=== PATIENT | female | born 1980 | race Caucasian/White ===

== ENCOUNTER → 2017-01-24 | Outpatient (REF) | payer BC ==
[2017-01-24 13:05] LABS: BASO % 0.2 % (0.0-1.0); EOS # 0.1 K/mm3 (0.0-0.50); EOS % 1.5 % (0.0-3.0); LARGE UNSTAINED CELL # 0.1 K/mm3 (0.0-0.4); LARGE UNSTAINED CELL % 1.2 % (0.0-4.0); LYMPH # 1.5 K/mm3 (1.5-4.5); MEAN CORPUSCULAR HGB CONC 33.5 g/dl (32.0-36.5); MEAN CORPUSCULAR VOLUME 92.5 fl (80.0-96.0); MONO # 0.3 K/mm3 (0.0-0.8); MONO % 4.1 % (0.0-5.0); NEUTROPHILS # 5.4 K/mm3 (1.8-7.7); NEUTROPHILS % 73.1 % (36.0-66.0); PLATELET COUNT, AUTOMATED 231 k/mm3 (150-450); RED CELL DISTRIBUTION WIDTH 12.9 % (11.5-14.5); WHITE BLOOD COUNT 7.3 K/mm3 (4.0-10.0)
[2017-01-24 13:52] LABS: ALBUMIN 3.7 GM/DL (3.2-5.2); ALBUMIN/GLOBULIN RATIO 1.12 (1.00-1.93); ALKALINE PHOSPHATASE 72 U/L (45-117); ALT/SGPT 24 U/L (12-78); ANION GAP 6 MEQ/L (8-16); AST/SGOT 12 U/L (15-37); BILIRUBIN,TOTAL 0.3 MG/DL (0.2-1.0); BLOOD UREA NITROGEN 15 MG/DL (7-18); CALCIUM LEVEL 10.1 MG/DL (8.5-10.1); CARBON DIOXIDE LEVEL 28 MEQ/L (21-32); CHLORIDE LEVEL 109 MEQ/L (98-107); CREATININE FOR GFR 1.05 MG/DL (0.55-1.02); GLOMERULAR FILTRATION RATE > 60.0 (>60); GLUCOSE, FASTING 73 MG/DL (70-105); POTASSIUM SERUM 4.4 MEQ/L (3.5-5.1); SODIUM LEVEL 143 MEQ/L (136-145)
== END ==
LOC: M LABNEURO 12:30
PROVIDERS: ATTEND Psychiatry & Neurology Neurology
DX: G43.909 Migraine, unspecified, not intractable, without status migrainosus (principal)

== ENCOUNTER → 2017-02-10 | Outpatient (REF) | payer BC ==
[~2017-02-10] MED LIST: AUGM875T28 PO; BUSP10TA PO; CYMB60CA3 PO; HYDR12.55 PO; MECL12.575 PO; NORCOTAB PO; NORT10CA2 PO; SENN1TAB2 PO; ZONI25CA2 PO; ZONI50CA3 PO
== END ==
LOC: M LAB REF 15:36
PROVIDERS: ATTEND Physician Assistant
DX: J06.9 Acute upper respiratory infection, unspecified (principal)

== ENCOUNTER 2017-03-10 10:52 | Day surgery (SDC) | payer BC ==
[~2017-03-10] VITALS: Ht 157.5 cm; Wt 90.9 kg
[2017-03-10] MEDS ORDERED: BUSP10TA PO (11:19)
[2017-03-10] MEDS ORDERED: MECL12.575 PO (11:19)
[2017-03-10] MEDS ORDERED: ZONI50CA3 PO (11:19)
[2017-03-10] MEDS ORDERED: CYMB60CA3 PO (11:19)
[2017-03-10] MEDS ORDERED: NORT10CA2 PO (11:19)
[2017-03-10] MEDS ORDERED: ZONI25CA2 PO (11:19)
[2017-03-10] MEDS ORDERED: HYDR12.55 PO (11:19)
[2017-03-10] MEDS ORDERED: PIPERACILLIN/TAZOBACTAM SOD 3.375 GM in D5W MINI-BAG PLUS 50 ML IV ONE (11:30)
[2017-03-10] MEDS ORDERED: LR 1,000 ML IV ONE (11:30)
[2017-03-10] MEDS ORDERED: ONDANSETRON 4MG/2ML VIAL (J2405) IV ONE (11:30)
[2017-03-10] MEDS ORDERED: MORPHINE 4 MG/ML 1ML SYRINGE IV ONE (11:30)
[2017-03-10 11:35] LABS: BASO % 0.3 % (0.0-1.0); EOS # 0.1 K/mm3 (0.0-0.50); EOS % 0.6 % (0.0-3.0); LARGE UNSTAINED CELL # 0.1 K/mm3 (0.0-0.4); LARGE UNSTAINED CELL % 0.5 % (0.0-4.0); LYMPH # 1.4 K/mm3 (1.5-4.5); LYMPH % 8.4 % (24.0-44.0); MEAN CORPUSCULAR HEMOGLOBIN 30.7 pg (27.0-33.0); MEAN CORPUSCULAR HGB CONC 34.1 g/dl (32.0-36.5); MEAN CORPUSCULAR VOLUME 90.2 fl (80.0-96.0); MONO # 0.6 K/mm3 (0.0-0.8); MONO % 3.9 % (0.0-5.0); NEUTROPHILS # 13.4 K/mm3 (1.8-7.7); NEUTROPHILS % 86.3 % (36.0-66.0); PLATELET COUNT, AUTOMATED 293 k/mm3 (150-450); WHITE BLOOD COUNT 15.5 K/mm3 (4.0-10.0)
[2017-03-10 11:38] LABS: CONTROL LINE HCG INT CTR LINE PRESENT
[2017-03-10 11:41] LABS: ANION GAP 6 MEQ/L (8-16); BLOOD UREA NITROGEN 6 MG/DL (7-18); CALCIUM LEVEL 10.8 MG/DL (8.5-10.1); CARBON DIOXIDE LEVEL 28 MEQ/L (21-32); CHLORIDE LEVEL 104 MEQ/L (98-107); CREATININE FOR GFR 1.01 MG/DL (0.55-1.02); GLOMERULAR FILTRATION RATE > 60.0 (>60); GLUCOSE, FASTING 120 MG/DL (70-105); POTASSIUM SERUM 3.9 MEQ/L (3.5-5.1); SODIUM LEVEL 138 MEQ/L (136-145)
[2017-03-10] MEDS ORDERED: ROCURONIUM BROMIDE 50 MG/5 ML VIAL/SYRINGE As Ordered ONE (12:55)
[2017-03-10] MEDS ORDERED: PROPOFOL 200 MG/20 ML VIAL As Ordered ONE (12:55)
[2017-03-10] MEDS ORDERED: MIDAZOLAM INJ 2 MG/2 ML VIAL (J2250) As Ordered ONE (12:55)
[2017-03-10] MEDS ORDERED: fentaNYL 100 MCG/2 ML INJECTION (J3010) As Ordered ONE (12:55)
[2017-03-10] MEDS ORDERED: LIDOCAINE 2% INJ 100 MG/5 ML SDV (FOR ANES.) As Ordered ONE (12:55)
[2017-03-10] MEDS ORDERED: ONDANSETRON 4MG/2ML VIAL (J2405) As Ordered ONE (12:55)
[2017-03-10] MEDS ORDERED: BUPIVACAINE/EPIN 0.25% 30 ML VIAL As Ordered ONE (13:27)
[2017-03-10] MEDS ORDERED: HYDROmorphone HCL 2 MG/ML 1ML VIAL (J1170) As Ordered ONE (13:53)
[2017-03-10] MEDS ORDERED: GLYCOPYRROLATE INJ 0.2 MG/ML 2 ML VIAL As Ordered ONE (13:59)
[2017-03-10] MEDS ORDERED: NEOSTIGMINE 1MG/ML 5 ML SYRINGE (J2710) As Ordered ONE (13:59)
[2017-03-10] MEDS ORDERED: SUGAMMADEX SODIUM 500 MG/5 ML VIAL (BRIDION) As Ordered ONE (14:02)
[2017-03-10] MEDS ORDERED: HYDROmorphone HCL 1 MG/ML SYRINGE (J1170) As Ordered ONE (14:28)
[2017-03-10] MEDS: HYDROmorphone HCL 1 MG/ML SYRINGE (J1170) IV PRN ×6 (14:30→14:55)
[2017-03-10] MEDS ORDERED: MORPHINE 2 MG/ML 1ML SYRINGE IV PRN (14:30)
[2017-03-10] MEDS ORDERED: ONDANSETRON 4MG/2ML VIAL (J2405) IV PRN ×2 (14:30→14:45)
[2017-03-10] MEDS ORDERED: MOM 30ML SUSPENSION UDC PO PRN (14:30)
[2017-03-10] MEDS ORDERED: ACETAMINOPHEN TAB 650MG DOSE (2X325MG) PO PRN (14:30)
[2017-03-10] MEDS ORDERED: fentaNYL 100 MCG/2 ML INJECTION (J3010) IV PRN (14:45)
[2017-03-10] MEDS ORDERED: PERCOCET 5MG/325MG TAB PO PRN (14:45)
[2017-03-10] MEDS ORDERED: KETOROLAC 30 MG/ML VIAL (J1885) IV PRN (14:45)
[2017-03-10] MEDS ORDERED: KETOROLAC 30 MG/ML VIAL (J1885) As Ordered ONE (14:45)
[2017-03-10] MEDS ORDERED: LR 1,000 ML IV SCH (14:45)
[2017-03-10 15:45] VITALS: BP 127/67
[2017-03-10 16:15] VITALS: BP 121/69
[2017-03-10 17:15] VITALS: BP 120/71
[2017-03-10] MEDS: NORCO, ANEXSIA 5/325MG TABLET (HYDROcodone/ACETAMINOPHEN) PO PRN ×2 (17:47→22:37)
[2017-03-10] MEDS: PIPERACILLIN/TAZOBACTAM SOD 3.375 GM in D5W MINI-BAG PLUS 50 ML IV SCH (17:48)
[2017-03-10 18:15] VITALS: BP 118/69
[2017-03-10 19:15] VITALS: BP 122/69
[2017-03-10 20:15] VITALS: BP 121/68
[2017-03-10] MEDS ORDERED: ZONISAMIDE 50 MG CAP (ZONEGRAN) PO SCH (21:00)
[2017-03-10] MEDS ORDERED: NORTRIPTYLINE 10 MG CAP PO SCH (21:00)
[2017-03-10] MEDS ORDERED: NORTRIPTYLINE 25 MG CAP PO SCH (21:00)
[2017-03-10] MEDS: busPIRone 10 MG TAB PO SCH (21:16)
[2017-03-10] MEDS: MECLIZINE 12.5 MG TAB PO SCH (21:16)
[2017-03-10] MEDS: SENOKOT S TAB PO SCH (21:16)
[2017-03-10] MEDS: LR 1,000 ML IV SCH (21:16)
[2017-03-10] MEDS: HEPARIN SOD (PORCINE) 5000 UNITS/ML VIAL SC SCH (21:23)
--- NOTE | 2017-03-10 21:35 | HPE ---
DATE OF ADMISSION: 03/10/2017 CHIEF COMPLAINT: Right lower quadrant pain. HISTORY OF PRESENT ILLNESS: The patient is a 37-year-old female who presents with right lower quadrant abdominal pain that has been going on for the past 3 days. She has a history of severe cramping with her periods and so she thought that was it at first; however, with her pain continuing to get worse and she was having some nausea with it, she came in for evaluation. Denies any fevers. Denies any trauma to the area. She has had severe pains in the past, but she feels that this is worse than her menstrual pains even. In the emergency room (ER), she was found to have a leukocytosis, tachycardia, as well as an ultrasound finding consistent with likely appendicitis. ALLERGIES: ETHINYL ESTRADIOL, NUVARING and FLUOXETINE. HOME MEDICATIONS: Please see medical record. MEDICAL HISTORY: 1. Severe headaches. 2. Hypertension. PAST SURGICAL HISTORY: 1. (C) section. 2. Tubal ligation. 3. Tonsils and adenoids. SOCIAL HISTORY: Denies drug, alcohol, tobacco usage. FAMILY HISTORY: Noncontributory. REVIEW OF SYSTEMS: Pertinent positives and negatives as stated in the history of present illness (HPI). PHYSICAL EXAMINATION: General: Alert and oriented times three. No acute distress. Vital signs: Temperature 99.2, pulse 104, respirations 18, blood pressure 144/77, pulse oximetry 100% room air. HEENT: Pupils equal, round, reactive to light and accommodation. Heart: S1, S2, regular rhythm. Lungs: Clear to auscultation bilaterally. Abdomen: Soft, tender to palpation right lower quadrant. Localized guarding and rebound. No signs of generalized peritonitis. No signs of ventral hernias. Extremities: No clubbing, cyanosis or edema. LABORATORY DATA: White count 15.5, hemoglobin 14.8, platelets 293, potassium 3.9, creatinine 1.01. IMAGING STUDIES: Ultrasound of the abdomen shows dilated appendix up to 9.1 mm. It is noncompressible. There is an appendicolith that is identified within it and there is mesenteric fat inflammation surrounding this. ASSESSMENT/PLAN: The patient is a 37-year-old female with signs and symptoms consistent with acute appendicitis. RECOMMENDATIONS: Proceed to laparoscopic, possible open appendectomy. Risks and benefits of procedure not limited to, but including bleeding, infection, hernia formation, damage to surrounding structures, need for further surgery were discussed in detail with the patient. Informed consent was obtained and procedure was planned. Postoperatively, she will be kept overnight. Once she has been afebrile for 24 hours and her white count starts to trend down, she will be discharged home.
[2017-03-10] MEDS: KETOROLAC 30 MG/ML VIAL (J1885) IV PRN (21:45)
[2017-03-11] VITALS: BP 119/64
[2017-03-11] MEDS: PIPERACILLIN/TAZOBACTAM SOD 3.375 GM in D5W MINI-BAG PLUS 50 ML IV SCH ×3 (00:42→11:39)
[2017-03-11 04:00] VITALS: BP 118/77
[2017-03-11] MEDS: KETOROLAC 30 MG/ML VIAL (J1885) IV PRN (05:01)
[2017-03-11] MEDS: HEPARIN SOD (PORCINE) 5000 UNITS/ML VIAL SC SCH (05:40)
[2017-03-11] MEDS: NORCO, ANEXSIA 5/325MG TABLET (HYDROcodone/ACETAMINOPHEN) PO PRN ×2 (05:41→11:39)
[2017-03-11 07:22] LABS: MEAN CORPUSCULAR HEMOGLOBIN 30.7 pg (27.0-33.0); MEAN CORPUSCULAR HGB CONC 33.4 g/dl (32.0-36.5); MEAN CORPUSCULAR VOLUME 91.8 fl (80.0-96.0); WHITE BLOOD COUNT 9.3 K/mm3 (4.0-10.0)
[2017-03-11 07:39] LABS: ANION GAP 3 MEQ/L (8-16); BLOOD UREA NITROGEN 8 MG/DL (7-18); CALCIUM LEVEL 9.6 MG/DL (8.5-10.1); CARBON DIOXIDE LEVEL 29 MEQ/L (21-32); CHLORIDE LEVEL 105 MEQ/L (98-107); CREATININE FOR GFR 0.84 MG/DL (0.55-1.02); GLOMERULAR FILTRATION RATE > 60.0 (>60); GLUCOSE, FASTING 125 MG/DL (70-105); MAGNESIUM LEVEL 2.5 MG/DL (1.8-2.4); POTASSIUM SERUM 4.2 MEQ/L (3.5-5.1); SODIUM LEVEL 137 MEQ/L (136-145)
[2017-03-11 08:00] VITALS: BP 111/61
[2017-03-11] MEDS ORDERED: DULoxetine 30 MG CAP (CYMBALTA) PO SCH (09:00)
[2017-03-11] MEDS ORDERED: ZONISAMIDE 25 MG CAP (ZONEGRAN) PO SCH (09:00)
[2017-03-11] MEDS: LR 1,000 ML IV SCH (09:05)
[2017-03-11] MEDS: busPIRone 10 MG TAB PO SCH (09:06)
[2017-03-11] MEDS: MECLIZINE 12.5 MG TAB PO SCH (09:06)
[2017-03-11] MEDS: SENOKOT S TAB PO SCH (09:06)
[2017-03-11] MEDS ORDERED: SENN1TAB2 PO (11:04)
[2017-03-11] MEDS ORDERED: NORCOTAB PO (11:04)
[2017-03-11] MEDS ORDERED: AUGM875T28 PO (11:04)
[2017-03-11 12:00] VITALS: BP 114/74
--- NOTE | 2017-03-12 07:28 | RO ---
DATE OF PROCEDURE: 03/10/2017 PREOPERATIVE DIAGNOSIS: Acute appendicitis. POSTOPERATIVE DIAGNOSIS: Acute appendicitis with rupture. PROCEDURE: Laparoscopic appendectomy with drain placement and right lower quadrant washout. SURGEON: Dr. Everette Hernandez KEY MAKER: None. ANESTHESIA: General. ESTIMATED BLOOD LOSS: 5 mL. COMPLICATIONS: None. INDICATIONS FOR PROCEDURE: The patient is a 37-year-old female who presents with acute appendicitis. Recommendation to proceed with laparoscopic, possible open appendectomy. Risks and benefits of procedure not limited to but including bleeding, infection, hernia formation, damage to surrounding structures, need for further surgery were discussed in detail with the patient. Informed consent was obtained and procedure was planned. DESCRIPTION OF PROCEDURE: The patient was brought back to operating room one after sufficient sedation and the abdomen was sterilely prepped and draped. Next, a time-out was done to confirm proper patient, proper procedure. Following that, a 5 mm incision was made in the left upper quadrant, Veress needle was inserted and the abdomen was insufflated to 15 mmHg. Next, the Veress needle was removed, 5 mm Optiview port was used to gain access to the abdomen. Once the abdomen was entered, 8 mm port was placed just below the umbilicus and another 5 mm port suprapubically in the midline. The cecum was gently elevated upwards revealing the enlarged appendix that was severely inflamed and adherent to the posterior wall of the cecum. I was able to tease away the appendix from the base of the cecum. After doing so, I was elevating the appendix up in the air and as soon as I grabbed onto it, it burst open leaking some stool into the right lower quadrant. This was unavoidable due to the severe inflammation of the appendix. The rest of the appendix was dissected free. The mesoappendix was dissected using the Enseal. Once the base of the appendix was reached, two PDS Endoloops were placed around it and the appendix was amputated off and brought out through the umbilical port site in a 5 mm EndoCatch bag. Once the appendix was removed, the right lower quadrant was aspirated. All visible stool and fluid was removed. A slight amount of irrigation was used to clean up the residual stool that was visible. Following that, a #19-Georgian Sonny drain was placed in the right lower quadrant adjacent to the cecum and brought out through the suprapubic port site and tied in place with a #2-0 silk suture. The abdomen was then desufflated. Skin incision closed with #4-0 Vicryl subcuticular sutures. The abdomen was cleaned and dried. Steri-Strips, 4x4 and tape were applied thus ending procedure. Edited 03/12/2017
--- NOTE | 2017-03-12 15:34 | DSES ---
DATE OF ADMISSION: 03/10/2017 DATE OF DISCHARGE: 03/11/2017 ADMISSION DIAGNOSIS: Acute appendicitis. DISCHARGE DIAGNOSIS: Acute appendicitis. HOSPITAL COURSE: The patient is a 37-year-old female who presented yesterday with a three-day history of right abdominal pain, generalized slightly to the right lower quadrant. She had findings of acute appendicitis on CT scan as well as a leukocytosis with a white count of 15.5. She was taken to the operating room yesterday afternoon for laparoscopic appendectomy. She had a perforation of the appendix during the procedure. Because of that, she had a Sonny drain placed. Postoperatively, she was kept overnight. She was on a regular diet, IV fluids, and antibiotics. No problems with pain, nausea, or vomiting during the stay. She was up walking around, tolerating a diet. This morning, her white count is down to 9.3. The drain is mostly serosanguineous but there is still a little bit of cloudy fluid in it. Therefore, we will keep the drain in place for a couple more days. Otherwise, she is doing well. Her pain is much improved since prior to surgery. She is tolerating food. She is ambulating. She will be discharged home today. I will send her home with some pain pill, stool softener, and some Augmentin to take twice day for the next seven days. She will followup me in the office on Monday to have the drain removed and she was given instructions to call me if she has any changes or problems with anything.
== END 2017-03-11 14:20 | disposition home or self-care (01) ==
LOC: M ED 10:52 → M SDC 12:45 → M ED 12:54 → M PED 15:34 → M SDC 03-11 14:20
PROVIDERS: ATTEND Surgery
DX: K35.2 Acute appendicitis with generalized peritonitis (principal); I10 Essential (primary) hypertension; F41.9 Anxiety disorder, unspecified; F32.9 Major depressive disorder, single episode, unspecified; G43.909 Migraine, unspecified, not intractable, without status migrainosus; Z88.8 Allergy status to other drugs, medicaments and biological substances; Z79.899 Other long term (current) drug therapy; Z98.51 Tubal ligation status
CPT/HCPCS: 36415; 44970; 80048; 81025; 83735; 84703; 85025; 85027; 88304; 96372; 96374; 96375; 96376; 99284; J1170; J1885; J2250; J2405; J2543; J3010

== ENCOUNTER → 2017-03-10 | Outpatient (CLI) | payer BC ==
--- NOTE | 2017-03-10 10:04 | REP ---
ABDOMINAL SERIES: Supine erect view of the abdomen demonstrate no free air and no evidence for bowel obstruction. There is no evidence of fecal impaction. Metallic clips are seen in the pelvis. No definite abnormal calcifications are seen. The visualized osseous structures are unremarkable. IMPRESSION: Negative abdominal series. Signed by Everette Merida MD 03/10/2017 05:06 P
--- NOTE | 2017-03-10 12:38 | REP ---
Ultrasound of the abdominal right lower quadrant: The patient complains of right lower quadrant pain. The appendix is visualized. The appendix is distended measuring 9.1 mm in diameter. The appendix is noncompressible. An appendicolith is identified. There is pain over the appendix with transducer pressure and there is rebound tenderness and there is mesenteric fat inflammation. Findings are compatible with appendicitis. No mesenteric lymph nodes are identified. No free fluid is identified. Small bowel peristalsis and the cecum were visualized. Impression: The ultrasound findings are compatible with acute appendicitis. Signed by Everette Caballero MD 03/10/2017 12:30 P
== END ==
LOC: M RAD 08:59
PROVIDERS: ATTEND Physician Assistant
DX: R10.31 Right lower quadrant pain (principal)

== ENCOUNTER 2017-09-25 06:36 | Emergency (ER) | payer OTHER, BC ==
[2017-09-25 07:17] LABS: BASO % 0.5 % (0.0-1.0); EOS # 0.1 10^3/uL (0.0-0.50); EOS % 1.5 % (0.0-3.0); HEMATOCRIT 40.8 % (36.0-47.0); IMMATURE GRANULOCYTE % 0.2 % (0-3.0); LYMPH # 2.9 10^3/uL (1.5-4.5); LYMPH % 33.5 % (24.0-44.0); MEAN CORPUSCULAR HEMOGLOBIN 30.1 pg (27.0-33.0); MEAN CORPUSCULAR HGB CONC 34.3 g/dl (32.0-36.5); MEAN CORPUSCULAR VOLUME 87.7 fl (80.0-96.0); MONO # 0.4 10^3/uL (0.0-0.8); MONO % 5.2 % (0.0-5.0); NEUTROPHILS # 5.1 10^3/uL (1.8-7.7); NEUTROPHILS % 59.1 % (36.0-66.0); PLATELET COUNT, AUTOMATED 312 10^3/uL (150-450); RED BLOOD COUNT 4.65 10^6/uL (4.00-5.40); RED CELL DISTRIBUTION WIDTH 12.9 % (11.5-14.5); WHITE BLOOD COUNT 8.5 10^3/uL (4.0-10.0)
[2017-09-25 07:21] LABS: ANION GAP 10 MEQ/L (8-16); BLOOD UREA NITROGEN 11 MG/DL (7-18); CALCIUM LEVEL 10.4 MG/DL (8.5-10.1); CARBON DIOXIDE LEVEL 22 MEQ/L (21-32); CHLORIDE LEVEL 107 MEQ/L (98-107); CREATININE FOR GFR 1.11 MG/DL (0.55-1.30); GLOMERULAR FILTRATION RATE 58.3 (>60); GLUCOSE, FASTING 136 MG/DL (70-100); POTASSIUM SERUM 3.4 MEQ/L (3.5-5.1); SODIUM LEVEL 139 MEQ/L (136-145)
[2017-09-25 08:27] LABS: ACETAMINOPHEN LEVEL < 2.0 UG/ML (10.0-30.0); ALBUMIN 3.7 GM/DL (3.2-5.2); ALKALINE PHOSPHATASE 79 U/L (45-117); ALT/SGPT 35 U/L (12-78); AST/SGOT 14 U/L (7-37); BILIRUBIN,DIRECT < 0.1 MG/DL (0.0-0.2); BILIRUBIN,TOTAL 0.3 MG/DL (0.2-1.0); SALICYLATE LEVEL 5.1 MG/DL (5.0-30.0); TOTAL PROTEIN 7.4 GM/DL (6.4-8.2)
[2017-09-25 08:28] LABS: ETHYL ALCOHOL (ETHANOL) < 0.003 % (0.000-0.010)
[2017-09-25] MEDS ORDERED: LORazepam 2 MG/ML VIAL (J2060) As Ordered (09:06)
[2017-09-25] MEDS: LORazepam 2 MG/ML VIAL (J2060) IV (09:15)
== END 2017-09-25 10:32 | disposition home or self-care (01) ==
LOC: M ED 06:36
DX: R56.9 Unspecified convulsions (principal); R06.4 Hyperventilation; Z79.2 Long term (current) use of antibiotics; Z79.899 Other long term (current) drug therapy; Z88.8 Allergy status to other drugs, medicaments and biological substances; Z86.69 Personal history of other diseases of the nervous system and sense organs; Z98.890 Other specified postprocedural states
CPT/HCPCS: J2060

== ENCOUNTER → 2018-02-16 | Outpatient (REF) | payer OTHER ==
[2018-02-16 15:58] LABS: CHLAMYDIA DNA AMPLIFICATION NEGATIVE (NEGATIVE); GC DNA AMPLIFICATION NEGATIVE (NEGATIVE)
== END ==
LOC: M LAB REF 12:55
DX: Z30.430 Encounter for insertion of intrauterine contraceptive device (principal); Z11.3 Encounter for screening for infections with a predominantly sexual mode of transmission

== ENCOUNTER 2018-05-06 19:38 | Emergency (ER) | payer OTHER ==
[2018-05-06] MEDS: KETOROLAC 30 MG/ML VIAL (J1885) IV (20:26)
[2018-05-06 20:27] LABS: BASO % 0.2 % (0.0-1.0); EOS # 0.1 10^3/uL (0.0-0.50); EOS % 1.1 % (0.0-3.0); HEMATOCRIT 41.6 % (36.0-47.0); HEMOGLOBIN 14.3 g/dl (12.0-15.5); IMMATURE GRANULOCYTE % 0.3 % (0-3.0); LYMPH # 2.3 10^3/uL (1.5-4.5); LYMPH % 18.4 % (24.0-44.0); MEAN CORPUSCULAR HEMOGLOBIN 30.5 pg (27.0-33.0); MEAN CORPUSCULAR HGB CONC 34.4 g/dl (32.0-36.5); MEAN CORPUSCULAR VOLUME 88.7 fl (80.0-96.0); MONO # 0.6 10^3/uL (0.0-0.8); MONO % 5.1 % (0.0-5.0); NEUTROPHILS # 9.2 10^3/uL (1.8-7.7); NEUTROPHILS % 74.9 % (36.0-66.0); PLATELET COUNT, AUTOMATED 271 10^3/uL (150-450); RED BLOOD COUNT 4.69 10^6/uL (4.00-5.40); RED CELL DISTRIBUTION WIDTH 12.6 % (11.5-14.5); WHITE BLOOD COUNT 12.3 10^3/uL (4.0-10.0)
[2018-05-06 20:54] LABS: KETONE, URINE AUTO RFX TRACE mg/dL (NEGATIVE); LEUKOCYTE ESTERASE UR AUTO RFX 3+ (NEGATIVE); MUCUS, URINE RFX SMALL (NEGATIVE); NITRITE, URINE AUTO RFX NEGATIVE (NEGATIVE); RBC, URINE AUTO RFX 33 /HPF (0-3); SPECIFIC GRAVITY UR AUTO RFX 1.001 (1.002-1.035); SQUAM EPITHELIAL CELL UR AURFX 0 /HPF (0-6); WBC, URINE AUTO RFX 103 /HPF (0-3)
[2018-05-06 20:55] LABS: ANION GAP 8 MEQ/L (8-16); BLOOD UREA NITROGEN 10 MG/DL (7-18); CALCIUM LEVEL 10.9 MG/DL (8.5-10.1); CARBON DIOXIDE LEVEL 29 MEQ/L (21-32); CHLORIDE LEVEL 104 MEQ/L (98-107); CREATININE FOR GFR 1.15 MG/DL (0.55-1.30); GLOMERULAR FILTRATION RATE 55.6 (>58); GLUCOSE, FASTING 100 MG/DL (70-100); POTASSIUM SERUM 3.3 MEQ/L (3.5-5.1); SODIUM LEVEL 141 MEQ/L (136-145)
[2018-05-06] MEDS: PHENAZOPYRIDINE 100 MG TAB PO (21:53)
[2018-05-06] MEDS: NORCO 5/325MG TABLET (BULK FOR ED) PO (21:53)
[2018-05-06] MEDS: NITROFURANTOIN (MACROBID) 100 MG CAP PO (21:53)
[2018-05-06] MEDS: metroNIDAZOLE (FLAGYL) 500 MG TAB PO (21:53)
[2018-05-06 22:30] LABS: CHLAMYDIA DNA AMPLIFICATION NEGATIVE (NEGATIVE); GC DNA AMPLIFICATION NEGATIVE (NEGATIVE)
== END 2018-05-06 22:05 | disposition home or self-care (01) ==
LOC: M ED 19:38
DX: N30.90 Cystitis, unspecified without hematuria (principal); N76.0 Acute vaginitis; I10 Essential (primary) hypertension; R51 Headache; Z88.8 Allergy status to other drugs, medicaments and biological substances; Z79.899 Other long term (current) drug therapy
CPT/HCPCS: J1885

== ENCOUNTER → 2018-06-22 | Outpatient (CLI) | payer OTHER ==
[2018-06-22 20:03] LABS: BASO % 0.2 % (0.0-1.0); EOS # 0.2 10^3/uL (0.0-0.50); EOS % 1.8 % (0.0-3.0); HEMATOCRIT 38.3 % (36.0-47.0); HEMOGLOBIN 12.5 g/dl (12.0-15.5); IMMATURE GRANULOCYTE % 0.2 % (0-3.0); LYMPH # 1.4 10^3/uL (1.5-4.5); LYMPH % 15.2 % (24.0-44.0); MEAN CORPUSCULAR HEMOGLOBIN 29.3 pg (27.0-33.0); MEAN CORPUSCULAR HGB CONC 32.6 g/dl (32.0-36.5); MEAN CORPUSCULAR VOLUME 89.9 fl (80.0-96.0); MONO # 0.4 10^3/uL (0.0-0.8); MONO % 4.7 % (0.0-5.0); NEUTROPHILS # 7.1 10^3/uL (1.8-7.7); NEUTROPHILS % 77.9 % (36.0-66.0); PLATELET COUNT, AUTOMATED 326 10^3/uL (150-450); RED BLOOD COUNT 4.26 10^6/uL (4.00-5.40); RED CELL DISTRIBUTION WIDTH 13.3 % (11.5-14.5); WHITE BLOOD COUNT 9.1 10^3/uL (4.0-10.0)
== END ==
LOC: M ADAMS 13:47
DX: J20.9 Acute bronchitis, unspecified (principal)
CPT/HCPCS: 85025

== ENCOUNTER 2018-06-25 17:48 | Inpatient (IN) | payer OTHER ==
[2018-06-25] MEDS: methylPREDNISolone INJ 125 MG/2 ML VIAL (J2930) IV (18:32)
[2018-06-25] MEDS: ALBUTEROL SULFATE 2.5 MG/0.5 ML INH NEB SOLN INH (18:33)
[2018-06-25 18:35] LABS: BASO % 0.2 % (0.0-1.0); HEMATOCRIT 41.5 % (36.0-47.0); HEMOGLOBIN 14.2 g/dl (12.0-15.5); IMMATURE GRANULOCYTE % 1.2 % (0-3.0); LYMPH # 1.6 10^3/uL (1.5-4.5); LYMPH % 7.8 % (24.0-44.0); MEAN CORPUSCULAR HEMOGLOBIN 30.3 pg (27.0-33.0); MEAN CORPUSCULAR HGB CONC 34.2 g/dl (32.0-36.5); MEAN CORPUSCULAR VOLUME 88.7 fl (80.0-96.0); MONO # 0.5 10^3/uL (0.0-0.8); MONO % 2.6 % (0.0-5.0); NEUTROPHILS # 17.6 10^3/uL (1.8-7.7); NEUTROPHILS % 88.2 % (36.0-66.0); PLATELET COUNT, AUTOMATED 516 10^3/uL (150-450); RED BLOOD COUNT 4.68 10^6/uL (4.00-5.40); RED CELL DISTRIBUTION WIDTH 13.2 % (11.5-14.5); WHITE BLOOD COUNT 19.9 10^3/uL (4.0-10.0)
[2018-06-25 18:51] LABS: LACTIC ACID SEPSIS PROTOCOL 2.4 MMOL/L (0.4-2.0)
[2018-06-25 18:52] LABS: ALBUMIN 3.4 GM/DL (3.2-5.2); ALBUMIN/GLOBULIN RATIO 0.77 (1.00-1.93); ALKALINE PHOSPHATASE 91 U/L (45-117); ALT/SGPT 90 U/L (12-78); ANION GAP 9 MEQ/L (8-16); AST/SGOT 40 U/L (7-37); BILIRUBIN,DIRECT < 0.1 MG/DL (0.0-0.2); BILIRUBIN,TOTAL 0.3 MG/DL (0.2-1.0); BLOOD UREA NITROGEN 16 MG/DL (7-18); CARBON DIOXIDE LEVEL 25 MEQ/L (21-32); CHLORIDE LEVEL 104 MEQ/L (98-107); CK-MB VALUE MASS < 1.0 NG/ML (<3.6); CPK CREATINE PHOSPHOKINASE 56 U/L (26-192); CREATININE FOR GFR 1.02 MG/DL (0.55-1.30); GLOMERULAR FILTRATION RATE > 60.0 (>58); GLUCOSE, FASTING 151 MG/DL (70-100); MB/CK RELATIVE INDEX 1.79 (< OR =4); NT-PRO BNP 87 PG/ML (<125); POTASSIUM SERUM 4.1 MEQ/L (3.5-5.1); SODIUM LEVEL 138 MEQ/L (136-145); THYROID STIMULATING HORMONE 0.072 uIU/ML (0.358-3.740); TOTAL PROTEIN 7.8 GM/DL (6.4-8.2); TROPONIN I < 0.02 NG/ML (< 0.10)
[2018-06-25] MEDS: NS 1,000 ML IV (19:19)
[2018-06-25 19:27] LABS: INFLUENZA A AMPLIFICATION NEGATIVE (NEGATIVE); INFLUENZA B AMPLIFICATION NEGATIVE (NEGATIVE)
[2018-06-25] MEDS ORDERED: ISOVUE-370 76% 100ML VIAL (Q9967) As Ordered (19:36)
[2018-06-25] MEDS: ALBUTEROL SULFATE 2.5 MG/0.5 ML INH NEB SOLN NEB (20:54)
[2018-06-25] MEDS: IPRATROPIUM 0.5MG/ALBUTEROL 2.5MG INH SOL UD 3ML (DUONEB)(J7620) NEB (20:57)
[2018-06-25] MEDS: dexameTHASONE 20 MG/5 ML VIAL (J1100) IV (21:33)
[2018-06-25 22:47] LABS: ABG BASE EXCESS -3.2 (-2.0-2.0); ABG HCO3 20.3 MEQ/L (22.0-26.0); ABG O2 SATURATION 96.4 % (95.0-99.0); ABG PARTIAL PRESSURE CO2 31.8 mmHg (35.0-45.0); ABG PARTIAL PRESSURE O2 84.4 mmHg (75.0-100.0); ABG STANDARD HCO3 21.8 MEQ/L (22.0-26.0); ABG TOTAL CO2 21.3 MEQ/L (22.0-29.0); ABG pH (ARTERIAL) 7.423 UNITS (7.350-7.450)
[2018-06-25] MEDS ORDERED: BISACODYL 5 MG TAB PO (23:45)
[2018-06-25] MEDS ORDERED: IPRATROPIUM 0.5MG/ALBUTEROL 2.5MG INH SOL UD 3ML (DUONEB)(J7620) NEB (23:45)
[2018-06-25] MEDS ORDERED: BISACODYL 10 MG SUPP PR (23:45)
[2018-06-26] MEDS ORDERED: ALBUTEROL SULFATE 2.5 MG/0.5 ML INH NEB SOLN NEB (00:15)
[2018-06-26] MEDS: LevoFLOXacin IV 750 MG in APPROPRIATE DILUENT 1 EA IV ×2 (00:34→23:00)
[2018-06-26] MEDS: NS 1,000 ML IV ×2 (00:35→09:29)
[2018-06-26] MEDS ORDERED: **hydrALAZINE** 10 MG TAB PO (00:45)
[2018-06-26] MEDS: ALBUTEROL SULFATE 2.5 MG/0.5 ML INH NEB SOLN NEB ×4 (02:00→20:00)
[2018-06-26] MEDS ORDERED: IPRATROPIUM 0.5MG/ALBUTEROL 2.5MG INH SOL UD 3ML (DUONEB)(J7620) NEB (02:00)
[2018-06-26 05:49] LABS: HEMATOCRIT 36.8 % (36.0-47.0); MEAN CORPUSCULAR HEMOGLOBIN 29.7 pg (27.0-33.0); MEAN CORPUSCULAR HGB CONC 32.9 g/dl (32.0-36.5); MEAN CORPUSCULAR VOLUME 90.4 fl (80.0-96.0); PLATELET COUNT, AUTOMATED 426 10^3/uL (150-450); RED BLOOD COUNT 4.07 10^6/uL (4.00-5.40); RED CELL DISTRIBUTION WIDTH 13.2 % (11.5-14.5); WHITE BLOOD COUNT 17.1 10^3/uL (4.0-10.0)
[2018-06-26 05:53] LABS: HEMOGLOBIN 12.1 g/dl (12.0-15.5)
[2018-06-26 06:20] LABS: LACTIC ACID SEPSIS PROTOCOL 2.2 MMOL/L (0.4-2.0)
[2018-06-26] MEDS: SENOKOT S TAB PO ×2 (09:00→20:42)
[2018-06-26] MEDS: busPIRone 5 MG TAB PO ×2 (09:26→20:42)
[2018-06-26] MEDS: ENOXAPARIN 40 MG/0.4 ML SYRINGE (J1650) SC (09:26)
[2018-06-26] MEDS: DULoxetine 30 MG CAP (CYMBALTA) PO (09:27)
[2018-06-26] MEDS: ZONISAMIDE 100 MG CAP (ZONEGRAN) PO ×2 (09:27→20:42)
[2018-06-26] MEDS: NORTRIPTYLINE 25 MG CAP PO ×2 (09:28→20:42)
[2018-06-26] MEDS: ACETAMINOPHEN TAB 650MG DOSE (2X325MG) PO (09:49)
[2018-06-26 10:35] LABS: ANION GAP 8 MEQ/L (8-16); BLOOD UREA NITROGEN 15 MG/DL (7-18); CALCIUM LEVEL 10.3 MG/DL (8.5-10.1); CARBON DIOXIDE LEVEL 24 MEQ/L (21-32); CHLORIDE LEVEL 109 MEQ/L (98-107); CK-MB VALUE MASS < 1.0 NG/ML (<3.6); CPK CREATINE PHOSPHOKINASE 27 U/L (26-192); CREATININE FOR GFR 0.82 MG/DL (0.55-1.30); GLOMERULAR FILTRATION RATE > 60.0 (>58); GLUCOSE, FASTING 167 MG/DL (70-100); POTASSIUM SERUM 3.4 MEQ/L (3.5-5.1); SODIUM LEVEL 141 MEQ/L (136-145); TROPONIN I < 0.02 NG/ML (< 0.10)
[2018-06-26 12:25] LABS: MAGNESIUM LEVEL 2.4 MG/DL (1.8-2.4)
[2018-06-26] MEDS: POTASSIUM CHLORIDE 10 MEQ SR TABLET PO (12:25)
[2018-06-26] MEDS: guaiFENesin ER 600 MG TAB PO ×2 (12:25→20:42)
[2018-06-26 20:46] LABS: CK-MB VALUE MASS < 1.0 NG/ML (<3.6); CPK CREATINE PHOSPHOKINASE 33 U/L (26-192); MB/CK RELATIVE INDEX 3.03 (< OR =4); TROPONIN I < 0.02 NG/ML (< 0.10)
[2018-06-27] MEDS: ALBUTEROL SULFATE 2.5 MG/0.5 ML INH NEB SOLN NEB ×4 (02:00→20:00)
[2018-06-27] MEDS: ACETAMINOPHEN TAB 650MG DOSE (2X325MG) PO ×2 (06:01→20:07)
[2018-06-27 07:31] LABS: HEMATOCRIT 35.9 % (36.0-47.0); HEMOGLOBIN 11.5 g/dl (12.0-15.5); MEAN CORPUSCULAR HEMOGLOBIN 29.9 pg (27.0-33.0); MEAN CORPUSCULAR VOLUME 93.2 fl (80.0-96.0); PLATELET COUNT, AUTOMATED 341 10^3/uL (150-450); RED BLOOD COUNT 3.85 10^6/uL (4.00-5.40); RED CELL DISTRIBUTION WIDTH 13.7 % (11.5-14.5); WHITE BLOOD COUNT 9.2 10^3/uL (4.0-10.0)
[2018-06-27 07:52] LABS: ANION GAP 6 MEQ/L (8-16); BLOOD UREA NITROGEN 20 MG/DL (7-18); CALCIUM LEVEL 9.1 MG/DL (8.5-10.1); CARBON DIOXIDE LEVEL 27 MEQ/L (21-32); CHLORIDE LEVEL 110 MEQ/L (98-107); CREATININE FOR GFR 0.95 MG/DL (0.55-1.30); GLOMERULAR FILTRATION RATE > 60.0 (>58); GLUCOSE, FASTING 80 MG/DL (70-100); POTASSIUM SERUM 3.7 MEQ/L (3.5-5.1); SODIUM LEVEL 143 MEQ/L (136-145)
[2018-06-27] MEDS: guaiFENesin ER 600 MG TAB PO ×2 (08:32→20:06)
[2018-06-27] MEDS: busPIRone 5 MG TAB PO ×2 (08:32→20:06)
[2018-06-27] MEDS: ENOXAPARIN 40 MG/0.4 ML SYRINGE (J1650) SC (08:32)
[2018-06-27] MEDS: DULoxetine 30 MG CAP (CYMBALTA) PO (08:32)
[2018-06-27] MEDS: SENOKOT S TAB PO ×2 (08:33→20:06)
[2018-06-27] MEDS: NORTRIPTYLINE 25 MG CAP PO ×2 (08:33→20:06)
[2018-06-27] MEDS: ZONISAMIDE 100 MG CAP (ZONEGRAN) PO ×2 (08:33→20:06)
[2018-06-27] MEDS: predniSONE 20 MG TAB PO (12:26)
[2018-06-27] MEDS: IBUPROFEN 400 MG TAB PO ×2 (12:27→23:56)
[2018-06-27 14:49] LABS: CONTROL LINE HCG INT CTR LINE PRESENT; HCG, SERUM QUALITATIVE NEGATIVE (NEGATIVE)
[2018-06-27] MEDS: LevoFLOXacin IV 750 MG in APPROPRIATE DILUENT 1 EA IV (23:53)
[2018-06-28] MEDS: ALBUTEROL SULFATE 2.5 MG/0.5 ML INH NEB SOLN NEB ×2 (02:00→07:48)
[2018-06-28] MEDS: ACETAMINOPHEN TAB 650MG DOSE (2X325MG) PO (06:01)
[2018-06-28 07:14] LABS: HEMATOCRIT 36.9 % (36.0-47.0); HEMOGLOBIN 12.2 g/dl (12.0-15.5); MEAN CORPUSCULAR HEMOGLOBIN 29.6 pg (27.0-33.0); MEAN CORPUSCULAR HGB CONC 33.1 g/dl (32.0-36.5); MEAN CORPUSCULAR VOLUME 89.6 fl (80.0-96.0); PLATELET COUNT, AUTOMATED 373 10^3/uL (150-450); RED BLOOD COUNT 4.12 10^6/uL (4.00-5.40); RED CELL DISTRIBUTION WIDTH 13.6 % (11.5-14.5); WHITE BLOOD COUNT 13.3 10^3/uL (4.0-10.0)
[2018-06-28 07:33] LABS: ANION GAP 7 MEQ/L (8-16); BLOOD UREA NITROGEN 17 MG/DL (7-18); CALCIUM LEVEL 9.5 MG/DL (8.5-10.1); CARBON DIOXIDE LEVEL 23 MEQ/L (21-32); CHLORIDE LEVEL 109 MEQ/L (98-107); CREATININE FOR GFR 0.81 MG/DL (0.55-1.30); GLOMERULAR FILTRATION RATE > 60.0 (>58); GLUCOSE, FASTING 90 MG/DL (70-100); POTASSIUM SERUM 3.8 MEQ/L (3.5-5.1); SODIUM LEVEL 139 MEQ/L (136-145)
[2018-06-28] MEDS: DULoxetine 30 MG CAP (CYMBALTA) PO (09:09)
[2018-06-28] MEDS: SENOKOT S TAB PO (09:10)
[2018-06-28] MEDS: NORTRIPTYLINE 25 MG CAP PO (09:10)
[2018-06-28] MEDS: predniSONE 20 MG TAB PO (09:10)
[2018-06-28] MEDS: busPIRone 5 MG TAB PO (09:10)
[2018-06-28] MEDS: guaiFENesin ER 600 MG TAB PO (09:10)
[2018-06-28] MEDS: ZONISAMIDE 100 MG CAP (ZONEGRAN) PO (09:10)
[2018-06-28] MEDS: ENOXAPARIN 40 MG/0.4 ML SYRINGE (J1650) SC (09:11)
[2018-06-28] MEDS: IBUPROFEN 400 MG TAB PO (10:54)
== END 2018-06-28 15:40 | disposition home or self-care (01) | DRG 139 ==
LOC: M ED INP 06-26 00:05 → M MSPAV 06-26 01:16 → M ED 17:48 → M MS4PR 06-26 19:59
PROVIDERS: Internal Medicine
DX: J12.9 Viral pneumonia, unspecified (principal); I10 Essential (primary) hypertension; F32.9 Major depressive disorder, single episode, unspecified; R91.8 Other nonspecific abnormal finding of lung field; K59.00 Constipation, unspecified; D72.829 Elevated white blood cell count, unspecified; T38.0X5A Adverse effect of glucocorticoids and synthetic analogues, initial encounter; Z98.51 Tubal ligation status; Z79.899 Other long term (current) drug therapy; Z88.8 Allergy status to other drugs, medicaments and biological substances

== ENCOUNTER → 2018-10-26 | Outpatient (REF) | payer OTHER ==
[~2018-10-26] MED LIST changes: +ATIV1TAB10 PO; +BUSP15TA47 PO; +FLAG500T PO; +HYDR12.55; +LORA0.5T11 PO; +MACR100C43 PO; +MUCI600T37 PO; +NORT25CA2 PO; +PRED10TA2 PO; +PRED20TA PO; +PYRI1TAB5 PO; +SENN8.6T7 PO; +TUSS1SUS2 PO; +ZONI100C2 PO
== END ==
LOC: M LAB REF 15:54
PROVIDERS: ATTEND Family Medicine
DX: D23.5 Other benign neoplasm of skin of trunk (principal)

== ENCOUNTER → 2019-03-04 | Outpatient (CLI) | payer OTHER ==
[~2019-03-04] MED LIST changes: +HYDR-3715 PO; -NORCOTAB PO; -SENN1TAB2 PO; +SENN1TAB40 PO; +SENN1TAB41 PO; -SENN8.6T7 PO
--- NOTE | 2019-03-04 09:41 | REP ---
MAXILLOFACIAL CT WITHOUT CONTRAST: HISTORY: Sinusitis. Minimal mucosal thickening is present in the maxillary and right ethmoid sinuses. The remaining sinuses are clear. The ostiomeatal units are patent. The middle and inferior nasal turbinates are partially paradoxical. T here is mild deviation of the nasal septum to the right. The cribriform plate, medial loco of the orbits and optical canals are intact. The carotid canals form a segment of the posterolateral loco of the sphenoid sinus. The sphenoid sinus septum inserts in to the right internal carotid canal wall. IMPRESSION: Sinus mucosal thickening as described above. Unreviewed
== END ==
LOC: M RAD 08:08
PROVIDERS: ATTEND Specialist
DX: J01.01 Acute recurrent maxillary sinusitis (principal); J34.2 Deviated nasal septum

== ENCOUNTER 2019-05-13 06:25 | Emergency (ER) | payer OTHER ==
[~2019-05-13] VITALS: Ht 157.5 cm; Wt 102.3 kg
[~2019-05-13 06:25] MED LIST changes: +SENN-53 PO; -SENN1TAB40 PO
[2019-05-13 07:05] LABS: BASO % 0.2 % (0.0-1.0); EOS # 0.1 10^3/uL (0.0-0.5); EOS % 0.8 % (0.0-3.0); HEMATOCRIT 39.4 % (36.0-47.0); HEMOGLOBIN 13.4 g/dl (12.0-15.5); LYMPH # 1.6 10^3/uL (1.5-5.0); LYMPH % 13.8 % (24.0-44.0); MEAN CORPUSCULAR HEMOGLOBIN 31.4 pg (27.0-33.0); MEAN CORPUSCULAR VOLUME 92.3 fl (80.0-96.0); MONO # 0.6 10^3/uL (0.0-0.8); NEUTROPHILS # 9.2 10^3/uL (1.5-8.5); NEUTROPHILS % 79.9 % (36.0-66.0); PLATELET COUNT, AUTOMATED 238 10^3/uL (150-450); RED BLOOD COUNT 4.27 10^6/uL (4.00-5.40); WHITE BLOOD COUNT 11.5 10^3/uL (4.0-10.0)
[2019-05-13 07:22] LABS: HCG, SERUM QUALITATIVE NEGATIVE (NEGATIVE)
[2019-05-13 07:27] LABS: ALBUMIN 3.6 GM/DL (3.2-5.2); ALT/SGPT 19 U/L (12-78); BILIRUBIN,DIRECT 0.1 MG/DL (0.0-0.2); BILIRUBIN,TOTAL 0.5 MG/DL (0.2-1.0); BLOOD UREA NITROGEN 11 MG/DL (7-18); CALCIUM LEVEL 9.6 MG/DL (8.5-10.1); CARBON DIOXIDE LEVEL 25 MEQ/L (21-32); CHLORIDE LEVEL 109 MEQ/L (98-107); CREATININE FOR GFR 1.01 MG/DL (0.55-1.30); GLOMERULAR FILTRATION RATE > 60.0 (>58); GLUCOSE, FASTING 100 MG/DL (70-100); LIPASE 50 U/L (73-393); POTASSIUM SERUM 3.9 MEQ/L (3.5-5.1); SODIUM LEVEL 140 MEQ/L (136-145); TOTAL PROTEIN 6.8 GM/DL (6.4-8.2)
[2019-05-13] MEDS ORDERED: KETOROLAC 30 MG/ML VIAL (J1885) IV ONE (07:30)
[2019-05-13] MEDS ORDERED: ONDANSETRON 4MG/2ML VIAL (J2405) IV ONE ×2 (07:30→09:15)
--- NOTE | 2019-05-13 09:13 | REP ---
Pelvic sonography: History: Left lower quadrant pain. Question cyst or torsion. Findings: Transabdominal and transvaginal scanning are performed. Uterine dimensions are normal at 9.4 x 4.4 x 6.3 cm. Endometrial echo is 1.2 cm thick. No focal uterine mass lesion is seen. Shadowing is seen in the anterior aspect of the lower uterine segment, post . There is evidence of an intrauterine device in the endometrium in the uterine fundus. It cannot be completely seen due to the shadowing. Normal ovaries are seen bilaterally. Right ovary measures 2.9 x 1.7 x 2.6 cm. The left ovary dimensions are 1.9 x 1.3 x 1.8 cm. Impression: An IUD is seen in the uterine endometrium although it is partially obscured by post scarring in the anterior myometrium. No other morphologic abnormality. Electronically Signed by Yves Parikh MD 05/13/2019 09:45 A
[2019-05-13] MEDS ORDERED: MORPHINE 4 MG/ML 1ML VIAL/SYRINGE (J2270) IV PRN (09:15)
[2019-05-13] MEDS: GASTROGRAFIN SOLUTION 30ML PO SCH ×2 (09:24→10:07)
[2019-05-13] MEDS ORDERED: ISOVUE-370 76% 100ML VIAL (Q9967) As Ordered ONE (11:02)
--- NOTE | 2019-05-13 12:20 | REP ---
CT ABDOMEN AND PELVIS WITH IV AND ORAL CONTRAST: HISTORY: Diverticulitis. Comparison CT study June 26, 2016. CT CONTRAST DOSE: An 100 mL of intravenous Isovue 370. CT FINDINGS: Digital preliminary certified scrub tech radiograph is unremarkable. The lung bases are clear except that there is a 9 mm noncalcified pulmonary nodule in the right lower lobe. This is visible on page 12 of 35 in series 204 of today's study. This is felt to be unchanged from comparison chest CT study June 25 1018. There is a sliding type hiatal hernia. Mild diffuse fatty infiltration of the liver is seen. There is an accessory splenule anterior to the spleen unchanged. No adrenal lesion is seen. No focal liver lesion is observed. Gallbladder and the pancreas are unremarkable. The kidneys enhance symmetrically. There is an intrarenal calculus in the upper pole right kidney measuring 5 mm in greatest diameter. No hydronephrosis is seen. No retroperitoneal mass or adenopathy is seen. There is a surgical clip in the right lower quadrant adjacent to the cecum. The patient is status post appendectomy although this appears to be a tubal ligation clamp. The other tubal ligation clamp is anteriorly situated adjacent to the uterus. An IUD is seen in position in the uterus. Uterus is tipped somewhat to the left but unremarkable. Normal ovaries are seen bilaterally. There is no CT evidence of diverticulosis. No inflammatory changes seen in the abdomen. Urinary bladder is unremarkable. No abdominal wall defect is appreciated. IMPRESSION: 5 mm intrarenal calculus right kidney. Small sliding-type hiatal hernia. Status post tubal ligation and appendectomy. IUD in place. There is no evidence of diverticulosis or diverticulitis. Electronically Signed by Yves Parikh MD 05/13/2019 01:53 P
[2019-05-13] MEDS ORDERED: DICY10CA13 PO (12:23)
[2019-05-13 12:38] VITALS: BP 120/63
== END 2019-05-13 12:39 | disposition home or self-care (01) ==
LOC: M ED 06:25
DX: K58.9 Irritable bowel syndrome, unspecified (principal); I10 Essential (primary) hypertension; F33.9 Major depressive disorder, recurrent, unspecified; Z79.899 Other long term (current) drug therapy; Z97.5 Presence of (intrauterine) contraceptive device; Z88.8 Allergy status to other drugs, medicaments and biological substances
CPT/HCPCS: 74177; 76830; 76856; 80048; 80076; 81001; 83690; 84703; 85025; 93976; 96374; 96375; 96376; 99284; J1885; J2270; J2405; Q9963; Q9967

== ENCOUNTER → 2019-06-13 | Outpatient (CLI) | payer OTHER ==
[~2019-06-13] MED LIST changes: +DICY10CA13 PO
--- NOTE | 2019-06-13 09:05 | REPMRS ---
Patient History The patient states she has not had a clinical breast exam in over a year. Family history of colorectal cancer in maternal grandmother. Taking hormonal contraceptives for 1 year. Digital Mammo Screening Bilat: June 13, 2019 - Exam #: [id number] Bilateral CC and MLO view(s) were taken. Technologist: Char Valerio, Technologist No prior studies available for comparison. FINDINGS: There are scattered fibroglandular densities. There is no evidence of dominant mass, architectural distortion, or grouped microcalcification typical of malignancy. 3-D tomosynthesis shows no additional findings. Assessment: BI-RADS/ACR category 1 mammogram. Negative Mammogram. Recommendation Routine screening mammogram of both breasts in 1 year (for women over age 40). This patient's Lifetime Breast Cancer RIsk is estimated at 12.1 %. This mammogram was interpreted with the aid of an FDA-approved computer-aided dectection system. Electronically Signed By: Darrell Parikh MD 06/13/19 0904
== END ==
LOC: M RAD 08:18
PROVIDERS: ATTEND Family Medicine
DX: Z12.31 Encounter for screening mammogram for malignant neoplasm of breast (principal)

== ENCOUNTER → 2019-07-09 | Outpatient (CLI) | payer OTHER ==
--- NOTE | 2019-07-09 13:47 | REP ---
CT CHEST WITHOUT CONTRAST: HISTORY: Viral pneumonia. Comparison chest CT study June 25, 2018. CT FINDINGS: There are three stable subcentimeter noncalcified pulmonary nodules. The largest of these is in the right lower lobe on page 79 of 104 in series 201 of today's study. This measures 8 mm and is unchanged from the June 25, [address] study. There is a subpleural smaller nodule in the left lower lobe on page 70 and an even smaller peripheral noncalcified nodule in the right lower lobe is seen on page 58 of today's study. These are unchanged as well. No other pulmonary nodule is seen. No infiltrate is noted. The previously noted inflammatory pulmonary parenchymal changes have resolved. No pleural or pericardial effusion is seen. There is no evidence of adenopathy on today's noncontrast CT study. No adrenal lesion is observed. There is an accessory splenule in the upper abdomen again noted. No significant bony abnormality is appreciated. IMPRESSION: Stable noncalcified pulmonary nodules the largest of which is an 8 mm nodule in the right lower lobe. No change in 1 year. No infiltrate seen. Otherwise no acute disease. Electronically Signed by Yves Parikh MD 07/09/2019 05:17 P
== END ==
LOC: M RAD 09:36
PROVIDERS: ATTEND Physician Assistant
DX: R91.8 Other nonspecific abnormal finding of lung field (principal); J12.9 Viral pneumonia, unspecified

== ENCOUNTER → 2019-09-12 | Outpatient (REF) | payer OTHER ==
[~2019-09-12] MED LIST changes: -LORA0.5T11 PO; +LORA0.5T5 PO; -MECL12.575 PO; +MECL12.589 PO; +ZONI100C17 PO; -ZONI100C2 PO; +ZONI25CA13 PO; -ZONI25CA2 PO; +ZONI50CA11 PO; -ZONI50CA3 PO
== END ==
LOC: M LAB REF 18:09
PROVIDERS: ATTEND Dermatology
DX: R21 Rash and other nonspecific skin eruption (principal)

== ENCOUNTER → 2019-10-16 | Outpatient (REF) | payer OTHER ==
[~2019-10-16] MED LIST changes: +CYMB1CAP4 PO; +FLON1SPR; +amovig
[2019-10-16 13:26] LABS: BASO % 0.3 % (0.0-1.0); EOS # 0.1 10^3/uL (0.0-0.5); EOS % 1.3 % (0.0-3.0); HEMATOCRIT 45.3 % (36.0-47.0); HEMOGLOBIN 14.7 g/dl (12.0-15.5); LYMPH # 1.6 10^3/uL (1.5-5.0); MEAN CORPUSCULAR HEMOGLOBIN 30.4 pg (27.0-33.0); MEAN CORPUSCULAR HGB CONC 32.5 g/dl (32.0-36.5); MEAN CORPUSCULAR VOLUME 93.8 fl (80.0-96.0); MONO # 0.4 10^3/uL (0.0-0.8); MONO % 5.8 % (0.0-5.0); NEUTROPHILS # 4.1 10^3/uL (1.5-8.5); NEUTROPHILS % 66.4 % (36.0-66.0); PLATELET COUNT, AUTOMATED 279 10^3/uL (150-450); RED BLOOD COUNT 4.83 10^6/uL (4.00-5.40); WHITE BLOOD COUNT 6.2 10^3/uL (4.0-10.0)
[2019-10-16 13:39] LABS: ALBUMIN 4.1 GM/DL (3.2-5.2); ALT/SGPT 66 U/L (12-78); BILIRUBIN,TOTAL 0.5 MG/DL (0.2-1.0); BLOOD UREA NITROGEN 17 MG/DL (7-18); CALCIUM LEVEL 10.5 MG/DL (8.5-10.1); CARBON DIOXIDE LEVEL 28 MEQ/L (21-32); CHLORIDE LEVEL 108 MEQ/L (98-107); CHOLESTEROL LEVEL 198 MG/DL (<200); CHOLESTEROL RISK RATIO 5.351 (<5); CREATININE FOR GFR 1.07 MG/DL (0.55-1.30); FREE T4 0.98 NG/DL (0.76-1.46); GLOMERULAR FILTRATION RATE > 60.0 (>58); GLUCOSE, FASTING 102 MG/DL (70-100); HDL CHOLESTEROL 37 MG/DL (>40); LDL CHOLESTEROL 141 MG/DL (<100); NON-HDL-C 161 MG/DL; POTASSIUM SERUM 4.1 MEQ/L (3.5-5.1); SODIUM LEVEL 141 MEQ/L (136-145); TOTAL PROTEIN 7.4 GM/DL (6.4-8.2); TRIGLYCERIDES LEVEL 102 MG/DL (<150)
== END ==
LOC: M LABDRWAD 12:36
PROVIDERS: ATTEND Family Medicine
DX: Z13.220 Encounter for screening for lipoid disorders (principal); Z13.0 Encounter for screening for diseases of the blood and blood-forming organs and certain disorders involving the immune mechanism; Z13.29 Encounter for screening for other suspected endocrine disorder

== ENCOUNTER 2019-10-29 07:00 | Day surgery (SDC) | payer OTHER ==
[~2019-10-29] VITALS: Ht 157.5 cm; Wt 57.2 kg
[~2019-10-29 07:00] MED LIST changes: +NS 1,000 ML IV ONE
[2019-10-29] MEDS ORDERED: propofoL 200 MG/20 ML VIAL As Ordered ONE (07:07)
[2019-10-29] MEDS ORDERED: LIDOCAINE 2% INJ 100 MG/5 ML SDV (FOR ANES.) As Ordered ONE (07:07)
[2019-10-29] MEDS ORDERED: ONDANSETRON 4MG/2ML VIAL (J2405) As Ordered ONE (08:00)
[2019-10-29] MEDS ORDERED: fentaNYL 100 MCG/2 ML INJECTION (J3010) As Ordered ONE (08:00)
[2019-10-29 09:20] VITALS: BP 131/92
--- NOTE | 2019-10-29 09:24 | ROOR ---
Patient Name: Paige Mccracken Procedure Date: 10/29/2019 7:12 AM Date of : 1980 Age: 39 Room: [facility] Gender: Female Note Status: Finalized Procedure: Upper GI endoscopy Indications: Heartburn, Suspected gastro-esophageal reflux disease Providers: Yamil Salinas MD Referring MD: Lashonda GEE DO Requesting Provider: Medicines: Monitored Anesthesia Care Complications: No immediate complications. Procedure: Pre-Anesthesia Assessment: - Prior to the procedure, a History and Physical was performed, and patient medications and allergies were reviewed. The patient is competent. The risks and benefits of the procedure and the sedation options and risks were discussed with the patient. All questions were answered and informed consent was obtained. Patient identification and proposed procedure were verified by the physician, the nurse and the anesthesiologist in the procedure room. Mental Status Examination: alert and oriented. Airway Examination: normal oropharyngeal airway and neck mobility. Respiratory Examination: clear to auscultation. CV Examination: normal. Prophylactic Antibiotics: The patient does not require prophylactic antibiotics. Prior Anticoagulants: The patient has taken no previous anticoagulant or antiplatelet agents. ASA Grade Assessment: II - A patient with mild systemic disease. After reviewing the risks and benefits, the patient was deemed in satisfactory condition to undergo the procedure. The anesthesia plan was to use monitored anesthesia care (MAC). Immediately prior to administration of medications, the patient was re-assessed for adequacy to receive sedatives. The heart rate, respiratory rate, oxygen saturations, blood pressure, adequacy of pulmonary ventilation, and response to care were monitored throughout the procedure. The physical status of the patient was re-assessed after the procedure. The Endoscope was introduced through the mouth, and advanced to the second part of duodenum. The upper GI endoscopy was accomplished without difficulty. The patient tolerated the procedure well. Findings: LA Grade A (one or more mucosal breaks less than 5 mm, not extending between tops of 2 mucosal folds) esophagitis with no bleeding was found in the distal esophagus. Biopsies were taken with a cold forceps for histology. Verification of patient identification for the specimen was done by the physician and nurse using the patient's name, date and medical record number. Estimated blood loss was minimal. Scattered moderate inflammation characterized by erythema, friability and granularity was found in the gastric antrum. Biopsies were taken with a cold forceps for Helicobacter pylori testing. The duodenal bulb and second portion of the duodenum were normal. Impression: - LA Grade A reflux esophagitis. Rule out Hill's esophagus. Biopsied. - Gastritis. Biopsied. - Normal duodenal bulb and second portion of the duodenum. Recommendation: - Patient has a contact number available for emergencies. The signs and symptoms of potential delayed complications were discussed with the patient. Return to normal activities tomorrow. Written discharge instructions were provided to the patient. - Resume previous diet. - Continue present medications. - Follow an antireflux regimen. - Await pathology results. - Telephone GI clinic for pathology results in 1 week. - Return to primary care physician. - Follow the recommendations as per the other procedure note. Yamil Salinas MD Yamil Salinas MD 10/29/2019 9:24:36 AM Electronically signed by Yamil Salinas MD Number of Addenda: 0 Note Initiated On: 10/29/2019 7:12 AM Estimated Blood Loss: Estimated blood loss was minimal.
--- NOTE | 2019-10-29 09:43 | ROOR ---
Patient Name: Paige Mccracken Procedure Date: 10/29/2019 7:13 AM Date of : 1980 Age: 39 Gender: Female Note Status: Finalized Procedure: Colonoscopy Indications: Hematochezia, Constipation Providers: Yamil Salinas MD Referring MD: Lashonda GEE DO Requesting Provider: Medicines: Monitored Anesthesia Care Complications: No immediate complications. Procedure: Pre-Anesthesia Assessment: - Prior to the procedure, a History and Physical was performed, and patient medications and allergies were reviewed. The patient is competent. The risks and benefits of the procedure and the sedation options and risks were discussed with the patient. All questions were answered and informed consent was obtained. Patient identification and proposed procedure were verified by the physician, the nurse and the anesthesiologist in the procedure room. Mental Status Examination: alert and oriented. Airway Examination: normal oropharyngeal airway and neck mobility. Respiratory Examination: clear to auscultation. CV Examination: normal. Prophylactic Antibiotics: The patient does not require prophylactic antibiotics. Prior Anticoagulants: The patient has taken no previous anticoagulant or antiplatelet agents. ASA Grade Assessment: II - A patient with mild systemic disease. After reviewing the risks and benefits, the patient was deemed in satisfactory condition to undergo the procedure. The anesthesia plan was to use monitored anesthesia care (MAC). Immediately prior to administration of medications, the patient was re-assessed for adequacy to receive sedatives. The heart rate, respiratory rate, oxygen saturations, blood pressure, adequacy of pulmonary ventilation, and response to care were monitored throughout the procedure. The physical status of the patient was re-assessed after the procedure. The Colonoscope was introduced through the anus and advanced to the terminal ileum, with identification of the appendiceal orifice and IC valve. The colonoscopy was performed without difficulty. The patient tolerated the procedure well. The quality of the bowel preparation was good. The terminal ileum, ileocecal valve, appendiceal orifice, and rectum were photographed. Scope insertion time was 3 minutes. Scope withdrawal time was 11 minutes. The total duration of the procedure was 15 minutes. Findings: The perianal and digital rectal examinations were normal. The terminal ileum appeared normal. A scattered area of granular mucosa was found from descending colon to rectum. Biopsies for histology were taken with a cold forceps from the descending colon and rectosigmoid colon for evaluation of microscopic colitis. Verification of patient identification for the specimen was done by the physician and nurse using the patient's name, date and medical record number. Estimated blood loss was minimal. The left colon was moderately tortuous. Advancing the scope required using manual pressure. Non-bleeding external and internal hemorrhoids were found during retroflexion. The hemorrhoids were small. Impression: - The examined portion of the ileum was normal. - Granularity from descending to rectum. Biopsied. - Tortuous and restricted mobility of the colon, likely from adhesions - Non-bleeding external and internal hemorrhoids. Recommendation: - Patient has a contact number available for emergencies. The signs and symptoms of potential delayed complications were discussed with the patient. Return to normal activities tomorrow. Written discharge instructions were provided to the patient. - High fiber diet. - Continue present medications. - Senokot-S 2 tablets PO q HS. - Colace capsule(s) orally 100 mg BID. - Await pathology results. - Repeat colonoscopy at age 48 for screening purposes. - Telephone GI clinic for pathology results in 1 week. - Return to primary care physician. Yamil Salinas MD Yamil Salinas MD 10/29/2019 9:43:09 AM Electronically signed by Yamil Salinas MD Number of Addenda: 0 Note Initiated On: 10/29/2019 7:13 AM Estimated Blood Loss: Estimated blood loss was minimal.
== END 2019-10-29 10:01 | disposition home or self-care (01) ==
LOC: M OPP 07:00
PROVIDERS: ATTEND Internal Medicine Gastroenterology
DX: K64.8 Other hemorrhoids (principal); K63.89 Other specified diseases of intestine; Q43.8 Other specified congenital malformations of intestine; K92.1 Melena; K59.00 Constipation, unspecified; K21.0 Gastro-esophageal reflux disease with esophagitis; K29.70 Gastritis, unspecified, without bleeding; R12 Heartburn; Z79.899 Other long term (current) drug therapy; Z88.8 Allergy status to other drugs, medicaments and biological substances; Z91.89 Other specified personal risk factors, not elsewhere classified
CPT/HCPCS: 43239; 45380; 88305; J2405; J3010

== ENCOUNTER → 2020-04-22 | Outpatient (CLI) | payer OTHER ==
[~2020-04-22] MED LIST changes: +NORC1TAB7 PO; -NS 1,000 ML IV ONE
[2020-04-22 09:29] LABS: IONIZED CALCIUM 5.2 MG/DL (4.5-5.3)
[2020-04-22 10:13] LABS: BLOOD UREA NITROGEN 13 MG/DL (7-18); CARBON DIOXIDE LEVEL 30 MEQ/L (21-32); CHLORIDE LEVEL 108 MEQ/L (98-107); CREATININE FOR GFR 1.04 MG/DL (0.55-1.30); FREE T4 0.81 NG/DL (0.76-1.46); GLOMERULAR FILTRATION RATE > 60.0 (>58); GLUCOSE, FASTING 103 MG/DL (70-100); POTASSIUM SERUM 4.8 MEQ/L (3.5-5.1); SODIUM LEVEL 141 MEQ/L (136-145)
[2020-04-22 10:15] LABS: PTH INTACT 83.3 PG/ML (18.5-88.0)
== END ==
LOC: M LAB 08:50
PROVIDERS: ATTEND Physician Assistant
DX: E83.52 Hypercalcemia (principal); E66.8 Other obesity

== ENCOUNTER 2020-05-08 18:37 | Emergency (ER) | payer OTHER ==
[~2020-05-08] VITALS: Ht 157.5 cm; Wt 99.1 kg
[~2020-05-08 18:37] MED LIST changes: -NORC1TAB7 PO
[2020-05-08] MEDS ORDERED: MORPHINE 4 MG/ML 1ML VIAL/SYRINGE (J2270) IM ONE (19:00)
[2020-05-08] MEDS ORDERED: ONDANSETRON 4 MG ORAL DISINTEGRATING TAB PO ONE (19:00)
[2020-05-08] MEDS ORDERED: MORPHINE 4 MG/ML 1ML VIAL/SYRINGE (J2270) IV ONE (19:00)
[2020-05-08 19:32] VITALS: BP_DIAS 108
--- NOTE | 2020-05-08 19:57 | REPVR ---
PROCEDURE INFORMATION: Exam: XR Left Elbow Exam date and time: 05/08/2020 7:18 PM Age: 40 years old Clinical indication: Trauma TECHNIQUE: Imaging protocol: XR Left elbow. Views: 3 or more views. COMPARISON: CR - Forearm Radius,Ulna LEFT 05/08/2020 6:48:24 PM FINDINGS: Bones/joints: There is an acute, comminuted, impacted, dorsally angulated fracture of the left radial head and neck. In the lateral view, there is a 5 mm subtle calcific density anterior to the head of the radius, which may represent a loose body. No other fractures are noted in the left elbow. The alignment of the left elbow joint is maintained. There is a left elbow joint effusion. Soft tissues: There is soft tissue swelling around the left elbow. IMPRESSION: Acute, comminuted, impacted, dorsally angulated fracture of the left radial head and neck. Electronically signed by: Davin Calderón On 05/08/2020 19:57:38 PM
--- NOTE | 2020-05-08 19:58 | REPVR ---
PROCEDURE INFORMATION: Exam: XR Left Forearm Exam date and time: 05/08/2020 7:18 PM Age: 40 years old Clinical indication: Trauma TECHNIQUE: Imaging protocol: XR Left forearm. Views: 2 views. COMPARISON: CR - Elbow, complete LEFT 05/08/2020 6:48:24 PM FINDINGS: Bones/joints: There is an acute, comminuted, impacted, dorsally angulated fracture of the left radial head and neck. In the lateral view, there is a 5 mm subtle calcific density anterior to the head of the radius, which may represent a loose body. No other fractures are noted. There is a left elbow joint effusion. Soft tissues: There is soft tissue swelling around the left elbow. IMPRESSION: Acute, comminuted, impacted, dorsally angulated fracture of the left radial head and neck. Electronically signed by: Davin Calderón On 05/08/2020 19:57:44 PM
[2020-05-08] MEDS ORDERED: NORCO, ANEXSIA 5/325MG TABLET (HYDROcodone/ACETAMINOPHEN) PO ONE (20:00)
[2020-05-08] MEDS ORDERED: NORC1TAB7 PO (20:55)
[2020-05-08] MEDS ORDERED: NORCO 5/325MG TABLET (BULK FOR ED) PO ONE (21:00)
[2020-05-08 21:11] VITALS: BP_SYST 176
== END 2020-05-08 21:26 | disposition home or self-care (01) ==
LOC: M ED 18:37
DX: S52.122A Displaced fracture of head of left radius, initial encounter for closed fracture (principal); S52.132A Displaced fracture of neck of left radius, initial encounter for closed fracture; W17.89XA Other fall from one level to another, initial encounter; Y92.9 Unspecified place or not applicable; Y93.9 Activity, unspecified; Y99.9 Unspecified external cause status; Z88.8 Allergy status to other drugs, medicaments and biological substances
CPT/HCPCS: 73080; 73090; 96372; 99283; J2270; Q0162

== ENCOUNTER → 2020-05-14 | Outpatient (CLI) | payer OTHER ==
[~2020-05-14] MED LIST changes: +NORC1TAB7 PO
== END ==
LOC: M LABSMTC 11:41
PROVIDERS: ATTEND Anesthesiology
DX: Z01.812 Encounter for preprocedural laboratory examination (principal); Z20.828 Contact with and (suspected) exposure to other viral communicable diseases
CPT/HCPCS: C9803; U0003

== ENCOUNTER 2020-05-19 10:03 | Day surgery (SDC) | payer OTHER ==
[~2020-05-19] VITALS: Ht 157.5 cm; Wt 98.9 kg
[~2020-05-19 10:03] MED LIST changes: +LR 1,000 ML IV ONE; +ceFAZolin SOD 2 GM in IV 1 EA IV ONE
[2020-05-19] MEDS ORDERED: dexameTHASONE 4 MG/ML 1ML VIAL (J1100 PER 1MG) As Ordered ONE (11:00)
[2020-05-19] MEDS ORDERED: HYDROmorphone HCL 2 MG/ML 1ML VIAL (J1170) As Ordered ONE (11:00)
[2020-05-19] MEDS ORDERED: fentaNYL 100 MCG/2 ML INJECTION (J3010) As Ordered ONE ×2 (11:00→15:35)
[2020-05-19] MEDS ORDERED: ONDANSETRON 4MG/2ML VIAL As Ordered ONE (11:00)
[2020-05-19] MEDS ORDERED: propofoL 200 MG/20 ML VIAL As Ordered ONE (11:00)
[2020-05-19] MEDS ORDERED: MIDAZOLAM INJ 2MG/2ML VIAL (J2250 PER 1MG) As Ordered ONE (11:00)
[2020-05-19] MEDS ORDERED: LIDOCAINE 2% 100MG/5ML SDV (FOR ANES.) As Ordered ONE (11:00)
[2020-05-19] MEDS ORDERED: ceFAZolin 1GM VIAL (J0690 PER 500MG) As Ordered ONE (12:57)
[2020-05-19] MEDS ORDERED: ROCURONIUM BROMIDE 50 MG/5 ML VIAL As Ordered ONE (13:12)
[2020-05-19] MEDS ORDERED: BUPIVACAINE HCL 0.25% 30ML VIAL As Ordered ONE (13:26)
[2020-05-19] MEDS ORDERED: SUGAMMADEX SODIUM 500 MG/5 ML VIAL (BRIDION) As Ordered ONE ×2 (13:41→13:53)
[2020-05-19] MEDS ORDERED: LABETALOL 100MG/20ML VIAL As Ordered ONE (13:50)
[2020-05-19] MEDS ORDERED: ACETAMINOPHEN 1000MG 100ML IV BTL (OFIRMEV) (J0131 PER 10MG) As Ordered ONE (14:27)
--- NOTE | 2020-05-19 15:20 | REP ---
INDICATION: LEFT RADIAL HEAD ORIF. COMPARISON: None. TECHNIQUE: Intraoperative fluoroscopic imaging using portable C-arm technique. FINDINGS: Satisfactory open reduction and fixation for proximal radial fracture. Total fluoroscopic time 38.5 seconds. IMPRESSION: Satisfactory open reduction and fixation for proximal radial fracture. <Electronically signed by Jose Mark > 05/19/20 [id number]
[2020-05-19] MEDS: fentaNYL 100 MCG/2 ML INJECTION (J3010) IV PRN ×4 (15:35→15:55)
[2020-05-19] MEDS ORDERED: ONDANSETRON 4MG/2ML VIAL IV PRN ×2 (16:00→17:00)
[2020-05-19] MEDS ORDERED: LR 1,000 ML IV SCH ×2 (16:00→17:00)
[2020-05-19] MEDS: oxyCODONE 5MG TAB PO PRN ×2 (16:05→16:32)
[2020-05-19] MEDS ORDERED: MORPHINE 2 MG/ML 1ML VIAL (J2270) IV PRN (17:00)
[2020-05-19] MEDS ORDERED: PERCOCET 5MG/325MG TAB PO PRN (17:00)
[2020-05-19] MEDS ORDERED: ACETAMINOPHEN TAB 650MG DOSE (2X325MG) PO PRN (17:00)
[2020-05-19 17:05] VITALS: BP 132/79
--- NOTE | 2020-05-20 12:28 | RO ---
DATE OF OPERATION: 05/19/2020 PREOPERATIVE DIAGNOSIS: Left radial head and neck fracture. POSTOPERATIVE DIAGNOSIS: Left radial head and neck fracture. PLANNED PROCEDURE: Left radial head open reduction and internal fixation, possible radial head arthroplasty. PROCEDURE PERFORMED: Left radial head open reduction and internal fixation with plate fixation. SURGEON: Rohan Stewart MD OVERLOCK HEMMER: ANESTHESIA: OPERATIVE PREAMBLE: The patient sustained a fall onto her upper extremity She sustained a depressed radial head fracture. We talked about the pros, cons, risks, benefits of going ahead with surgery. She wished to proceed. We reiterated the risks in preoperative holding, marked the left upper extremity and proceeded to surgery. OPERATIVE REPORT: The patient was brought to the operating room theater, then placed supine on the operating room table. A hand table was used on the patients left side. An 18-inch tourniquet applied and appropriately padded as well as all bony prominences. SCDs were used on the down leg. Two grams of IV Ancef were administered. General anesthesia was induced. The limb was prepped and draped in the usual sterile fashion. Chlorhexidine based prep solution, allowing over three minutes prep solution drying time prior to draping. A preoperative time-out was performed, confirming the site, the patient, and surgery. We began by elevating the limb and inflating the tourniquet 250 mmHg. We made a standard lateral approach to the elbow incision. We carried the dissection down through skin and subcutaneous tissue to achieve meticulous hemostasis. We incised the EDC in its mid-aspect in line with the skin incision, staying anterior to the radial head. I used gentle retraction anteriorly and kept the forearm pronated throughout the case to protect the PIN. I made a longitudinal capsulotomy and released the annular ligament. I elevated the fracture site. It was quite depressed on the lateral side. I elevated it approximately 6 mm. I took repeat radiographs to confirm proper elevation and articular reduction. I chose a Synthes precontoured, two hole distal plate. I placed this in the safe zone and posterolaterally above the radial head and neck junction area between the radial styloid and Listers tubercle. I used a 2.4 mm screw in the en bloc hole to place the plate firmly into the bone. I then placed all but one of the 2.4 mm fully-threaded cortical locking screws into the head, neck as well as metaphyseal supporting screw. I placed the locking screw distally and then changed the 18 mm initial cortical screw for a shorter 16 mm as it was slightly long. Reduction appeared to be good with good compression of the plate and appropriately placed with full pronation and supination, no plate impingement, neutral, flexion and extension. Radiographs were taken, saved down to the system. The wound was thoroughly irrigated, tourniquet let down. EDC split closed with running #1 Vicryl sutures as well as skin and subcutaneous tissue with 2-0 Vicryl and skin with running 3- 0 Monocryl. Ten mL of 1/4% Marcaine were instilled in and around the incision site. The skin was cleaned with wet and dry dressing followed by application of Steri- Strips, Adaptic, 4x8 gauze, ABD dressing and overwrapped with sterile 16-inch Lc bandage. The patients upper extremity was placed into a sling. The patient was woken up from general anesthetic, transferred off the operating table and taken to the postanesthesia care unit in stable condition. All sponge, needle, and instrument counts were correct. No complications. Estimated blood loss: 10 cc. Plan is for the patient to start gentle early range of motion, follow up in the clinic in two weeks time. The patient will be discharged home according to day surgery criteria and restriction and will be filed at their pharmacy of choice electronically. The assistant purchasing manager was instrumental in achieving visualization, holding retractors and completing the case. KRISTINA
== END 2020-05-19 17:41 | disposition home or self-care (01) ==
LOC: M SDC 10:03
PROVIDERS: ATTEND Orthopaedic Surgery Sports Medicine
DX: S52.122A Displaced fracture of head of left radius, initial encounter for closed fracture (principal); W19.XXXA Unspecified fall, initial encounter; Y92.89 Other specified places as the place of occurrence of the external cause; Y93.9 Activity, unspecified; Y99.9 Unspecified external cause status; I10 Essential (primary) hypertension; K21.9 Gastro-esophageal reflux disease without esophagitis; Z79.899 Other long term (current) drug therapy; Z88.8 Allergy status to other drugs, medicaments and biological substances; F43.10 Post-traumatic stress disorder, unspecified; F41.9 Anxiety disorder, unspecified; F32.9 Major depressive disorder, single episode, unspecified
CPT/HCPCS: 24665; 76000; C1713; J0131; J0690; J1100; J1170; J2250; J2405; J3010

== ENCOUNTER → 2020-09-23 | Outpatient (CLI) | payer OTHER ==
[~2020-09-23] MED LIST changes: -LR 1,000 ML IV ONE; -MECL12.589 PO; +MECL12.590 PO; -ceFAZolin SOD 2 GM in IV 1 EA IV ONE
[2020-09-23 08:32] LABS: ALBUMIN 4.1 GM/DL (3.2-5.2); ALT/SGPT 36 U/L (12-78); BILIRUBIN,TOTAL 0.4 MG/DL (0.2-1.0); BLOOD UREA NITROGEN 18 MG/DL (7-18); CALCIUM LEVEL 10.5 MG/DL (8.5-10.1); CARBON DIOXIDE LEVEL 27 MEQ/L (21-32); CHLORIDE LEVEL 109 MEQ/L (98-107); CHOLESTEROL LEVEL 172 MG/DL (<200); CHOLESTEROL RISK RATIO 4.914 (<5); CREATININE FOR GFR 0.99 MG/DL (0.55-1.30); FREE T4 0.93 NG/DL (0.76-1.46); GLOMERULAR FILTRATION RATE > 60.0 (>58); GLUCOSE, FASTING 109 MG/DL (70-100); HDL CHOLESTEROL 35 MG/DL (>40); LDL CHOLESTEROL 121 MG/DL (<100); NON-HDL-C 137 MG/DL; POTASSIUM SERUM 4.2 MEQ/L (3.5-5.1); SODIUM LEVEL 141 MEQ/L (136-145); THYROID STIMULATING HORMONE 0.888 uIU/ML (0.358-3.740); TOTAL PROTEIN 7.3 GM/DL (6.4-8.2); TRIGLYCERIDES LEVEL 82 MG/DL (<150)
[2020-09-23 08:47] LABS: PTH INTACT 122.4 PG/ML (18.5-88.0)
== END ==
LOC: M LAB 07:26
PROVIDERS: ATTEND Physician Assistant
DX: E83.52 Hypercalcemia (principal); G43.009 Migraine without aura, not intractable, without status migrainosus; Z13.220 Encounter for screening for lipoid disorders; F33.1 Major depressive disorder, recurrent, moderate

== ENCOUNTER 2020-12-19 20:08 | Emergency (ER) | payer OTHER ==
[~2020-12-19] VITALS: Ht 157.5 cm; Wt 81.6 kg
[~2020-12-19 20:08] MED LIST changes: +MECL-136 PO; -MECL12.590 PO
--- NOTE | 2020-12-19 21:40 | REPVR ---
PROCEDURE INFORMATION: Exam: XR Right Wrist Exam date and time: 12/19/2020 8:49 PM Age: 40 years old Clinical indication: Pain; Wrist; Right; Additional info: Injury TECHNIQUE: Imaging protocol: XR Right wrist. Views: 3 or more views. COMPARISON: No relevant prior studies available. FINDINGS: Bones/joints: Distal radial fractures with fracture lines extending into the articular surface. Otherwise unremarkable. Soft tissues: Normal. IMPRESSION: Distal radial fractures with fracture lines extending into the articular surface. Electronically signed by: Darvin Bone On 12/19/2020 21:40:01 PM
--- NOTE | 2020-12-19 21:41 | REPVR ---
PROCEDURE INFORMATION: Exam: XR Right Forearm Exam date and time: 12/19/2020 8:49 PM Age: 40 years old Clinical indication: Pain; Lower or forearm; Right; Additional info: Injury TECHNIQUE: Imaging protocol: XR Right forearm. Views: 2 views. COMPARISON: No relevant prior studies available. FINDINGS: Bones/joints: Distal radial fracture. Please refer to accompanying this report for further details. Soft tissues: Normal. Other findings: Otherwise unremarkable. IMPRESSION: Distal radial fracture. Please refer to accompanying this report for further details. Electronically signed by: Darvin Bone On 12/19/2020 21:40:58 PM
[2020-12-19 23:48] VITALS: BP 137/86
--- NOTE | 2020-12-20 00:21 | REPVR ---
PROCEDURE INFORMATION: Exam: XR Right Elbow Exam date and time: 12/19/2020 11:10 PM Age: 40 years old Clinical indication: Other: FX wrist TECHNIQUE: Imaging protocol: XR Right elbow. Views: 3 or more views. COMPARISON: CR Forearm Radius,Ulna RIGHT 12/19/2020 8:37 PM FINDINGS: Bones/joints: No joint effusion. No fracture. Soft tissues: Normal. IMPRESSION: Negative right elbow. Electronically signed by: Eddie Rowley On 12/20/2020 00:20:20 AM
--- NOTE | 2020-12-20 00:24 | REPVR ---
PROCEDURE INFORMATION: Exam: CT Right Upper Extremity Without Contrast, Wrist Exam date and time: 12/19/2020 11:21 PM Age: 40 years old Clinical indication: Injury or trauma; Fall; Fracture, traumatic injury; Nondisplaced; Wrist; Right; Additional info: Wrist FX TECHNIQUE: Imaging protocol: CT of the Right upper extremity without contrast was performed. Exam focused on the wrist. Radiation optimization: All CT scans at this facility use at least one of these dose optimization techniques: automated exposure control; mA and/or kV adjustment per patient size (includes targeted exams where dose is matched to clinical indication); or iterative reconstruction. COMPARISON: CR Wrist, complete RIGHT 12/19/2020 8:37 PM FINDINGS: Bones/joints: Dorsal impaction fracture of the distal radial metaphysis with slightly displaced fragments along the dorsum of the radial metaphysis and transverse fracture extending to the anterior cortex with very slight offset of the cortex. In addition, there is a longitudinal obliquely oriented nondisplaced fracture extending across the distal radial articular surface. Soft tissues: There is some edema or infiltration around the distal radius at the site of fracture. IMPRESSION: Dorsal impaction fracture of the distal radius with slight displacement of fragments along the dorsal aspect with transverse metaphyseal fracture extending anteriorly and a longitudinal nondisplaced intra-articular fracture extension. Electronically signed by: Eddie Rowley On 12/20/2020 00:24:17 AM
== END 2020-12-19 23:59 | disposition home or self-care (01) ==
LOC: M ED 20:08
DX: S52.501A Unspecified fracture of the lower end of right radius, initial encounter for closed fracture (principal); W01.0XXA Fall on same level from slipping, tripping and stumbling without subsequent striking against object, initial encounter; Y92.828 Other wilderness area as the place of occurrence of the external cause; Y93.9 Activity, unspecified; Y99.9 Unspecified external cause status; I10 Essential (primary) hypertension; M54.9 Dorsalgia, unspecified; G43.909 Migraine, unspecified, not intractable, without status migrainosus; F41.9 Anxiety disorder, unspecified; F33.9 Major depressive disorder, recurrent, unspecified; Z88.8 Allergy status to other drugs, medicaments and biological substances; Z79.899 Other long term (current) drug therapy

== ENCOUNTER → 2020-12-29 | Outpatient (CLI) | payer OTHER ==
--- NOTE | 2020-12-29 09:31 | REP ---
INDICATION: AFTERCARE. COMPARISON: 05/08/2020 TECHNIQUE: AP, lateral, bilateral oblique views of the left elbow FINDINGS: Satisfactory reduction/fixation of the proximal radius with normal appearance and positioning to the orthopedic hardware. Heterotopic ossification/calcification best identified on lateral view in the region of the antecubital fossa increased from prior examination. IMPRESSION: Status post satisfactory open reduction and fixation. Increasing calcification suggested within the antecubital space. <Electronically signed by Jose Mark > 12/29/20 0928
--- NOTE | 2020-12-29 09:33 | REP ---
INDICATION: AFTERCARE. COMPARISON: 12/19/2020 TECHNIQUE: AP, lateral, bilateral oblique views of the right wrist FINDINGS: Cast material limits evaluation. Stable nondisplaced intra-articular fracture of the distal radius noted. IMPRESSION: Limited by cast material. Stable nondisplaced fracture of the distal radius again noted. <Electronically signed by Jose Mark > 12/29/20 0929
== END ==
LOC: M SOG 08:48
PROVIDERS: ATTEND Orthopaedic Surgery Sports Medicine
DX: Z47.89 Encounter for other orthopedic aftercare (principal); S52.591D Other fractures of lower end of right radius, subsequent encounter for closed fracture with routine healing

== ENCOUNTER → 2020-12-31 | Outpatient (REF) | payer OTHER | LOC: M LAB REF 17:16 | PROVIDERS: ATTEND Physician Assistant | DX: N39.0 Urinary tract infection, site not specified (principal) ==

== ENCOUNTER → 2021-02-02 | Outpatient (CLI) | payer OTHER ==
--- NOTE | 2021-02-02 11:41 | REP ---
INDICATION: OTH FX OF LOWER END R RADIUS, SUBS FOR CLOS FX W ROUTN HEAL. COMPARISON: 01/14/2021 TECHNIQUE: AP, lateral, bilateral oblique views of the right wrist FINDINGS: Transverse nondisplaced fracture through the distal radial metaphysis is again noted with suggestions for callus formation and healing. IMPRESSION: Healing nondisplaced distal radial metaphyseal fracture. <Electronically signed by Jose Mark > 02/02/21 [id number]
== END ==
LOC: M SOG 10:51
PROVIDERS: ATTEND Orthopaedic Surgery Sports Medicine
DX: S52.591D Other fractures of lower end of right radius, subsequent encounter for closed fracture with routine healing (principal)

== ENCOUNTER → 2021-03-08 | Outpatient (REF) | payer OTHER | LOC: M LAB REF 17:00 | PROVIDERS: ATTEND Family Medicine | DX: N39.0 Urinary tract infection, site not specified (principal) ==

== ENCOUNTER → 2021-03-17 | Outpatient (REF) | payer OTHER | LOC: M LAB REF 17:01 | PROVIDERS: ATTEND Family Medicine | DX: N39.0 Urinary tract infection, site not specified (principal) ==

== ENCOUNTER → 2021-04-15 | Outpatient (CLI) | payer OTHER ==
[~2021-04-15] MED LIST changes: +GASTROGRAFIN SOLUTION 30ML (Q9963) As Ordered ONE; +ISOVUE-370 76% 100ML VIAL As Ordered ONE
--- NOTE | 2021-04-16 07:24 | REP ---
INDICATION: PELVIC AND PAIN. COMPARISON: None TECHNIQUE: Axial contrast-enhanced images from the lung bases to the pubic symphysis using oral and 100 cc Isovue 370 intravenous contrast material. Precontrast and delayed images of the abdomen obtained along with coronal and sagittal reformations.. This CT examination was performed using the following dose reduction techniques: Automated exposure control, adjustment of mA and/or kv according to the patient's size, and the use of iterative reconstruction technique. FINDINGS: Liver, spleen, pancreas, gallbladder, bilateral adrenal glands and kidneys are normal. The enteric is without obstruction or acute inflammatory process. Evidence for prior appendectomy noted. Few scattered colonic diverticula without acute diverticulitis. Pelvis demonstrates normal bladder and age-appropriate uterus/right adnexa. 5.2 cm left adnexal cyst anterior to the uterus is identified which may be related to patient's symptoms. No associated pelvic free fluid or obvious pelvic adenopathy. No ascites. No free air. No intraperitoneal or retroperitoneal adenopathy. Abdominal aorta and vasculature appear normal. Musculoskeletal structures are intact and without acute osseous abnormality. Lung bases demonstrate stable pulmonary nodules including 8 mm right lower lobe nodule unchanged compared to [address] IMPRESSION: 5.2 cm left adnexal cyst possibly related to patient's symptoms. No associated adenopathy or pelvic free fluid. Stable pulmonary nodules unchanged compared to chest CT dated 2019. <Electronically signed by Jose Mark > 04/16/21 [id number]
== END ==
LOC: M RAD 16:18
PROVIDERS: ATTEND Family Medicine
DX: R30.0 Dysuria (principal); R10.2 Pelvic and perineal pain
CPT/HCPCS: 74178; Q9963; Q9967

== ENCOUNTER → 2021-05-06 | Outpatient (REF) | payer OTHER ==
[~2021-05-06] MED LIST changes: -GASTROGRAFIN SOLUTION 30ML (Q9963) As Ordered ONE; -ISOVUE-370 76% 100ML VIAL As Ordered ONE
[2021-05-06 13:22] LABS: APPEARANCE, URINE CLEAR (CLEAR); BACTERIA, URINE AUTO NEGATIVE (NEGATIVE); BILIRUBIN, URINE AUTO NEGATIVE (NEGATIVE); BLOOD, URINE BLOOD 1+ (NEGATIVE); COLOR, URINE STRAW (YELLOW); GLUCOSE, URINE (UA) AUTO NEGATIVE (NEGATIVE); KETONE, URINE AUTO NEGATIVE (NEGATIVE); LEUKOCYTE ESTERASE, URINE AUTO NEGATIVE (NEGATIVE); MUCUS, URINE SMALL (NEGATIVE); NITRITE, URINE AUTO NEGATIVE (NEGATIVE); PROTEIN, URINE AUTO NEGATIVE (NEGATIVE); RBC, URINE AUTO 0 /HPF (0-3); SPECIFIC GRAVITY URINE AUTO 1.003 (1.002-1.035); SQUAMOUS EPITHELIAL CELL UR AU 0 /HPF (0-6); UROBILINOGEN, URINE AUTO 0.2 mg/dL (0.0-2.0); WBC, URINE AUTO 1 /HPF (0-3)
== END ==
LOC: M SMT 12:53
PROVIDERS: ATTEND Urology
DX: R30.0 Dysuria (principal)

== ENCOUNTER → 2021-05-10 | Outpatient (CLI) | payer OTHER ==
--- NOTE | 2021-05-10 12:44 | REP ---
INDICATION: JOINT DERANGEMENT, LT. COMPARISON: CT 05/11/2020. TECHNIQUE: Axial CT imaging with sagittal and coronal reconstruction images. FINDINGS: The previously noted fracture of the proximal radius appears to have healed. There is metallic plate and metallic screws at that location. The structures are well-aligned. There is moderate irregularity of the articulating surface of the proximal radius. An irregular calcific body is seen anteriorly along the coronoid process of the proximal ulna. This measures approximately 11 x 6 x 15 mm. There is a 3 mm calcification along the medial humeral epicondyle. There is a 2 mm calcification along the anterior margin of the olecranon. No gross soft tissue abnormality is seen. IMPRESSION: The previously noted fracture of the proximal radius appears to have healed, there is metallic internal fixation at that location in the osseous structures are well-aligned. In irregular calcific body is seen anteriorly along the coronoid process of the proximal ulna measuring 11 x 6 x 15 mm. <Electronically signed by vEerette Merida > 05/10/21 [id number]
== END ==
LOC: M RAD 11:37
PROVIDERS: ATTEND Orthopaedic Surgery Sports Medicine
DX: Z47.89 Encounter for other orthopedic aftercare (principal); M24.822 Other specific joint derangements of left elbow, not elsewhere classified

== ENCOUNTER → 2021-06-11 | Outpatient (CLI) | payer OTHER ==
[~2021-06-11] MED LIST changes: +AIMO70IN2 PO; +CITA20TA7 PO; -CYMB60CA3 PO; +CYMB60CA4 PO; +FAMO20TA5 PO; +LORA-932 PO; +NEXP1IMP SC; +PHEN1TAB73 PO; +SENN-23 PO
== END ==
LOC: M LABSMTC 11:19
PROVIDERS: ATTEND Anesthesiology
DX: Z01.818 Encounter for other preprocedural examination (principal); Z11.52 Encounter for screening for COVID-19

== ENCOUNTER 2021-06-16 10:46 | Day surgery (SDC) | payer OTHER ==
[~2021-06-16] VITALS: Ht 157.5 cm; Wt 86.6 kg
[~2021-06-16 10:46] MED LIST changes: +LR 1,000 ML IV ONE; +ceFAZolin SOD 2 GM in IV 1 EA IV ONE
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
--- OUTSIDE RECORDS SUMMARY | 2021-06-16 10:53 | CCD ---
Author Author [facility] Organization [facility] Address Unknown Phone Unavailable Care Team Providers Care Machine Hostler Name Role Phone Brendan Hill Unavailable PROBLEMS Type Condition ICD9-CM Code [id number] Code Onset Dates Condition S tatus W/U Status Risk SNOMED Code Notes Problem Seborrheic dermatitis L21.9 Active confirmed 33367651 Problem Pruritus L29.9 Active confirmed 639569316 Problem Lentigines L81.4 Active confirmed [id number] ALLERGIES Allergen (clinical drug ingredient) Drug/Non Drug Allergy do cumented on EMR Reaction Allergy Type Onset Date Status NuvaRing High blood pressure Non Drug Allergy Active ENCOUNTERS from 1978 to 2021-05-04 Encounter Location Date Provider Diagnosis [facility] [address] [place] [address] [place] [address] Mar, Brendan Hill Pelvic pain R10.2 IMMUNIZATIONS No Information SOCIAL HISTORY Tobacco Use: Social History Observation Description Date Details (start date - stop date) Never Smoker Sex Assigned At : Social History Observation Description Sex Assigned At Unknown Alcohol Screening: Question Answer Notes Did you have a drink containing alcohol in the past year? Ye s Points 1 Interpretation Negative How often did you have six or more drinks on one occas ion in the past year? Never (0 points) How many drinks did you have on a typica l day when you were drinking in the past year? 1 or 2 (0 points) How often did you have a drink containing alcohol in t he past year? Monthly or less (1 point) Tobacco Use: Question Answer Notes Are you a: never smoker REASON FOR REFERRAL No Information VITAL SIGNS No information MEDICATIONS Medication SIG (Take, Route, Frequency, Duration) Notes Start Da te End Date Status Aimovig 140 MG/ML as directed Subcutaneous Active Zonisamide 100 MG 1 capsule Orally Once a day for 30 day(s) Active Mirena (52 MG) 20 MCG/24HR as directed Intrauterine Active DULoxetine HCl 40 MG 1 capsule Orally Once a day for 30 day(s) Active Nortriptyline HCl 25 MG 1 capsule Orally Once a day for 30 day(s) Active Flonase Active hydroCHLOROthiazide 12.5 MG 1 capsule in the morning O rally Once a day for 30 day(s) Active busPIRone HCl 15 MG 1 tablet Orally Twice a day Active Clobetasol Propionate 0.05 % 1 application Externally Twice a da y for 30 days Active PROCEDURES No Information RESULTS No Results REASON FOR VISIT Pelvic pain MEDICAL (GENERAL) HISTORY Type Description Date Medical History Migranes Medical History Anxiety/Depression/PTSD Surgical History 4 Surgical History tonsils Surgical History appendectomy Hospitalization History childbirth Hospitalization History surgical related Goals Section No Information Health Concerns No Information MEDICAL EQUIPMENT No Information MENTAL STATUS No Information FUNCTIONAL STATUS No Information ASSESSMENTS Encounter Date Diagnosis Assessment Notes Treatment Notes Treatm ent Clinical Notes Mar, Pelvic pain (ICD-10 - R10.2) PLAN OF TREATMENT Next Appt Details Provider Name:Aamir Wall, 7 09:00:00 AM, [address], , [place], [address], Provider Name:Brendan Hill, 2021-06-07 08:45:00 AM, [address] [place] [address] , [place], [address], Provider Name:Brendan Hill, 2021-06-16 12:30:00 AM, [address] [place] [address] , [place], [address], Provider Name:Brendan Hill, 2021-07-02 11:00:00 AM, [address] [place], [place] [id number], [place], [address], Provider Name:Brendan Hill, 2021-07-26 02:00:00 PM, [address] [facility], , [place], [address], Insurance Providers Payer Name Payer Address Payer Phone Insured Name Patient Relati onship to Insured Coverage Start Date Coverage End Date [facility] [address] [place] [address] NICK MCCRACKEN self
--- OUTSIDE RECORDS SUMMARY | 2021-06-16 10:53 | CCD | Continuity of Care Document ---
Author Author Paige STEWART MD Organization Unknown Address [address] [place] [address] , [facility] [address] [place] [address] Phone [phone] Care Team Providers Care Credit Administration Manager Name Role Phone Lashonda Diego D.O. AUTM Cedric Cain AUTM [phone] AUTM Unavailable Problems Active Problems Provider Date Essential hypertension Everette Hernandez, Onset: 7 Viral pneumonia, unspecified Praveen Rocha P.AKatlyn Onset: 12/2017 Other nonspecific abnormal finding of lung field Praveen costa, P.AKatlyn Onset: 07/05/2018 Social History Type Date Description Comments Sex Unknown ETOH Use Denies alcohol use Tobacco Use Start: Unknown Denies Smoking Recreational Drug Use Denies Drug Use Smoking Status Reviewed: 12/22/20 Denies Smoking Exercise Type/Frequency Does not exercise Allergies and adverse reactions Active Allergies Criticality Reaction | Severity Comments Date Ethinyl Estradiol Unable to assess criticality 03/13/2017 Ethinyl Estradiol Unable to assess criticality 03/13/2017 Fluoxetine Unable to assess criticality 03/13/2017 Medications Active Medications SIG Qnty Indications Ordering Provide r Date Buspirone HCL 15mg Tablets 1tab po bid Unknown Hydrochlorothiazide 12.5mg Tablets 1tab po qd Unknown Nortriptyline HCL 25mg Capsules 1cap po bid Unknown Zonisamide 100mg Capsules 1ca p po bid Unknown Fluticasone Propionate 50mcg/Act Suspension [place] Two Sprays In Each Nostril Every Day Unknown Alprazolam 0.25mg Tablets Take 1 2 Tablets By Mouth as Needed For Anxiety Attacks Maximum Daily Dose 2 Unknown Aimovig 140mg/ml Solution Auto-Inj ect inj monthly Unknown Calcium + D3 600-200 Tablets 2 tabs qd Unknown Immunizations Description No Information Available Vital Signs Date Vital Result Comment 05/14/2021 8:44am Body Temperature 97.0 F 03/16/2021 11:11am Body Temperature 96.7 F Results Description No Information Available Procedures Date Code Description Status 05/14/2021 91299 Office/Outpatient Established Mo d MDM 30-39 Min Completed 04/27/2021 92080 Office/Outpatient Established Lo w MDM 20-29 Min Completed 12/29/2020 78587 Office/Outpatient Established Mo d MDM 30-39 Min Completed 12/29/2020 38194 FX Distal Radius Closed Treatmen t W/O Manipulation Completed 12/22/2020 30519 Office/Outpatient Established Lo w MDM 20-29 Min Completed 12/22/2020 59731 FX Distal Radius Closed Treatmen t W/O Manipulation Completed Medical Devices Description No Information Available Encounters Type Date Location Provider Dx Diagnosis Office Visit 05/14/2021 9:15a [facility] Rohan Stewart MD S52.122D Disp fx of head of left rad, subs for cl os fx w routn heal T84.84xA Pain due to internal orthope dic prosth dev/grft, init Office Visit 04/27/2021 10:15a [facility] Rohan Stewart MD S52.591D Oth fx of lower end r radius, subs for c los fx w routn heal S52.122D Disp fx of head of left rad, subs for clos fx w routn heal Office Visit 03/16/2021 11:15a [facility] Rohan Stewart MD S52.591D Oth fx of lower end r radius, subs for c los fx w routn heal S52.122D Disp fx of head of left rad, subs for clos fx w routn heal Office Visit 02/02/2021 10:45a [facility] Rohan Stewart MD S52.591D Oth fx of lower end r radius, subs for c los fx w routn heal Office Visit 01/14/2021 10:15a [facility] Rohan Stewart MD S52.591D Oth fx of lower end r radius, subs for c los fx w routn heal Office Visit 12/29/2020 8:30a [facility] Rohan Stewart MD S52.591A Oth fractures of lower end of right radi us, init for clos fx S52.122D Disp fx of head of left rad, subs for clos fx w routn heal W19.xxxA Unspecified fall, initial en counter Office Visit 12/22/2020 10:30a [facility] Papa yanez MD S52.501A Unsp fracture of the lower end of right radius, init Assessments Date Code Description Provider 05/14/2021 S52.122D Displaced fracture o f head of left radius, subsequent encounter for closed fracture with routine healing Rohan Stewart MD 05/14/2021 T84.84xA Pain due to internal orthopedic prosthetic devices, implants and grafts, initial encounter Rohan Stewart MD 04/27/2021 S52.591D Other fractures of l ower end of right radius, subsequent encounter for closed fracture with routine healing Rohan Stewart MD 04/27/2021 S52.122D Displaced fracture o f head of left radius, subsequent encounter for closed fracture with routine healing Rohan Stewart MD 03/16/2021 S52.591D Other fractures of l ower end of right radius, subsequent encounter for closed fracture with routine healing Rohan Stewart MD 03/16/2021 S52.122D Displaced fracture o f head of left radius, subsequent encounter for closed fracture with routine healing Rohan Stewart MD 02/02/2021 S52.591D Other fractures of l ower end of right radius, subsequent encounter for closed fracture with routine healing Rohan Stewart MD 01/14/2021 S52.591D Other fractures of l ower end of right radius, subsequent encounter for closed fracture with routine healing Rohan Stewart MD 12/29/2020 S52.591A Other fractures of l ower end of right radius, initial encounter for closed fracture Rohan Stewart MD 12/29/2020 S52.122D Displaced fracture o f head of left radius, subsequent encounter for closed fracture with routine healing Rohan Stewart MD 12/29/2020 W19.xxxA Unspecified fall, initial encoun Oropeza MD 12/22/2020 S52.501A Unspecified fracture of the lower end of right radius, initial encounter for closed fracture Papa Morales MD Plan of Treatment No Information Available Functional Status Description No Information Available Mental Status Description No Information Available Referrals Description No Information Available"
--- OUTSIDE RECORDS SUMMARY | 2021-06-16 10:53 | CCD ---
Author Author BolaPaige Organization Unknown Address [address] [address] Phone Care Team Providers Care Bearingizer Name Role Phone Ana Plaza PCP Allergies, Adverse Reactions, Alerts No Data in Section Problem List Concept Problem Description Status Start Date Created Date Resolv ed Date Snomed Code F60.3 Borderline Personality Disorder Active 05/03/20 21 F33.1 Major Depressive Disorder, Recurrent episode, Moderate Active 04/05/2019 04/05/2019 F43.9 Unspecified Trauma- and Stressor-Related Disorder Active 05/03/2021 Medications Rx Norm Medication Route Route Concept Start Date Stop Date Dosage [place] quency Duration Formula Strength Dosage Form Dosage Form Code Dosage Description Medication Id Account Npid Author First Name Author Last Name Taxonomy Code Taxonomy Desc Phone Number [id number] citalopram by mouth [id number] 11/30/2020 once a day 20 mg tablet as directed [id number] Ana Plaza [id number] Nurse Practition er [phone] Social History Social History Element Description Concept Effective Date Smoking Status Never smoker [id number] Immunizations No Data in Section Vital Signs No Data in Section Procedures Date Concept Id Description Targeted Site Concept Targeted Site Concept Type 05/03/2021 82288 E/M Level 3 - Established Patient CPT Patient has no history of implantable de vices Encounters Encounter Start Date End Date Encounter Type Description Diagnosis Di agnosis Desc Location Author First Name Author Last Name Npid Taxonomy Cod e Taxonomy Desc Phone Number Location Addr1 Location Addr2 Location [facility] Location [facility] Location Zip [id number] 05/03/2021 05/03/2021 00371 E/M Level 3 - Established Pa len F60.3 Borderline personality disorder [facility] Bola Ana [id number] Nurse Practitioner [phone] [address] [address] Plan of Treatment No Data in Section Lab Results No Data in Section Instructions No Data in Section Functional Cognitive Status No Data in Section Insurance Providers Insurance Id Policy Effective Date Policy Thru Date Company Bea [employer]ett [id number] 2018 [facility] [id number]
--- OUTSIDE RECORDS SUMMARY | 2021-06-16 10:53 | CCD ---
Author Author [facility] Organization [facility] Address Unknown Phone Unavailable Care Team Providers Care Diagnostic Cardiac Sonographer Name Role Phone Brendan Hill Unavailable PROBLEMS Type Condition ICD9-CM Code [id number] Code Onset Dates Condition S tatus W/U Status Risk SNOMED Code Notes Problem Seborrheic dermatitis L21.9 Active confirmed 20078773 Problem Pruritus L29.9 Active confirmed 303737238 Problem Lentigines L81.4 Active confirmed 469168093 ALLERGIES Allergen (clinical drug ingredient) Drug/Non Drug Allergy do cumented on EMR Reaction Allergy Type Onset Date Status NuvaRing High blood pressure Non Drug Allergy Active ENCOUNTERS from 1978 to 2021-04-29 Encounter Location Date Provider Diagnosis [facility] [address] [place] [address] [place] [address] Mar, Brendan Hill IMMUNIZATIONS No Information SOCIAL HISTORY Tobacco Use: [...] Information RESULTS No Results REASON FOR VISIT 06/16/21 SURG AUTH MEDICAL (GENERAL) HISTORY Type Description Date Medical History Migranes Medical History Anxiety/Depression/PTSD Surgical History 4 Surgical History tonsils Surgical History appendectomy Hospitalization History childbirth Hospitalization History surgical related Goals Section No Information Health Concerns No Information MEDICAL EQUIPMENT No Information MENTAL STATUS No Information FUNCTIONAL STATUS No Information ASSESSMENTS No Information PLAN OF TREATMENT Next Appt Details Provider Name:Aamir Wall, 7 09:00:00 AM, [address] , , [place], [address], Provider Name:Brendan Hill, 2021-06-07 08:45:00 AM, [address] [place], [place] [address], [place], [address], Provider Name:Brendan Hill, 2021-06-16 12:30:00 AM, [address] [place], [place] [address], [place], [address], Provider Name:Brendan Hill, 2021-07-02 11:00:00 AM, [address] [place], [place] [address], [place], [address], Provider Name:Brendan Hill, 2021-07-26 02:00:00 PM, [address] [place], [place] [address], [place], [address], Insurance Providers Payer Name Payer Address Payer Phone Insured Name Patient Relati onship to Insured Coverage Start Date Coverage End Date [facility] [address] [place] [address] NICK MCCRACKEN self
--- OUTSIDE RECORDS SUMMARY | 2021-06-16 10:53 | CCD | Continuity of Care Document ---
Author Author Paieg STEWART MD Organization Unknown Address [address] [place] [address] , [facility] 2 [place] [address] Phone [phone] Care Team Providers Care Director Of Restaurant Operations Name Role Phone Lashonda Diego D.O. AUTM Cedric Cain AUTM [phone] AUTM Unavailable Problems Active Problems Provider Date Essential hypertension Everette Hernandez DO Onset: 7 Viral pneumonia, unspecified REI Nagel Onset: 12/2017 Other nonspecific abnormal finding of lung field REI Escalera Onset: 07/05/2018 Social History Type Date Description Comments Sex Unknown ETOH Use Denies alcohol use Tobacco Use Start: Unknown Denies Smoking Recreational Drug Use Denies Drug Use Smoking Status Reviewed: 12/22/20 Denies Smoking Exercise Type/Frequency Does not exercise Allergies, Adverse Reactions, Alerts Active Allergies Criticality Reaction | Severity Comments [...] po bid Unknown Fluticasone Propionate 50mcg/Act Suspension [place] Two Sprays In Each Nostril Every Day Unknown Alprazolam 0.25mg Tablets Take 1 2 Tablets By Mouth as Needed For Anxiety Attacks Maximum Daily Dose 2 Unknown Aimovig 140mg/ml Solution Auto-Inj ect inj monthly Unknown Calcium + D3 600-200 Tablets 2 tabs qd Unknown Immunizations Description No Information Available Vital Signs Date Vital Result Comment 03/16/2021 11:11am Body Temperature 96.7 F 02/02/2021 10:41am Body Temperature 97.7 F Results Description No Information Available Procedures Date Code Description Status 04/27/2021 13243 Office/Outpatient Established Lo w MDM 20-29 Min Completed 12/29/2020 41298 Office/Outpatient Established Mo d MDM 30-39 Min Completed 12/29/2020 80889 FX Distal Radius Closed Treatmen t W/O Manipulation Completed 12/22/2020 41685 Office/Outpatient Established Lo w MDM 20-29 Min Completed 12/22/2020 17462 FX Distal Radius Closed Treatmen t W/O Manipulation Completed Medical Devices Description No Information Available Encounters Type Date Location Provider Dx Diagnosis Office Visit 04/27/2021 10:15a [facility] Rohan Stewart MD S52.591D Oth fx of lower end r radius, subs for c los fx w routn heal S52.122D Disp fx of head of left rad, subs for clos fx w routn heal Office Visit 03/16/2021 11:15a [facility] Rohan Stewart MD S52.591D Oth fx of lower end r radius, subs for c los fx w routn heal S52.122D Disp fx of head of left rad, subs for clos fx w routn heal Office Visit 02/02/2021 10:45a [facility] Rohan Stewart MD S52.591D Oth fx of lower end r radius, subs for c los fx w routn heal Office Visit 01/14/2021 10:15a [facility] Rohan Stewart MD S52.591D Oth fx of lower end r radius, subs for c los fx w routn heal Office Visit 12/29/2020 8:30a [facility] Rohan Stewart MD S52.591A Oth fractures of lower end of right radi us, init for clos fx S52.122D Disp fx of head of left rad, subs for clos fx w routn heal W19.xxxA Unspecified fall, initial en counter Office Visit 12/22/2020 10:30a [facility] Papa yanez MD S52.501A Unsp fracture of the lower end of right radius, init Assessments Date Code Description Provider 04/27/2021 S52.591D Other fractures of l ower [...] MD 12/29/2020 W19.xxxA Unspecified fall, initial encoun ter Rohan Stewart MD 12/22/2020 S52.501A Unspecified fracture of the lower end of right radius, initial encounter for closed fracture Papa Morales MD Plan of Treatment No Information Available Functional Status Description No Information Available Mental Status Description No Information Available Referrals Description No Information Available"
--- OUTSIDE RECORDS SUMMARY | 2021-06-16 10:53 | CCD | Continuity of Care Document ---
Author Author Paige STEWART MD Organization Unknown Address [address] [place] [address] , [facility] 2 [place] [address] Phone [phone] Care Team Providers Care Jewel Grinder Name Role Phone Lashonda Diego D.O. AUTM Cedric Cain AUTM [phone] AUTM Unavailable Problems Active Problems Provider Date [...] po bid Unknown Fluticasone Propionate 50mcg/Act Suspension [place] Two Sprays In Each Nostril Every Day [...] Available Procedures Date Code Description Status 05/14/2021 78061 Office/Outpatient Established Mo d MDM 30-39 Min Completed 04/27/2021 91715 Office/Outpatient Established Lo w MDM 20-29 Min Completed 12/29/2020 79891 Office/Outpatient Established Mo d MDM 30-39 Min Completed 12/29/2020 75650 FX Distal Radius Closed Treatmen t W/O Manipulation Completed 12/22/2020 38348 Office/Outpatient Established Lo w MDM 20-29 Min Completed 12/22/2020 42954 FX Distal Radius Closed Treatmen t W/O Manipulation Completed Medical Devices Description No Information Available Encounters Type Date Location Provider Dx Diagnosis Office Visit 05/14/2021 9:15a [facility] Rohan Stewart MD S52.122D Disp fx of head of left rad, subs for cl os fx w routn heal Office Visit 04/27/2021 10:15a [facility] Rohan [...] w routn heal Office Visit 12/29/2020 8:30a [facility] Rohan Stewart MD S52.591A Oth fractures of lower end of right radi us, init for clos fx S52.122D Disp fx of head of left rad, subs for clos fx w routn heal W19.xxxA Unspecified fall, initial en counter Office Visit 12/22/2020 10:30a [facility] Papa yanez MD S52.501A Unsp fracture of the lower end of right radius, init Assessments Date Code Description Provider 05/14/2021 S52.122D Displaced fracture o f head of left radius, subsequent encounter for closed fracture with routine healing Rohan Stewart MD 04/27/2021 S52.591D Other fractures [...]
--- OUTSIDE RECORDS SUMMARY | 2021-06-16 10:53 | CCD ---
Author Author [facility] Organization [facility] Address Unknown Phone Unavailable Care Team Providers Care Burrer Operator Name Role Phone Aamir Wall Unavailable PROBLEMS Type Condition ICD9-CM Code [id number] Code Onset Dates Condition S tatus W/U Status Risk SNOMED Code Notes Problem Hesitancy R39.11 Active confirmed 8049904 Problem Constipation, unspecified constipation type K59.00 Active confirmed 46717258 Problem Lentigines L81.4 Active confirmed 515640858 Problem Seborrheic dermatitis L21.9 Active confirmed 62190840 Problem Pruritus L29.9 Active confirmed 191796181 ALLERGIES Allergen (clinical drug ingredient) Drug/Non Drug Allergy do cumented on EMR Reaction Allergy Type Onset Date Status NuvaRing High blood pressure Non Drug Allergy Active ENCOUNTERS from 1978 to 2021-05-08 Encounter Location Date Provider Diagnosis [facility]rology [address] [phone] [place] [address] Apr, Aamir Wall Dysuria R30.0 ; Constipation, unspecifie d constipation type K59.00 and Hesitancy R39.11 IMMUNIZATIONS No Information SOCIAL HISTORY Tobacco Use: Social History Observation Description Date Details (start date - stop date) Never Smoker Sex Assigned At : Social History Observation Description Sex Assigned At Unknown Language: Question Answer Notes Languages spoken: Welsh Adventism: Question Answer Notes Adventism No presybeterian beliefs that would impact health care. Alcohol Screening: Question Answer Notes Did you have a drink containing alcohol in the past year? No Points 0 Interpretation Negative Tobacco Use: Question Answer Notes Are you a: never smoker REASON FOR REFERRAL No Information VITAL SIGNS Weight 188 lbs Apr, Height 5'2" in Apr, BMI 34.38 kg/m2 Apr, Heart Rate 82 /min Apr, Respiratory Rate 18 /min Apr, Temperature 97.3 degrees Fahrenheit Apr, Oximetry 100 Apr, Blood pressure systolic 132 mm Hg Apr, Blood pressure diastolic 82 [...] 30 day(s) Active PROCEDURES No Information RESULTS Component Value Reference Range UA URINALYSIS Reviewed date:05/07/2021 07:53:37 Interpretation: Performing Lab:[facility], [facility] [address] [address] , ,[place] [address] REASON FOR VISIT UTI symptoms suprapubic pain and dysuria MEDICAL (GENERAL) HISTORY Type Description Date Medical [...] Treatment Notes Treatm ent Clinical Notes Apr, Dysuria (ICD-10 - R30.0) Apr, Constipation, unspecified constipation type (ICD -10 - K59.00) Apr, Hesitancy (ICD-10 - R39.11) PLAN OF TREATMENT Medication Medication Name Sig Start Date Stop Date MiraLax 17 GM/SCOOP as directed Orally daily Apr, Phenazopyridine HCl 100 MG 1 Orally q12hr prn Apr, Treatment Notes Test Name Order Date URINE CULTURE 2021-05-06 Next Appt Details Local cystoscopy Reason:Dysuria Provider Name:Brendan Hill, 2021-05-28 11:15:00 AM, [address] [place] [address], [address] [place] [address], [place], [address], Provider Name:Brendan Hill, 2021-06-07 08:45:00 AM, [address] [place] [address], [address] [place] [address], [place], [address], Provider Name:Aamir Wall, 8 11:30:00 AM, [address], , [place], [address], Provider Name:Brendan Hill, 2021-06-16 12:30:00 AM, [address] [place] [address], [address] [place] [address], [place], [address], Provider Name:Brendan Hill, 2021-07-02 11:00:00 AM, [address] [place] [address], [address] [place] [address], [place], [address], Provider Name:Brendan Hill, 2021-07-26 02:00:00 PM, [address] [place] [address], [address] [place] [address], [place], [address], Follow Up:Local cystoscopyDysuria Insurance Providers Payer Name Payer Address Payer Phone Insured Name Patient Relati onship to Insured Coverage Start Date Coverage End Date [facility] [address] [place] [phone] NICK MCCRACKEN
--- OUTSIDE RECORDS SUMMARY | 2021-06-16 10:53 | CCD ---
Author Author [facility] Organization [facility] Address Unknown Phone Unavailable Care Team Providers Care Gear Room Keeper Name Role Phone Aamir Wall Unavailable PROBLEMS Type Condition ICD9-CM Code FVP72-GT Code Onset Dates Condition S tatus W/U Status Risk SNOMED Code Notes Problem Hesitancy R39.11 Active confirmed 1550568 Problem Constipation, unspecified constipation type K59.00 Active confirmed 31208841 Problem Lentigines L81.4 Active confirmed 081703358 Problem Seborrheic dermatitis L21.9 Active confirmed 51185152 Problem Pruritus L29.9 Active confirmed 649127876 ALLERGIES Allergen (clinical drug ingredient) Drug/Non Drug Allergy do cumented on EMR Reaction Allergy Type Onset Date Status ethinyl estradiol / etonogestrel NuvaRing([facility] Code:19668-109 3-01) High blood pressure Drug Allergy Active ENCOUNTERS from 1980 to 2021-05-21 Encounter Location Date Provider Diagnosis [facility] [address] [phone] [place] [address] Apr, Aamir Wall IMMUNIZATIONS No Information SOCIAL HISTORY Tobacco Use: Social History Observation Description Date Details (start date - stop date) Never Smoker Sex Assigned At : Social History Observation Description Sex Assigned At Unknown Language: Question Answer Notes Languages spoken: [place] Religious: Question Answer Notes Religious No sikhism beliefs that would impact health care. Alcohol [...] Information RESULTS No Results REASON FOR VISIT 06/07/2021 appt MEDICAL (GENERAL) HISTORY Type Description Date Medical [...] Details Provider Name:Brendan Hill, 2021-05-28 11:15:00 AM, [address] [place] [address] , [place], [address], Provider Name:Brendan Hill, 2021-06-07 08:45:00 AM, [address] [place] [address] , [place], [address], Provider Name:Aamir Wall, 8 11:30:00 AM, [address], , [place], [address], Provider Name:Brendan Hill, 2021-06-16 12:30:00 AM, [address] [place] [address], , [place], [address], Provider Name:Brendan Hill, 2021-07-02 11:00:00 AM, [address] [place] [address], , [place], [address], Provider Name:Brendan Hill, 2021-07-26 02:00:00 PM, [address] [place] [address], , [place], [address], Insurance Providers Payer Name Payer Address Payer Phone Insured Name Patient Relati onship to Insured Coverage Start Date Coverage End Date [facility] [address] [place] [address] NICK MCCRACKEN self
--- OUTSIDE RECORDS SUMMARY | 2021-06-16 10:53 | CCD ---
Continuity of Care Document (CCD) Created on: 06/14/2021 Paige Mccracken External Reference #: [id number] : [id number] Sex: Female Author Author Paige DIEGO D.O. Organization Unknown Address [address] [place] [address] Phone [phone] Care Team Providers Care Drilling Manager Name Role Phone Lashonda Diego D.O. AUTM Jayleen Davis AUTM [phone] Adriel Dodson MD AUTM [phone] Problems Active Problems Provider Date Severe major depression, single episode, without psych otic features Lashonda Diego D.O. Onset: 06/01/2015 Posttraumatic stress disorder Lashonda Diego D.O. Ons et: 06/01/2015 Elevated blood-pressure reading without diagnosis of h ypertension Lashonda Jung D.O. Onset: 06/01/2015 Essential hypertension Lashonda Diego D.O. Onset: Allergic rhinitis Lashonda Diego D.O. Onset: 2015 Generalized anxiety disorder REI Napoles Onset: Moderate recurrent major depression REI Napoles Ons et: 11/22/2017 Disorder of menstruation REI Napoles Onset: 018 Gastro-esophageal reflux disease with esophagitis Onset: Note: endoscopy 11/06/2019 Hyperparathyroidism REI Napoles Onset: 09/23/2020 Social History Type Date Description Comments Sex Unknown Tobacco Use Start: Unknown Never Smoked Cigarettes Smoking Status Reviewed: 04/27/21 Never Smoked Cigarettes ETOH Use Denies alcohol use Tobacco Use Start: Unknown Patient has never smoked Recreational Drug Use Denies Drug Use Exercise Type/Frequency Does not exercise Sun Exposure Uses sunscreen Seat Belt/Car Seat Always uses seat belt Allergies and adverse reactions Active Allergies Criticality Reaction | Severity Comments Date NuvaRing Unable to assess criticality Hypertension 06/01/2015 Prozac Unable to assess criticality Tremors 06/01/2015 Cymbalta Unable to assess criticality | Severe suicidal abimael ations 10/14/2020 Medications Active Medications SIG Qnty Indications Ordering Provide r Date Senna S 8.6-50mg Tablets one tablet by mouth twice daily as needed hold for loose stools 60tabs K59.00 Lashonda Jung D.O. 04/27/2021 Mupirocin 2% Ointment apply to irritated area on the vaginal tissue twice daily until resolved 22gm N76.0 Tam Olson.O. 03/17/2021 Phenazopyridine HCL 200mg Tablets take one tablet by mouth every 8 hours for three days 9tabs N39.0 Tam Mccullough.O. 12/31/2020 Clobetasol Propionate 0.05% Liquid apply liquid to clean, dry, posterior scalp in the morning for 10 days and as needed for flares 125units L40.8 Tam Mccullough.O. 08/29 Buspirone HCL 15mg Tablets take 1 tablet by mouth in the morning and in the evening 180tabs F41.1 Tam Mccullough.[place] 11/02/2017 Nystatin-Triamcinolone 791331-1.1Unit/GM-% Ointment apply 1 application topically to affecte d area on buttocks 2 times per day for santhosh infection 30gm B37.2 Tam Mccullough.[place] 09/14/2017 Hydrochlorothiazide 12.5mg Tablets Take One Tablet By Mouth Every Day 90tabs J06.9 Lashonda zamudio, D.O. 02/10/2017 Famotidine 20mg Tablets Take One Tablet By Mouth Twice A Day 180tabs Yasmeen McculloughO. One Daily For Women Tablets 1 by mouth every day Unknown Vitamin C 500mg Tablets 1 by mouth every day Unknown Vitamin D3 50mcg (2000 Ut) Capsule s 1 by mouth every day Unknown Aimovig 140mg/ml Solution Auto-Inj ect Inject The Contents Of One Pen Under The Skin Once A Month Unknown Citalopram Hydrobromide 20mg Table ts Take 1 And 1/2 Tablet By Mouth Once Daily Unknown Flonase Allergy Relief 50mcg/Act Suspension 2 sprays in each nostril daily 29.7ml Lashonda La D.O. Zonisamide 100mg Capsules take one capsule by mouth twice a day 180caps Tam Mccullough.O. Migraine Relief [phone] Table ts 1 tablet by mouth daily Unknown Nortriptyline HCL 25mg Capsules 1 capsules by mouth twice a day 180caps Lashonda Diego D.O. History Medications Sulfamethoxazole/Trimethoprim DS 800-160mg Tablets one tablet by mouth twice daily for 10 days 20tabs N39. 0 Tam Olson.O. 03/17/2021 - 03/29/2021 Diflucan 150mg Tablets one tablet day 1 then repeat in 3 days if not better 2tabs N39.0 Tam Xie.O. 03/17/2021 - 03/29/2021 Levofloxacin 250mg Tablets one tabket by rust daily for 7 days 7tabs Tam Mccullough.O . 03/10/2021 - 03/17/2021 Diflucan 150mg Tablets one tablet day 1 then repeat in 3 days if not better 2tabs Tam Xie.O. 03/10/2021 - 03/17/2021 Macrobid 100mg Capsules take one capsule by mouth twice a day for 7 days 14caps N39.0 Tam Velasquez.O. 03/08/2021 - 03/10/2021 Medications Administered in Office Medication SIG Qnty Indications Ordering Provider Date Immunization Administration Single Or Co mbination Injection Tam Mccullough 04/21/2020 Immunization Administration Single Or Co mbination Injection REI Napoles Immunization Administration Single Or Co mbination Injection Nurse 05/08/2017 Immunization Administration Single Or Co mbination Injection Nurse 05/27/2016 Immunizations CPT Code Status Date Vaccine Lot # [id number] Given 04/21/2020 Influenza Virus Vaccine, Quadrivalent, Split, Preservative Free [id number] Given 06/06/2019 Influenza Virus Vaccine, Quadrivalent, Split, Preservative Free [id number] Given 05/25/2018 Influenza Virus Vaccine, Quadrivalent, Split, Preservative Free [id number] Given 05/08/2017 Influenza Vaccin e Quadrivalent Preser/Antibiotic Free Im Use [id number] Given 05/27/2016 Influenza Virus Vaccine, Quadrivalent, Split, Preservative Free [id number] Vital Signs Date Vital Result Comment 04/27/2021 8:58am BP Systolic 122 mmHg BP Diastolic 84 mmHg Height 63.5 inches 5'3.50" Weight 186.00 lb BMI (Body Mass Index) 32.4 kg/m2 Heart Rate 68 /min Respiratory Rate 20 /min Body Temperature 98.2 F O2 % BldC Oximetry 99 % Clements Body Weight 115 lb 03/29/2021 8:06am BP Systolic 120 mmHg BP Diastolic 80 mmHg Height 63.5 inches 5'3.50" Weight 182.25 lb BMI (Body Mass Index) 31.8 kg/m2 Heart Rate 81 /min Respiratory Rate 14 /min Body Temperature 96.9 F O2 % BldC Oximetry 98 % Clements Body Weight 115 lb Results Test Acquired Date Facility Test Result H/L Range Note Coronavirus 2019 Nasopharygeal 06/11/2021 [facility] Outpa tient Testing (Registration) [address] [place] [address] [phone] Coronavirus 2019 Nasopharygeal ASSAY INFORMATIO <SEE N OTE> 1 Laboratory test finding 04/27/2021 [facility] Image-Guided Pap W/Age Based SCR Protocols <pending> Inhouse Ua 03/17/2021 Inhouse Inhouse Leukocytes neg Inhouse Nitrite + Inhouse Urobilinogen + Inhouse Protein neg Inhouse PH 7 Inhouse Hemoglobin neg Inhouse Specific [place] 1.010 Inhouse Ketones neg Inhouse Bilirubin neg Inhouse Glucose neg Laboratory test finding 03/17/[address] [id number] [phone] Urine Culture FULL REPORT IN L <SEE NOTE> Normal 2 Laboratory test finding 03/08/[address] [id number] [phone] Urine Culture FULL REPORT IN L <SEE NOTE> Normal 3 Inhouse Ua 03/08/2021 Inhouse Inhouse Leukocytes +++ Inhouse Nitrite neg Inhouse Urobilinogen neg Inhouse Protein neg Inhouse PH 5 Inhouse Hemoglobin trace Inhouse Specific [place] 1.010 Inhouse Ketones neg Inhouse Bilirubin neg Inhouse Glucose neg Inhouse Ua 12/31/2020 Inhouse Inhouse Leukocytes neg Inhouse Nitrite neg Inhouse Urobilinogen neg Inhouse Protein neg Inhouse PH 5 Inhouse Hemoglobin neg Inhouse Specific [place] 1.025 Inhouse Ketones neg Inhouse Bilirubin neg Inhouse Glucose neg Laboratory test finding 12/31/[address] [id number] [phone] Urine Culture FULL REPORT IN L <SEE NOTE> Normal 4 1 ASSAY INFORMATION: Real Time RT-PCR NOTE: The COVID-19 assay has been cleared by the U.S. Food and Drug Administration under the Emergency Use Authorization (EUA). [employer] [facility] are designated as high complexity laboratories by the Clinical Laboratory Improvement Amendments of 1988(CLIA) and are qualified to perform this test. Not Detected 2 FULL REPORT IN LAB NOTES ([facility]). NO GROWTH 3 FULL REPORT IN LAB NOTES ([facility]). ORGANISM 1: STAPHYLOCOCCUS SAPROPHYTICUS COLONY COUNT 40,000 ORGANISM 1: STAPHYLOCOCCUS SAPROPHYTICUS STAPHYLOCOCCUS SAPROPHYTICUS: REACTION ICR (INDUCIBLE CC RESISTANCE) IV ICR TEST RESULT TETRACYCLINE PO 250 mg qid >=16 R PENICILLIN G IV 1 mu q6H >=0.5 R PENICILLIN G IV 1 mu q6h >=0.5 R PENICILLIN G PO 250mg q6h fasting >=0.5 R TRIMETHOPRIM/SULFAMETHOXAZOLE IV 160mg TMP & 800mg SMXq6h 80 R TRIMETHOPRIM/SULFAMETHOXAZOLE PO Bactrim DS Bid 80 R ERYTHROMYCIN IV 500mg q6h >=8 R ERYTHROMYCIN PO 500mg q6h >=8 R GENTAMICIN IV 80mg q8h <=0.5 S CLINDAMYCIN IV 600mg q6h <=0.12 R CLINDAMYCIN PO 150mg q6h <=0.12 R NITROFURANTOIN PO 100mg BID <=16 S OXACILLIN IV 500mg q6h >=4 R VANCOMYCIN IV 500mg q8h 1 S LINEZOLID (ZYVOX) IV 600MG Q12HR 4 S LINEZOLID (ZYVOX) PO 600MG Q12HR 4 S An isolate with a (+) POSITIVE ICR test is considered CLINDAMYCIN RESISTANT; however, clindamycin may still be effective in some patients. An isolate with a (-) NEGATIVE ICR test is considered CLIDAMYCIN SENSITIVE. 4 FULL REPORT IN LAB NOTES ([facility]). NO GROWTH CLINICAL SIGNIFICANCE 1 ORGANISM Procedures Date Code Description Status 04/27/2021 23825 Office/Outpatient Established Mo d MDM 30-39 Min Completed 03/29/2021 46223 Office/Outpatient Established Mo d MDM 30-39 Min Completed 03/17/2021 34790 Office/Outpatient Established Lo w MDM 20-29 Min Completed 03/08/2021 86368 Office/Outpatient Established Lo w MDM 20-29 Min Completed 12/31/2020 25791 Office/Outpatient Established Lo w MDM 20-29 Min Completed 06/13/2019 88172921 Mammogram Completed Medical Devices Description No Information Available Encounters Type Date Location Provider Dx Diagnosis Office Visit 04/27/2021 9:00a [facility] Scotty Diego D.O. K59.00 Constipation, unspecified E21.3 Hyperparathyroidism, unspeci fied G43.009 Migraine w/o aura, not intra ctable, w/o status migrainosus F33.1 Major depressive disorder, r ecurrent, moderate F43.10 Post-traumatic stress disord er, unspecified K58.2 Mixed irritable bowel syndro me F41.1 Generalized anxiety disorder Z12.31 Encntr screen mammogram for malignant neoplasm of breast Office Visit 03/29/2021 8:00a [facility] REI Napoles E21.3 Hyperparathyroidism, unspeci fied G43.009 Migraine w/o aura, not intra ctable, w/o status migrainosus F33.1 Major depressive disorder, r ecurrent, moderate F43.10 Post-traumatic stress disord er, unspecified K58.2 Mixed irritable bowel syndro me R30.0 Dysuria F41.1 Generalized anxiety disorder Office Visit 03/17/2021 8:30a [facility] Lashonda Diego D.O. N39.0 Urinary tract infection, sit e not specified N76.0 Acute vaginitis Office Visit 03/08/2021 10:10a [facility] Lashonda Diego D.O. N39.0 Urinary tract infection, sit e not specified Office Visit 12/31/2020 8:30a [facility] REI Kan R30.0 Dysuria Assessments Date Code Description Provider 04/27/2021 K59.00 Constipation, unspecified Lashonda Law, D.O. 04/27/2021 E21.3 Hyperparathyroidism, unspecified Lashonda Diego, D.O. 04/27/2021 G43.009 Migraine without aura, not intra ctable, without status migra Lashonda Diego, D.O. 04/27/2021 F33.1 Major depressive disorder, recur rent, moderate Lashonda Jung, D.O. 04/27/2021 F43.10 Post-traumatic stress disorder, unspecified Lashonda Jung, D.O. 04/27/2021 K58.2 Mixed irritable bowel syndrome J ill Brandie, D.O. 04/27/2021 F41.1 Generalized anxiety disorder Fanny Diego, D.O. 04/27/2021 Z12.31 Encounter for screen ing mammogram for malignant neoplasm of breast Tam Mccullough.O. 03/29/2021 E21.3 Hyperparathyroidism, unspecified REI Napoles 03/29/2021 G43.009 Migraine without aura, not intra ctable, without status migra REI Napoles 03/29/2021 F33.1 Major depressive disorder, recur rent, moderate REI Napoles 03/29/2021 F43.10 Post-traumatic stress disorder, unspecified REI Napoles 03/29/2021 K58.2 Mixed irritable bowel syndrome S REI Guillermo 03/29/2021 R30.0 Dysuria REI Napoles 03/29/2021 F41.1 Generalized anxiety disorder REI Plascencia 03/17/2021 N39.0 Urinary tract infection, site no t specified Lashonda Jung D.[place]atlyn 03/17/2021 N76.0 Acute vaginitis Lashonda reyes D.OKatlyn 03/08/2021 N39.0 Urinary tract infection, site no t specified Lashonda Jung D.OKatlyn 12/31/2020 R30.0 Dysuria REI Kan Plan of Treatment Future Appointment(s):* 06/28/2021 8:30 am - Lashonda Diego D.O. at [facility] * 10/18/2021 8:20 am - Lashonda Diego D.O. at [facility] 04/27/2021 - Lashonda Diego D.O.* K59.00 Constipation, unspecified* New Medication:* Senna S 8.6-50 mg - one tablet by mouth twice daily as needed hold for loose stools * Comments:* restart senna * E21.3 Hyperparathyroidism, unspecified* Comments:* referral pending * Follow up:* 2 months * G43.009 Migraine without aura, not intractable, without status migra* Comments:* Stable * F33.1 Major depressive disorder, recurrent, moderate * F43.10 Post-traumatic stress disorder, unspecified * K58.2 Mixed irritable bowel syndrome* Comments:* She has not been taking her senna and I sent a refill Colonoscopy 09/2019 * F41.1 Generalized anxiety disorder* Comments:* I have asked her to take buspirone twice daily while her anxiety is worsening. * Z12.31 Encounter for screening mammogram for malignant neoplasm of breast* New Xrays:* Mammography Screening, Bilateral; 2-View Each Breast, Ordered: 04/27/21 Functional Status Description No Information Available Mental Status Description No Information Available Referrals Refer to Dr Reason for Referral Status Appt Date Adriel Dodson MD This is a 41 year old female who has been presenting with UTI typle symptoms of suprapubic pain and dyuria but her urine cultures have been negative. She had her IUD removed as she thought that might be causing the symptoms but they have persisted. Please evaluate and treat. Closed 05/06/[address] Guerrero [address] [place] [address] [phone]
--- OUTSIDE RECORDS SUMMARY | 2021-06-16 10:53 | CCD ---
Author Author [facility] Organization [facility] Address Unknown Phone Unavailable Care Team Providers Care Artist Representative Name Role Phone Brendan Hill Unavailable PROBLEMS Type Condition ICD9-CM Code LLB66-WO Code Onset Dates Condition S tatus W/U Status Risk SNOMED Code Notes Problem Seborrheic dermatitis L21.9 Active confirmed 97991315 Problem Pruritus L29.9 Active confirmed 151953780 Problem Lentigines L81.4 Active confirmed 409144607 ALLERGIES Allergen (clinical drug ingredient) Drug/Non Drug Allergy do cumented on EMR Reaction Allergy Type Onset Date Status NuvaRing High blood pressure Non Drug Allergy Active ENCOUNTERS from 1980 to 2021-04-29 Encounter Location Date Provider Diagnosis [facility] [address] [place] [address] [place] [address] Mar, Brendan Hill IMMUNIZATIONS No Information SOCIAL [...] Information RESULTS No Results REASON FOR VISIT EMILIANA APPT MEDICAL (GENERAL) HISTORY Type Description Date Medical History Migranes Medical History Anxiety/Depression/PTSD Surgical History 4 Surgical History tonsils Surgical History appendectomy Hospitalization History childbirth Hospitalization History surgical related Goals Section No Information Health Concerns No Information MEDICAL EQUIPMENT No Information MENTAL STATUS No Information FUNCTIONAL STATUS No Information ASSESSMENTS No Information PLAN OF TREATMENT Next Appt Details Provider Name:Aamir Wall, 7 09:00:00 AM, [address] , , [place], [address], Provider Name:Brendan Hill, 2021-06-07 08:45:00 AM, [address] [place], [place] [address], [place], [address], Provider Name:Brendan Hill, 2021-06-16 12:30:00 AM, [address] [place], [place] [address], [place], [address], Provider Name:Brendan Hill 2021-07-02 11:00:00 AM, [address] [place], [place] [address], [place], [address], Provider Name:Brendan Hill, 2021-07-26 02:00:00 PM, [address] [place], [place] [address], [place], [address], Insurance Providers Payer Name Payer Address Payer Phone Insured Name Patient Relati onship to Insured Coverage Start Date Coverage End Date [facility] [address] [facility] [address] NICK MCCRACKEN self
--- OUTSIDE RECORDS SUMMARY | 2021-06-16 10:53 | CCD ---
Author Author [facility] Organization [facility] Address Unknown Phone Unavailable Care Team Providers Care Navy Diver Name Role Phone Aamir Wall Unavailable PROBLEMS ALLERGIES ENCOUNTERS from 1980 to 2021-06-10 IMMUNIZATIONS No Information SOCIAL HISTORY REASON FOR REFERRAL No Information VITAL SIGNS MEDICATIONS PROCEDURES No Information RESULTS No Results REASON FOR VISIT No Information MEDICAL (GENERAL) HISTORY Goals Section Health Concerns MEDICAL EQUIPMENT No Information MENTAL STATUS FUNCTIONAL STATUS ASSESSMENTS No Information PLAN OF TREATMENT Insurance Providers
--- OUTSIDE RECORDS SUMMARY | 2021-06-16 10:53 | CCD ---
Author Author [facility] Organization [facility] Address Unknown Phone Unavailable Care Team Providers Care Paper Sample Clerk Name Role Phone Aamir Wall Unavailable PROBLEMS Type Condition ICD9-CM Code DHY09-OD Code Onset Dates Condition S tatus W/U Status Risk SNOMED Code Notes Problem Hesitancy R39.11 Active confirmed 9462970 Problem Constipation, unspecified constipation type K59.00 Active confirmed 58579885 Problem Lentigines L81.4 Active confirmed 977252775 Problem Seborrheic dermatitis L21.9 Active confirmed 13883474 Problem Pruritus L29.9 Active confirmed 277260806 ALLERGIES Allergen (clinical drug ingredient) Drug/Non Drug Allergy do cumented on EMR Reaction Allergy Type Onset Date Status ethinyl estradiol / etonogestrel NuvaRing([facility] Code:96579-899 3-01) High blood pressure Drug Allergy Active ENCOUNTERS from 1980 to 2021-05-18 Encounter Location Date Provider Diagnosis [facility] [address] [phone] [place] [address] 14 Apr, 2021 Aamir Wall IMMUNIZATIONS No Information SOCIAL HISTORY Tobacco Use: Social History Observation Description Date Details (start date - stop date) Never Smoker Sex Assigned At : Social History Observation Description Sex Assigned At Unknown Language: Question Answer Notes Languages spoken: Swedish Anabaptism: Question Answer Notes Anabaptism No gnosticism beliefs that would impact health care. Alcohol [...] Information RESULTS No Results REASON FOR VISIT urine culture MEDICAL (GENERAL) HISTORY Type Description Date Medical [...] Details Provider Name:Brendan Hill, 2021-05-28 11:15:00 AM, [address] [place] [address] , [place], [address], Provider Name:Brendan Hill, 2021-06-07 08:45:00 AM, [address] [facility] [phone], [place], [address], Provider Name:Aamir Wall, 2021-05- 8 11:30:00 AM, [address], , [place], [address], Provider Name:Brendan Hill, 2021-06-16 12:30:00 AM, [address] [place] [address], , [place], [address], Provider Name:Brendan Hill, 2021-07-02 11:00:00 AM, [address] [place] [address], , [place], [address], Provider Name:Brendan Hill, 2021-07-26 02:00:00 PM, [address] [place] [address], , [place], [address], Insurance Providers Payer Name Payer Address Payer Phone Insured Name Patient Relati onship to Insured Coverage Start Date Coverage End Date [facility] [address] [place] [address] NICK MCCRACKEN
--- OUTSIDE RECORDS SUMMARY | 2021-06-16 10:53 | CCD ---
Author Author [facility] Organization [facility] Address Unknown Phone Unavailable Care Team Providers Care Metal Solderer Name Role Phone Brendan Hill Unavailable PROBLEMS Type Condition ICD9-CM Code PBQ04-[place] Code Onset Dates Condition S tatus W/U Status Risk SNOMED Code Notes Problem Hesitancy R39.11 Active confirmed 0653488 Problem Constipation, unspecified constipation type K59.00 Active confirmed 85179341 Problem Lentigines L81.4 Active confirmed 306497719 Problem Seborrheic dermatitis L21.9 Active confirmed 67080285 Problem Pruritus L29.9 Active confirmed [id number] ALLERGIES Allergen (clinical drug ingredient) Drug/Non Drug Allergy do cumented on EMR Reaction Allergy Type Onset Date Status ethinyl estradiol / etonogestrel NuvaRing([facility] Code:18693-212 3-) High blood pressure Drug Allergy Active ENCOUNTERS from 1978 to 2021-06-12 Encounter Location Date Provider Diagnosis [facility] [address] [place] [address] [place] [address] May, Brendan Hill Heavy menses N92.0 IMMUNIZATIONS No Information SOCIAL HISTORY Tobacco Use: Social History Observation Description Date Details (start date - stop date) Never Smoker Sex Assigned At : Social History Observation Description Sex Assigned At Unknown Language: Question Answer Notes Languages spoken: Haitian Mandaeism: Question Answer Notes Mandaeism No buddhist beliefs that would impact health care. Alcohol Screening: Question Answer Notes Did you have a drink containing alcohol in the past year? No Points 0 Interpretation Negative Tobacco Use: Question Answer Notes Are you a: never smoker REASON FOR REFERRAL No Information VITAL SIGNS Weight 194.8 lbs May, Weight-kg 88.36 kg May, Height 5'2" in May, BMI 35.63 kg/m2 May, Blood pressure systolic 134 mm Hg May, Blood pressure diastolic 90 mm Hg May, MEDICATIONS Medication SIG (Take, Route, Frequency, Duration) Notes Start Da te End Date Status Flonase Active Nexplanon 68 MG as directed Subcutaneous Active Aimovig 140 MG/ML as directed Subcutaneous Active Ibuprofen 200 MG 3 tablet with food or milk as needed Ora lly Three times a day Active Clobetasol Propionate 0.05 % 1 application Externally Twice a da y for 30 days Active Tylenol 325 MG 3 tablets as needed Orally every 6 hrs Active busPIRone HCl 15 MG 1 tablet Orally Twice a day Active Phenazopyridine HCl 100 MG 1 Orally q12hr prn Apr, Active Nortriptyline HCl 25 MG 1 capsule Orally Once a day for 30 day(s) Active hydroCHLOROthiazide 12.5 MG 1 capsule in the morning O rally Once a day for 30 day(s) Active MiraLax 17 GM/SCOOP as directed Orally daily Apr, Active Claritin 10 MG 1 tablet Orally Once a day Active DULoxetine HCl 40 MG 1 capsule Orally Once a day for 30 day(s) Active Zonisamide 100 MG 1 capsule Orally Once a day for 30 day(s) Active PROCEDURES No Information RESULTS No Results REASON FOR VISIT PRE OP SURG 06/16/21 MEDICAL (GENERAL) HISTORY Type Description Date Medical [...] Notes Treatment Notes Treatm ent Clinical Notes May, Heavy menses (ICD-10 - N92.0) PLAN OF TREATMENT Next Appt Details Provider Name:Brendan Hill 2021-06-16 12:30:00 AM, [address] [facility], , [place], [address], Provider Name:Brendan Hill 2021-07-02 11:00:00 AM, [address] [facility], , [place], [address], Provider Name:Brendan Hill, 2021-07-26 02:00:00 PM, [address] [facility], , [place], [address], Insurance Providers Payer Name Payer Address Payer Phone Insured Name Patient Relati onship to Insured Coverage Start Date Coverage End Date [employer] [address] [facility] [id number] NICK REAVES self
--- OUTSIDE RECORDS SUMMARY | 2021-06-16 10:54 | CCD | Continuity of Care Document ---
Author Author Paige CAIN Organization Unknown Address [address] [place] [address] 6 [address] [place] [address] Phone [phone] Care Team Providers Care Center Administrator Name Role Phone Lashonda Diego D.O. AUTM [phone] Davistam [place] AUTM [phone] Problems Active Problems Provider Date Severe major [...] Unknown Never Smoked Cigarettes Smoking Status Reviewed: 03/29/21 Never Smoked Cigarettes ETOH Use Denies alcohol use Tobacco Use Start: Unknown Patient has never smoked Recreational Drug Use Denies Drug Use Exercise Type/Frequency Does not exercise Sun Exposure Uses sunscreen Seat Belt/Car Seat Always uses seat belt Allergies, Adverse Reactions, Alerts Active Allergies Criticality Reaction | Severity Comments Date NuvaRing Unable to assess criticality Hypertension 06/01/2015 Prozac Unable to assess criticality Tremors 06/01/2015 Cymbalta Unable to assess criticality | Severe suicidal abimael ations 10/14/2020 Medications Active Medications SIG Qnty Indications Ordering Provide r Date Mupirocin 2% Ointment apply to irritated area on the vaginal tissue twice daily until resolved 22gm N76.0 Tam Olson.O. 03/17/2021 Phenazopyridine HCL 200mg Tablets take one tablet by mouth every 8 hours for three days 9tabs N39.0 Tam Mccullough.[place] 12/31/2020 Clobetasol Propionate 0.05% Liquid apply liquid to clean, dry, posterior scalp in the morning for 10 days and as needed for flares 125units L40.8 Yasmeen McculloughOKatlyn 08/29 Buspirone HCL 15mg Tablets take 1 tablet by mouth in the morning and in the evening 180tabs F41.1 Yasmeen McculloughOKatlyn 11/02/2017 Nystatin-Triamcinolone 606772-8.1Unit/GM-% Ointment apply 1 application topically to affecte d area on buttocks 2 times per day for santhosh infection 30gm B37.2 Yasmeen McculloughOKatlyn 09/14/2017 Hydrochlorothiazide 12.5mg Tablets Take One Tablet By Mouth Every Day 90tabs J06.9 Lashonda zamudio, D.O. 02/10/2017 Famotidine 20mg Tablets Take One Tablet By Mouth Twice A Day 180tabs Yasmeen McculloughOKatlyn One Daily For Women Tablets 1 by [...] 2 sprays in each nostril daily 29.7ml Yasmeen Angeles[place] Zonisamide 100mg Capsules take one capsule by mouth twice a day 180caps Tam Mccullough.O. Migraine Relief [phone] Table ts 1 tablet by mouth daily Unknown Nortriptyline HCL 25mg Capsules 1 capsules by mouth twice a day 180caps Tam Mccullough.O. History Medications Sulfamethoxazole/Trimethoprim DS 800-160mg Tablets one tablet by mouth twice daily for 10 days 20tabs N39. 0 Tam Olson.O. 03/17/2021 - 03/29/2021 Diflucan 150mg Tablets one tablet day 1 then repeat in 3 days if not better 2tabs N39.0 Tam Xie.O. 03/17/2021 - 03/29/2021 Levofloxacin 250mg Tablets one tabket by uth daily for 7 days 7tabs Tam Mccullough.O . 03/10/2021 - 03/17/2021 Diflucan 150mg Tablets one tablet day 1 then repeat in 3 days if not better 2tabs Tam Xie.O. 03/10/2021 - 03/17/2021 Macrobid 100mg Capsules take one capsule by mouth twice a day for 7 days 14caps N39.0 Lashonda reyes D.O. 03/08/2021 - 03/10/2021 Medications Administered in Office Medication SIG Qnty Indications Ordering Provider Date Immunization Administration Single Or Co mbination Injection Tam Mccullough .O. 04/21/2020 Immunization Administration Single Or Co mbination Injection REI Napoles Immunization Administration Single Or Co mbination Injection Nurse 05/08/2017 Immunization Administration Single Or Co mbination Injection Nurse 05/27/2016 Immunizations CPT Code Status Date Vaccine Lot # [id number] Given 04/21/2020 Influenza Virus Vaccine, Quadrivalent, Split, Preservative Free [id number] Given 06/06/2019 Influenza Virus Vaccine, Quadrivalent, Split, Preservative Free [id number] 41546 Given 05/25/2018 Influenza Virus Vaccine, Quadrivalent, Split, Preservative Free [id number] 48708 Given 05/08/2017 Influenza Vaccin e Quadrivalent Preser/Antibiotic Free Im Use [id number] 42474 Given 05/27/2016 Influenza Virus Vaccine, Quadrivalent, Split, Preservative Free [id number] Vital Signs Date Vital Result Comment 03/29/2021 8:06am BP Systolic 120 mmHg BP Diastolic 80 mmHg Height 63.5 inches 5'3.50" Weight 182.25 lb BMI (Body Mass Index) 31.8 kg/m2 Heart Rate 81 /min Respiratory Rate 14 /min Body Temperature 96.9 F O2 % BldC Oximetry 98 % [place] Body Weight 115 lb 03/17/2021 8:30am BP Systolic 120 mmHg BP Diastolic 82 mmHg Height 63.5 inches 5'3.50" Weight 182.12 lb BMI (Body Mass Index) 31.8 kg/m2 Heart Rate 75 /min Respiratory Rate 20 /min Body Temperature 98.2 F O2 % BldC Oximetry 98 % [place] Body Weight 115 lb Results Test Acquired Date Facility Test Result H/L Range Note Inhouse Ua 03/17/2021 Inhouse Inhouse Leukocytes neg Inhouse Nitrite + Inhouse Urobilinogen + Inhouse Protein neg Inhouse PH 7 Inhouse Hemoglobin neg Inhouse Specific [place] 1.010 Inhouse Ketones neg Inhouse Bilirubin neg Inhouse Glucose neg Laboratory test finding 03/17/20[facility] [address] [address] [phone] Urine Culture FULL REPORT IN L <SEE NOTE> Normal 1 Laboratory test finding 03/08/2021 [facility] [address] [place] [address] [phone] Urine Culture FULL REPORT IN L <SEE NOTE> Normal 2 Inhouse Ua 03/08/2021 Inhouse Inhouse Leukocytes +++ Inhouse Nitrite neg Inhouse Urobilinogen neg Inhouse Protein neg Inhouse PH 5 Inhouse Hemoglobin trace Inhouse Specific [place] 1.010 Inhouse Ketones neg Inhouse Bilirubin neg Inhouse Glucose neg Inhouse Ua 12/31/2020 Inhouse Inhouse Leukocytes neg Inhouse Nitrite neg Inhouse Urobilinogen neg Inhouse Protein neg Inhouse PH 5 Inhouse Hemoglobin neg Inhouse Specific [place] 1.025 Inhouse Ketones neg Inhouse Bilirubin neg Inhouse Glucose neg Laboratory test finding 12/31/2020 [place] [address]1972 [phone] Urine Culture FULL REPORT IN L <SEE NOTE> Normal 3 1 FULL REPORT IN LAB NOTES ([facility]). NO GROWTH 2 FULL REPORT IN LAB NOTES (eC [...] NEGATIVE ICR test is considered CLIDAMYCIN SENSITIVE. 3 FULL REPORT IN LAB NOTES ([facility]). NO GROWTH CLINICAL SIGNIFICANCE 1 ORGANISM Procedures Date Code Description Status 03/29/2021 48944 Office/Outpatient Established Mo d MDM 30-39 Min Completed 03/17/2021 11930 Office/Outpatient Established Lo w MDM 20-29 Min Completed 03/08/2021 69459 Office/Outpatient Established Lo w MDM 20-29 Min Completed 12/31/2020 87056 Office/Outpatient Established Lo w MDM 20-29 Min Completed 10/14/2020 00547 Preventive Visit Est 40-64 Yrs C ompleted 10/07/2020 85476 Office/Outpatient Established Lo w MDM 20-29 Min Completed 06/13/2019 28498084 Mammogram Completed Medical Devices Description No Information Available Encounters Type Date Location Provider Dx Diagnosis Office Visit 03/29/2021 8:00a [facility] REI Napoles E21.3 Hyperparathyroidism, unspeci fied G43.009 Migraine w/o aura, not intra ctable, w/o status migrainosus F33.1 Major depressive disorder, r ecurrent, moderate F43.10 Post-traumatic stress disord er, unspecified K58.2 Mixed irritable bowel syndro me R30.0 Dysuria F41.1 Generalized anxiety disorder Office Visit 03/17/2021 8:30a [facility] Lashonda Diego D.O. N39.0 Urinary tract infection, sit e not specified N76.0 Acute vaginitis Office Visit 03/08/2021 10:10a Family [facility] Lashonda Diego D.O. N39.0 Urinary tract infection, sit e not specified Office Visit 12/31/2020 8:30a Family [facility] REI Kan R30.0 Dysuria Office Visit 10/14/2020 8:00a [facility] Lashonda Diego D.O. Z00.00 Encntr for general adult med ical exam w/o abnormal findings Z12.31 Encntr screen mammogram for malignant neoplasm of breast E21.3 Hyperparathyroidism, unspeci fied G43.009 Migraine w/o aura, not intra ctable, w/o status migrainosus F33.1 Major depressive disorder, r ecurrent, moderate K58.2 Mixed irritable bowel syndro me F43.10 Post-traumatic stress disord er, unspecified Z97.5 Presence of (intrauterine) c ontraceptive device E66.9 Obesity, unspecified Z68.34 Body mass index [BMI] 34.0-3 4.9, adult Office Visit 10/07/2020 11:00a [facility] REI Napoles E21.3 Hyperparathyroidism, unspeci fied Assessments Date Code Description Provider 03/29/2021 E21.3 Hyperparathyroidism, unspecified Cedric Cain, REI 03/29/2021 G43.009 Migraine without aura, not intra ctable, without status migra REI Napoles 03/29/2021 F33.1 Major depressive disorder, recur rent, moderate REI Napoles 03/29/2021 F43.10 Post-traumatic stress disorder, unspecified REI Napoles 03/29/2021 K58.2 Mixed irritable bowel syndrome S REI Guillermo 03/29/2021 R30.0 Dysuria REI Napoles 03/29/2021 F41.1 Generalized anxiety disorder REI Plascencia 03/17/2021 N39.0 Urinary tract infection, site no t specified Yasmeen [place] 03/17/2021 N76.0 Acute vaginitis Yasmeen Velasquez[place]lyn 03/08/2021 N39.0 Urinary tract infection, site no t specified Tam Olson.[place] 12/31/2020 R30.0 Dysuria REI Kan 10/14/2020 Z00.00 Encounter for genera l adult medical examination without abnormal findings Lashonda Diego D.O. 10/14/2020 Z12.31 Encounter for screen ing mammogram for malignant neoplasm of breast Lashonda Diego D.O. 10/14/2020 E21.3 Hyperparathyroidism, unspecified Yasmeen McculloughOKatlyn 10/14/2020 G43.009 Migraine without aura, not intra ctable, without status migra Yasmeen McculloughO. 10/14/2020 F33.1 Major depressive disorder, recur rent, moderate Tam Olson.O. 10/14/2020 K58.2 Mixed irritable bowel syndrome J Tam Norton.O. 10/14/2020 F43.10 Post-traumatic stress disorder, unspecified Tam Olson.O. 10/14/2020 Z97.5 Presence of (intrauterine) contr aceptive device Lashonda Jung D.O. 10/14/2020 E66.9 Obesity, unspecified Tam Castorena.O. 10/14/2020 Z68.34 Body mass index [BMI] 34.0-34.9, adult Tam Mccullough.O. 10/07/2020 E21.3 Hyperparathyroidism, unspecified REI Napoles Plan of Treatment Future Appointment(s):* 04/27/2021 9:00 am - Lashonda Diego D.O. at [facility] * 10/18/2021 8:20 am - Lashonda Diego D.O. at [facility] Functional Status Description No Information Available Mental Status Description No Information Available Referrals Refer to Reason for Referral Status Appt Date Jayleen Davis 40 year old female who was f ound to have hypercalcemia on routine testing, and was found as well to have elevated intact PTH. Please eval and treat. [facility] [place], [address] [facility], [address] [place] [address] [phone]
--- OUTSIDE RECORDS SUMMARY | 2021-06-16 10:54 | CCD | Continuity of Care Document ---
Author Author Paige DIEGO D.O. Organization Unknown Address [address] [place] [address] Phone [phone] Care Team Providers Care School Supervisor Name Role Phone Lashonda Diego D.O. AUTM Jayleen Davis AUTM [phone] Problems Active Problems Provider Date Severe major depression, single episode, without psych otic features Lashonda Diego D.O. Onset: 06/01/2015 Posttraumatic stress disorder Lashonda Diego D.O. Ons et: 06/01/2015 Elevated blood-pressure reading without diagnosis of h ypertension Lashonda Jung D.O. Onset: 06/01/2015 Essential hypertension Lashonda Diego D.O. Onset: Allergic rhinitis Lashonda Diego D.O. Onset: 2015 Generalized anxiety disorder RIE Naploes Onset: Moderate recurrent major depression REI Napoles Ons et: 11/22/2017 Disorder of menstruation REI Napoles Onset: 018 Gastro-esophageal reflux disease with esophagitis Onset: Note: endoscopy 11/06/2019 Hyperparathyroidism REI Napoles Onset: 09/23/2020 Social History Type Date Description Comments Sex Unknown Tobacco Use Start: Unknown Never Smoked Cigarettes Smoking Status Reviewed: 10/14/20 Never Smoked Cigarettes ETOH Use Denies alcohol [...] SIG Qnty Indications Ordering Provide r Date Diflucan 150mg Tablets one tablet day 1 then repeat in 3 days if not better 2tabs N39.0 Yasmeen XieO. 03/17/2021 Mupirocin 2% Ointment apply to irritated area on the vaginal tissue twice daily until resolved 22gm N76.0 Yasmeen Olson[place] 03/17/2021 Sulfamethoxazole/Trimethoprim DS 800-160mg Tablets one tablet by mouth twice daily for 10 days 20tabs N39. 0 Yasmeen [place] 03/17/2021 Phenazopyridine HCL 200mg Tablets take one [...] and in the evening 180tabs F41.1 Tam Mccullough.O. 11/02/2017 Nystatin-Triamcinolone 227972-2.1Unit/GM-% Ointment apply 1 application topically to affecte d area on buttocks 2 times per day for santhosh infection 30gm B37.2 Tam Mccullough.[place] 09/14/2017 Hydrochlorothiazide 12.5mg Tablets Take One Tablet By Mouth Every Day 90tabs J06.9 Lashonda Amaya er, D.O. 02/10/2017 Zonisamide 100mg Capsules take one capsule by mouth twice a day 180caps Lashonda Zane-Fabiana, D.O. One Daily For Women Tablets 1 by [...] 1/2 Tablet By Mouth Once Daily Unknown Famotidine 20mg Tablets 1 by mouth twice a day 180tabs Yasmeen McculloughO. Flonase Allergy Relief 50mcg/Act Suspension 2 sprays in each nostril daily 29.7ml Tam Angeles.O. Mirena (52 MG) 20mcg/24HR IUD Unknown Migraine Relief [phone] Table ts 1 tablet by mouth daily Unknown Nortriptyline HCL 25mg Capsules 1 capsules by mouth twice a day 180caps Tam Mccullough.O. History Medications Levofloxacin 250mg Tablets one tabket by [facility] daily for 7 days 7tabs Tam Mccullough.O . 03/10/2021 - 03/17/2021 Diflucan 150mg Tablets one tablet day 1 then repeat in 3 days if not better 2tabs Yasmeen XieO. 03/10/2021 - 03/17/2021 Macrobid 100mg Capsules take one capsule by mouth twice a day for 7 days 14caps N39.0 Tam Velasquez.O. 03/08/2021 - 03/10/2021 Medications Administered in Office Medication SIG Qnty Indications Ordering Provider Date Immunization Administration Single Or Co mbination Injection Tam [place]cc[place] 04/21/2020 Immunization Administration Single Or Co mbination Injection REI Napoles Immunization Administration Single Or Co mbination Injection Nurse 05/08/2017 Immunization Administration Single Or Co mbination Injection Nurse 05/27/2016 Immunizations CPT Code Status Date Vaccine Lot # [id number] Given 04/21/2020 Influenza Virus Vaccine, Quadrivalent, Split, Preservative Free [id number] 03587 Given 06/06/2019 Influenza Virus Vaccine, Quadrivalent, Split, Preservative Free [id number] 17261 Given 05/25/2018 Influenza Virus Vaccine, Quadrivalent, Split, Preservative Free [id number] Given 05/08/2017 Influenza Vaccin e Quadrivalent Preser/Antibiotic Free Im Use [id number] Given 05/27/2016 Influenza Virus Vaccine, Quadrivalent, Split, Preservative Free [id number] Vital Signs Date Vital Result Comment 03/17/2021 8:30am BP Systolic 120 mmHg BP Diastolic 82 mmHg Height 63.5 inches 5'3.50" Weight 182.12 lb BMI (Body Mass Index) 31.8 kg/m2 Heart Rate 75 /min Respiratory Rate 20 /min Body Temperature 98.2 F O2 % BldC Oximetry 98 % [place] Body Weight 115 lb 03/08/2021 10:17am BP Systolic 120 mmHg BP Diastolic 72 mmHg Height 63.5 inches 5'3.50" Weight 182.38 lb BMI (Body Mass Index) 31.8 kg/m2 Heart Rate 74 /min Respiratory Rate 14 /min Body Temperature 96.9 F O2 % BldC Oximetry 99 % [place] Body Weight 115 lb Results Test Acquired Date Facility Test Result H/L Range Note Inhouse Ua 03/17/2021 Inhouse Inhouse Leukocytes neg Inhouse Nitrite + Inhouse Urobilinogen + Inhouse Protein neg Inhouse PH 7 Inhouse Hemoglobin neg Inhouse Specific [place] 1.010 Inhouse Ketones neg Inhouse Bilirubin neg Inhouse Glucose neg Laboratory test finding 03/17/2021 [place] [place], [place] [address] [phone] Urine Culture FULL REPORT IN L <SEE NOTE> Normal 1 Laboratory test finding 03/08/2021 [facility] [address] [place] [address] [phone] Urine Culture FULL REPORT IN L <SEE NOTE> Normal 2 Inhouse Ua 03/08/2021 Inhouse Inhouse Leukocytes +++ Inhouse Nitrite neg Inhouse Urobilinogen neg Inhouse Protein neg Inhouse PH 5 Inhouse Hemoglobin trace Inhouse Specific [place] 1.010 Inhouse Ketones neg Inhouse Bilirubin neg Inhouse Glucose neg Inhouse Ua 12/31/2020 Inhouse Inhouse Leukocytes neg Inhouse Nitrite neg Inhouse Urobilinogen neg Inhouse Protein neg Inhouse PH 5 Inhouse Hemoglobin neg Inhouse Specific [place] 1.025 Inhouse Ketones neg Inhouse Bilirubin neg Inhouse Glucose neg Laboratory test finding 12/31/[address] [address] [phone] Urine Culture FULL REPORT IN L <SEE NOTE> Normal 3 Laboratory test finding 09/23/2020 [facility] Outpatient T esting (Registration) [address] [place] [address] [phone] Ionized Calcium 5.3 mg/dL Normal 4.5-5.3 PTH Intact 122.4 pg/mL High 18.5-88.0 Comprehensive Metabolic Profil 09/23/2020 [facility] Outpa tient Testing (Registration) [address] [place] [address] [phone] Glucose, Fasting 109 mg/dL High 70-100 Blood Urea Nitrogen 18 mg/dL Normal 7-18 Creatinine For GFR 0.99 mg/dL Normal 0.55-1.30 Glomerular Filtration Rate > 60.0 Normal >58 4 Sodium Level 141 mEq/L Normal 136-145 Potassium Serum 4.2 mEq/L Normal 3.5-5.1 Chloride Level 109 mEq/L High 98-107 Carbon Dioxide Level 27 mEq/L Normal 21-32 Anion Gap 5 mEq/L Low 8-16 Calcium Level 10.5 mg/dL High 8.5-10.1 Ast/Sgot 15 U/L Normal 7-37 Alt/SGPT 36 U/L Normal 12-78 Alkaline Phosphatase 77 U/L Normal 45-117 Bilirubin,Total 0.4 mg/dL Normal 0.2-1.0 Total Protein 7.3 GM/DL Normal 6.4-8.2 Albumin 4.1 GM/DL Normal 3.2-5.2 Albumin/Globulin Ratio 1.3 Normal 1.2-2.2 Lipid Panel 09/23/2020 [facility] Outpatient Testi ng (Registration) [address] [place] [address] [phone] Triglycerides Level 82 mg/dL Normal <150 Cholesterol Level 172 mg/dL Normal <200 HDL Cholesterol 35 mg/dL Low >40 LDL Cholesterol 121 mg/dL High <100 Non-HDL-C 137 mg/dL Normal Cholesterol Risk Ratio 4.914 Normal <5 FT4&TSH Panel 09/23/2020 [facility] Outpatient Testi ng (Registration) [address] [place] [address] [phone] Thyroid Stimulating Hormone 0.888 uIU/ML Normal 0. 358-3.740 Free T4 0.93 ng/dL Normal 0.76-1.46 1 FULL REPORT IN LAB NOTES (eC [...] Medent). 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 Procedures Date Code Description Status 03/17/2021 10029 Office/Outpatient Established Lo w MDM 20-29 Min Completed 03/08/2021 88764 Office/Outpatient Established Lo w MDM 20-29 Min Completed 12/31/2020 28793 Office/Outpatient Established Lo w MDM 20-29 Min Completed 10/14/2020 59376 Preventive Visit Est 40-64 Yrs C ompleted 10/07/2020 83065 Office/Outpatient Established Lo w MDM 20-29 Min Completed 06/13/2019 [id number] Mammogram Completed Medical Devices Description No Information Available Encounters Type Date Location Provider Dx Diagnosis Office Visit 03/17/2021 8:30a Family [facility] Yasmeen McculloughOK[place] N39.0 Urinary tract infection, sit e not specified N76.0 Acute vaginitis Office Visit 03/08/2021 10:10a Family Medicine [facility] Lashonda Diego D.O. N39.0 Urinary tract infection, sit e not specified Office Visit 12/31/2020 8:30a Family [facility] REI Kan R30.0 Dysuria Office Visit 10/14/2020 8:00a [facility] Yasmeen McculloughOK[place] Z00.00 Encntr for general adult med ical [...] 34.0-3 4.9, adult Office Visit 10/07/2020 11:00a Family Medicine [facility] REI Napoles E21.3 Hyperparathyroidism, unspeci fied Assessments Date Code Description Provider 03/17/2021 N39.0 Urinary tract infection, site no t specified Lashonda Jung D.O. 03/17/2021 N76.0 Acute vaginitis Lashonda reyes D.[place] 03/08/2021 N39.0 Urinary tract infection, site no t specified Lashonda Jung, D.O. 12/31/2020 R30.0 Dysuria REI Kan 10/14/2020 Z00.00 Encounter for genera l adult medical examination without abnormal findings Lashonda Diego D.[place] 10/14/2020 Z12.31 Encounter for screen ing mammogram for malignant neoplasm of breast Lashonda Diego D.[place] 10/14/2020 E21.3 Hyperparathyroidism, unspecified Lashonda Diego, D.O. 10/14/2020 G43.009 Migraine without aura, not intra ctable, without status migra Lashonda Diego, D.O. 10/14/2020 F33.1 Major depressive disorder, recur rent, moderate Lashonda Jung, D.O. 10/14/2020 K58.2 Mixed irritable bowel syndrome J ill Brandie D.O. 10/14/2020 F43.10 Post-traumatic stress disorder, unspecified Lashonda Jung, D.O. 10/14/2020 Z97.5 Presence of (intrauterine) contr aceptive device Lashonda Jung, D.O. 10/14/2020 E66.9 Obesity, unspecified Lashonda Menendez D.O. 10/14/2020 Z68.34 Body mass index [BMI] 34.0-34.9, adult Lashonda Diego D.O. 10/07/2020 E21.3 Hyperparathyroidism, unspecified REI Napoles Plan of Treatment Future Appointment(s):* 04/27/2021 9:00 am - Lashonda Diego D.O. at [facility] * 10/18/2021 8:20 am - Lashonda Diego D.O. at [facility] * 03/29/2021 8:00 am - REI Napoles at [facility] Functional Status Description No Information Available Mental Status Description No Information Available Referrals Refer to Dr Reason for Referral Status Appt Date Jayleen Davis 40 year old female who was f ound to have hypercalcemia on routine testing, and was found as well to have elevated intact PTH. Please eval and treat. Sent [facility] [place], [address] [facility], [address] [place], [place] [address] [phone]
--- OUTSIDE RECORDS SUMMARY | 2021-06-16 10:54 | CCD | Continuity of Care Document ---
Author Author Paige DIEGO D.O. Organization Unknown Address [address] [place] [address] Phone [phone] Care Team Providers Care Dimension Mill Worker Name Role Phone Lashonda Diego D.O. AUTM Jayleen Davis AUTM [phone] Adriel Dodson MD AUTM [phone] Problems Active Problems Provider Date Severe major depression, single episode, without psych otic features Lashonda iDego D.O. Onset: 06/01/2015 Posttraumatic stress disorder Lashonda [...] needed hold for loose stools 60tabs K59.00 Yasmeen OlsonO. 04/27/2021 Mupirocin 2% Ointment apply to irritated [...] evening 180tabs F41.1 Yasmeen Mccullough[place] 11/02/2017 Nystatin-Triamcinolone 597309-0.1Unit/GM-% Ointment apply 1 application topically to affecte [...] a day 180caps Tam Mccullough.O. Migraine Relief [phone] Table ts 1 tablet by mouth daily Unknown Nortriptyline HCL 25mg Capsules 1 capsules by mouth twice a day 180caps Lashonda Diego D.O. History Medications Sulfamethoxazole/Trimethoprim DS 800-160mg Tablets one tablet by mouth twice daily for 10 days 20tabs N39. 0 Yasmeen OlsonO. 03/17/2021 - 03/29/2021 Diflucan 150mg Tablets one tablet day 1 then repeat in 3 days if not better 2tabs N39.0 Yasmeen XieO. 03/17/2021 - 03/29/2021 Levofloxacin 250mg Tablets one tabket by uth daily for 7 days 7tabs Tam Mccullough.O . 03/10/2021 - 03/17/2021 Diflucan 150mg Tablets one tablet day 1 then repeat in 3 days if not better 2tabs Tam Xie.O. 03/10/2021 - 03/17/2021 Macrobid 100mg Capsules take one capsule by mouth twice a day for 7 days 14caps N39.0 Yasmeen VelasquezO. 03/08/2021 - 03/10/2021 Medications Administered in Office Medication SIG Qnty Indications Ordering Provider Date Immunization Administration Single Or Co mbination Injection Tam Mccullough 04/21/2020 Immunization Administration Single Or Co mbination Injection REI Napoles Immunization Administration Single Or Co mbination Injection Nurse 05/08/2017 Immunization Administration Single Or Co mbination Injection Nurse 05/27/2016 Immunizations CPT Code Status Date Vaccine Lot # [id number] Given 04/21/2020 Influenza Virus Vaccine, Quadrivalent, Split, Preservative Free [id number] 81699 Given 06/06/2019 Influenza Virus Vaccine, Quadrivalent, Split, Preservative Free [id number] 05715 Given 05/25/2018 Influenza Virus Vaccine, Quadrivalent, Split, Preservative Free [id number] Given 05/08/2017 Influenza Vaccin e Quadrivalent Preser/Antibiotic Free Im Use [id number] 08526 Given 05/27/2016 Influenza Virus Vaccine, Quadrivalent, Split, Preservative Free [id number] Vital Signs Date Vital Result Comment 04/27/2021 8:58am BP Systolic 122 mmHg BP Diastolic 84 mmHg Height 63.5 inches 5'3.50" Weight 186.00 lb BMI (Body Mass Index) 32.4 kg/m2 Heart Rate 68 /min Respiratory Rate 20 /min Body Temperature 98.2 F O2 % BldC Oximetry 99 % [place] Body Weight 115 lb 03/29/2021 8:06am BP Systolic 120 mmHg BP Diastolic 80 mmHg Height 63.5 inches 5'3.50" Weight 182.25 lb BMI (Body Mass Index) 31.8 kg/m2 Heart Rate 81 /min Respiratory Rate 14 /min Body Temperature 96.9 F O2 % BldC Oximetry 98 % [place] Body Weight 115 lb Results Test Acquired Date Facility Test Result H/L Range Note Laboratory test finding 04/27/2021 [facility] Image-Guided Pap W/Age Based SCR Protocols <pending> Inhouse Ua 03/17/2021 Inhouse Inhouse Leukocytes neg Inhouse Nitrite + Inhouse Urobilinogen + Inhouse Protein neg Inhouse PH 7 Inhouse Hemoglobin neg Inhouse Specific [place] 1.010 Inhouse Ketones neg Inhouse Bilirubin neg Inhouse Glucose neg Laboratory test finding 03/17/[address] [address] [phone] Urine Culture FULL REPORT IN L <SEE NOTE> Normal 1 Laboratory test finding 03/08/[address] [address] [phone] Urine Culture FULL REPORT IN L <SEE NOTE> Normal 2 Inhouse Ua 03/08/2021 Inhouse Inhouse Leukocytes +++ Inhouse Nitrite neg Inhouse Urobilinogen neg Inhouse Protein neg Inhouse PH 5 Inhouse Hemoglobin trace Inhouse Specific [place] 1.010 Inhouse Ketones neg Inhouse Bilirubin neg Inhouse Glucose neg Inhouse Ua 12/31/2020 Inhouse Inhouse Leukocytes neg Inhouse Nitrite neg Inhouse Urobilinogen neg Inhouse Protein neg Inhouse PH 5 Inhouse Hemoglobin neg Inhouse Specific [place] 1.025 Inhouse Ketones neg Inhouse Bilirubin neg Inhouse Glucose neg Laboratory test finding 12/31/[address] [address] [phone] Urine Culture FULL REPORT IN L <SEE [...] ORGANISM Procedures Date Code Description Status 04/27/2021 48469 Office/Outpatient Established Mo d MDM 30-39 Min Completed 03/29/2021 07437 Office/Outpatient Established Mo d MDM 30-39 Min Completed 03/17/2021 08010 Office/Outpatient Established Lo w MDM 20-29 Min Completed 03/08/2021 55646 Office/Outpatient Established Lo w MDM 20-29 Min Completed 12/31/2020 10850 Office/Outpatient Established Lo w MDM 20-29 Min Completed 06/13/2019 [id number] Mammogram Completed Medical Devices Description No Information Available Encounters Type Date Location Provider Dx Diagnosis Office Visit 04/27/2021 9:00a [facility] Scotty Diego [place] K59.00 Constipation, unspecified E21.3 Hyperparathyroidism, unspeci fied G43.009 Migraine w/o aura, not intra ctable, w/o status migrainosus F33.1 Major depressive disorder, r ecurrent, moderate F43.10 Post-traumatic stress disord er, unspecified K58.2 Mixed irritable bowel syndro me F41.1 Generalized anxiety disorder Z12.31 Encntr screen mammogram for malignant neoplasm of breast Office Visit 03/29/2021 8:00a [facility] REI Rodas E21.3 Hyperparathyroidism, unspeci fied G43.009 Migraine w/o aura, not intra ctable, w/o status migrainosus F33.1 Major depressive disorder, r ecurrent, moderate F43.10 Post-traumatic stress disord er, unspecified K58.2 Mixed irritable bowel syndro me R30.0 Dysuria F41.1 Generalized anxiety disorder Office Visit 03/17/2021 8:30a [facility] Yasmeen Little[place] N39.0 Urinary tract infection, sit e not specified N76.0 Acute vaginitis Office Visit 03/08/2021 10:10a [facility] Lashonda Diego D.O. N39.0 Urinary tract infection, sit e not specified Office Visit 12/31/2020 8:30a [facility] REI Kan R30.0 Dysuria Assessments Date Code Description Provider 04/27/2021 K59.00 Constipation, unspecified Lashonda Law, D.O. 04/27/2021 E21.3 Hyperparathyroidism, unspecified Lashonda Diego, D.O. 04/27/2021 G43.009 Migraine without aura, not intra ctable, without status migra Lashonda Diego D.O. 04/27/2021 F33.1 Major depressive disorder, recur rent, moderate Lashonda Jung D.O. 04/27/2021 F43.10 Post-traumatic stress disorder, unspecified Lashonda Jung, D.O. 04/27/2021 K58.2 Mixed irritable bowel syndrome J ill Brandie D.O. 04/27/2021 F41.1 Generalized anxiety disorder Fanyn Diego, D.O. 04/27/2021 Z12.31 Encounter for screen ing mammogram for malignant neoplasm of breast Tam M[place]ullough.[place] 03/29/2021 E21.3 Hyperparathyroidism, unspecified REI Napoles 03/29/2021 [...] D.O. 03/17/2021 N76.0 Acute vaginitis Lashonda reyes D.O. 03/08/2021 N39.0 Urinary tract infection, site no t specified Lashonda Jung D.O. 12/31/2020 R30.0 Dysuria REI Kan Plan of Treatment Future Appointment(s):* 06/28/2021 8:30 am - Lashonda Diego D.O. at [facility] * 10/18/2021 8:20 am - Lashonda Diego D.O. at [facility] 04/27/2021 - Lashonda Diego D.O.* K59.00 [...] to Reason for Referral Status Appt Date Adriel Dodson MD This is a 41 year old female who has been presenting with UTI typle symptoms of suprapubic pain and dyuria but her urine cultures have been negative. She had her IUD removed as she thought that might be causing the symptoms but they have persisted. Please evaluate and treat. Sent 05/06/[address] Guerrero [address] [place] [address] [phone]
--- OUTSIDE RECORDS SUMMARY | 2021-06-16 10:54 | CCD ---
Author Author Paige Trinidad Organization Unknown Address [address] [address] Phone Care Team Providers Care Boat Oar Maker Name Role Phone AmosVikas corralRachel PCP Allergies, Adverse Reactions, Alerts No Data in Section Problem List Concept Problem Description Status Start Date Created Date Resolv ed Date Snomed Code F60.3 Borderline Personality Disorder Active 03/31/20 21 F33.1 Major Depressive Disorder, Recurrent episode, Moderate Active 04/05/2019 04/05/2019 F43.9 Unspecified Trauma- and Stressor-Related Disorder Active 03/31/2021 Medications Rx Norm Medication Route Route Concept Start Date Stop Date Dosage [place] quency Duration Formula Strength Dosage Form Dosage Form Code Dosage Description Medication Id Account Npid Author First Name Author Last Name Taxonomy Code Taxonomy Desc Phone Number [phone] citalopram by mouth [id number] 11/30/2020 once a day 20 mg tablet as directed [id number] Dasha Solis [id number] Psychiat giovany/Mental Health [id number] Social History Social History Element Description Concept Effective Date Smoking Status Never smoker [id number] Immunizations No Data in Section Vital Signs No Data in Section Procedures Date Concept Id Description Targeted Site Concept Targeted Site Concept Type 03/31/2021 95419 Extended Individual Psychotherapy - 45 min CPT Patient has no history of implantable de vices Encounters Encounter Start Date End Date Encounter Type Description Diagnosis Di agnosis Desc Location Author First Name Author Last Name Npid Taxonomy Cod e Taxonomy Desc Phone Number Location Addr1 Location Addr2 Location [facility] Location [facility] Location Zip [address]89 03/31/2021 03/31/2021 44080 Extended Individual Psych otherapy - 45 min F60.3 Borderline personality disorder [facility] Amos Ramos [phone] [id number] 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
--- OUTSIDE RECORDS SUMMARY | 2021-06-16 10:54 | CCD | Continuity of Care Document ---
Author Author Paige STEWART MD Organization Unknown Address [address] [place] [address] , [facility] [address] [place] [address] Phone [phone] Care Team Providers Care Warehouse Team Member Name Role Phone Lashonda Diego D.O. AUTM [phone] Cedric Cain AUTM [phone] AUTM Unavailable Problems Active Problems Provider Date [...] po bid Unknown Fluticasone Propionate 50mcg/Act Suspension [place] Two Sprays In Each Nostril Every Day [...] Information Available Procedures Date Code Description Status 12/29/2020 64067 Office/Outpatient Established Mo d MDM 30-39 Min Completed 12/29/2020 27634 FX Distal Radius Closed Treatmen t W/O Manipulation Completed 12/22/2020 36300 Office/Outpatient Established Lo w MDM 20-29 Min Completed 12/22/2020 95001 FX Distal Radius Closed Treatmen t W/O Manipulation Completed Medical Devices Description No Information Available Encounters Type Date Location Provider Dx Diagnosis Office Visit 03/16/2021 11:15a [facility] Rohan Stewart MD S52.591D Oth fx of lower end r radius, subs for c los fx w routn heal S52.122D Disp fx of head of left rad, subs for clos fx w routn heal Office Visit 02/02/2021 10:45a [facility] Rohan Stewart MD S52.591D Oth fx of lower end r radius, subs for c los fx w routn heal Office Visit 01/14/2021 10:15a [facility] Rohan Stewart MD S52.591D Oth fx of lower end r radius, subs for c los fx w routn heal Office Visit 12/29/2020 8:30a [facility] Rohan Stewart MD S52.591A Oth fractures of lower end of right radi us, init for clos fx S52.122D Disp fx of head of left rad, subs for clos fx w routn heal W19.xxxA Unspecified fall, initial en counter Office Visit 12/22/2020 10:30a [facility] Papa yanez MD S52.501A Unsp fracture of the lower end of right radius, init Assessments Date Code Description Provider 03/16/2021 S52.591D Other fractures of l ower [...] fracture Papa Morales MD Plan of Treatment Future Appointment(s):* 04/27/2021 10:15 am - Rohan Stewart MD at [facility] 03/16/2021 - Rohan Stewart MD* S52.591D Other fractures of lower end of right radius, subsequent encounter for closed fracture with routine healing * S52.122D Displaced fracture of head of left radius, subsequent encounter for closed fracture with routine healing Functional Status Description No Information Available Mental Status Description No Information Available Referrals Description No Information Available"
--- OUTSIDE RECORDS SUMMARY | 2021-06-16 10:54 | CCD ---
Author Author [facility] Organization [facility] Address Unknown Phone Unavailable Care Team Providers Care Board Machine Set Up Operator Name Role Phone Brendan Hill Unavailable PROBLEMS Type Condition ICD9-CM Code [id number] Code Onset Dates Condition S tatus W/U Status Risk SNOMED Code Notes Problem Seborrheic dermatitis L21.9 Active confirmed 76450854 Problem Pruritus L29.9 Active confirmed 775568906 Problem Lentigines L81.4 Active confirmed 363422498 ALLERGIES Allergen (clinical drug ingredient) Drug/Non Drug Allergy do cumented on EMR Reaction Allergy Type Onset Date Status NuvaRing High blood pressure Non Drug Allergy Active ENCOUNTERS from 1978 to 2021-04-01 Encounter Location Date Provider Diagnosis [facility] [address] [place] [address] [place] [address] Feb, Brendan Hill Encounter for IUD re moval Z30.432 IMMUNIZATIONS No Information SOCIAL HISTORY Tobacco Use: [...] FOR REFERRAL No Information VITAL SIGNS Weight 182.2 lbs Feb, Height 5'2" in Feb, BMI 33.32 kg/m2 Feb, Blood pressure systolic 136 mm Hg Feb, Blood pressure diastolic 84 mm Hg Feb, MEDICATIONS Medication SIG (Take, Route, Frequency, Duration) Notes Start Da te End Date Status Zonisamide 100 MG 1 capsule Orally Once a day for 30 day(s) Active Aimovig 140 MG/ML as directed Subcutaneous Active hydroCHLOROthiazide 12.5 MG 1 capsule in the morning O rally Once a day for 30 day(s) Active Nortriptyline HCl 25 MG 1 capsule Orally Once a day for 30 day(s) Active Flonase Active DULoxetine HCl 40 MG 1 capsule Orally Once a day for 30 day(s) Active Mirena (52 MG) 20 MCG/24HR as directed Intrauterine Active busPIRone HCl 15 MG 1 tablet Orally Twice a day Active Clobetasol Propionate 0.05 % 1 application Externally Twice a da y for 30 days Active PROCEDURES No Information RESULTS No Results REASON FOR VISIT ISSUES WITH IUD LOKING TO HAVE IT REMOVED MEDICAL (GENERAL) HISTORY Type Description Date Medical History Migranes Medical History Anxiety/Depression/PTSD Surgical History 4 Surgical History tonsils Surgical History appendectomy Hospitalization History childbirth Hospitalization History surgical related Goals Section No Information Health Concerns No Information MEDICAL EQUIPMENT No Information MENTAL STATUS No Information FUNCTIONAL STATUS No Information ASSESSMENTS Encounter Date Diagnosis Assessment Notes Treatment Notes Treatm ent Clinical Notes Feb, Encounter for IUD removal (ICD-10 - Z30.432) PLAN OF TREATMENT No Information Insurance Providers Payer Name Payer Address Payer Phone Insured Name Patient Relati onship to Insured Coverage Start Date Coverage End Date [facility] [address] [place] [address] NICK REAVES self
--- OUTSIDE RECORDS SUMMARY | 2021-06-16 10:54 | CCD | Continuity of Care Document ---
Author Author Paige STEWART MD Organization Unknown Address [address] [place] [address] , [facility] [address] [place] [address] Phone [phone] Care Team Providers Care Record Filing Clerk Name Role Phone Lashonda Diego D.O. AUTM [phone] Cedric Cain AUTM [phone] AUTM Unavailable Problems Active Problems Provider Date [...] po bid Unknown Fluticasone Propionate 50mcg/Act Suspension [place] Two Sprays In Each Nostril Every Day [...] Available Procedures Date Code Description Status 04/27/2021 54993 Office/Outpatient Established Mo d MDM 30-39 Min Completed 12/29/2020 79994 Office/Outpatient Established Mo d MDM 30-39 Min Completed 12/29/2020 29779 FX Distal Radius Closed Treatmen t W/O Manipulation Completed 12/22/2020 65302 Office/Outpatient Established Lo w MDM 20-29 Min Completed 12/22/2020 64372 FX Distal Radius Closed Treatmen t W/O Manipulation Completed Medical Devices Description No Information Available Encounters Type Date Location Provider Dx Diagnosis Office Visit 04/27/2021 10:15a [facility] Rohan Stewart MD S52.591D Oth fx of lower end r radius, subs for c los fx w routn heal Z47.89 Encounter for other orthoped ic aftercare Office Visit 03/16/2021 11:[facility] MD S52.591D Oth fx of lower end r radius, subs for c los fx w routn heal S52.122D Disp fx of head of left rad, subs for clos fx w routn heal Office Visit 02/02/2021 10:45a [facility] Rohan Stewart MD S52.591D Oth fx of lower end r radius, subs for c los fx w routn heal Office Visit 01/14/2021 10:[facility] S52.591D Oth fx of lower end r radius, subs for c los fx w routn heal Office Visit 12/29/2020 8:30a [facility] Rohan Stewart MD S52.591A Oth fractures of lower end of right radi us, init for clos fx S52.122D Disp fx of head of left rad, subs for clos fx w routn heal W19.xxxA Unspecified fall, initial en counter Office Visit 12/22/2020 10:30a [facility] Papa yanez MD S52.501A Unsp fracture of the lower end of right radius, init Assessments Date Code Description Provider 04/27/2021 S52.591D Other fractures of l ower end of right radius, subsequent encounter for closed fracture with routine healing Rohan Stewart MD 04/27/2021 Z47.89 Encounter for other orthopedic a ftercare Rohan Stewart MD 03/16/2021 S52.591D Other fractures [...] fracture Papa Morales MD Plan of Treatment 04/27/2021 - Rohan Stewart MD* S52.591D Other fractures of lower end of right radius, subsequent encounter for closed fracture with routine healing * Z47.89 Encounter for other orthopedic aftercare* New Xrays:* CT Elbow W/O Contrast Left, Ordered: 04/27/21 Functional Status Description No Information Available Mental Status Description No Information Available Referrals Description No Information Available"
--- OUTSIDE RECORDS SUMMARY | 2021-06-16 10:54 | CCD | Continuity of Care Document ---
Author Author Paige DIEGO D.O. Organization Unknown Address [address] [place] [address] Phone [phone] Care Team Providers Care Lead Carpenter Name Role Phone Lashonda Diego D.O. AUTM Jayleen Davis AUTM [phone] Adriel Dodson MD AUTM [phone] Problems Active Problems Provider Date Severe major [...] evening 180tabs F41.1 Yasmeen [place] 11/02/2017 Nystatin-Triamcinolone 051936-4.1Unit/GM-% Ointment apply 1 application topically to affecte [...] a day 180caps Tam Mccullough.O. Migraine Relief [phone] Table ts 1 tablet by mouth daily [...] CPT Code Status Date Vaccine Lot # [id number] Given 04/21/2020 Influenza Virus Vaccine, Quadrivalent, Split, Preservative Free [id number] Given 06/06/2019 Influenza Virus Vaccine, Quadrivalent, Split, Preservative Free [id number] 08467 Given 05/25/2018 Influenza Virus Vaccine, Quadrivalent, Split, Preservative Free [id number] 66460 Given 05/08/2017 Influenza Vaccin e Quadrivalent Preser/Antibiotic Free Im Use [id number] Given 05/27/2016 Influenza Virus Vaccine, Quadrivalent, Split, Preservative Free [id number] Vital Signs Date Vital Result Comment 04/27/2021 8:58am BP Systolic 122 mmHg BP Diastolic 84 mmHg Height 63.5 inches 5'3.50" Weight 186.00 lb BMI (Body Mass Index) 32.4 kg/m2 Heart Rate 68 /min Respiratory Rate 20 /min Body Temperature 98.2 F O2 % BldC Oximetry 99 % [place] Body Weight 115 lb 03/29/2021 8:06am BP Systolic 120 mmHg BP Diastolic 80 mmHg Height 63.5 inches 5'3.50" Weight 182.25 lb BMI (Body Mass Index) 31.8 kg/m2 Heart Rate 81 /min Respiratory Rate 14 /min Body Temperature 96.9 F O2 % BldC Oximetry 98 % [place] Body Weight 115 lb Results Test Acquired Date Facility Test Result H/L Range Note Laboratory test finding 04/27/2021 [facility] Image-Guided Pap W/Age Based SCR Protocols <pending> Inhouse Ua 03/17/2021 Inhouse Inhouse Leukocytes neg Inhouse Nitrite + Inhouse Urobilinogen + Inhouse Protein neg Inhouse PH 7 Inhouse Hemoglobin neg Inhouse Specific [place] 1.010 Inhouse Ketones neg Inhouse Bilirubin neg Inhouse Glucose neg Laboratory test finding 03/17/[address] [address] [phone] Urine Culture FULL REPORT IN L <SEE NOTE> Normal 1 Laboratory test finding 03/08/[address] [address] [phone] Urine Culture FULL REPORT IN L <SEE NOTE> Normal 2 Inhouse Ua 03/08/2021 Inhouse Inhouse Leukocytes +++ Inhouse Nitrite neg Inhouse Urobilinogen neg Inhouse Protein neg Inhouse PH 5 Inhouse Hemoglobin trace Inhouse Specific [place] 1.010 Inhouse Ketones neg Inhouse Bilirubin neg Inhouse Glucose neg Inhouse Ua 12/31/2020 Inhouse Inhouse Leukocytes neg Inhouse Nitrite neg Inhouse Urobilinogen neg Inhouse Protein neg Inhouse PH 5 Inhouse Hemoglobin neg Inhouse Specific [place] 1.025 Inhouse Ketones neg Inhouse Bilirubin neg Inhouse Glucose neg Laboratory test finding 12/31/[address] [address] [phone] Urine Culture FULL REPORT IN L <SEE [...] ORGANISM Procedures Date Code Description Status 03/29/2021 82818 Office/Outpatient Established Mo d MDM 30-39 Min Completed 03/17/2021 74015 Office/Outpatient Established Lo w MDM 20-29 Min Completed 03/08/2021 68178 Office/Outpatient Established Lo w MDM 20-29 Min Completed 12/31/2020 15737 Office/Outpatient Established Lo w MDM 20-29 Min Completed 06/13/2019 [id number] Mammogram Completed Medical Devices Description No Information Available Encounters Type Date Location Provider Dx Diagnosis Office Visit 03/29/2021 8:00a [facility] REI Napoles E21.3 Hyperparathyroidism, unspeci fied G43.009 Migraine w/o aura, not intra ctable, w/o status migrainosus F33.1 Major depressive disorder, r ecurrent, moderate F43.10 Post-traumatic stress disord er, unspecified K58.2 Mixed irritable bowel syndro me R30.0 Dysuria F41.1 Generalized anxiety disorder Office Visit 03/17/2021 8:30a [facility] Tam Mccullough.[place] N39.0 Urinary tract infection, sit e not specified N76.0 Acute vaginitis Office Visit 03/08/2021 10:10a [facility] Tam Mccullough.[place] N39.0 Urinary tract infection, sit e not specified Office Visit 12/31/2020 8:30a [facility] REI Kan R30.0 Dysuria Assessments Date Code Description Provider 04/27/2021 K59.00 Constipation, unspecified Tam Ramirez.[place] 04/27/2021 E21.3 Hyperparathyroidism, unspecified Tam [place]ccullough.[place] 04/27/2021 G43.009 Migraine without aura, not intra ctable, without status migra Tam Mccullough.O. 04/27/2021 F33.1 Major depressive disorder, recur rent, moderate Lashonda Jung D.O. 04/27/2021 F43.10 Post-traumatic stress disorder, unspecified Lashonda Jung D.O. 04/27/2021 K58.2 Mixed irritable bowel syndrome J ill Brandie D.O. 04/27/2021 F41.1 Generalized anxiety disorder Fanny swapnil Diego D.O. 04/27/2021 Z12.31 Encounter for screen ing mammogram for malignant neoplasm of breast Tam Mccullough.O. 03/29/2021 E21.3 Hyperparathyroidism, unspecified Cedric Cain, REI 03/29/2021 G43.009 Migraine without aura, not intra ctable, without status migra Cedric Cain, REI 03/29/2021 F33.1 Major depressive disorder, recur rent, moderate Cedric Cain, REI 03/29/2021 F43.10 Post-traumatic stress disorder, unspecified Cedric Cain, REI 03/29/2021 K58.2 Mixed irritable bowel syndrome S REI Guillermo 03/29/2021 R30.0 Dysuria REI Nap[place] 03/29/2021 F41.1 Generalized anxiety disorder REI Plasc[place] 03/17/2021 N39.0 Urinary tract infection, site no t specified Lashonda Jung D.O. 03/17/2021 N76.0 Acute vaginitis Tam Velasquez.[place] 03/08/2021 N39.0 Urinary tract infection, site no t specified Lashonda Jung D.O. 12/31/2020 R30.0 Dysuria REI Kan Plan of Treatment Future Appointment(s):* 06/28/2021 8:30 am - Lashonda Diego D.O. at [facility] * 10/18/2021 8:20 am - Lashonda Diego D.O. at [facility] 04/27/2021 - Lashonda Diego D.O.* K59.00 Constipation, unspecified* New Medication:* Senna S 8.6-50 mg - one tablet by mouth twice daily as needed hold for loose stools * Comments:* restart senna * E21.3 Hyperparathyroidism, unspecified* Comments:* referral pending * G43.009 Migraine without aura, not intractable, [...] persisted. Please evaluate and treat. Sent 05/06/2021 [address] [place] [address] [address] [phone]
--- OUTSIDE RECORDS SUMMARY | 2021-06-16 10:55 | CCD ---
Author Author [facility] Organization [facility] Address Unknown Phone Unavailable Care Team Providers Care [employer] Designer Name Role Phone Leslie Palacios Unavailable Unavailable SuzanneLeslie sykes Unavailable Unavailable SuzanneLeslie sykes Unavailable Unavailable SuzanneLeslie sykes Unavailable Unavailable SuzanneLeslie sykes Unavailable Unavailable SuzanneLeslie sykes Unavailable Unavailable SuzanneLeslie Unavailable Unavailable SuzanneLeslie sykes Unavailable Unavailable SuzanneLeslie sykes Unavailable Unavailable Leslie Palacios Unavailable Unavailable SuzanneLeslie sykes Unavailable Unavailable SuzanneLeslie sykes Unavailable Unavailable SuzanneLeslie sykes Unavailable Unavailable SuzanneLeslie sykes Unavailable Unavailable SuzanneLeslie Unavailable Unavailable SuzanneLeslie Unavailable Unavailable SuzanneLeslie sykes Unavailable Unavailable SuzanneLeslie sykes Unavailable Unavailable SuzanneLeslie sykes Unavailable Unavailable SuzanneLeslie sykes Unavailable Unavailable SuzanneLeslie sykes Unavailable Unavailable SuzanneLeslie sykes Unavailable Unavailable SuzanneLeslie sykes Unavailable Unavailable Suzanne, Les MD Unavailable Unavailable Suzanne, Les MD Unavailable Unavailable Suzanne, Les MD Unavailable Unavailable Suzanne, Les MD Unavailable Unavailable Suzanne, Les MD Unavailable Unavailable Suzanne, Les MD Unavailable Unavailable Suzanne, Les MD Unavailable Unavailable Suzanne, Les MD Unavailable Unavailable Suzanne, Les MD Unavailable Unavailable Suzanne, Les MD Unavailable Unavailable Suzanne, Les MD Unavailable Unavailable Suzanne, Les MD Unavailable Unavailable Suzanne, Les MD Unavailable Unavailable Suzanne, Les MD Unavailable Unavailable Suzanne, Les MD Unavailable Unavailable Suzanne, Les MD Unavailable Unavailable Suzanne, Les MD Unavailable Unavailable Suzanne, Les MD Unavailable Unavailable Suzanne, Les MD Unavailable Unavailable Suzanne, Les MD Unavailable Unavailable Suzanne, Les MD Unavailable Unavailable Suzanne, Les MD Unavailable Unavailable Suzanne, Les MD Unavailable Unavailable Suzanne, Les MD Unavailable Unavailable Suzanne, Les MD Unavailable Unavailable Suzanne, Les MD Unavailable Unavailable Suzanne, Les MD Unavailable Unavailable Suzanne, Les MD Unavailable Unavailable Suzanne, Les MD Unavailable Unavailable Suzanne, Les MD Unavailable Unavailable Suzanne, Les MD Unavailable Unavailable Suzanne, Les MD Unavailable Unavailable Suzanne, Les MD Unavailable Unavailable Suzanne, Les MD Unavailable Unavailable Suzanne, Les MD Unavailable Unavailable Suzanne, Les MD Unavailable Unavailable Suzanne, Les MD Unavailable Unavailable Suzanne, Les MD Unavailable Unavailable Suzanne, Les MD Unavailable Unavailable Mollison, Kellie Madrigal MD Unavailable Unavailable Mollison, Kellie Madrigal MD Unavailable Unavailable Mollison, Kellie Madrigal MD Unavailable Unavailable Mollison, Kellie Madrigal MD Unavailable Unavailable Mollison, Kellie Madrigal MD Unavailable Unavailable Mollison, Kellie Madrigal MD Unavailable Unavailable Mollison, Kellie Madrigal MD Unavailable Unavailable Mollison, Kellie Madrigal MD Unavailable Unavailable Mollison, Kellie Madrigal MD Unavailable Unavailable Mollison, Kellie Madrigal MD Unavailable Unavailable Mollison, Kellie Madrigal MD Unavailable Unavailable Mollison, Kellie Madrigal MD Unavailable Unavailable Mollison, Kellie Madrigal MD Unavailable Unavailable Mollison, Kellie Madrigal MD Unavailable Unavailable Mollison, Kellie Madrigal MD Unavailable Unavailable Mollison, Kellie Madrigal MD Unavailable Unavailable Mollison, Kellie Madrigal MD Unavailable Unavailable Mollison, Kellie Madrigal MD Unavailable Unavailable Mollison, Kellie Madrigal MD Unavailable Unavailable Mollison, Kellie Madrigal MD Unavailable Unavailable Mollison, Kellie Madrigal MD Unavailable Unavailable Mollison, Kellie Madrigal MD Unavailable Unavailable Mollison, Kellie Madrigal MD Unavailable Unavailable Mollison, Kellie Madrigal MD Unavailable Unavailable Mollison, Kellie Madrigal MD Unavailable Unavailable Mollison, Kellie Madrigal MD Unavailable Unavailable Mollison, Kellie Madrigal MD Unavailable Unavailable Mollison, Kellie Madrigal MD Unavailable Unavailable Mollison, Kellie Madrigal MD Unavailable Unavailable Mollison, Kellie Madrigal MD Unavailable Unavailable TANYA-NATALIIA, NASIR DO Unavailable Unavailable TANYA-NATALIIA, NASIR DO Unavailable Unavailable TANYA-NATALIIA, NASIR DO Unavailable Unavailable TANYA-NATALIIA, NASIR DO Unavailable Unavailable TANYA-NATALIIA, NASIR DO Unavailable Unavailable TANYA-NATALIIA, NASIR DO Unavailable Unavailable TANYA-NATALIIA, NASIR DO Unavailable Unavailable TANYA-NATALIIA, NASIR DO Unavailable Unavailable TANYA-NATALIIA, NASIR DO Unavailable Unavailable TANYA-NATALIIA, NASIR DO Unavailable Unavailable TANYA-NATALIIA, NASIR DO Unavailable Unavailable TANYA-NATALIIA, NASIR DO Unavailable Unavailable TANYA-NATALIIA, NASIR DO Unavailable Unavailable TANYA-NATALIIA, NASIR DO Unavailable Unavailable ATNYA-NATALIIA, NASIR DO Unavailable Unavailable TANYA-NATALIIA, NASIR DO Unavailable Unavailable TANYA-NATALIIA, NASIR DO Unavailable Unavailable TANYA-NATALIIA, NASIR DO Unavailable Unavailable TANYA-NATALIIA, NASIR DO Unavailable Unavailable TANYA-NATALIIA, NASIR DO Unavailable Unavailable TANYA-NATALIIA, NASIR DO Unavailable Unavailable TANYA-NATALIIA, NASIR DO Unavailable Unavailable TANYA-NATALIIA, NASIR DO Unavailable Unavailable TANYA-NATALIIA, NASIR DO Unavailable Unavailable TANYA-NATALIIA, NASIR DO Unavailable Unavailable TANYA-NATALIIA, NASIR DO Unavailable Unavailable TANYA-NATALIIA, NASIR DO Unavailable Unavailable TANYA-NATALIIA, NASIR DO Unavailable Unavailable TANYA-NATALIIA, NASIR DO Unavailable Unavailable TANYA-NATALIIA, NASIR DO Unavailable Unavailable TANYA-NATALIIA, NASIR DO Unavailable Unavailable TANYA-NATALIIA, NASIR DO Unavailable Unavailable TANYA-NATALIIA, NASIR DO Unavailable Unavailable TANYA-NATALIIA, NASIR DO Unavailable Unavailable TANYA-NATALIIA, NASIR DO Unavailable Unavailable TANYA-NATALIIA, NASIR DO Unavailable Unavailable TANYA-NATALIIA, NASIR DO Unavailable Unavailable TANYA-NATALIIA, NASIR DO Unavailable Unavailable TANYA-NATALIIA, NASIR DO Unavailable Unavailable TANYA-NATALIIA, NASIR DO Unavailable Unavailable TANYA-NATALIIA, NASIR DO Unavailable Unavailable TANYA-NATALIIA, NASIR DO Unavailable Unavailable TANYA-NATALIIA, NASIR DO Unavailable Unavailable TANYA-NATALIIA, NASIR DO Unavailable Unavailable TANYA-NATALIIA, NASIR DO Unavailable Unavailable TANYA-NATALIIA, NASIR DO Unavailable Unavailable TANYA-NATALIIA, NASIR DO Unavailable Unavailable TANYA-NATALIIA, NASIR DO Unavailable Unavailable TANYA-NATALIIA, NASIR DO Unavailable Unavailable TANYA-NATALIIA, NASIR DO Unavailable Unavailable TANYA-NATALIIA, NASIR DO Unavailable Unavailable TANYA-NATALIIA, NASIR DO Unavailable Unavailable TANYA-NATALIIA, NASIR DO Unavailable Unavailable TANYA-NATALIIA, NASIR DO Unavailable Unavailable TANYA-NATALIIA, NASIR DO Unavailable Unavailable TANYA-NATALIIA, NASIR DO Unavailable Unavailable TANYA-NATALIIA, NASIR DO Unavailable Unavailable TANYA-NATALIIA, NASIR DO Unavailable Unavailable TANYA-NATALIIA, NASIR DO Unavailable Unavailable TANYA-NATALIIA, NASIR DO Unavailable Unavailable TANYA-NATALIIA, NASIR DO Unavailable Unavailable TANYA-NATALIIA, NASIR DO Unavailable Unavailable TANYA-NATALIIA, NASIR DO Unavailable Unavailable TANYA-NATALIIA, NASIR DO Unavailable Unavailable TANYA-NATALIIA, NASIR DO Unavailable Unavailable TANYA-NATALIIA, NASIR DO Unavailable Unavailable TANYA-NATALIIA, NASIR DO Unavailable Unavailable TANYA-NATALIIA, NASIR DO Unavailable Unavailable TANYA-NATALIIA, NASIR DO Unavailable Unavailable TANYA-NATALIIA, NASIR DO Unavailable Unavailable TANYA-NATALIIA, NASIR DO Unavailable Unavailable TANYA-NATALIIA, NASIR DO Unavailable Unavailable TANYA-NATALIIA, NASIR DO Unavailable Unavailable TANYA-NATALIIA, NASIR DO Unavailable Unavailable TANYA-NATALIIA, NASIR DO Unavailable Unavailable TANYA-NATALIIA, NASIR DO Unavailable Unavailable TANYA-NATALIIA, NASIR DO Unavailable Unavailable TANYA-NATALIIA, NASIR DO Unavailable Unavailable TANYA-NATALIIA, NASIR DO Unavailable Unavailable TANYA-NATALIIA, NASIR DO Unavailable Unavailable TANYA-NATALIIA, NASIR DO Unavailable Unavailable TANYA-NATALIIA, NASIR DO Unavailable Unavailable TANYA-NATALIIA, NASIR DO Unavailable Unavailable TANYA-NATALIIA, NASIR DO Unavailable Unavailable Payton, Cedric PA Unavailable Unavailable Payton, Cedric PA Unavailable Unavailable Payton, Cedric PA Unavailable Unavailable Payton, Cedric PA Unavailable Unavailable Payton, Cedric PA Unavailable Unavailable Payton, Cedric PA Unavailable Unavailable Payton, Cedric PA Unavailable Unavailable Payton, Cedric PA Unavailable Unavailable Payton, Cedric PA Unavailable Unavailable Payton, Cedric PA Unavailable Unavailable Payton, Cedric PA Unavailable Unavailable Payton, Cedric PA Unavailable Unavailable Payton, Cedric PA Unavailable Unavailable Payton, Cedric PA Unavailable Unavailable Payton, Cedric PA Unavailable Unavailable Payton, Cedric PA Unavailable Unavailable Payton, Cedric PA Unavailable Unavailable Payton, Cedric PA Unavailable Unavailable Payton, Cedric PA Unavailable Unavailable Payton, Cedric PA Unavailable Unavailable Payton, Cedric PA Unavailable Unavailable Payton, Cedric PA Unavailable Unavailable Payton, Cedric PA Unavailable Unavailable Payton, Cedric PA Unavailable Unavailable Payton, Cedric PA Unavailable Unavailable Payton, Cedric PA Unavailable Unavailable Payton, Cedric PA Unavailable Unavailable Payton, Cedric PA Unavailable Unavailable Payton, Cedric PA Unavailable Unavailable Payton, Cedric PA Unavailable Unavailable Payton, Cedric PA Unavailable Unavailable Payton, Cedric PA Unavailable Unavailable Payton, Cedric PA Unavailable Unavailable Payton, Cedric PA Unavailable Unavailable Payton, Cedric PA Unavailable Unavailable Payton, Cedric PA Unavailable Unavailable Payton, Cedric PA Unavailable Unavailable Payton, Cedric PA Unavailable Unavailable Payton, Cedric PA Unavailable Unavailable Payton, Cedric PA Unavailable Unavailable Payton, Cedric PA Unavailable Unavailable Payton, Cedric PA Unavailable Unavailable Payton, Cedric PA Unavailable Unavailable Payton, Cedric PA Unavailable Unavailable Payton, Cedric PA Unavailable Unavailable Payton, Cedric PA Unavailable Unavailable Payton, Cedric PA Unavailable Unavailable Payton, Cedric PA Unavailable Unavailable Payton, Cedric PA Unavailable Unavailable Payton, Cedric PA Unavailable Unavailable Payton, Cedric PA Unavailable Unavailable Payton, Cedric PA Unavailable Unavailable Payton, Cedric PA Unavailable Unavailable Payton, Cedric PA Unavailable Unavailable BOLA, H BOBBY SWIMMING POOL ATTENDANT Unavailable Unavailable BOLA, H BOBBY SWIMMING POOL ATTENDANT Unavailable Unavailable BOLA, H BOBBY SWIMMING POOL ATTENDANT Unavailable Unavailable BOLA, H BOBBY SWIMMING POOL ATTENDANT Unavailable Unavailable BOLA, H BOBBY SWIMMING POOL ATTENDANT Unavailable Unavailable BOLA, H BOBBY SWIMMING POOL ATTENDANT Unavailable Unavailable BOLA, H BOBBY SWIMMING POOL ATTENDANT Unavailable Unavailable BOLA, H BOBBY SWIMMING POOL ATTENDANT Unavailable Unavailable BOLA, H BOBBY SWIMMING POOL ATTENDANT Unavailable Unavailable O'kristel, A Vasiliy PA Unavailable Unavailable O'kristel, A Vasiliy PA Unavailable Unavailable O'kristel, A Vasiliy PA Unavailable Unavailable O'kristel, A Vasiliy PA Unavailable Unavailable O'kristel, A Vasiliy PA Unavailable Unavailable O'kristel, A Vasiliy PA Unavailable Unavailable O'kristel, A Vasiliy PA Unavailable Unavailable O'kristel, A Vasiliy PA Unavailable Unavailable O'kristel, A Vasiliy PA Unavailable Unavailable O'kristel, A Vasiliy PA Unavailable Unavailable O'kristel, A Vasiliy PA Unavailable Unavailable O'kristel, A Vasiliy PA Unavailable Unavailable O'kristel, A Vasiliy PA Unavailable Unavailable O'kristel, A Vasiliy PA Unavailable Unavailable O'kristel, A Vasiliy PA Unavailable Unavailable O'kristel, A Vasiliy PA Unavailable Unavailable O'kristel, A Vasiliy PA Unavailable Unavailable O'kristel, A Vasiliy PA Unavailable Unavailable O'kristel, A Vasiliy PA Unavailable Unavailable O'kristel, A Vasiliy PA Unavailable Unavailable O'kristel, A Vasiliy PA Unavailable Unavailable O'kristel, A Vasiliy PA Unavailable Unavailable O'kristel, A Vasiliy PA Unavailable Unavailable O'kristel, A Vasiliy PA Unavailable Unavailable O'kristel, A Vasiliy PA Unavailable Unavailable O'kristel, A Vasiliy PA Unavailable Unavailable O'kristel, A Vasiliy PA Unavailable Unavailable O'kristel, A Vasiliy PA Unavailable Unavailable O'kristel, A Vasiliy PA Unavailable Unavailable O'kristel, A Vasiliy PA Unavailable Unavailable O'kristel, A Vasiliy PA Unavailable Unavailable O'kristel, A Vasiliy PA Unavailable Unavailable O'kristel, A Vasiliy PA Unavailable Unavailable Rachel Trinidad Unavailable Carlos Solis PMH-SWIMMING POOL ATTENDANT Unavailable Unavailable Carlos Solis PMH-SWIMMING POOL ATTENDANT Unavailable Unavailable Carlos Solis PMH-SWIMMING POOL ATTENDANT Unavailable Unavailable Carlos Solis PMH-SWIMMING POOL ATTENDANT Unavailable Unavailable Carlos Solis PMH-SWIMMING POOL ATTENDANT Unavailable Unavailable Carlos Solis PMH-SWIMMING POOL ATTENDANT Unavailable Unavailable Almena, Carlos Lou PMH-SWIMMING POOL ATTENDANT Unavailable Unavailable Almena, Carlos Lou PMH-SWIMMING POOL ATTENDANT Unavailable Unavailable Biedron, M Papa KIMBALL Unavailable Unavailable Biedron, M Papa KIMBALL Unavailable Unavailable Biedron, M Papa KIMBALL Unavailable Unavailable Biedron, M Papa KIMBALL Unavailable Unavailable Biedron, M Papa KMIBALL Unavailable Unavailable Biedron, M Papa KIMBALL Unavailable Unavailable Biedron, M Papa KIMBALL Unavailable Unavailable Biedron, M Papa KIMBALL Unavailable Unavailable Biedron, M Papa KIMBALL Unavailable Unavailable Gonzalez, Warren Tamiko Unavailable Unavailable Gonzalez, Warren Tamiko Unavailable Unavailable Gonzalez, Warren Tamiko Unavailable Unavailable Gonzalez, Warren Tamiko Unavailable Unavailable Gonzalez, Warren Tamiko Unavailable Unavailable Gonzalez, Warren Tamiko Unavailable Unavailable Gonzalez, Warren Tamiko Unavailable Unavailable Gonzalez, Warren Tamiko Unavailable Unavailable Gonzalez, Warren Tamiko Unavailable Unavailable Gonzalez, Warren Tamiko Unavailable Unavailable Gonzalez, Warren Tamiko Unavailable Unavailable Gonzalez, Warren Tamiko Unavailable Unavailable Gonzalez, Warren Tamiko Unavailable Unavailable Re-disclosure Warning The records that you are about to access may contain information from federally-assisted alcohol or drug abuse programs. If such information is present, then the following federally mandated warning applies: This information has been disclosed to you from records protected by federal confidentiality rules (42 CFR part 2). The federal rules prohibit you from making any further disclosure of this information unless further disclosure is expressly permitted by the written consent of the person to whom it pertains or as otherwise permitted by 42 CFR part 2. A general authorization for the release of medical or other information is NOT sufficient for this purpose. The Federal rules restrict any use of the information to criminally investigate or prosecute any alcohol or drug abuse patient.The records that you are about to access may contain highly sensitive health information, the redisclosure of which is protected by Article 27-F of the [facility] Public Health law. If you continue you may have access to information: Regarding HIV / AIDS; Provided by facilities licensed or operated by the [facility] Office of Mental Health; or Provided by the [facility] Office for People With Developmental Disabilities. If such information is present, then the following [facility] mandated warning applies: This information has been disclosed to you from confidential records which are protected by state law. State law prohibits you from making any further disclosure of this information without the specific written consent of the person to whom it pertains, or as otherwise permitted by law. Any unauthorized further disclosure in violation of state law may result in a fine or correction sentence or both. A general authorization for the release of medical or other information is NOT sufficient authorization for further disc losure. Allergies and Adverse Reactions Type Description Substance Reaction Status Data Source(s ) Allergy to substance Allergy to substance Allergy to substance [facility] ([facility]) Allergy to substance Allergy to substance Allergy to substance [facility] ([facility]) Family History Family Member Name Family Member Gender Family Member Status Date o f Status Description Data Source(s) Unknown Unknown Problem MEDENT ([facility]) Encounters Encounter Providers Location Date Indications Data Source(s ) ( 15ESGYN) [facility] 15 min est state director [address] [place] [address] 06/07/2021 12:00:00 AM EST eCW1 ([facility]) Unknown [address] [facility] [address] 06/07/2021 12:00:00 AM EST eCW1 ([facility]) ( PROC) [facility] Procedure [address] [place] [address] 05/28/2021 12:00:00 AM EDT eCW1 ([facility]) Unknown [address] [facility] [address] 05/21/2021 12:00:00 AM EDT eCW1 ([facility]) Outpatient Attender: Rohan Márquez/Kelsie/García/Sherry indl 05/14/2021 09:15:00 AM EDT MEDENT ([facility]) Unknown [address] [facility] [address] 05/13/2021 12:00:00 AM EDT eCW1 ([facility]) Unknown [address] [facility] [address] 05/07/2021 12:00:00 AM EDT eCW1 ([facility]) Outpatient [address] [facility] [place] [address] 05/06/2021 12:00:00 AM EDT eCW1 ([facility]) Outpatient Attender: BOBBY STOKES NP [facility] Kimo kraft 05/03/2021 10:30:00 AM EDT - 05/03/2021 10:30:00 AM EDT [facility] ([facility]) Attender: BOBBY STOKES NP 05/03/2021 12:00:00 AM EDT [facility] ([facility]) Unknown [address] [facility] [place] [address] 04/29/2021 12:00:00 AM EDT eCW1 ([facility]) Unknown [address] [facility] [place] [address] 04/29/2021 12:00:00 AM EDT eCW1 ([facility]) Outpatient Attender: Rohan Márquez/Kelsie/García/Sherry soto 04/27/2021 10:15:00 AM EDT MEDENT ([facility]) Outpatient Attender: NASIR GEE DO [facility] 04/27/2021 09:00:00 AM EDT MEDENT ([facility]) (WC 15ESGYN) [facility] 15 min est state director [address] [place] [address] 04/22/2021 12:00:00 AM EDT eCW1 ([facility]) Extended Individual Psychotherapy - 45 min Attender: Andrea Trinidad [facility] 03/31/2021 09:00:00 AM EDT - 03/31/2021 09:00:00 AM EDT [facility] ([facility]) Attender: Rachel Trinidad 03/31/2021 12:00:00 AM EDT [facility] ([facility]) Outpatient Attender: Cedric MINAYA [facility] 03/29/2021 08:00:00 AM EDT MEDENT ([facility]) (WC 15ESGYN) [facility]Center 15 min est state director [address] [place] [address] 03/25/2021 12:00:00 AM EDT eCW1 ([facility]) Outpatient Attender: NASIR GEE [facility] 03/17/2021 08:30:00 AM EDT MED[facility] ([facility]) Office Visit Attender: Rohan Márquez/Kelsie/García/Re indl 03/16/2021 11:15:00 AM EDT MEDENT ([facility]) Outpatient Attender: NASIR GEE [facility] 03/08/2021 10:10:00 AM EDT [facility] ([facility]) Attender: Rachel Trinidad 02/26/2021 12:00:00 AM EDT [facility] ([facility]) Extended Individual Psychotherapy - 45 min Attender: Andrea still Amos [facility] 02/24/2021 10:00:00 AM EDT - 02/24/2021 10:00:00 AM EDT [facility] ([facility]) Office Visit Attender: Rohan Márquez/Kelsie/García/Re indl 02/02/2021 10:45:00 AM EDT MEDENT ([facility]) Office Visit Attender: Rohan Márquez/Kelsie/García/Re indl 01/14/2021 10:15:00 AM EDT MEDENT ([facility]) Outpatient Attender: Dasha Solis [facility] PO[facility] ATTENDANT [facility] 01/11/2021 10:00:00 AM EDT - 01/11/2021 10:00:00 AM EDT [facility] ([facility]) Attender: Dasha SOTO-SWIMMING POOL ATTENDANT 01/11/2021 12: 00:00 AM EDT [facility] ([facility]) Outpatient Attender: Vasiliy MINAYA [facility] 12/31/2020 08:30:00 AM EDT MEDENT ([facility]) Outpatient Attender: Rohan Márquez/Kelsie/García/Re indl 12/29/2020 08:30:00 AM EDT MEDENT ([facility] Outpatient Attender: Papa Márquez/Kelsie/García/R eindl 12/22/2020 10:30:00 AM EDT MEDENT ([facility] FANNY TejadaC: [address] [place] [address], Ph. Attender: Tamiko Gonzalez [facility] Medical 12/08/2020 12:00:00 AM EDT CO ([facility]) Brief Individual Psychotherapy - 30 min Attender: Rachel mendez [facility] 12/02/2020 03:45:00 AM EDT - 12/02/2020 03:45:00 AM EDT [facility] ([facility]) Attender: Rachel Trinidad 12/02/2020 12:00:00 AM EDT [facility] ([facility]) Attender: Rachel Trinidad 11/26/2020 12:00:00 AM EDT [facility] ([facility]) Extended Individual Psychotherapy - 45 min Attender: Andrea Trinidad [facility] 11/25/2020 03:00:00 AM EDT - 11/25/2020 03:00:00 AM EDT [facility] ([facility]) FANNY TejadaC: [address] [place] [address], Ph. Attender: Tamiko Gonzalez [facility] Medical 11/10/2020 12:00:00 AM EDT OC ([facility]) FANNY TejadaC: [address] [place] [address], Ph. Attender: Tamiko OTT - [facility] Medical 11/10/2020 12:00:00 AM EDT OC ([facility]) Outpatient Attender: Dasha SOTO-CHELA [facility] 10/20/2020 10:00:00 AM EDT - 10/20/2020 10:00:00 AM EDT [facility] ([facility]) Attender: Dasha SOTOGENA 10/20/2020 12: 00:00 AM EDT [facility] ([facility]) Outpatient Attender: NASIR GEE DO [facility] 10/14/2020 08:00:00 AM EDT MEDENT ([facility]) [facility] Derm[facility] [address] [place] [id number] 10/08/2020 12:00:00 AM EST eCW1 ([facility]) Outpatient Attender: Cedric MINAYA [facility] 10/07/2020 10:00:00 AM EST MEDENT ([facility]) Attender: Rachel Trinidad 09/11/2020 12:00:00 AM EST [facility] ([facility]) Extended Individual Psychotherapy - 45 min Attender: Andrea Trinidad [facility] 09/10/2020 06:00:00 AM EST - 09/10/2020 06:00:00 AM EST [facility] ([facility]) Outpatient Attender: Dasha SOTOGENA [facility] 09/09/2020 11:00:00 AM EST - 09/09/2020 11:00:00 AM EST [facility] ([facility]) Attender: Dasha SOTOGENA 09/09/2020 12: 00:00 AM EST [facility] ([facility]) Outpatient Attender: Les Palacios MD Main office [facility] 08/26/2020 10:30:00 AM EST MEDENT ([facility] SANJANA Bettencourt) Brief Individual Psychotherapy - 30 min Attender: Rachel Flowers vanessa [facility] 08/13/2020 04:30:00 AM EST - 08/13/2020 04:30:00 AM EST [facility] ([facility]) Attender: Rachel Trinidad 08/13/2020 12:00:00 AM EST [facility] ([facility]) Outpatient Attender: Cedric MINAYA [facility] [facility] 08:00:00 AM EST [facility] ([facility]) Attender: Rachel Trinidad 07/17/2020 12:00:00 AM EST [facility] ([facility]) Extended Individual Psychotherapy - 45 min Attender: Andrea still Amos [facility] 07/16/2020 05:00:00 AM EST - 07/16/2020 05:00:00 AM EST [facility] ([facility]) Attender: Rachel Trinidad 07/02/2020 12:00:00 AM EST [facility] ([facility]) Brief Individual Psychotherapy - 30 min Attender: Rachel Flowers [facility] 07/01/2020 03:30:00 AM EST - 07/01/2020 03:30:00 AM EST [facility] ([facility]) Office Visit Attender: Rohan Márquez/Kelsie/García/Sherry soto 06/30/2020 08:20:00 AM EST MED[facility] ([facility]) Outpatient Attender: Dasha Solis [facility] POOL ATTENDANT [facility] 06/29/2020 10:30:00 AM EST - 06/29/2020 10:30:00 AM EST [facility] ([facility]) Attender: Dasha PASTOR 06/29/2020 12: 00:00 AM EST [facility] ([facility]) Attender: Rachel Trinidad 06/11/2020 12:00:00 AM EST [facility] ([facility]) Extended Individual Psychotherapy - 45 min Attender: Andrea still Amos [facility] 06/10/2020 04:15:00 AM EST - 06/10/2020 04:15:00 AM EST [facility] ([facility]) Outpatient Attender: Dasha Solis [facility] Gordy Meneses 06/08/2020 09:00:00 AM EST - 06/08/2020 09:00:00 AM EST [facility] ([facility]) Attender: Dasha SOTO-[place] POOL ATTENDANT 06/08/2020 12: 00:00 AM EST [facility] ([facility]) Office Visit Attender: Rohan Márquez/[place]/García/Re indl 06/02/2020 08:50:00 AM EST [facility] ([facility]) Outpatient Attender: Rohan Márquez/[place]/García/Re indl 05/14/2020 09:50:00 AM EDT [facility] ([facility]) Outpatient Attender: Dasha SOTO-[facility] Gord[facility] Meneses 05/12/2020 09:30:00 AM EDT - 05/12/2020 09:30:00 AM EDT [facility] ([facility]) Attender: Dasha Solis [facility] 05/12/2020 12: 00:00 AM EDT [facility] ([facility]) Outpatient Attender: Rohan Márquez/[place]/García/Re indl 05/11/2020 09:15:00 AM EDT [facility] ([facility]) Outpatient Attender: Les Palacios MD Main office [facility] 04/29/2020 10:15:00 AM EDT MED[facility] ([facility]) Outpatient Attender: NASIR GEE [facility] 04/21/2020 09:40:00 AM EDT MED[facility] ([facility]) Functional Status Immunizations Vaccine Date Status Description Data Source(s) COVID-19, mRNA, LNP-S, PF, 100 mcg/0.5 mL dose 12/08/2020 04 :55:19 PM EDT completed .5 mL OC ([facility]) COVID-19 VACCINE Moderna 12/08/2020 12:00:00 AM EDT completed DCSIIS Vaccine Series Complete: YESThis Data wa s Submitted to [facility] Via [employer]. COVID-19, mRNA, LNP-S, PF, 100 mcg/0.5 mL dose 11/10/2020 05 :34:49 PM EDT completed 10.5 mL OC ([facility]) COVID-19, mRNA, LNP-S, PF, 100 mcg/0.5 mL dose 11/10/2020 05 :34:49 PM EDT completed 10.5 mL OC ([facility]) COVID-19 VACCINE Moderna 11/10/2020 12:00:00 AM EDT completed DCSIIS Vaccine Series Complete: NOThis Data was Submitted to [facility] Via [employer]. New in 2011. IIV4 04/21/2020 10:09:00 AM EDT completed MEDENT ([facility]) Medications Medication Brand Name Start Date Product Form Dose Route Admi nistrative Instructions Pharmacy Instructions Status Indications Reaction Description Data Source(s) Citalopram 20 MG Oral Tablet CITALOPRAM HYDROBROMIDE 06/09/2021 12:00:00 AM EST tablet 45 TAKE 1 AND 1/2 TABLET BY MOUTH O NCE DAILY TAKE 1 AND 1/2 TABLET BY MOUTH ONCE DAILY SOLD: 06/09/2021 [facility] 25 mg 05/14/2021 12:00:00 AM EDT capsule 32 TAKE ONE CAPSULE BY MOUTH TWICE A DAY TAKE ONE CAPSULE BY MOUTH TWICE A DAY SOLD: 05/20/2021 [facility] 25 mg 05/14/2021 12:00:00 AM EDT capsule 60 TAKE ONE CAPSULE BY MOUTH TWICE A DAY TAKE ONE CAPSULE BY MOUTH TWICE A DAY SOLD: 06/09/2021 [facility] 140 mg/mL 05/13/2021 12:00:00 AM EDT auto-injector 1 INJECT THE CONTENTS OF ONE PEN UNDER THE SKIN ONCE A MONTH INJECT THE CONTENTS OF ONE PEN UNDER THE SKIN ONCE A MONTH SOLD: 05/20/2021 [facility] Hydrochlorothiazide 12.5 MG Oral Tablet HYDROCHLOROTHIAZIDE 05/13/2021 12:00:00 AM EDT tablet 30 TAKE ONE TABLET BY MOUTH ZACKARY RY DAY TAKE ONE TABLET BY MOUTH EVERY DAY SOLD: 06/09/2021 [facility] Hydrochlorothiazide 12.5 MG Oral Tablet HYDROCHLOROTHIAZIDE 05/13/2021 12:00:00 AM EDT tablet 16 TAKE ONE TABLET BY MOUTH TAKE ONE TABLET BY MOUTH EVERY DAY SOLD: 05/20/2021 [facility] 17 gram/dose 05/08/2021 12:00:00 AM EDT powder 510 MIX 17 GRAMS (1 CAPFUL) IN LIQUID AND TAKE BY MOUTH ONCE DAILY DIRECTED MIX 17 GRAMS (1 CAPFUL) IN LIQUID AND TAKE BY MOUTH ONCE DAILY DIRECTED SOLD: 05/11/2021 [facility] POLYETHYLENE GLYCOL 3350 142 MG/ML Oral Solution [Misty lax] MiraLax 17 GM/SCOOP MiraLax 17 GM/SCOOP 05/06/2021 12:00:00 AM EDT active MiraLax 17 GM/SCOOP eCW1 ([facility]) POLYETHYLENE GLYCOL 3350 142 MG/ML Oral Solution [Misty lax] MiraLax 17 GM/SCOOP MiraLax 17 GM/SCOOP 05/06/2021 12:00:00 AM EDT active MiraLax 17 GM/SCOOP eCW1 ([facility]) Phenazopyridine hydrochloride 100 MG Oral Tablet Phena zopyridine HCl 100 MG Phenazopyridine HCl 100 MG 05/06/2021 12:00:00 AM EDT active Phenazopyridine HCl 100 MG eCW1 ([facility]) Phenazopyridine hydrochloride 100 MG Oral Tablet Phena zopyridine HCl 100 MG Phenazopyridine HCl 100 MG 05/06/2021 12:00:00 AM EDT active Phenazopyridine HCl 100 MG eCW1 ([facility]) Phenazopyridine hydrochloride 100 MG Oral Tablet Phena zopyridine HCl 100 MG Phenazopyridine HCl 100 MG 05/06/2021 12:00:00 AM EDT active Phenazopyridine HCl 100 MG eCW1 ([facility]) POLYETHYLENE GLYCOL 3350 142 MG/ML Oral Solution [Misty lax] MiraLax 17 GM/SCOOP MiraLax 17 GM/SCOOP 05/06/2021 12:00:00 AM EDT act emy eCW1 ([facility]) POLYETHYLENE GLYCOL 3350 142 MG/ML Oral Solution [Misty lax] MiraLax 17 GM/SCOOP MiraLax 17 GM/SCOOP 05/06/2021 12:00:00 AM EDT active MiraLax 17 GM/SCOOP eCW1 ([facility]) POLYETHYLENE GLYCOL 3350 142 MG/ML Oral Solution [Misty lax] MiraLax 17 GM/SCOOP MiraLax 17 GM/SCOOP 05/06/2021 12:00:00 AM EDT active MiraLax 17 GM/SCOOP eCW1 ([facility]) Phenazopyridine hydrochloride 100 MG Oral Tablet Phena zopyridine HCl 100 MG Phenazopyridine HCl 100 MG 05/06/2021 12:00:00 AM EDT active Phenazopyridine HCl 100 MG eCW1 ([facility]) POLYETHYLENE GLYCOL 3350 142 MG/ML Oral Solution [Misty lax] MiraLax 17 GM/SCOOP MiraLax 17 GM/SCOOP 05/06/2021 12:00:00 AM EDT active MiraLax 17 GM/SCOOP eCW1 ([facility]) Phenazopyridine hydrochloride 100 MG Oral Tablet Phena zopyridine HCl 100 MG Phenazopyridine HCl 100 MG 05/06/2021 12:00:00 AM EDT active Phenazopyridine HCl 100 MG eCW1 ([facility]) Phenazopyridine hydrochloride 100 MG Oral Tablet Phena zopyridine HCl 100 MG Phenazopyridine HCl 100 MG 05/06/2021 12:00:00 AM EDT active Phenazopyridine HCl 100 MG eCW1 ([facility]) Phenazopyridine hydrochloride 100 MG Oral Tablet Phena zopyridine HCl 100 MG Phenazopyridine HCl 100 MG 05/06/2021 12:00:00 AM EDT active eCW1 ([facility]) 100 mg 05/06/2021 12:00:00 AM EDT tablet 20 TAKE 1 TABLET BY MOUTH EVERY 12 HOURS NEEDED TAKE 1 TABLET BY MOUTH EVERY 12 HOURS NEEDED SOLD: 05/11/2021 [facility] POLYETHYLENE GLYCOL 3350 142 MG/ML Oral Solution [Misty lax] MiraLax 17 GM/SCOOP MiraLax 17 GM/SCOOP 05/06/2021 12:00:00 AM EDT active MiraLax 17 GM/SCOOP eCW1 ([facility]) Docusate Sodium 50 MG / sennosides, INTERMEDIATE 8.6 MG Oral Tablet S oscar S 04/27/2021 12:00:00 AM EDT ORAL active M EDENT ([facility]) Citalopram 20 MG Oral Tablet CITALOPRAM HYDROBROMIDE 04/20/2021 12:00:00 AM EDT tablet 39 TAKE 1 & 1/2 TABLETS BY MOUTH ON CE DAILY TAKE 1 & 1/2 TABLETS BY MOUTH ONCE DAILY SOLD: 04/20/2021 [facility] Citalopram 20 MG Oral Tablet CITALOPRAM HYDROBROMIDE 04/20/2021 12:00:00 AM EDT tablet 24 TAKE 1 & 1/2 TABLETS BY MOUTH ON CE DAILY TAKE 1 & 1/2 TABLETS BY MOUTH ONCE DAILY SOLD: 05/20/2021 [facility] Famotidine 20 MG Oral Tablet FAMOTIDINE 04/16/2021 12:00:00 AM EDT tab let 60 TAKE ONE TABLET BY MOUTH TWICE A DAY TAKE ONE TABLET BY MOUTH TWICE A DAY SOLD: 04/16/2021 [facility] Famotidine 20 MG Oral Tablet FAMOTIDINE 04/16/2021 12:00:00 AM EDT tab let 60 TAKE ONE TABLET BY MOUTH TWICE A DAY TAKE ONE TABLET BY MOUTH TWICE A DAY SOLD: 06/09/2021 [facility] Famotidine 20 MG Oral Tablet FAMOTIDINE 04/16/2021 12:00:00 AM EDT tab let 32 TAKE ONE TABLET BY MOUTH TWICE A DAY TAKE ONE TABLET BY MOUTH TWICE A DAY SOLD: 05/20/2021 [facility] Fluconazole 150 MG Oral Tablet [Diflucan] Diflucan 03/17/2021 1 2:00:00 AM EDT completed MEDENT ([facility]) Sulfamethoxazole 800 MG / Trimethoprim 160 MG Oral Tab let Sulfamethoxazole/Trimethoprim DS 03/17/2021 12:00:00 AM EDT ORAL completed MEDENT ([facility]) Mupirocin 0.02 MG/MG Topical Ointment Mupirocin 03/17/2021 12:00:00 AM EDT active MEDENT ([facility]) 200 mg 03/11/2021 12:00:00 AM EDT tablet 9 TAKE ONE TABLET BY MOUTH EVERY 8 HOURS FOR 3 DAYS TAKE ONE TABLET BY MOUTH EVERY 8 HOURS FOR 3 DAYS SOLD : 03/11/2021 [facility] 150 mg 03/10/2021 12:00:00 AM EDT tablet 2 TAKE 1 TABLET DAY 1, THEN REPEAT IN 3 DAYS IF NOT BETTER TAKE 1 TABLET DAY 1, THEN REPEAT IN 3 DA YS IF NOT BETTER SOLD: 03/10/2021 [facility] Fluconazole 150 MG Oral Tablet [Diflucan] Diflucan 03/10/2021 1 2:00:00 AM EDT completed MEDENT ([facility]) Levofloxacin 250 MG Oral Tablet Levofloxacin 03/10/2021 12:00:00 AM EDT completed MEDENT ([facility]) 250 mg 03/10/2021 12:00:00 AM EDT tablet 7 TAKE ONE TABLET BY MOUTH ONCE DAILY FOR 7 DAYS TAKE ONE TABLET BY MOUTH ONCE DAILY FOR 7 DAYS SOLD: 0 03/10/2021 [facility] 200 mg 03/08/2021 12:00:00 AM EDT tablet 9 TAKE ONE TABLET BY MOUTH EVERY 8 HOURS FOR 3 DAYS TAKE ONE TABLET BY MOUTH EVERY 8 HOURS FOR 3 DAYS SOLD : 03/08/2021 [facility] NITROFURANTOIN, MACROCRYSTALS 25 MG / Ni trofurantoin, Monohydrate 75 MG Oral Capsule [Macrobid] Macrobid 03/08/2021 12:00:00 AM EDT ORAL completed MEDENT ([facility]) NITROFURANTOIN, MACROCRYSTALS 25 MG / Ni trofurantoin, Monohydrate 75 MG Oral Capsule 100 mg NITROFURANTOIN MONOHYD/M-CRYST 03/08/2021 12:00:00 AM EDT ca psule 14 TAKE ONE CAPSULE BY MOUTH TWICE A DAY FOR 7 DAYS TAKE ONE CAPSULE BY MOUTH TWICE A DAY FOR 7 DAYS SOLD: 03/08/2021 [facility] 140 mg/mL 02/08/2021 12:00:00 AM EDT auto-injector 3 INJECT THE CONTENTS OF ONE PEN UNDER THE SKIN ONCE A MONTH INJECT THE CONTENTS OF ONE PEN UNDER THE SKIN ONCE A MONTH SOLD: 02/17/2021 [facility] Citalopram 20 MG Oral Tablet CITALOPRAM HYDROBROMIDE 01/13/2021 12:00:00 AM EDT tablet 45 TAKE ONE AND ONE-HALF TABLETS BY MOUTH EVERY DAY DIRECTED TAKE ONE AND ONE-HALF TABLETS BY MOUTH EVERY DAY DIRECTED SOLD: 02/07/2021 [facility] Citalopram 20 MG Oral Tablet CITALOPRAM HYDROBROMIDE 01/13/2021 12:00:00 AM EDT tablet 45 TAKE ONE AND ONE-HALF TABLETS BY MOUTH EVERY DAY DIRECTED TAKE ONE AND ONE-HALF TABLETS BY MOUTH EVERY DAY DIRECTED SOLD: 01/13/2021 [facility] Citalopram 20 MG Oral Tablet CITALOPRAM HYDROBROMIDE 01/13/2021 12:00:00 AM EDT tablet 45 TAKE ONE AND ONE-HALF TABLETS BY MOUTH EVERY DAY DIRECTED TAKE ONE AND ONE-HALF TABLETS BY MOUTH EVERY DAY DIRECTED SOLD: 03/22/2021 [facility] 200 mg 12/31/2020 12:00:00 AM EDT tablet 9 TAKE ONE TABLET BY MOUTH EVERY 8 HOURS FOR 3 DAYS TAKE ONE TABLET BY MOUTH EVERY 8 HOURS FOR 3 DAYS SOLD : 12/31/2020 [facility] Phenazopyridine hydrochloride 200 MG Delayed Release O ral Tablet Phenazopyridine HCL 12/31/2020 12:00:00 AM EDT ORAL active MEDENT ([facility]) buspirone hydrochloride 15 MG Oral Tablet BUSPIRONE HCL 12/01/2020 12:00:00 AM EDT tablet 30 TAKE ONE TABLET BY MOUTH ZACKARY DAY TAKE ONE TABLET BY MOUTH EVERY DAY SOLD: 12/02/2020 [facility] Citalopram 20 MG Oral Tablet citalopram 11/30/2020 12:00:00 AM EDT 20 mg by mouth completed <td ID="Medica tionRxNorm_1">132865</td><td ID="MedicationMedication_1">citalopram</td><td ID="MedicationRoute_1">by mouth</td><td ID="MedicationRouteConcept_1">G38095</td><td ID="MedicationStartDate_1">11/30/2020</td><td ID="MedicationStopDate_1"></td><td ID="MedicationDosageFrequency_1">once a day</td><td ID="MedicationDuration_1"></td><td ID="MedicationFormulaStrength_1">20 mg</td><td ID="MedicationDosageForm_1">tablet</td><td ID="MedicationDosageFormCode_1"></td><td ID="MedicationDosageDescription_1">as directed</td><td ID="MedicationMedicationId_1">[id number]</td><td ID="MedicationAccount_1">[id number]</td><td ID="MedicationNpid_1">[id number]</td><td ID="MedicationAuthorFirstName_1">Bobby</td><td ID="MedicationAuthorLastName_1">Bola</td><td ID="MedicationTaxonomyCode_1">[id number]</td><td ID="MedicationTaxonomyDesc_1">Nurse Practitioner</td><td ID="MedicationPhoneNumber_1">[phone]</td> [facility] ([facility]) Hydrochlorothiazide 12.5 MG Oral Tablet HYDROCHLOROTHIAZIDE 11/03/2020 12:00:00 AM EDT tablet 90 TAKE ONE TABLET BY MOUTH ZACKARY DAY TAKE ONE TABLET BY MOUTH EVERY DAY SOLD: 11/10/2020 [facility] Hydrochlorothiazide 12.5 MG Oral Tablet HYDROCHLOROTHIAZIDE 11/03/2020 12:00:00 AM EDT tablet 90 TAKE ONE TABLET BY MOUTH ZACKARY DAY TAKE ONE TABLET BY MOUTH EVERY DAY SOLD: 02/07/2021 [facility] Citalopram 20 MG Oral Tablet CITALOPRAM HYDROBROMIDE 10/22/2020 12:00:00 AM EDT tablet 30 TAKE ONE TABLET BY MOUTH EVERY D AY DIRECTED TAKE ONE TABLET BY MOUTH EVERY DAY DIRECTED SOLD: 12/02/2020 [facility] Citalopram 20 MG Oral Tablet CITALOPRAM HYDROBROMIDE 10/22/2020 12:00:00 AM EDT tablet 30 TAKE ONE TABLET BY MOUTH EVERY D AY DIRECTED TAKE ONE TABLET BY MOUTH EVERY DAY DIRECTED SOLD: 12/23/2020 [facility] Citalopram 20 MG Oral Tablet CITALOPRAM HYDROBROMIDE 10/22/2020 12:00:00 AM EDT tablet 30 TAKE ONE TABLET BY MOUTH EVERY D AY DIRECTED TAKE ONE TABLET BY MOUTH EVERY DAY DIRECTED SOLD: 10/22/2020 [facility] 100,000-0.1 unit/gram-% 10/14/2020 12:00:00 AM EDT ointment 30 APPLY TO AFFECTED AREA ON BUTTOCKS TWO TIMES A DAY FOR KRYSTYNA INFECTION APPLY TO AFFECTED AREA ON BUTTOCKS TWO TIMES A DAY FOR KRYSTYNA INFECTION SOLD: 10/21/2020 [facility] 140 mg/mL 10/05/2020 12:00:00 AM EST auto-injector 1 INJECT THE CONTENTS OF ONE PEN UNDER THE SKIN ONCE A MONTH INJECT THE CONTENTS OF ONE PEN UNDER THE SKIN ONCE A MONTH SOLD: 12/22/2020 [facility] 140 mg/mL 10/05/2020 12:00:00 AM EST auto-injector 1 INJECT THE CONTENTS OF ONE PEN UNDER THE SKIN ONCE A MONTH INJECT THE CONTENTS OF ONE PEN UNDER THE SKIN ONCE A MONTH SOLD: 10/07/2020 [facility] Citalopram 20 MG Oral Tablet CITALOPRAM HYDROBROMIDE 09/29/2020 12:00:00 AM EST tablet 30 TAKE 1/2 TABLET BY M OUTH ONCE DAILY FOR 2 WEEKS THEN INCREASE TO 1 TABLET ONCE DAILY TAKE 1/2 TABLET BY MOUTH ONCE DAILY FOR 2 WEEKS THEN INCREASE TO 1 TABLET ONCE DAILY SOLD: 09/30/2020 [facility] 20 mg 09/29/2020 12:00:00 AM EST tablet 180 TAKE ONE TABLET BY MOUTH TWICE A DAY TAKE ONE TABLET BY MOUTH TWICE A DAY SOLD: 09/30/2020 [facility] buspirone hydrochloride 15 MG Oral Tablet BUSPIRONE HCL 09/10/2020 12:00:00 AM EST tablet 30 TAKE ONE TABLET BY MOUTH ZACKARY DAY TAKE ONE TABLET BY MOUTH EVERY DAY SOLD: 09/11/2020 [facility] buspirone hydrochloride 15 MG Oral Tablet buspirone 2020 12:00:00 AM EST 15 mg by mouth completed <td ID="Medic ationRxNorm_2">129568</td><td ID="MedicationMedication_2">buspirone</td><td ID="MedicationRoute_2">by mouth</td><td ID="MedicationRouteConcept_2">N19594</td><td ID="MedicationStartDate_2">09/09/2020</td><td ID="MedicationStopDate_2">02/28/2021</td><td ID="MedicationDosageFrequency_2">once a day</td><td ID="MedicationDuration_2">30</td><td ID="MedicationFormulaStrength_2">15 mg</td><td ID="MedicationDosageForm_2">tablet</td><td ID="MedicationDosageFormCode_2"></td><td ID="MedicationDosageDescription_2"></td><td ID="MedicationMedicationId_2">[id number]</td><td ID="MedicationAccount_2">[id number]</td><td ID="MedicationNpid_2">[id number]</td><td ID="MedicationAuthorFirstName_2">Dasha</td><td ID="MedicationAuthorLastName_2">Irma</td><td ID="MedicationTaxonomyCode_2">[id number]</td><td ID="MedicationTaxonomyDesc_2">Psychiatric/Mental Health</td><td ID="MedicationPhoneNumber_2">[phone]</td> [facility] ([facility]) Hydrochlorothiazide 12.5 MG Oral Tablet HYDROCHLOROTHIAZIDE 08/05/2020 12:00:00 AM EST tablet 90 TAKE ONE TABLET BY MOUTH ZACKARY DAY TAKE ONE TABLET BY MOUTH EVERY DAY SOLD: 08/10/2020 [facility] Citalopram 20 MG Oral Tablet CITALOPRAM HYDROBROMIDE 07/28/2020 12:00:00 AM EST tablet 30 TAKE 1/2 TABLET BY M OUTH FOR 2 WEEKS THEN INCREASE TO 1 TABLET ONCE DAILY TAKE 1/2 TABLET BY MOUTH FOR 2 WEEKS THEN INCREASE TO 1 TABLET ONCE DAILY SOLD: 08/02/2020 [facility] Citalopram 20 MG Oral Tablet CITALOPRAM HYDROBROMIDE 07/28/2020 12:00:00 AM EST tablet 30 TAKE 1/2 TABLET BY M OUTH FOR 2 WEEKS THEN INCREASE TO 1 TABLET ONCE DAILY TAKE 1/2 TABLET BY MOUTH FOR 2 WEEKS THEN INCREASE TO 1 TABLET ONCE DAILY SOLD: 09/04/2020 [facility] buspirone hydrochloride 15 MG Oral Tablet BUSPIRONE HCL 07/27/2020 12:00:00 AM EST tablet 60 TAKE ONE TABLET BY MOUTH TWI CE A DAY TAKE ONE TABLET BY MOUTH TWICE A DAY SOLD: 08/02/2020 [facility] buspirone hydrochloride 15 MG Oral Tablet BUSPIRONE HCL 06/30/2020 12:00:00 AM EST tablet 60 TAKE ONE TABLET BY MOUTH TWI CE A DAY TAKE ONE TABLET BY MOUTH TWICE A DAY SOLD: 07/15/2020 [facility] 30 mg 06/09/2020 12:00:00 AM EST capsule,delayed release (DR/EC) 30 TAKE ONE CAPSULE BY MOUTH EVERY DAY WITH THE 60 MG CAPSULE TAKE ONE CAPSULE BY MOUTH EVERY DAY WITH THE 60 MG CAPSULE SOLD: 06/11/2020 [facility] 60 mg 06/08/2020 12:00:00 AM EST capsule,delayed release (DR/EC) 60 TAKE ONE CAPSULE BY MOUTH EVERY DAY TAKE ONE CAPSULE BY MOUTH EVERY DAY SOLD: 06/11/2020 [facility] 5-325 mg 05/19/2020 12:00:00 AM EDT tablet 30 TAKE 1 TO 2 TABLETS BY MOUTH EVERY 4 TO 6 HOURS NEEDED FOR POST SURGICAL PAIN, MAXIMUM DAILY DOSE = 6 TABLETS TAKE 1 TO 2 TABLETS BY MOUTH EVERY 4 TO 6 HOURS NEEDED FOR POST SURGICAL PAIN, MAXIMUM DAILY DOSE = 6 TABLETS SOLD: 05/19/2020 [facility] Acetaminophen 325 MG / Oxycodone Hydrochloride 5 MG Or al Tablet Oxycodone-Acetaminophen 05/14/2020 12:00:00 AM EDT ORAL active MEDENT ([facility] ) Acetaminophen 325 MG / Oxycodone Hydrochloride 5 MG Or al Tablet [Percocet] Percocet 05/12/2020 12:00:00 AM EDT ORAL active MEDENT ([facility], ) 5-325 mg 05/12/2020 12:00:00 AM EDT tablet 20 TAKE ONE TABLET BY MOUTH EVERY 4 HOURS MAXIMUM DAILY DOSE = 6 TAKE ONE TABLET BY MOUTH EVERY 4 HOURS M AXIMUM DAILY DOSE = 6 SOLD: 05/12/2020 [facility] Acetaminophen 325 MG / Oxycodone Hydrochloride 5 MG Or al Tablet [Percocet] Percocet 05/12/2020 12:00:00 AM EDT ORAL active MEDENT ([facility], ) 5-325 mg 05/09/2020 12:00:00 AM EDT tablet 9 TAKE ONE TABLET BY MOUTH THREE TIMES A DAY NEEDED FOR PAIN MAXIMUM DAILY DOSE = 3 TABLETS TAKE ONE TABLET BY MOUTH THREE TIMES A DAY NEEDED FOR PAIN MAXIMUM DAILY DOSE = 3 TABLETS SOLD: 05/09/2020 [facility] duloxetine 60 MG Delayed Release Oral Capsule duloxetine 04/23/2020 12:00:00 AM EDT 60 mg completed <td ID ="MedicationRxNorm_3">[id number]</td><td ID="MedicationMedication_3">duloxetine</td><td ID="MedicationRoute_3"></td><td ID="MedicationRouteConcept_3"></td><td ID="MedicationStartDate_3">04/23/2020</td><td ID="MedicationStopDate_3">08/07/2020</td><td ID="MedicationDosageFrequency_3"></td><td ID="MedicationDuration_3">30</td><td ID="MedicationFormulaStrength_3">60 mg</td><td ID="MedicationDosageForm_3">capsule,delayed release(DR/EC)</td><td ID="MedicationDosageFormCode_3"></td><td ID="MedicationDosageDescription_3"></td><td ID="MedicationMedicationId_3">[id number]</td><td ID="MedicationAccount_3">[id number]</td><td ID="MedicationNpid_3">[id number]</td><td ID="MedicationAuthorFirstName_3">Dasha</td><td ID="MedicationAuthorLastName_3">Almena</td><td ID="MedicationTaxonomyCode_3">[id number]</td><td ID="MedicationTaxonomyDesc_3"> Psychiatric/Mental Health</td><td ID="MedicationPhoneNumber_3">[phone]</td> [facility] ([facility]) 60 mg 04/23/2020 12:00:00 AM EDT capsule,delayed release (DR/EC) 60 TAKE ONE CAPSULE BY MOUTH EVERY DAY TAKE ONE CAPSULE BY MOUTH EVERY DAY SOLD: 04/24/2020 [facility] 30 mg 04/23/2020 12:00:00 AM EDT capsule,delayed release (DR/EC) 30 TAKE ONE CAPSULE BY MOUTH EVERY DAY WITH 60 MG TAKE ONE CAPSULE BY MOUTH EVERY DAY WITH 60 MG SOLD: 04/24/2020 [facility] duloxetine 30 MG Delayed Release Oral Capsule duloxetine 04/23/2020 12:00:00 AM EDT 30 mg completed <td ID ="MedicationRxNorm_2">[id number]</td><td ID="MedicationMedication_2">duloxetine</td><td ID="MedicationRoute_2"></td><td ID="MedicationRouteConcept_2"></td><td ID="MedicationStartDate_2">04/23/2020</td><td ID="MedicationStopDate_2"></td><td ID="MedicationDosageFrequency_2"></td><td ID="MedicationDuration_2"></td><td ID="MedicationFormulaStrength_2">30 mg</td><td ID="MedicationDosageForm_2">capsule,delayed release(DR/EC)</td><td ID="MedicationDosageFormCode_2"></td><td ID="MedicationDosageDescription_2"></td><td ID="MedicationMedicationId_2">[id number]</td><td ID="MedicationAccount_2">[id number]</td><td ID="MedicationNpid_2">[id number]</td><td ID="MedicationAuthorFirstName_2">Dasha</td><td ID="MedicationAuthorLastName_2">Irma</td><td ID="MedicationTaxonomyCode_2">[id number]</td><td ID="MedicationTaxonomyDesc_2"> Psychiatric/Mental Health</td><td ID="MedicationPhoneNumber_2">[phone]</td> [facility] ([facility]) Immunization Administration Single Or Combination 04/21/2020 12:00:00 AM EDT completed MEDENT ([facility]) Medication administered onsite Insurance Providers Payer name Policy type / Coverage type Policy ID Covered constitution party ID Covered constitution party's relationship to ring Policy Ring Plan Information [employer] [place] 302/[phone] [id number] [facility] [id number] [employer] [place] [phone] [id number] [facility] [id number] [employer] [place] [phone] [id number] [facility] [id number] [place] [employer] [place] [id number] Self [id number] [place] [employer] [place] [id number] Self [place] Workers Compensation [id number] Self [id number] [facility] [id number] [facility] [employer] [id number] Family Dependent [place] [id number] [facility] [employer] [id number] 2.0.1.495497.3.227.99.806.1363.0 Family Dependent [place] [id number] [facility] [employer] [id number] 2.0.1.137794.3.227.99.806.1363.0 Family Dependent VY [id number] [facility] Commercial [id number] 2..1.757694.3.227.99.1767.86148 .0 Self [id number] [facility] Commercial [id number] 2..1.021621.3.227.99.1767.52320 .[id number] [facility] [employer] [id number] 2..1.633097.3.227.99.806.1363.0 Family Dependent VY [id number] [facility] [employer] [id number] 2.0.1.315656.3.227.99.806.1363.0 Family Dependent VY [id number] [facility] [employer] [id number] 2.0.1.791051.3.227.99.806.1363.0 Family Dependent VY [id number] [facility] Commercial [id number] 2.0.1.028328.3.227.99.1767.47782 .0 Self [id number] [facility] Commercial [id number] 2.0.1.737860.3.227.99.1767.77730 .0 Self [id number] [facility] [employer] [facility] Commercial [id number] [facility] [id number] [facility] [id number] Family Dependent VY [id number] [facility] [id number] Family Dependent VY [id number] [facility] Commercial [id number] Family Dependent VY [id number] [facility] Commercial [id number] Self [id number] [facility] [id number] Family Dependent VY [id number] [facility] Commercial [id number] Self [id number] [facility] [employer] [id number] Family Dependent VY [id number] [facility] Commercial [id number] Self [id number] [facility] Commercial [id number] Family Dependent VY [id number] [facility] Commercial [id number] Self [id number] [facility] [employer] Commercial [id number] Family Dependent VY [id number] [facility] Commercial [id number] Self [id number] [facility] [id number] Family Dependent VY [id number] [facility] [id number] [employer] [place] 306/806 [id number] FO2 [id number] [facility] Commercial [id number] Self [id number] [facility] [id number] Family Dependent VY [id number] Excell BCBS [facility] Maintenance Organization ([facility]) [id number] Family Dependent [id number] [facility] [id number] Family Dependent VY [id number] [facility] BCBS B [id number] P VYA [id number] [employer] [place] 306/806 [id number] FO2 [id number] [facility] Commercial [id number] Family Dependent VY [id number] [employer] [place] 306/806 [id number] FO2 [id number] [facility] Commercial [id number] Family D[address] VY [id number] [facility] U/W Commercial [id number] Family Dependent VY [id number] [facility] BCBS B [id number] P VYA [id number] [facility] U/W Commercial [id number] Family Dependent BC/BS Of [facility] Commercial [id number] [facility] BCBS P [id number] P YOU [id number] [facility] [id number] SP [id number] [facility] [id number] SP [id number] [facility] [id number] SP [id number] [facility] O [id number] S [id number] [facility] Health Maintenance Organization (HMO) [id number] Self [id number] [facility] Commercial [id number] Family Dependent VY [id number] [facility] [employer] [id number] Self [id number] Problems, Conditions, and Diagnoses Code Display Name Description Problem Type Effective Dates Data Source(s) K59.00 [id number] Constipation, unspecified constipation ty pe Problem 05/06/2021 12:00:00 AM EDT eCW1 ([facility]) R39.11 [id number] Hesitancy Problem 05/06/2021 12:00:00 AM ED T eCW1 ([facility]) F43.9 Reaction to severe stress, unspecified U nspecified Trauma- and Stressor- Related Disorder Condition 05/03/2021 12:00:00 AM EDT [facility] ([facility]) F33.1 Major depressive disorder, recurrent, mo derate Major Depressive Disorder, Recurrent episode, Moderate Condition 05/03/2021 12:00:00 AM EDT Acc[facility] ed[facility] ([facility]) F60.3 Borderline personality disorder Borderline Personality Disorder Condition 05/03/2021 12:00:00 AM EDT [facility] ([facility]) [id number] Hyperparathyroidism Hyperparathyroidism Problem 0 09/23/2020 12:00:00 AM EST MEDENT ([facility]) F43.9 Reaction to severe stress, unspecified U nspecified Trauma- and Stressor- Related Disorder Condition 06/29/2020 12:00:00 AM EST [facility] ([facility]) F33.1 Major depressive disorder, recurrent, mo derate Major Depressive Disorder, Recurrent episode, Moderate Condition 06/29/2020 12:00:00 AM EST [facility] ([facility]) Surgeries/Procedures Procedure Description Date Indications Data Source(s) Etonogestrel (contraceptive) implant system, including impla nt and supplies 05/28/2021 12:00:00 AM EDT eC1 ([facility]) Medication: 1% Lidocaine intradermal (xylocaine) 05/28 12:00:00 AM EDT eCW1 ([facility]) OFFICE OUTPATIENT VISIT 25 MINUTES 05/14/2021 12:00:00 AM EDT MEDENT ([facility], ) OFFICE OUTPATIENT VISIT 15 MINUTES 05/03 12:00:00 AM EDT - 05/03/2021 12:00:00 AM EDT [facility] ([facility]) OFFICE OUTPATIENT VISIT 15 MINUTES 05/03/2021 12:00:00 AM EDT [facility] ([facility]) OFFICE OUTPATIENT VISIT 25 MINUTES 04/27/2021 12:00:00 AM EDT MEDENT ([facility]) OFFICE OUTPATIENT VISIT 15 MINUTES 04/27/2021 12:00:00 AM EDT MEDENT ([facility], ) OFFICE OUTPATIENT VISIT 25 MINUTES 04/27/2021 12:00:00 AM EDT MED[facility] ([facility], ) Extended Individual Psychotherapy - 45 min 03/31/2021 12:00:00 AM EDT - 03/31/2021 12:00:00 AM EDT [facility] ([facility]) Extended Individual Psychotherapy - 45 min 12:00:00 AM EDT [facility] ([facility]) OFFICE OUTPATIENT VISIT 25 MINUTES 03/29/2021 12:00:00 AM EDT MEDENT ([facility]) OFFICE OUTPATIENT VISIT 15 MINUTES 03/17/2021 12:00:00 AM EDT MED[facility] ([facility]) OFFICE OUTPATIENT VISIT 15 MINUTES 03/08/2021 12:00:00 AM EDT MED[facility] ([facility]) Extended Individual Psychotherapy - 45 min 02/26/2021 12:00:00 AM EDT - 02/26/2021 12:00:00 AM EDT [facility] ([facility]) Extended Individual Psychotherapy - 45 min 12:00:00 AM EDT [facility] ([facility]) MHC Telemed E/M Lvl 2--Est pt 01/11/2021 12:00:00 AM EDT - 01/11/2021 12:00:00 AM EDT [facility] ([facility]) MHC Telemed E/M Lvl 2--Est pt 01/11/2021 12:00:00 AM E DT [facility] ([facility]) OFFICE OUTPATIENT VISIT 15 MINUTES 12/31/2020 12:00:00 AM EDT MED[facility] ([facility]) CLTX DSTL RADIAL FX/EPIPHYSL SEP W/O MANJ 12/29/2020 1 2:00:00 AM EDT MED[facility] ([facility], ) OFFICE OUTPATIENT VISIT 25 MINUTES 12/29/2020 12:00:00 AM EDT MED[facility] ([facility], ) CLTX DSTL RADIAL FX/EPIPHYSL SEP W/O MANJ 12/22/2020 1 2:00:00 AM EDT MED[facility] ([facility], ) OFFICE OUTPATIENT VISIT 15 MINUTES 12/22/2020 12:00:00 AM EDT [facility] ([facility] ) Brief Individual Psychotherapy - 30 min 12/02/2020 12:00:00 AM EDT - 12/02/2020 12:00:00 AM EDT [facility] ([facility]) Brief Individual Psychotherapy - 30 min 12/02/2020 12: 00:00 AM EDT [facility] ([facility]) Extended Individual Psychotherapy - 45 min 11/26/2020 12:00:00 AM EDT - 11/26/2020 12:00:00 AM EDT [facility] ([facility]) Extended Individual Psychotherapy - 45 min 12:00:00 AM EDT [facility] ([facility]) MHC Telemed E/M Lvl 3--Est pt 10/20/2020 12:00:00 AM EDT - 10/20/2020 12:00:00 AM EDT [facility] ([facility]) Telemed A/O 30" 10/20/2020 12:00:00 AM EDT [facility] ([facility]) MHC Telemed E/M Lvl 3--Est pt 10/20/2020 12:00:00 AM E DT [facility] ([facility]) PERIODIC PREVENTIVE MED EST PATIENT 40-64YRS 12:00:00 AM EDT MEDENT ([facility]) OFFICE OUTPATIENT VISIT 15 MINUTES 10/07/2020 12:00:00 AM EST [facility] ([facility]) Extended Individual Psychotherapy - 45 min 09/11/2020 12:00:00 AM EST - 09/11/2020 12:00:00 AM EST [facility] ([facility]) Extended Individual Psychotherapy - 45 min 12:00:00 AM EST [facility] ([facility]) MHC Telemed E/M Lvl 3--Est pt 09/09/2020 12:00:00 AM EST - 09/09/2020 12:00:00 AM EST [facility] ([facility]) Telemed A/O 30" 09/09/2020 12:00:00 AM EST [facility] ([facility]) MHC Telemed E/M Lvl 3--Est pt 09/09/2020 12:00:[address] [facility] ([facility]) Brief Individual Psychotherapy - 30 min 08/13/2020 12:00:00 AM EST - 08/13/2020 12:00:00 AM EST [facility] ([facility]) Brief Individual Psychotherapy - 30 min 08/13/2020 12: 00:00 AM EST [facility] ([facility]) Extended Individual Psychotherapy - 45 min 07/17/2020 12:00:00 AM EST - 07/17/2020 12:00:00 AM EST [facility] ([facility]) Extended Individual Psychotherapy - 45 min 12:00:00 AM EST [facility] ([facility]) Brief Individual Psychotherapy - 30 min 07/02/2020 12:00:00 AM EST - 07/02/2020 12:00:00 AM EST [facility] ([facility]) Brief Individual Psychotherapy - 30 min 07/01/2020 12: 00:00 AM EST [facility] ([facility]) X-Ray Elbow Ap & Lateral 06/30/2020 12:00:00 AM EST [facility] ([facility]) X-Ray Elbow Ap & Lateral 2 Views 06/30/2020 12:00:00 A M EST MEDENT ([facility]) MHC Telemed E/M Lvl 3--Est pt 06/29/2020 12:00:00 AM EST - 06/29/2020 12:00:00 AM EST [facility] ([facility]) Telemed A/O 30" 06/29/2020 12:00:00 AM EST [facility] ([facility]) MHC Telemed E/M Lvl 3--Est pt 06/29/2020 12:00:[address] [facility] ([facility]) Extended Individual Psychotherapy - 45 min 06/11/2020 12:00:00 AM EST - 06/11/2020 12:00:00 AM EST [facility] ([facility]) Extended Individual Psychotherapy - 45 min 0 12:00:00 AM EST [facility] ([facility]) MHC Telemed E/M Lvl 3--Est pt 06/08/2020 12:00:00 AM EST - 06/08/2020 12:00:00 AM EST [facility] ([facility]) Telemed A/O 30" 06/08/2020 12:00:00 AM EST [facility] ([facility]) MHC Telemed E/M Lvl 3--Est pt 06/08/2020 12:00:[address] [facility] ([facility]) X-Ray Elbow Ap & Lateral 2 Views 06/02/2020 12:00:00 A M EST MED[facility] ([facility] ) OPEN TX RADIAL HEAD/NECK FRACTURE 05/19/2020 12:00:00 AM EDT MEDENT ([facility]) MHC Telemed E/M Lvl 3--Est pt 05/12/2020 12:00:00 AM EDT - 05/12/2020 12:00:00 AM EDT [facility] ([facility]) Telemed A/O 30" 05/12/2020 12:00:00 AM EDT [facility] ([facility]) MHC Telemed E/M Lvl 3--Est pt 05/12/2020 12:00:00 AM E DT [facility] ([facility]) CLOSED TX RADIAL HEAD/NECK FX W/O MANIPULATION 020 12:00:00 AM EDT MEDENT ([facility]) Results ID Date Data Source [id number] 06/11/2021 10:20:00 AM EST MEDENT ([facility]) Name Value Range Interpretation Code Description Data Nasima rce(s) Supporting Document(s) Coronavirus 2019 Nasopharygeal Laboratory test result MEDENT ([facility]) ASSAY INFORMATION: Real Time RT-PCR NOTE: The COVID-19 assay has been cleared by the U.S. Food and Drug Administration under the Emergency Use Authorization (EUA). [employer] and [employer] are designated as high complexity laboratories by the Clinical Laboratory Improvement Amendments of 1988(CLIA) and are qualified to perform this test. Not Detected ID Date Data Source UA URINALYSIS 05/06/2021 12:00:00 AM EDT eCW1 ([facility]) Name Value Range Interpretation Code Description Data Nasima rce(s) Supporting Document(s) UA URINALYSIS eCW1 ([facility]) ID Date Data Source [id number] 04/27/2021 08:49:00 AM EDT MEDENT ([facility]) Name Value Range Interpretation Code Description Data Nasima rce(s) Supporting Document(s) Laboratory test finding (navigational concept) Laboratory test result MEDENT ([facility]) ID Date Data Source [id number] 03/17/2021 08:53:00 AM EDT MED[facility] ([facility]) Name Value Range Interpretation Code Description Data Nasima rce(s) Supporting Document(s) Inhouse Leukocytes Laboratory test result MEDENT ([facility]) Inhouse Nitrite Laboratory test result MED[facility] ([facility]) Inhouse Protein Laboratory test result [facility] ([facility]) Inhouse Urobilinogen Laboratory test result MED[facility] ([facility]) Inhouse PH 7 MEDENT ([facility]) Inhouse Specific [place] 1.010 MED[facility] ([facility]) Inhouse Hemoglobin Laboratory test result [facility] ([facility]) Inhouse Ketones Laboratory test result [facility] ([facility]) Inhouse Bilirubin Laboratory test result [facility] ([facility]) Inhouse Glucose Laboratory test result [facility] ([facility]) ID Date Data Source [id number] 03/17/2021 08:30:00 AM EDT MED[facility] ([facility]) Name Value Range Interpretation Code Description Data Nasima rce(s) Supporting Document(s) Bacteria identified in Urine by Culture Laboratory test result Normal (applies to non-numeric results) MED[facility] ([facility]) FULL REPORT IN LAB NOTES (eCW and Medent ). NO GROWTH ID Date Data Source [id number] 03/08/2021 05:02:00 PM EDT MEDENT ([facility]) Name Value Range Interpretation Code Description Data Nasima rce(s) Supporting Document(s) Bacteria identified in Urine by Culture Laboratory test result Normal (applies to non-numeric results) [facility] <content>FULL REPORT IN LAB NOTES (eCW a nd Medent).</content>
<content></content>
<content>ORGANISM 1: STAPHYLOCOCCUS SAPROPHYTICUS</content>
<content></content>
<content> COLONY COUNT 40,000</content>
<content></content>
<content></content>
<content>OR GANISM 1: STAPHYLOCOCCUS SAPROPHYTICUS</content>
<content></content>
<content>STAPHYLOCOCCUS SAPROPHYTICUS: REACTION</content>
<content>ICR (INDUCIBLE CC RESISTANCE) IV ICR TEST RESULT</content>
<content>TETRACYCLINE PO 250 mg qid >=16 R</content>
<content>PENICILLIN G IV 1 mu q6H >=0.5 R</content>
<content>PENICILLIN G IV 1 mu q6h >=0.5 R</content>
<content>PENICILLIN G PO 250mg q6h fasting >=0.5 R</content>
<content>TRIMETHOPRIM/SULFAMETHOXAZOLE IV 160mg TMP & 800mg SMXq6h 80 R</content>
<content>TRIMETHOPRIM/SULFAMETHOXAZOLE PO Bactrim DS Bid 80 R</content>
<content>ERYTHROMYCIN IV 500mg q6h >=8 R</content>
<content> ERYTHROMYCIN PO 500mg q6h >=8 R</content>
<content>GENTAMICIN IV 80mg q8h <=0.5 S</content>
<content>CLINDAMYCIN IV 600mg q6h <=0.12 R</content>
<content>CLINDAMYCIN PO 150mg q6h <=0.12 R</content>
<content>NITROFURANTOIN PO 100mg BID <=16 S</content>
<content>OXACILLIN IV 500mg q6h >=4 R</content>
<content>VANCOMYCIN IV 500mg q8h 1 S</content>
<content>LINEZOLID (ZYVOX) IV 600MG Q12HR 4 S</content>
<content>LINEZOLID (ZYVOX) PO 600MG Q12HR 4 S</content>
<content>An isolate with a (+) POSITIVE ICR test is considered</content>
<content>CLINDAMYCIN RESISTANT; however, clindamycin may still</content>
<content>be effective in some patients.</content>
<content>An isolate with a (-) NEGATIVE ICR test is considered</content>
<content>CLIDAMYCIN SENSITIVE.</content>
<content></content> ID Date Data Source [id number] 03/08/2021 10:39:00 AM EDT MEDENT ([facility]) Name Value Range Interpretation Code Description Data Nasima rce(s) Supporting Document(s) Inhouse Leukocytes Laboratory test result MED[facility] ([facility]) Inhouse Nitrite Laboratory test result [facility] ([facility]) Inhouse Urobilinogen Laboratory test result [facility] ([facility]) Inhouse Protein Laboratory test result [facility] ([facility]) Inhouse PH 5 MEDENT ([facility]) Inhouse Hemoglobin Laboratory test result [facility] ([facility]) Inhouse Specific [place] 1.010 [facility] ([facility]) Inhouse Ketones Laboratory test result [facility] ([facility]) Inhouse Glucose Laboratory test result [facility] ([facility]) Inhouse Bilirubin Laboratory test result [facility] ([facility]) ID Date Data Source [id number] 12/31/2020 08:34:00 AM EDT MED[facility] ([facility]) Name Value Range Interpretation Code Description Data Nasima rce(s) Supporting Document(s) Inhouse Leukocytes Laboratory test result MED[facility] ([facility]) Inhouse Urobilinogen Laboratory test result [facility] ([facility]) Inhouse Protein Laboratory test result [facility] ([facility]) Inhouse Nitrite Laboratory test result [facility] ([facility]) Inhouse PH 5 MED[facility] ([facility]) Inhouse Specific [place] 1.025 MED[facility] ([facility]) Inhouse Hemoglobin Laboratory test result [facility] ([facility]) Inhouse Bilirubin Laboratory test result [facility] ([facility]) Inhouse Ketones Laboratory test result [facility] ([facility]) Inhouse Glucose Laboratory test result [facility] ([facility]) ID Date Data Source [id number] 12/31/2020 08:30:00 AM EDT MED[facility] ([facility]) Name Value Range Interpretation Code Description Data Nasima rce(s) Supporting Document(s) Bacteria identified in Urine by Culture Laboratory test result Normal (applies to non-numeric results) [facility] FULL REPORT IN LAB NOTES (eCW and Med[facility] ). NO GROWTH CLINICAL SIGNIFICANCE 1 ORGANISM ID Date Data Source [id number] 09/23/2020 07:39:00 AM EST MEDENT ([facility]) Name Value Range Interpretation Code Description Data Nasima rce(s) Supporting Document(s) Thyroid Stimulating Hormone 0.888 uIU/ML 0.358-3.740 Norm al (applies to non- numeric results) MED[facility] ([facility]) Free T4 0.93 ng/dL 0.76-1.46 Normal (applies to non-numeric resul ts) [facility] ([facility]) ID Date Data Source [id number] 09/23/2020 07:39:00 AM EST MED[facility] ([facility]) Name Value Range Interpretation Code Description Data Nasima rce(s) Supporting Document(s) Triglycerides Level 82 mg/dL Normal (applies to non-nume giovany results) [facility] ([facility]) Cholesterol Level 172 mg/dL Normal (applies to non-numeri c results) [facility] ([facility]) HDL Cholesterol 35 mg/dL Below low normal [facility] ([facility]) LDL Cholesterol 121 mg/dL Above high normal [facility] ([facility]) Non-HDL-C 137 mg/dL Normal (applies to non-numeric resul ts) [facility] ([facility]) Cholesterol Risk Ratio 4.914 Normal (applies to non-n umeric results) [facility] ID Date Data Source [id number] 09/23/2020 07:39:00 AM EST [facility] ([facility]) Name Value Range Interpretation Code Description Data Nasima rce(s) Supporting Document(s) Glucose, Fasting 109 mg/dL 70-100 Above high normal [facility] Creatinine For GFR 0.99 mg/dL 0.55-1.30 Normal (applies to non -numeric results) [facility] ([facility]) Blood Urea Nitrogen 18 mg/dL 7-18 Normal (applies to non-nume giovany results) [facility] ([facility]) Glomerular Filtration Rate Laboratory test result Normal (applies to non- numeric results) [facility] ([facility]) <content>Units are mL/min/1.73 m2</content>
<content></content>
<content>Chronic Kidney Disease Staging per NKF:</content>
<content></content>
<content>Stage I & II GFR >=60 Normal to Mildly Decreased</content>
<content>Stage III GFR 30- 59 Moderately Decreased</content>
<content>Stage IV GFR 15-29 Severely Decreased</content>
<content>Stage V GFR <15 Very Little GFR Left</content>
<content>ESRD GFR <15 on MEDICAL INSTRUMENT CABLE FABRICATOR</content>
<content></content> Sodium Level 141 meq/L 136-145 Normal (applies to non-numeric res ults) [facility] Carbon Dioxide Level 27 meq/L 21-32 Normal (applies to non-num jacky results) [facility]) Chloride Level 109 meq/L 98-107 Above high normal [facility] ([facility]) Potassium Serum 4.2 meq/L 3.5-5.1 Normal (applies to non-numeric results) [facility] Anion Gap 5 meq/L 8-16 Below low normal [facility] ( [facility]) Calcium Level 10.5 mg/dL 8.5-10.1 Above high normal [facility] ([facility]) Alt/SGPT 36 U/L 12-78 Normal (applies to non-numeric resul ts) [facility] ([facility]) Ast/Sgot 15 U/L 7-37 Normal (applies to non-numeric resul ts) [facility] ([facility]) Alkaline Phosphatase 77 U/L 45-117 Normal (applies to non-num jacky results) [facility] ([facility]) Bilirubin,Total 0.4 mg/dL 0.2-1.0 Normal (applies to non-numeric results) [facility] ([facility]) Albumin 4.1 GM/DL 3.2-5.2 Normal (applies to non-numeric resul ts) [facility] ([facility]) Total Protein 7.3 GM/DL 6.4-8.2 Normal (applies to non-numeric re sults) [facility] ([facility]) Albumin/Globulin Ratio 1.3 1.2-2.2 Normal (applies to non-n umeric results) [facility] ([facility]) ID Date Data Source [id number] 09/23/2020 07:39:00 AM EST [facility] Name Value Range Interpretation Code Description Data Nasima rce(s) Supporting Document(s) Calcium.ionized [Mass/volume] in Serum o r Plasma by Ion-selective membrane electrode (ISE) 5.3 mg/dL 4.5-5.3 Normal (applies to non-numeric results ) [facility] ([facility]) Parathyrin.intact [Mass/volume] in Serum or Plasma 122.4 pg/mL 18.5-88.0 Above high normal [facility] ([facility]) ID Date Data Source [id number] 05/14/2020 12:00:00 PM EDT [facility] Name Value Range Interpretation Code Description Data Nasima rce(s) Supporting Document(s) SARS coronavirus 2 RNA [facility] This lab was ordered by [facility] and reported by [facility]. ID Date Data Source [id number] 04/22/2020 09:01:00 AM EDT [facility] ([facility]) Name Value Range Interpretation Code Description Data Nasima rce(s) Supporting Document(s) Calcium.ionized [Mass/volume] in Serum o r Plasma by Ion-selective membrane electrode (ISE) 5.2 mg/dL 4.5-5.3 Normal (applies to non-numeric results ) [facility] ([facility]) Parathyrin.intact [Mass/volume] in Serum or Plasma 83.3 pg/mL 18.5-88.0 Normal (applies to non-numeric results) [facility] ([facility]) ID Date Data Source [id number] 04/22/2020 09:01:00 AM EDT [facility] ([facility]) Name Value Range Interpretation Code Description Data Nasima rce(s) Supporting Document(s) Glucose, Fasting 103 mg/dL 70-100 Above high normal M [facility] ([facility]) Glomerular Filtration Rate Laboratory test result Normal (applies to non- numeric results) [facility] ([facility]) <content>Units are mL/min/1.73 m2</content>
<content></content>
<content>Chronic Kidney Disease Staging per NKF:</content>
<content></content>
<content>Stage I & II GFR >=60 Normal to Mildly Decreased</content>
<content>Stage III GFR 30- 59 Moderately Decreased</content>
<content>Stage IV GFR 15-29 Severely Decreased</content>
<content>Stage V GFR <15 Very Little GFR Left</content>
<content>ESRD GFR <15 on MEDICAL INSTRUMENT CABLE FABRICATOR</content>
<content></content> Blood Urea Nitrogen 13 mg/dL 7-18 Normal (applies to non-nume giovany results) [facility] ([facility]) Creatinine For GFR 1.04 mg/dL 0.55-1.30 Normal (applies to non -numeric results) [facility] ([facility]) Sodium Level 141 meq/L 136-145 Normal (applies to non-numeric res ults) [facility] Chloride Level 108 meq/L 98-107 Above high normal [facility] ([facility]) Potassium Serum 4.8 meq/L 3.5-5.1 Normal (applies to non-numeric results) [facility] ([facility]) Carbon Dioxide Level 30 meq/L 21-32 Normal (applies to non-num jacky results) [facility] ([facility]) Anion Gap 3 meq/L 8-16 Below low normal [facility] ( [facility]) Calcium Level 10.0 mg/dL 8.5-10.1 Normal (applies to non-numeric re sults) [facility] ([facility]) ID Date Data Source [id number] 04/22/2020 09:01:00 AM EDT [facility] ([facility]) Name Value Range Interpretation Code Description Data Nsaima rce(s) Supporting Document(s) Free T4 0.81 ng/dL 0.76-1.46 Normal (applies to non-numeric resul ts) [facility] ([facility]) Thyroid Stimulating Hormone 1.020 uIU/ML 0.358-3.740 Norm al (applies to non- numeric results) [facility] ([facility]) Procedure Social History Code Duration Value Status Description Data Source(s ) Smoking 06/07/2021 12:00:00 AM EST Never Smoker completed Never S moker eCW1 ([facility]) Smoking 06/07/2021 12:00:00 AM EST Never Smoker completed Never S moker eCW1 ([facility]) Smoking 05/28/2021 12:00:00 AM EDT Never Smoker completed Never S moker eCW1 ([facility]) Smoking 05/18/2021 12:00:00 AM EDT Never Smoker completed Never S moker eCW1 ([facility]) Smoking 05/18/2021 12:00:00 AM EDT Never Smoker completed Never S moker eCW1 ([facility]) Smoking 05/06/2021 12:00:00 AM EDT Never Smoker completed Never S moker eCW1 ([facility]) Smoking 05/06/2021 12:00:00 AM EDT Never Smoker completed Never S moker eCW1 ([facility]) Smoking 05/03/2021 12:00:00 AM EDT Never smoker completed Never s moker [facility] ([facility]) Smoking 04/27/2021 12:00:00 AM EDT Never Smoked Cigarettes com pleted Never Smoked Cigarettes [facility] ([facility]) Smoking 04/22/2021 12:00:00 AM EDT Never Smoker completed Never S moker eCW1 ([facility]) Smoking 04/22/2021 12:00:00 AM EDT Never Smoker completed Never S moker eCW1 ([facility]) Smoking 04/22/2021 12:00:00 AM EDT Never Smoker completed Never S moker eCW1 ([facility]) Smoking 03/31/2021 12:00:00 AM EDT Never smoker completed Never s moker [facility] ([facility]) Smoking 03/25/2021 12:00:00 AM EDT Never Smoker completed Never S moker eCW1 ([facility]) Smoking 02/26/2021 12:00:00 AM EDT Never smoker completed Never s moker [facility] ([facility]) Smoking 01/11/2021 12:00:00 AM EDT Never smoker completed Never s moker [facility] ([facility]) Smoking 12/02/2020 12:00:00 AM EDT Never smoker completed Never s moker [facility] ([facility]) Smoking 11/26/2020 12:00:00 AM EDT Never smoker completed Never s moker [facility] ([facility]) Smoking 10/20/2020 12:00:00 AM EDT Never smoker completed Never s moker [facility] ([facility]) Smoking 09/11/2020 12:00:00 AM EST Never smoker completed Never s moker [facility] ([facility]) Smoking 09/09/2020 12:00:00 AM EST Never smoker completed Never s moker [facility] ([facility]) Smoking 08/13/2020 12:00:00 AM EST Never smoker completed Never s moker [facility] ([facility]) Smoking 07/17/2020 12:00:00 AM EST Never smoker completed Never s moker [facility] ([facility]) Smoking 07/02/2020 12:00:00 AM EST Never smoker completed Never s moker [facility] ([facility]) Smoking 06/29/2020 12:00:00 AM EST Never smoker completed Never s moker [facility] ([facility]) Smoking 06/11/2020 12:00:00 AM EST Never smoker completed Never s moker [facility] ([facility]) Smoking 06/08/2020 12:00:00 AM EST Never smoker completed Never s moker [facility] ([facility]) Smoking 05/12/2020 12:00:00 AM EDT Never smoker completed Never s moker [facility] ([facility]) Vital Signs ID Date Data Source UNK Name Value Range Interpretation Code Description Data Source(s) Diastolic blood pressure 90 mm[Hg] 90 mm[Hg] eCW1 ([facility]) Body weight 194.8 [lb_av] 194.8 [lb_av] [facility]CW[facility] Body weight 88.36 kg 88.36 kg W1 ([facility]) Body height [in_i] eCW1 ([facility]) Body mass index (BMI) [Ratio] 35.63 kg/m2 35.63 kg/m2 W1 ([facility]) Systolic blood pressure 134 mm[Hg] 134 mm[Hg] e CW1 ([facility]) Body weight 193 [lb_av] 193 [lb_av] eCW1 ([facility]) Body height [in_i] eCW1 ([facility]) Body mass index (BMI) [Ratio] 35.3 kg/m2 35.3 k g/m2 eCW1 ([facility]) Systolic blood pressure 134 mm[Hg] 134 mm[Hg] e CW1 ([facility]) Diastolic blood pressure 82 mm[Hg] 82 mm[Hg] eCW1 ([facility]) Body temperature 97.0 [degF] 97.0 [degF] [facility] ([facility], ) Body weight 188 [lb_av] 188 [lb_av] eCW1 ([facility]) Body height [in_i] eCW1 ([facility]) Body mass index (BMI) [Ratio] 34.38 kg/m2 34.38 kg/m2 eCW1 ([facility]) Heart rate 82 /min 82 /min eCW1 ([facility]) Respiratory rate 18 /min 18 /min eCW1 ([facility]) Body temperature 97.3 [degF] 97.3 [degF] eCW1 ( [facility]) Systolic blood pressure 132 mm[Hg] 132 mm[Hg] e CW1 ([facility]) Diastolic blood pressure 82 mm[Hg] 82 mm[Hg] eCW1 ([facility]) Heart rate 68 /min 68 /min [facility] ([facility]) Respiratory rate 20 /min 20 /min [facility] ( [facility]) Diastolic blood pressure 84 mm[Hg] 84 mm[Hg] [facility] ([facility]) [place] body weight 115 [lb_av] 115 [lb_av] [facility] T ([facility]) Systolic blood pressure 122 mm[Hg] 122 mm[Hg] M [facility] ([facility]) Body height 63.5 [in_i] 63.5 [in_i] [facility] ([facility]) 5'3.50" Body mass index (BMI) [Ratio] 32.4 kg/m2 32.4 k g/m2 [facility] ([facility]) Body weight 186.00 [lb_av] 186.00 [lb_av] [facility] T ([facility]) Body temperature 98.2 [degF] 98.2 [degF] [facility] ([facility]) Oxygen saturation in Arterial blood by Pulse oximetry 99 % 99 % [facility]) Body mass index (BMI) [Ratio] 31.8 kg/m2 31.8 k g/m2 [facility] ([facility]) Heart rate 81 /min 81 /min [facility] ([facility]) Respiratory rate 14 /min 14 /min [facility] ( [facility]) Body temperature 96.9 [degF] 96.9 [degF] [facility] ([facility]) Diastolic blood pressure 80 mm[Hg] 80 mm[Hg] [facility] Body height 63.5 [in_i] 63.5 [in_i] [facility] ([facility]) 5'3.50" Oxygen saturation in Arterial blood by Pulse oximetry 98 % 98 % [facility] ([facility]) [place] body weight 115 [lb_av] 115 [lb_av] [facility] T ([facility]) Systolic blood pressure 120 mm[Hg] 120 mm[Hg] M [facility]ENT ([facility]) Body weight 182.25 [lb_av] 182.25 [lb_av] [facility] T ([facility]) Systolic blood pressure 136 mm[Hg] 136 mm[Hg] e CW1 ([facility]) Diastolic blood pressure 84 mm[Hg] 84 mm[Hg] eCW1 ([facility]) Body weight 182.2 [lb_av] 182.2 [lb_av] eCW1 [facility] Body height [in_i] W1 ([facility]) Body mass index (BMI) [Ratio] 33.32 kg/m2 33.32 kg/m2 W1 ([facility]) Systolic blood pressure 120 mm[Hg] 120 mm[facility]Hg] [facility] Diastolic blood pressure 82 mm[Hg] 82 mm[Hg] [facility] ([facility]) Body mass index (BMI) [Ratio] 31.8 kg/m2 31.8 k g/m2 [facility] ([facility]) Heart rate 75 /min 75 /min [facility] ([facility]) Body height 63.5 [in_i] 63.5 [in_i] [facility] ([facility]) 5'3.50" Body weight 182.12 [lb_av] 182.12 [lb_av] [facility] T ([facility]) Respiratory rate 20 /min 20 /min [facility] ( [facility]) Body temperature 98.2 [degF] 98.2 [degF] [facility] ([facility]) Oxygen saturation in Arterial blood by Pulse oximetry 98 % 98 % [facility] ([facility]) [place] body weight 115 [lb_av] 115 [lb_av] [facility] T ([facility]) Body temperature 96.7 [degF] 96.7 [degF] [facility] ([facility], ) Body height 63.5 [in_i] 63.5 [in_i] [facility] ([facility]) 5'3.50" Body weight 182.38 [lb_av] 182.38 [lb_av] [facility] T ([facility]) Heart rate 74 /min 74 /min [facility] ([facility]) Respiratory rate 14 /min 14 /min [facility] ( [facility]) Body temperature 96.9 [degF] 96.9 [degF] [facility] ([facility]) Diastolic blood pressure 72 mm[Hg] 72 mm[Hg] [facility] ([facility]) Systolic blood pressure 120 mm[Hg] 120 mm[Hg] M [facility]ENT ([facility]) Body mass index (BMI) [Ratio] 31.8 kg/m2 31.8 k g/m2 [facility] ([facility]) Oxygen saturation in Arterial blood by Pulse oximetry 99 % 99 % [facility] ([facility]) [place] body weight 115 [lb_av] 115 [lb_av] [facility] T ([facility]) Body temperature 97.7 [degF] 97.7 [degF] [facility] ([facility], ) Body temperature 97.7 [degF] 97.7 [degF] [facility] ([facility], ) Body temperature 98.1 [degF] 98.1 [degF] [facility] ([facility], ) Oxygen saturation in Arterial blood by Pulse oximetry 100 % 100 % [facility] ([facility]) Heart rate 72 /min 72 /min [facility] ([facility]) Diastolic blood pressure 76 mm[Hg] 76 mm[Hg] [facility] ([facility]) Body height 63.5 [in_i] 63.5 [in_i] [facility] ([facility]) 5'3.50" Body weight 180.25 [lb_av] 180.25 [lb_av] [facility] T ([facility]) Body mass index (BMI) [Ratio] 31.4 kg/m2 31.4 k g/m2 [facility] ([facility]) Respiratory rate 18 /min 18 /min [facility] ( [facility]) Body temperature 98.3 [degF] 98.3 [degF] [facility] ([facility]) Systolic blood pressure 124 mm[Hg] 124 mm[Hg] M [facility] ([facility]) [place] body weight 115 [lb_av] 115 [lb_av] [facility] T ([facility]) Body temperature 97.5 [degF] 97.5 [degF] [facility] ([facility], ) Systolic blood pressure 155 mm[Hg] 155 mm[Hg] M [facility] ([facility], ) Body height 62 [in_i] 62 [in_i] [facility] ([facility], ) 5'2" Diastolic blood pressure 79 mm[Hg] 79 mm[Hg] [facility] ([facility], ) Heart rate 70 /min 70 /min [facility] ([facility], ) Oxygen saturation in Arterial blood by Pulse oximetry 100 % 100 % [facility] ([facility], ) Respiratory rate 18 /min 18 /min [facility] ( [facility], ) Body temperature 97.3 [degF] 97.3 [degF] [facility] Body weight 173.00 [lb_av] 173.00 [lb_av] [facility] T ([facility]) Body mass index (BMI) [Ratio] 31.6 kg/m2 31.6 k g/m2 [facility] ([facility]) [place] body weight 110 [lb_av] 110 [lb_av] [facility] T ([facility]) Body weight 78.473 kg 78.473 kg [facility] ([facility]) Body surface area Derived from formula 1.80 m2 1.80 m2 [facility] ([facility]) Body height 0.00 in Normal (applies to non-numeric resu lts) 0.00 in [facility] ([facility]) Body weight Measured 0.00 lbs Normal (applies to n on-numeric results) 0.00 lbs [facility] ([facility]) Body mass index (BMI) [Ratio] 0.00 kg/m2 No rmal (applies to non-numeric results) 0.00 kg/m2 [facility]) Systolic blood pressure 0 mm[Hg] Normal (applies t o non-numeric results) 0 mm[Hg] [facility] ([facility]) Diastolic blood pressure 0 mm[Hg] Normal (applies to non-numeric results) 0 mm[Hg] [facility] ([facility]) Diastolic blood pressure 80 mm[Hg] 80 mm[Hg] [facility] ([facility]) Body height 63.5 [in_i] 63.5 [in_i] [facility] ([facility]) 5'3.50" Body weight 196.00 [lb_av] 196.00 [lb_av] [facility] T ([facility]) Systolic blood pressure 130 mm[Hg] 130 mm[Hg] M [facility] ([facility]) Body mass index (BMI) [Ratio] 34.2 kg/m2 34.2 k g/m2 [facility] ([facility]) Heart rate 91 /min 91 /min [facility] ([facility]) Respiratory rate 16 /min 16 /min [facility] ( [facility]) Body temperature 98.0 [degF] 98.0 [degF] [facility] ([facility]) Oxygen saturation in Arterial blood by Pulse oximetry 98 % 98 % [facility] ([facility]) [place] body weight 115 [lb_av] 115 [lb_av] [facility] T ([facility]) Respiratory rate 18 /min 18 /min [facility] ( [facility]) Body temperature 99.3 [degF] 99.3 [degF] [facility] ([facility]) Oxygen saturation in Arterial blood by Pulse oximetry 98 % 98 % [facility] ([facility]) [place] body weight 115 [lb_av] 115 [lb_av] [facility] ([facility]) Body mass index (BMI) [Ratio] 34.7 kg/m2 34.7 k g/m2 [facility] ([facility]) Systolic blood pressure 128 mm[Hg] 128 mm[Hg] M [facility] ([facility]) Diastolic blood pressure 84 mm[Hg] 84 mm[Hg] [facility]) Body weight 199.12 [lb_av] 199.12 [lb_av] [facility] ([facility]) Heart rate 92 /min 92 /min [facility]) Body height 63.5 [in_i] 63.5 [in_i] [facility] ([facility]) 5'3.50" Body height 0.00 in Normal (applies to non-numeric resu lts) 0.00 in [facility] ([facility]) Body weight Measured 0.00 lbs Normal (applies to n on-numeric results) [facility].00 [facility] Body mass index (BMI) [Ratio] 0.00 kg/m2 No rmal (applies to non-numeric results) 0.00 kg/m2 [facility] ([facility]) Systolic blood pressure 0 mm[Hg] Normal (applies t o non-numeric results) 0 mm[Hg] [facility] ([facility]) Diastolic blood pressure 0 mm[Hg] Normal (applies to non-numeric results) 0 mm[Hg] [facility] ([facility]) Systolic blood pressure 126 mm[Hg] 126 mm[Hg] M EDENT ([facility]) Diastolic blood pressure 78 mm[Hg] 78 mm[Hg] [facility] ([facility]) Body height 63.5 [in_i] 63.5 [in_i] [facility] ([facility]) 5'3.50" Body weight 229.00 [lb_av] 229.00 [lb_av] [facility] T ([facility]) Respiratory rate 16 /min 16 /min [facility] ( [facility]) Body mass index (BMI) [Ratio] 39.9 kg/m2 39.9 k g/m2 [facility] ([facility]) Heart rate 99 /min 99 /min [facility] ([facility]) Body temperature 98.0 [degF] 98.0 [degF] [facility] ([facility]) Oxygen saturation in Arterial blood by Pulse oximetry 98 % 98 % [facility] ([facility]) [place] body weight 115 [lb_av] 115 [lb_av] [facility] T ([facility]) Body temperature 97.3 [degF] 97.3 [degF] [facility] ([facility], ) Body height 0.00 in Normal (applies to non-numeric resu lts) 0.00 in [facility] ([facility]) Body weight Measured 0.00 lbs Normal (applies to n on-numeric results) 0.00 [facility] Body mass index (BMI) [Ratio] 0.00 kg/m2 No rmal (applies to non-numeric results) 0.00 kg/m2 [facility] ([facility]) Systolic blood pressure 0 mm[Hg] Normal (applies t o non-numeric results) 0 mm[Hg] [facility] ([facility]) Diastolic blood pressure 0 mm[Hg] Normal (applies to non-numeric results) 0 mm[Hg] [facility] ([facility]) Body height 0.00 in Normal (applies to non-numeric resu lts) 0.00 in [facility] ([facility]) Body weight Measured 0.00 lbs Normal (applies to n on-numeric results) 0.00 lbs [facility]) Body mass index (BMI) [Ratio] 0.00 kg/m2 No rmal (applies to non-numeric results) 0.00 kg/m2 [facility] ([facility]) Systolic blood pressure 0 mm[Hg] Normal (applies t o non-numeric results) 0 mm[Hg] [facility] ([facility]) Diastolic blood pressure 0 mm[Hg] Normal (applies to non-numeric results) 0 mm[Hg] [facility] ([facility]) Body temperature 98.2 [degF] 98.2 [degF] [facility] ([facility], ) Body height 0.00 in Normal (applies to non-numeric resu lts) 0.00 in [facility] ([facility]) Body weight Measured 0.00 lbs Normal (applies to n on-numeric results) 0.00 lbs [facility]) Body mass index (BMI) [Ratio] 0.00 kg/m2 No rmal (applies to non-numeric results) 0.00 kg/m2 [facility] ([facility]) Systolic blood pressure 0 mm[Hg] Normal (applies t o non-numeric results) 0 mm[Hg] [facility] ([facility]) Diastolic blood pressure 0 mm[Hg] Normal (applies to non-numeric results) 0 mm[Hg] [facility] ([facility]) Body temperature 98.6 [degF] 98.6 [degF] [facility] ([facility], ) Body height 62.5 [in_i] 62.5 [in_i] [facility] ([facility], ) 5'2.50" Body weight 2154.00 [lb_av] 2154.00 [lb_av] [facility] ([facility], ) Body mass index (BMI) [Ratio] 387.7 kg/m2 387.7 kg/m2 [facility] ([facility], ) [place] body weight 110 [lb_av] 110 [lb_av] MEDEN T ([facility]) Body weight 977.054 kg 977.054 kg [facility] ([facility], ) Body temperature 98.2 [degF] 98.2 [degF] [facility]) Body height 63.5 [in_i] 63.5 [in_i] [facility] ([facility]) 5'3.50" Body weight 220.50 [lb_av] 220.50 [lb_av] MED[facility] T ([facility]) Body mass index (BMI) [Ratio] 38.4 kg/m2 38.4 k g/m2 [facility] ([facility]) Heart rate 84 /min 84 /min [facility]) Respiratory rate 16 /min 16 /min [facility] ( [facility]) Oxygen saturation in Arterial blood by Pulse oximetry 100 % 100 % [facility] ([facility]) [place] body weight 115 [lb_av] 115 [lb_av] [facility] T ([facility]) Systolic blood pressure 140 mm[Hg] 140 mm[Hg] M EDENT ([facility]) Diastolic blood pressure 80 mm[Hg] 80 mm[Hg] [facility] Patient Treatment Plan of Care Planned Activity Planned Date Details Description Data Source (s) Phenazopyridine hydrochloride 100 MG Oral Tablet 05/06/2021 12:00:0 0 AM EDT eCW1 ([facility]) POLYETHYLENE GLYCOL 3350 142 MG/ML Oral Solution [Misty lax] 05/06/2021 12:00:00 AM EDT eCW1 ([facility]) Phenazopyridine hydrochloride 100 MG Oral Tablet 05/06/2021 12:00:0 0 AM EDT eCW1 ([facility]) POLYETHYLENE GLYCOL 3350 142 MG/ML Oral Solution [Misty lax] 05/06/2021 12:00:00 AM EDT eCW1 ([facility]) Phenazopyridine hydrochloride 100 MG Oral Tablet 05/06/2021 12:00:0 0 AM EDT eCW1 ([facility]) POLYETHYLENE GLYCOL 3350 142 MG/ML Oral Solution [Misty lax] 05/06/2021 12:00:00 AM EDT eCW1 ([facility]) Phenazopyridine hydrochloride 100 MG Oral Tablet 05/06/2021 12:00:0 0 AM EDT eCW1 ([facility]) POLYETHYLENE GLYCOL 3350 142 MG/ML Oral Solution [Misty lax] 05/06/2021 12:00:00 AM EDT eCW1 ([facility])
[2021-06-16] MEDS ORDERED: propofoL 200 MG/20 ML VIAL As Ordered ONE ×2 (10:57→10:59)
[2021-06-16] MEDS ORDERED: dexameTHASONE 4 MG/ML 1ML VIAL (J1100 PER 1MG) As Ordered ONE ×2 (10:57→10:59)
[2021-06-16] MEDS ORDERED: LIDOCAINE 2% 100MG/5ML SDV (FOR ANES.) As Ordered ONE ×2 (10:57→11:00)
[2021-06-16] MEDS ORDERED: ONDANSETRON 4MG/2ML VIAL As Ordered ONE (10:57)
[2021-06-16] MEDS ORDERED: ACETAMINOPHEN 1000MG 100ML IV BTL (OFIRMEV) (J0131 PER 10MG) As Ordered ONE (10:57)
[2021-06-16] MEDS ORDERED: ROCURONIUM BROMIDE 50 MG/5 ML VIAL As Ordered ONE ×2 (10:57→10:59)
[2021-06-16 11:19] LABS: HEMATOCRIT 41.2 % (36.0-47.0); MEAN CORPUSCULAR HEMOGLOBIN 31.8 pg (27.0-33.0); MEAN CORPUSCULAR VOLUME 93.6 fl (80.0-96.0); PLATELET COUNT, AUTOMATED 253 10^3/uL (150-450); WHITE BLOOD COUNT 6.3 10^3/uL (4.0-10.0)
[2021-06-16] MEDS ORDERED: BUPIVACAINE HCL 0.25% 10ML VIAL As Ordered ONE (12:01)
[2021-06-16] MEDS ORDERED: MIDAZOLAM INJ 2MG/2ML VIAL (J2250 PER 1MG) As Ordered ONE (12:06)
[2021-06-16] MEDS ORDERED: fentaNYL 250 MCG/5 ML INJECTION (J3010) As Ordered ONE (12:07)
[2021-06-16] MEDS ORDERED: SCOPOLAMINE 1MG TRANSDERMAL PATCH TOP ONE (12:20)
[2021-06-16] MEDS ORDERED: SCOPOLAMINE 1MG TRANSDERMAL PATCH As Ordered ONE (12:27)
--- NOTE | 2021-06-16 12:27 | ROOPDOC ---
[facility] Report Of Operation Report of Operation DATE OF PROCEDURE: 06/16/21 OPERATIVE REPORT: Preoperative diagnosis: Menorrhagia. Postoperative diagnosis: Same. Procedure: Robotic-assisted laparoscopic hysterectomy, bilateral salpingectomy, cystoscopy. Surgeon: Brendan Duke M.D. Findings: Normal size uterus. Dense adhesions of bladder to the lower uterine segment and cervix. Evidence of tubal sterilization bilaterally. Normal upper abdomen. EBL: 200 mL's. Urine output: 100 mL's. Operative summary: Patient was taken to the operating room where general endotracheal anesthesia was induced. She was prepped and draped in sterile fashion in the dorsal lithotomy position. A Metz Catheter was placed. A V care uterine manipulator was placed. A Periumbilical incision was made with a scalpel. A Veress needle was placed through this incision. Intra-abdominal location of Veress needle was assessed with saline filled syringe. A pneumoperitoneum was created. The Veress needle was removed. An 8 mm trocar using the Visiport was inserted through this incision. Three 8 mm suprapubic ports were placed under direct visualization The patient was placed in Trendelenburg position. The da Mario surgical robot was docked to the ports. Using the fenestrated bipolar instrument and vessel sealer, the broad ligament attachments to the fallopian tubes were coagulated and incised. The round ligaments were coagulated and incised. The anterior and posterior leaves of the broad ligament were . Dense adhesions of the bladder to the lower uterine segment were taken down to combination of blunt and sharp dissection. A bladder flap was created. The uterine vessels were coagulated and incised using monopolar Endo Marcie. A colpotomy was created in the upper vagina at the level of the V care Cup. The specimen including the uterus, cervix, and fallopian tubes was removed through the vagina. The vaginal cuff was closed with #1 V lock suture in running fashion. Cystoscopy was performed using a 70 cystoscope. Bilateral ureteral jets were identified. No evidence of injury to the bladder. The cystoscope was removed. All instruments removed. The skin was closed with 4-0 Monocryl subcuticular sutures. Sponge, instrument, and needle counts were correct. BRENDAN DUKE MD Jun 16, 2021 12:27
[2021-06-16] MEDS: fentaNYL 100 MCG/2 ML INJECTION (J3010) IV PRN ×4 (13:01→14:56)
[2021-06-16] MEDS ORDERED: SUGAMMADEX SODIUM 500 MG/5 ML VIAL (BRIDION) As Ordered ONE (13:08)
[2021-06-16] MEDS ORDERED: fentaNYL 100 MCG/2 ML INJECTION (J3010) As Ordered ONE (14:48)
[2021-06-16] MEDS ORDERED: IBUP-1022 PO (14:56)
[2021-06-16] MEDS ORDERED: OXYC1TAB23 PO (14:57)
[2021-06-16] MEDS ORDERED: PERCOCET 5MG/325MG TAB PO PRN (15:00)
[2021-06-16] MEDS ORDERED: ONDANSETRON 4MG/2ML VIAL IV PRN ×2 (15:00)
[2021-06-16] MEDS ORDERED: LR 1,000 ML IV SCH (15:00)
[2021-06-16] MEDS ORDERED: oxyCODONE 5MG TAB PO PRN (15:00)
[2021-06-16] MEDS: HYDROMORPHONE HCL 0.5 MG/ 0.5 ML SYRINGE (J1170 PER 1) IV PRN ×4 (15:38→16:38)
[2021-06-16 17:30] VITALS: BP 131/77
[2021-06-16] MEDS: KETOROLAC 30 MG/ML 1ML VIAL IV PRN (17:59)
[2021-06-16 18:00] VITALS: BP 134/89
[2021-06-16] MEDS: LR 1,000 ML IV SCH ×2 (18:36→23:00)
[2021-06-16 19:30] VITALS: BP 123/69
[2021-06-16 20:33] VITALS: BP 136/65
[2021-06-16] MEDS: DOCUSATE SODIUM 100MG CAPSULE PO SCH (21:27)
[2021-06-16 21:30] VITALS: BP 121/71
[2021-06-17] MEDS: KETOROLAC 30 MG/ML 1ML VIAL IV PRN ×2 (00:03→06:01)
[2021-06-17 02:19] VITALS: BP 119/71
[2021-06-17 06:00] VITALS: BP 117/67
[2021-06-17] MEDS: DOCUSATE SODIUM 100MG CAPSULE PO SCH (09:00)
[2021-06-17 10:10] VITALS: BP 121/68
== END 2021-06-17 11:30 | disposition home or self-care (01) ==
LOC: M SDC 10:46 → M OBS 17:20 → M SDC 06-17 11:30
PROVIDERS: ATTEND Specialist
DX: N92.6 Irregular menstruation, unspecified (principal); R10.2 Pelvic and perineal pain; Z88.8 Allergy status to other drugs, medicaments and biological substances
CPT/HCPCS: 36415; 58571; 81025; 85027; 86850; 86900; 86901; 88307; 96361; 96374; 96376; J0131; J0690; J1100; J1170; J1885; J2250; J2405; J3010; S2900

== ENCOUNTER → 2021-06-28 | Outpatient (CLI) | payer OTHER ==
[~2021-06-28] MED LIST changes: +IBUP-1022 PO; -LR 1,000 ML IV ONE; +OXYC1TAB23 PO; -ceFAZolin SOD 2 GM in IV 1 EA IV ONE
== END ==
LOC: M WHC 09:52
PROVIDERS: ATTEND Family Medicine
DX: Z12.31 Encounter for screening mammogram for malignant neoplasm of breast (principal)

== ENCOUNTER → 2021-06-28 | Outpatient (CLI) | payer OTHER ==
[2021-06-28 12:43] LABS: BASO % 0.5 % (0.0-1.0); EOS # 0.2 10^3/uL (0.0-0.5); EOS % 2.1 % (0.0-3.0); HEMATOCRIT 42.7 % (36.0-47.0); LYMPH % 26.1 % (24.0-44.0); MEAN CORPUSCULAR HEMOGLOBIN 31.1 pg (27.0-33.0); MEAN CORPUSCULAR HGB CONC 32.8 g/dl (32.0-36.5); MEAN CORPUSCULAR VOLUME 94.9 fl (80.0-96.0); MONO # 0.5 10^3/uL (0.0-0.8); MONO % 5.9 % (2.0-8.0); NEUTROPHILS % 65.1 % (36.0-66.0); PLATELET COUNT, AUTOMATED 270 10^3/uL (150-450); WHITE BLOOD COUNT 7.7 10^3/uL (4.0-10.0)
[2021-06-28 13:08] LABS: ALBUMIN 3.8 GM/DL (3.2-5.2); ALT/SGPT 25 U/L (12-78); BILIRUBIN,TOTAL 0.3 MG/DL (0.2-1.0); BLOOD UREA NITROGEN 16 MG/DL (7-18); CALCIUM LEVEL 10.6 MG/DL (8.5-10.1); CARBON DIOXIDE LEVEL 28 MEQ/L (21-32); CHLORIDE LEVEL 106 MEQ/L (98-107); CREATININE FOR GFR 0.88 MG/DL (0.55-1.30); GLOMERULAR FILTRATION RATE > 60.0 (>58); GLUCOSE, FASTING 71 MG/DL (70-100); POTASSIUM SERUM 3.8 MEQ/L (3.5-5.1); SODIUM LEVEL 140 MEQ/L (136-145); TOTAL PROTEIN 7.2 GM/DL (6.4-8.2)
[2021-06-28 13:14] LABS: PTH INTACT 80.5 PG/ML (18.5-88.0)
== END ==
LOC: M LAB 11:16
PROVIDERS: ATTEND Family Medicine
DX: E21.3 Hyperparathyroidism, unspecified (principal)

== ENCOUNTER → 2021-07-02 | Outpatient (CLI) | payer OTHER ==
--- NOTE | 2021-07-02 19:19 | ECGEPIP ---
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
== END ==
LOC: M EKG 12:02
PROVIDERS: ATTEND Anesthesiology
DX: Z01.818 Encounter for other preprocedural examination (principal); I10 Essential (primary) hypertension

== ENCOUNTER → 2021-07-02 | Outpatient (CLI) | payer OTHER | LOC: M LABSMTC 10:07 | PROVIDERS: ATTEND Anesthesiology | DX: Z01.812 Encounter for preprocedural laboratory examination (principal); Z11.52 Encounter for screening for COVID-19 ==

== ENCOUNTER 2021-07-07 06:57 | Day surgery (SDC) | payer OTHER ==
[2021-06-16 18:30] VITALS: BP 131/85
[~2021-07-07] VITALS: Ht 157.5 cm; Wt 90.6 kg
[~2021-07-07 06:57] MED LIST changes: +LIDOCAINE 1% MDV 20ML VIAL SQ PRN; +LR 1,000 ML IV ONE; +ceFAZolin SOD 2 GM in IV 1 EA IV ONE
--- OUTSIDE RECORDS SUMMARY | 2021-07-07 07:05 | CCD ---
Author Author Paige Plaza Ana Organization Unknown Address [address] [place] [address] Phone Care Team Providers Care Youth Care Professional Name Role Phone Ana Plaza PCP Allergies, Adverse Reactions, Alerts No Data in Section Problem List Concept Problem Description Status Start Date Created Date Resolv ed Date Snomed Code F60.3 Borderline Personality Disorder Active 07/05/20 21 F33.1 Major Depressive Disorder, Recurrent episode, Moderate Active 04/05/2019 04/05/2019 F43.9 Unspecified Trauma- and Stressor-Related Disorder Active 07/05/2021 Medications Rx Norm Medication Route Route Concept Start Date Stop Date Dosage [place] quency Duration Formula Strength Dosage Form Dosage Form Code Dosage Description Medication Id Account Npid Author First Name Author Last Name Taxonomy Code Taxonomy Desc Phone Number [id number] citalopram by mouth [id number] 11/30/2020 once a day 20 mg tablet as directed 95189 [id number] Ana Plaza [id number] Nurse Practition [id number] buspirone by mouth [id number] 05/03/2021 08/01/2021 twice a day 30 15 mg tablet [id number] Ana Plaza [id number] Nurse [facility] [id number] Social History Social History Element Description Concept Effective Date Smoking Status Never smoker [id number] Immunizations No Data in Section Vital Signs No Data in Section Procedures Date Concept Id Description Targeted Site Concept Targeted Site Concept Type 07/05/2021 51632 E/M Level 3 - Established Patient CPT Patient has no history of implantable de vices Encounters Encounter Start Date End Date Encounter Type Description Diagnosis Di agnosis Desc Location Author First Name Author Last Name Npid Taxonomy Cod e Taxonomy Desc Phone Number Location Addr1 Location Addr2 Location [facility] Location [facility] Location [facility] [id number] 07/05/2021 07/05/2021 80939 E/M Level 3 - Established Pa len F60.3 Borderline personality disorder [facility] Bola Perez [id number] Nurse Practitioner [phone] [address] [address] Plan of Treatment No Data in Section Lab Results No Data in Section Instructions No Data in Section Functional Cognitive Status No Data in Section Insurance Providers Insurance Id Policy Effective Date Policy Thru Date Company N [employer] [id number] 2018 P 2204
--- OUTSIDE RECORDS SUMMARY | 2021-07-07 07:05 | CCD ---
Continuity of Care Document (CCD) Created on: 06/17/2021 Paige Mccracken External Reference #: [id number] : 1980 Sex: Female Author Organization Unknown Address Unknown Phone Unavailable Care Team Providers Care Furniture Assembly Supervisor Name Role Phone Lashonda Diego D.O. AUTM [phone] Jayleen Davis AUTM [phone] Adriel Dodson MD AUTM [phone] Problems Active Problems Provider Date Severe major [...] until resolved 22gm N76.0 Yasmeen OlsonOKatlyn 03/17/2021 Phenazopyridine HCL 200mg Tablets [...] evening 180tabs F41.1 Yasmeen McculloughOKatlyn 11/02/2017 Nystatin-Triamcinolone 844783-6.1Unit/GM-% Ointment apply 1 application topically to affecte d area on buttocks 2 times per day for santhosh infection 30gm B37.2 Yasmeen McculloughOKatlyn 09/14/2017 Hydrochlorothiazide 12.5mg Tablets Take One Tablet By Mouth Every Day 90tabs J06.9 Lashonda zamudio D.[place] 02/10/2017 Famotidine 20mg Tablets Take One Tablet By Mouth Twice A Day 180tabs Tam Mccullough.[place] One Daily For Women Tablets 1 by [...] in each nostril daily 29.7ml Tam Angeles.O. Zonisamide 100mg Capsules take one capsule by mouth twice a day 180caps Tam Mccullough.O. Migraine Relief [phone] Table ts 1 tablet by mouth daily Unknown Nortriptyline HCL 25mg Capsules 1 capsules by mouth twice a day 180capTam Terry.O. History Medications Sulfamethoxazole/Trimethoprim DS 800-160mg Tablets one [...] CPT Code Status Date Vaccine Lot # [id number] Given 04/21/2020 Influenza Virus Vaccine, Quadrivalent, Split, Preservative Free [id number] 13894 Given 06/06/2019 Influenza Virus Vaccine, Quadrivalent, Split, Preservative Free [id number] 35907 Given 05/25/2018 Influenza Virus Vaccine, Quadrivalent, Split, Preservative Free [id number] 66670 Given 05/08/2017 Influenza Vaccin e Quadrivalent Preser/Antibiotic Free Im Use [id number] 63268 Given 05/27/2016 Influenza Virus Vaccine, Quadrivalent, Split, Preservative Free [id number] Vital Signs Date Vital Result Comment 04/27/2021 8:58am BP Systolic 122 mmHg BP Diastolic 84 mmHg Height 63.5 inches 5'3.50" Weight 186.00 lb BMI (Body Mass Index) 32.4 kg/m2 Heart Rate 68 /min Respiratory Rate 20 /min Body Temperature 98.2 F O2 % BldC Oximetry 99 % [place] Body Weight 115 lb 03/29/2021 8:06am BP Systolic 120 mmHg BP Diastolic 80 mmHg Height 63.5 inches 5'3.50" Weight 182.25 lb BMI (Body Mass Index) 31.8 kg/m2 Heart Rate 81 /min Respiratory Rate 14 /min Body Temperature 96.9 F O2 % BldC Oximetry 98 % [place] Body Weight 115 lb Results Test Acquired Date Facility Test Result H/L Range Note Complete Blood Count 06/16/2021 [facility] Outpatient Test ing (Registration) [address] [place], [place] [address] [phone] White Blood Count 6.3 10 Normal 4.0-10.0 Red Blood Count 4.40 10 Normal 4.00-5.40 Hemoglobin 14.0 g/dL Normal 12.0-15.5 Hematocrit 41.2 % Normal 36.0-47.0 Mean Corpuscular Volume 93.6 fl Normal 80.0-96.0 Mean Corpuscular Hemoglobin 31.8 pg Normal 27.0-33.0 Mean Corpuscular HGB Conc 34.0 g/dL Normal 32.0-36.5 Red Cell Distribution Width 12.2 % Normal 11.5-14.5 Platelet Count, Automated 253 10 Normal 150-450 Nucleated Red Blood Cell % 0.0 % Normal 0-0 Type & Screen -Incl Blood Type,Gerson,AB SC 06/16/2021 [facility] Outpatient Testing (Registration) [address] [place] [address] [phone] Blood Type A POSITIVE Normal AB Screen (Indirect Jamari)Vis NEGATIVE Normal Coronavirus 2019 Nasopharygeal 06/11/2021 [facility] Outpa tient Testing (Registration) [address] [place] [address] [phone] Coronavirus 2019 Nasopharygeal ASSAY INFORMATIO <SEE N OTE> 1 Laboratory test finding 04/27/2021 [facility] Image-Guided Pap W/Age Based SCR Protocols <pending> Inhouse Ua 03/17/2021 Inhouse Inhouse Leukocytes neg Inhouse Nitrite + Inhouse Urobilinogen + Inhouse Protein neg Inhouse PH 7 Inhouse Hemoglobin neg Inhouse Specific [place] 1.010 Inhouse Ketones neg Inhouse Bilirubin neg Inhouse Glucose neg [facility] test finding [facility] [address] [address] [phone] Urine Culture FULL REPORT IN L <SEE NOTE> Normal 2 Laboratory test finding 03/08/[address] [address] [phone] Urine Culture FULL REPORT IN L <SEE NOTE> Normal 3 Inhouse Ua 03/08/2021 Inhouse Inhouse Leukocytes +++ Inhouse Nitrite neg Inhouse Urobilinogen neg Inhouse Protein neg Inhouse PH 5 Inhouse Hemoglobin trace Inhouse Specific [place] 1.010 Inhouse Ketones neg Inhouse Bilirubin neg Inhouse Glucose neg Inhouse Ua 12/31/2020 Inhouse Inhouse Leukocytes neg Inhouse Nitrite neg Inhouse Urobilinogen neg Inhouse Protein neg Inhouse PH 5 Inhouse Hemoglobin neg Inhouse Specific [place] 1.025 Inhouse Ketones neg Inhouse Bilirubin neg Inhouse Glucose neg Laboratory test finding 12/31/[facility] [address] [address] [phone] Urine Culture FULL REPORT IN L <SEE NOTE> Normal 4 1 ASSAY INFORMATION: Real Time RT-PCR NOTE: The COVID-19 assay has been cleared by the U.S. Food and Drug Administration under the Emergency Use Authorization (EUA). [facility] and [facility] are designated as high complexity laboratories by [...] ORGANISM Procedures Date Code Description Status 04/27/2021 99445 Office/Outpatient Established Mo d MDM 30-39 Min Completed 03/29/2021 49463 Office/Outpatient Established Mo d MDM 30-39 Min Completed 03/17/2021 52686 Office/Outpatient Established Lo w MDM 20-29 Min Completed 03/08/2021 02839 Office/Outpatient Established w MDM 20-29 Min Completed 12/31/2020 24578 Office/Outpatient Established w MDM 20-29 Min Completed 06/13/2019 60024961 Mammogram Completed Medical Devices Description No Information Available Encounters Type Date Location Provider Dx Diagnosis Office Visit 04/27/2021 9:00a [facility] Lashonda Diego D.[place] K59.00 Constipation, unspecified E21.3 Hyperparathyroidism, unspeci fied G43.009 Migraine w/o aura, not intra ctable, w/o status migrainosus F33.1 Major depressive disorder, r ecurrent, moderate F43.10 Post-traumatic stress disord er, unspecified K58.2 Mixed irritable bowel syndro me F41.1 Generalized anxiety disorder Z12.31 Encntr screen mammogram for malignant neoplasm of breast Office Visit 03/29/2021 8:00a [facility] REI Napoles E21.3 Hyperparathyroidism, unspeci fied G43.009 Migraine w/o aura, not intra ctable, w/o status migrainosus F33.1 Major depressive disorder, r ecurrent, moderate F43.10 Post-traumatic stress disord er, unspecified K58.2 Mixed irritable bowel syndro me R30.0 Dysuria F41.1 Generalized anxiety disorder Office Visit 03/17/2021 8:30a [facility] Tam Mccullough.[place] N39.0 Urinary tract infection, sit e not specified N76.0 Acute vaginitis Office Visit 03/08/2021 10:10a [facility] Lashonda Diego D.O. N39.0 Urinary tract infection, sit e not specified Office Visit 12/31/2020 8:30a [facility] REI Kan R30.0 Dysuria Assessments Date Code Description Provider 04/27/2021 K59.00 Constipation, unspecified Lashonda Law D.[place] 04/27/2021 E21.3 Hyperparathyroidism, unspecified Lashonda Diego D.O. 04/27/2021 G43.009 Migraine without aura, not [...] 03/29/2021 K58.2 Mixed irritable bowel syndrome S luann Cain, REI 03/29/2021 R30.0 Dysuria Cedric Cain , REI 03/29/2021 F41.1 Generalized anxiety disorder Jean Pierre Cain, REI 03/17/2021 N39.0 Urinary tract infection, site no t specified Lashonda Jung D.O. 03/17/2021 N76.0 Acute vaginitis Lashonda reyes D.[place] 03/08/2021 N39.0 Urinary tract infection, site no t specified Lashonda Jung D.O. 12/31/2020 R30.0 Dysuria REI Kan Plan of Treatment Future Appointment(s):* 06/28/2021 8:30 am - Lashonda Diego D.O. at [facility] * 10/18/2021 8:20 am - Lashonda Diego D.O. at [facility] 04/27/2021 - Lashonda Diego D.O.* K59.00 Constipation, [...] persisted. Please evaluate and treat. Closed 05/06/2021 [id number] [facility] [address] [place] [address] [phone]
--- OUTSIDE RECORDS SUMMARY | 2021-07-07 07:05 | CCD | Continuity of Care Document ---
Author Author Paige DIEGO D.O. Organization Unknown Address [address] [place] [address] Phone [phone] Care Team Providers Care Supervisor Cellars Name Role Phone Lashonda iDego D.O. AUTM [phone] Jayleen Davis AUTM [phone] Adriel Dodson MD AUTM [phone] Problems Active Problems Provider Date Severe major [...] Unknown Never Smoked Cigarettes Smoking Status Reviewed: 06/28/21 Never Smoked Cigarettes ETOH Use Denies alcohol [...] evening 180tabs F41.1 Tam Mccullough.[place] 11/02/2017 Nystatin-Triamcinolone 492939-5.1Unit/GM-% Ointment apply 1 application topically to affecte [...] a day 180caps Tam Mccullough.O. Migraine Relief [phone] Table ts 1 tablet by mouth daily [...] 03/29/2021 Levofloxacin 250mg Tablets one tabket by [facility] daily for 7 days 7tabs Tam Mccullough.O [...] CPT Code Status Date Vaccine Lot # [id number] Given 04/21/2020 Influenza Virus Vaccine, Quadrivalent, Split, Preservative Free [id number] 65324 Given 06/06/2019 Influenza Virus Vaccine, Quadrivalent, Split, Preservative Free [id number] 53712 Given 05/25/2018 Influenza Virus Vaccine, Quadrivalent, Split, Preservative Free [id number] 31645 Given 05/08/2017 Influenza Vaccin e Quadrivalent Preser/Antibiotic Free Im Use [id number] 68651 Given 05/27/2016 Influenza Virus Vaccine, Quadrivalent, Split, Preservative Free [id number] Vital Signs Date Vital Result Comment 06/28/2021 8:31am BP Systolic 128 mmHg BP Diastolic 72 mmHg Height 63.5 inches 5'3.50" Weight 195.00 lb BMI (Body Mass Index) 34.0 kg/m2 Heart Rate 84 /min Respiratory Rate 18 /min Body Temperature 98.1 F O2 % BldC Oximetry 97 % [place] Body Weight 115 lb 04/27/2021 8:58am BP Systolic 122 mmHg BP Diastolic 84 mmHg Height 63.5 inches 5'3.50" Weight 186.00 lb BMI (Body Mass Index) 32.4 kg/m2 Heart Rate 68 /min Respiratory Rate 20 /min Body Temperature 98.2 F O2 % BldC Oximetry 99 % [place] Body Weight 115 lb Results Test Acquired Date Facility Test Result H/L Range Note Complete Blood Count 06/16/2021 [facility] Outpatient Test ing (Registration) [address] [place] [address] [phone] White Blood Count 6.3 10 Normal 4.0-10.0 [...] & Screen -Incl Blood Type,Gerson,AB SC 06/16/2021 [facility] Outpatient Testing (Registration) [address] [place] [address] [phone] Blood Type A POSITIVE Normal AB Screen (Indirect Jamari)Vis NEGATIVE Normal Coronavirus 2019 Nasopharygeal 06/11/2021 [facility] Outpa tient Testing (Registration) [address] [place] [address] [phone] Coronavirus 2019 Nasopharygeal ASSAY INFORMATIO <SEE N OTE> 1 Laboratory test finding 04/27/2021 [facility] Image-Guided Pap W/Age Based SCR Protocols <pending> Inhouse Ua 03/17/2021 Inhouse Inhouse Leukocytes neg Inhouse Nitrite + Inhouse Urobilinogen + Inhouse Protein neg Inhouse PH 7 Inhouse Hemoglobin neg Inhouse Specific [place] 1.010 Inhouse Ketones neg Inhouse Bilirubin neg Inhouse Glucose neg Laboratory test finding 03/17/2021 [place] [address] [phone] Urine Culture FULL REPORT IN L <SEE NOTE> Normal 2 Laboratory test finding 03/08/[address] [address] [phone] Urine Culture FULL REPORT IN L <SEE NOTE> Normal 3 Inhouse Ua 03/08/2021 Inhouse Inhouse Leukocytes +++ Inhouse Nitrite neg Inhouse Urobilinogen neg Inhouse Protein neg Inhouse PH 5 Inhouse Hemoglobin trace Inhouse Specific [place] 1.010 Inhouse Ketones neg Inhouse Bilirubin neg Inhouse Glucose neg Inhouse Ua 12/31/2020 Inhouse Inhouse Leukocytes neg Inhouse Nitrite neg Inhouse Urobilinogen neg Inhouse Protein neg Inhouse PH 5 Inhouse Hemoglobin neg Inhouse Specific [place] 1.025 Inhouse Ketones neg Inhouse Bilirubin neg Inhouse Glucose neg Laboratory test finding 12/31/[address] [address] [phone] Urine Culture FULL REPORT IN L <SEE NOTE> Normal 4 1 ASSAY INFORMATION: Real Time RT-PCR NOTE: The COVID-19 assay has been cleared by the U.S. Food and Drug Administration under the Emergency Use Authorization (EUA). [facility] and [email or web address] are designated as high complexity laboratories by [...] 1 ORGANISM Procedures Date Code Description Status 06/28/2021 07795 Office/Outpatient Established Mo d MDM 30-39 Min Completed 04/27/2021 10364 Office/Outpatient Established Mo d MDM 30-39 Min Completed 03/29/2021 04258 Office/Outpatient Established Mo d MDM 30-39 Min Completed 03/17/2021 71046 Office/Outpatient Established Lo w MDM 20-29 Min Completed 03/08/2021 12104 Office/Outpatient Established Lo w MDM 20-29 Min Completed 12/31/2020 10472 Office/Outpatient Established Lo w MDM 20-29 Min Completed 06/13/2019 45680040 Mammogram Completed Medical Devices Description No Information Available Encounters Type Date Location Provider Dx Diagnosis Office Visit 06/28/2021 8:30a [facility] Lashonda Diego DSuly F33.1 Major depressive disorder, r ecurrent, moderate 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 Z23 Encounter for immunization F43.10 Post-traumatic stress disord er, unspecified K58.2 Mixed irritable bowel syndro me F41.1 Generalized anxiety disorder E21.3 Hyperparathyroidism, unspeci fied Office Visit 04/27/2021 9:00a [facility] Yasmeen McculloughOKatlyn K59.00 Constipation, unspecified E21.3 Hyperparathyroidism, unspeci fied G43.009 Migraine w/o aura, not intra ctable, w/o status migrainosus F33.1 Major depressive disorder, r ecurrent, moderate F43.10 Post-traumatic stress disord er, unspecified K58.2 Mixed irritable bowel syndro me F41.1 Generalized anxiety disorder Z12.31 Encntr screen mammogram for malignant neoplasm of breast Office Visit 03/29/2021 8:00a [facility] REI Napoles E21.3 Hyperparathyroidism, unspeci fied G43.009 Migraine w/o aura, not intra ctable, w/o status migrainosus F33.1 Major depressive disorder, r ecurrent, moderate F43.10 Post-traumatic stress disord er, unspecified K58.2 Mixed irritable bowel syndro me R30.0 Dysuria F41.1 Generalized anxiety disorder Office Visit 03/17/2021 8:30a [facility] Lashonda Diego, D.O. N39.0 Urinary tract infection, sit e not specified N76.0 Acute vaginitis Office Visit 03/08/2021 10:10a [facility] Lashonda iDego, D.O. N39.0 Urinary tract infection, sit e not specified Office Visit 12/31/2020 8:30a [facility] REI Kan R30.0 Dysuria Assessments Date Code Description Provider 06/28/2021 F33.1 Major depressive disorder, recur rent, moderate Lashonda Salazarno- Fabiana, D.O. 06/28/2021 Z90.710 Acquired absence of both cervix and uterus Lashonda Jung, D.O. 06/28/2021 Z23 Encounter for immunization Lashonda Diego, D.O. 06/28/2021 F43.10 Post-traumatic stress disorder, unspecified Lashonda Salazarno- Fabiana, D.O. 06/28/2021 K58.2 Mixed irritable bowel syndrome J ill Zane-Fabiana, D.O. 06/28/2021 F41.1 Generalized anxiety disorder Fanny swapnil Degroot-Fabiana, D.O. 06/28/2021 E21.3 Hyperparathyroidism, unspecified Lashonda Zane-Fabiana, D.O. 04/27/2021 K59.00 Constipation, unspecified Lashonda L crissano-Fabiana, D.O. 04/27/2021 E21.3 Hyperparathyroidism, unspecified Lashonda Zane-Fabiana, D.O. 04/27/2021 G43.009 Migraine without aura, not intra ctable, without status migra Lashonda Degroot-Fabiana, D.O. 04/27/2021 F33.1 Major depressive disorder, recur rent, moderate Lashonda Zane- Fabiana, D.O. 04/27/2021 F43.10 Post-traumatic stress disorder, unspecified Lashonda Zane- Fabiana, D.O. 04/27/2021 K58.2 Mixed irritable bowel syndrome J ill Zane-Fabiana, D.O. 04/27/2021 F41.1 Generalized anxiety disorder Tam Menendez.[place] 04/27/2021 Z12.31 Encounter for screen ing mammogram for malignant neoplasm of breast Tam Mccullough.[place] 03/29/2021 E21.3 Hyperparathyroidism, unspecified REI Napoles 03/29/2021 G43.009 Migraine without aura, not intra ctable, without status migra REI Napoles 03/29/2021 F33.1 Major depressive disorder, recur rent, moderate REI Napoles 03/29/2021 F43.10 Post-traumatic stress disorder, unspecified REI Napoles 03/29/2021 K58.2 Mixed irritable bowel syndrome S RIE Guillermo 03/29/2021 R30.0 Dysuria REI Napoles 03/29/2021 F41.1 Generalized anxiety disorder REI Plascencia 03/17/2021 N39.0 Urinary tract infection, site no t specified Tam Olson.[place] 03/17/2021 N76.0 Acute vaginitis Tam Velasquez.[place] 03/08/2021 N39.0 Urinary tract infection, site no t specified Tam Olson.O. 12/31/2020 R30.0 Dysuria REI Kan Plan of Treatment Future Appointment(s):* 09/13/2021 8:10 am - Tam Mccullough.Dao at [facility] * 10/18/2021 8:20 am - Lashonda Diego D.O. at [facility] 06/28/2021 - Lashonda Diego D.O.* F33.1 Major depressive disorder, recurrent, moderate* Comments:* stable on celexa * Z90.710 Acquired absence of both cervix and uterus * Z23 Encounter for immunization* Immunizations/Injections:* Influenza Virus Vaccine, Quadrivalent, Slit Virus, Im Use * F43.10 Post-traumatic stress disorder, unspecified* Comments:* stable at this time * K58.2 Mixed irritable bowel syndrome* Comments:* stable * F41.1 Generalized anxiety disorder* Comments:* I have asked her to take buspirone twice daily while her anxiety is worsening. * E21.3 Hyperparathyroidism, unspecified* New Labs:* PTH Intact, Ordered: 06/28/21 * Comprehensive Metabolic Profil, Ordered: 06/28/21 * CBC With Differential, Ordered: 06/28/21 Functional Status Description No Information Available Mental [...] persisted. Please evaluate and treat. Closed 05/06/2021 [address] [place] [address] [address] [phone]
--- OUTSIDE RECORDS SUMMARY | 2021-07-07 07:05 | CCD ---
Continuity of Care Document (CCD) Created on: 06/28/2021 Paige Mccracken External Reference #: [id number] : [id number] Sex: Female Author Author Paige DIEGO D.O. Organization Unknown Address [address] [place] [address] Phone [phone] Care Team Providers Care Sales Contract Administrator Name Role Phone Lashonda Diego D.O. AUTM [phone] Jayleen Davis AUTM [phone] Adriel Dodson MD AUTM [phone] Problems Active Problems Provider Date Severe major [...] evening 180tabs F41.1 Tam Mccullough.[place] 11/02/2017 Nystatin-Triamcinolone 434482-7.1Unit/GM-% Ointment apply 1 application topically to affecte [...] a day 180caps Tam Mccullough.O. Migraine Relief [phone] Table ts 1 tablet by mouth daily [...] 03/29/2021 Levofloxacin 250mg Tablets one tabket by [facility] daily for 7 days 7tabs Tam [...] Single Or Co mbination Injection Tam Mccullough 06/28/2021 Immunization Administration Single Or Co mbination Injection Tam Mccullough 04/21/2020 Immunization Administration Single Or Co mbination Injection REI Napoles Immunization Administration Single Or Co mbination Injection Nurse 05/08/2017 Immunization Administration Single Or Co mbination Injection Nurse 05/27/2016 Immunizations CPT Code Status Date Vaccine Lot # [id number] Given 06/28/2021 Influenza Virus Vaccine, Quadrivalent, Slit Virus, Im Use [id number] Given 04/21/2020 Influenza Virus Vaccine, Quadrivalent, Split, Preservative Free [id number] 97878 Given 06/06/2019 Influenza Virus Vaccine, Quadrivalent, Split, Preservative Free [id number] Given 05/25/2018 Influenza Virus Vaccine, Quadrivalent, Split, Preservative Free [id number] 75062 Given 05/08/2017 Influenza Vaccin e Quadrivalent Preser/Antibiotic Free Im Use [id number] 71972 Given 05/27/2016 Influenza Virus Vaccine, Quadrivalent, Split, Preservative Free [id number] Vital Signs Date Vital Result Comment 06/28/2021 8:31am BP Systolic 128 mmHg BP Diastolic 72 mmHg Height 63.5 inches 5'3.50" Weight 195.00 lb BMI (Body Mass Index) 34.0 kg/m2 Heart Rate 84 /min Respiratory Rate 18 /min Body Temperature 98.1 F O2 % BldC Oximetry 97 % [place] Body Weight 115 lb 04/27/2021 8:58am BP Systolic 122 mmHg BP Diastolic 84 mmHg Height 63.5 inches 5'3.50" Weight 186.00 lb BMI (Body Mass Index) 32.4 kg/m2 Heart Rate 68 /min Respiratory Rate 20 /min Body Temperature 98.2 F O2 % BldC Oximetry 99 % [place] Body Weight 115 lb Results Test Acquired Date Facility Test Result H/L Range Note Laboratory test finding 06/28/2021 [place] [address] [phone] PTH Intact 80.5 pg/mL Normal 18.5-88.0 Comprehensive Metabolic Profil 06/28/[address] [id number] [phone] Glucose, Fasting 71 mg/dL Normal 70-100 Blood Urea Nitrogen 16 mg/dL Normal 7-18 Creatinine For GFR 0.88 mg/dL Normal 0.55-1.30 Glomerular Filtration Rate > 60.0 Normal >58 1 Sodium Level 140 mEq/L Normal 136-145 Potassium Serum 3.8 mEq/L Normal 3.5-5.1 Chloride Level 106 mEq/L Normal 98-107 Carbon Dioxide Level 28 mEq/L Normal 21-32 Anion Gap 6 mEq/L Low 8-16 Calcium Level 10.6 mg/dL High 8.5-10.1 Ast/Sgot 11 U/L Normal 7-37 Alt/SGPT 25 U/L Normal 12-78 Alkaline Phosphatase 76 U/L Normal 45-117 Bilirubin,Total 0.3 mg/dL Normal 0.2-1.0 Total Protein 7.2 GM/DL Normal 6.4-8.2 Albumin 3.8 GM/DL Normal 3.2-5.2 Albumin/Globulin Ratio 1.1 Low 1.2-2.2 CBC With Differential 06/28/[address] [address] [phone] White Blood Count 7.7 10 Normal 4.0-10.0 Red Blood Count 4.50 10 Normal 4.00-5.40 Hemoglobin 14.0 g/dL Normal 12.0-15.5 Hematocrit 42.7 % Normal 36.0-47.0 Mean Corpuscular Volume 94.9 fl Normal 80.0-96.0 Mean Corpuscular Hemoglobin 31.1 pg Normal 27.0-33.0 Mean Corpuscular HGB Conc 32.8 g/dL Normal 32.0-36.5 Red Cell Distribution Width 12.1 % Normal 11.5-14.5 Platelet Count, Automated 270 10 Normal 150-450 Neutrophils % 65.1 % Normal 36.0-66.0 Lymph % 26.1 % Normal 24.0-44.0 [place] % 5.9 % Normal 2.0-8.0 Eos % 2.1 % Normal 0.0-3.0 Baso % 0.5 % Normal 0.0-1.0 Immature Granulocyte % 0.3 % Normal 0-3.0 Nucleated Red Blood Cell % 0.0 % Normal 0-0 Neutrophils # 5.0 10 Normal 1.5-8.5 Lymph # 2.0 10 Normal 1.5-5.0 [place] # 0.5 10 Normal 0.0-0.8 Eos # 0.2 10 Normal 0.0-0.5 Baso # 0.0 10 Normal 0.0-0.2 Complete Blood Count 06/16/2021 [facility] Outpatient Test ing (Registration) [address] [place] [address] [phone] White Blood Count 6.3 10 Normal 4.0-10.0 [...] & Screen -Incl Blood Type,[place],AB SC 06/16/2021 [facility] Outpatient Testing (Registration) [address] [place] [address] [phone] Blood Type A POSITIVE Normal AB Screen (Indirect Jamari)Vis NEGATIVE Normal Coronavirus 2019 Nasopharygeal 06/11/2021 [facility] Outpa tient Testing (Registration) [address] [place] [phone] Coronavirus 2019 Nasopharygeal ASSAY INFORMATIO <SEE N OTE> 2 Laboratory test finding 04/27/2021 [facility] Image-Guided Pap W/Age Based SCR Protocols <pending> Inhouse Ua 03/17/2021 Inhouse Inhouse Leukocytes neg Inhouse Nitrite + Inhouse Urobilinogen + Inhouse Protein neg Inhouse PH 7 Inhouse Hemoglobin neg Inhouse Specific [place] 1.010 Inhouse Ketones neg Inhouse Bilirubin neg Inhouse Glucose neg Laboratory test finding 03/17/[address] [address] [phone] Urine Culture FULL REPORT IN L <SEE NOTE> Normal 3 Laboratory test finding 03/08/[address] [address] [phone] Urine Culture FULL REPORT IN L <SEE NOTE> Normal 4 Inhouse Ua 03/08/2021 Inhouse Inhouse Leukocytes +++ Inhouse Nitrite neg Inhouse Urobilinogen neg Inhouse Protein neg Inhouse PH 5 Inhouse Hemoglobin trace Inhouse Specific [place] 1.010 Inhouse Ketones neg Inhouse Bilirubin neg Inhouse Glucose neg Inhouse Ua 12/31/2020 Inhouse Inhouse Leukocytes neg Inhouse Nitrite neg Inhouse Urobilinogen neg Inhouse Protein neg Inhouse PH 5 Inhouse Hemoglobin neg Inhouse Specific [place] 1.025 Inhouse Ketones neg Inhouse Bilirubin neg Inhouse Glucose neg Laboratory test finding 12/31/[address] [address] [phone] Urine Culture FULL REPORT IN L <SEE NOTE> Normal 5 1 Units are mL/min/1.73 m2 Chronic Kidney Disease Staging per NKF: Stage I & II GFR >=60 Normal to Mildly Decreased Stage III GFR 30-59 Moderately Decreased Stage IV GFR 15-29 Severely Decreased Stage V GFR <15 Very Little GFR Left ESRD GFR <15 on PSYCH ASSISTANT 2 ASSAY INFORMATION: Real Time RT-PCR NOTE: The COVID-19 assay has been cleared by the U.S. Food and Drug Administration under the Emergency Use Authorization (EUA). [facility] and [facility] are designated as high complexity laboratories by the Clinical Laboratory Improvement Amendments of 1988(CLIA) and are qualified to perform this test. Not Detected 3 FULL REPORT IN LAB NOTES ([facility] and [facility]). NO GROWTH 4 FULL REPORT IN LAB NOTES (eC [...] NEGATIVE ICR test is considered CLIDAMYCIN SENSITIVE. 5 FULL REPORT IN LAB NOTES ([facility] and [facility]). NO GROWTH CLINICAL SIGNIFICANCE 1 ORGANISM Procedures Date Code Description Status 06/28/2021 84586 Office/Outpatient Established Mo d MDM 30-39 Min Completed 06/28/2021 87935172 Mammogram Completed 04/27/2021 98164 Office/Outpatient Established Mo d MDM 30-39 Min Completed 03/29/2021 25464 Office/Outpatient Established Mo d MDM 30-39 Min Completed 03/17/2021 95883 Office/Outpatient Established Lo w MDM 20-29 Min Completed 03/08/2021 80070 Office/Outpatient Established Lo w MDM 20-29 Min Completed 12/31/2020 05348 Office/Outpatient Established Lo w MDM 20-29 Min Completed 06/13/2019 [id number] Mammogram Completed Medical Devices Description No Information Available Encounters Type Date Location Provider Dx Diagnosis Office Visit 06/28/2021 8:30a Family Medicine [facility] Scotty Diego D.O. 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 K59.00 Constipation, unspecified E21.3 Hyperparathyroidism, unspeci fied G43.009 Migraine w/o aura, not intra ctable, w/o status migrainosus F33.1 Major depressive disorder, r ecurrent, moderate F43.10 Post-traumatic stress disord er, unspecified K58.2 Mixed irritable bowel syndro me F41.1 Generalized anxiety disorder Z12.31 Encntr screen mammogram for malignant neoplasm of breast Office Visit 03/29/2021 8:00a Family [facility] REI Napoles E21.3 Hyperparathyroidism, unspeci fied G43.009 Migraine w/o aura, not intra ctable, w/o status migrainosus F33.1 Major depressive disorder, r ecurrent, moderate F43.10 Post-traumatic stress disord er, unspecified K58.2 Mixed irritable bowel syndro me R30.0 Dysuria F41.1 Generalized anxiety disorder Office Visit 03/17/2021 8:30a Family Medicine [facility] Lashonda Diego D.O. N39.0 Urinary tract infection, sit e not specified N76.0 Acute vaginitis Office Visit 03/08/2021 10:10a [facility] Yasmeen McculloughOKatlyn N39.0 Urinary tract infection, sit e not specified Office Visit 12/31/2020 8:30a Family Medicine [facility] REI Kan R30.0 Dysuria Assessments Date Code Description Provider 06/28/2021 F33.1 Major depressive disorder, recur rent, moderate Yasmeen OlsonOKatlyn 06/28/2021 Z90.710 Acquired absence of both cervix and uterus Lashonda Jung D.O. 06/28/2021 Z23 Encounter for immunization Lashonda Diego D.O. 06/28/2021 F43.10 Post-traumatic stress disorder, unspecified Tam Olson.O. 06/28/2021 K58.2 Mixed irritable bowel syndrome Karin GabrielFabiana, D.O. 06/28/2021 F41.1 Generalized anxiety disorder Fanny Diego, D.O. 06/28/2021 E21.3 Hyperparathyroidism, unspecified Lashonda GabrielFabiana, D.O. 04/27/2021 K59.00 Constipation, unspecified Lashonda Law, D.O. 04/27/2021 E21.3 Hyperparathyroidism, unspecified Lashonda GabrielFabiana, D.O. 04/27/2021 G43.009 Migraine without aura, not intra ctable, without status migra Lashondagermán LeonardZaneTorie, D.O. 04/27/2021 F33.1 Major depressive disorder, recur rent, moderate Lashnoda Gabriel Fabiana, D.O. 04/27/2021 F43.10 Post-traumatic stress disorder, unspecified Lashonda Gabriel Fabiana, D.O. 04/27/2021 K58.2 Mixed irritable bowel syndrome Karin GabrielFabiana, D.O. 04/27/2021 F41.1 Generalized anxiety disorder Fanny GabrielFabiana, D.O. 04/27/2021 Z12.31 Encounter for screen ing mammogram for malignant neoplasm of breast Lashondagermán LeonardZaneTorie, D.O. 03/29/2021 E21.3 Hyperparathyroidism, unspecified Cedric Cain, REI [...] Treatment Future Appointment(s):* 09/13/2021 8:10 am - Lashonda Diego D.O. at [facility] * 10/18/2021 8:20 am - Lashonda Diego D.O. at [facility] Functional Status Description No Information Available Mental [...] persisted. Please evaluate and treat. Closed 05/06/[address] Guerrero [address] [place] [address] [phone]
--- OUTSIDE RECORDS SUMMARY | 2021-07-07 07:07 | CCD ---
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 Role Phone Leslie Palacois Unavailable Unavailable SuzanneLeslie sykes Unavailable Unavailable SuzanneLeslie [...] Unavailable Mollison, Kellie Madrigal MD Unavailable Unavailable Kellie Stewart MD Unavailable Unavailable Terry, Kellie Madrigal MD Unavailable Unavailable Molljeffrey, Kellie Madrigal MD Unavailable Unavailable Mollison, Kellie Madrigal MD Unavailable Unavailable Mollison, Kellie Madrigal MD Unavailable Unavailable Molljeffrey, Kellie Madrigal MD Unavailable Unavailable Payton, D Cedric PA Unavailable Unavailable Payton, D Cedric PA Unavailable Unavailable Payton, D Cedric PA Unavailable Unavailable Payton, D Cedric PA Unavailable Unavailable Payton, D Cedric PA Unavailable Unavailable Payton, D Cedric PA Unavailable Unavailable Payton, D Cedric PA Unavailable Unavailable Payton, D Cedric PA Unavailable Unavailable Payton, D Cedric PA Unavailable Unavailable Payton, D Cedric PA Unavailable Unavailable Payton, D Cedric PA Unavailable Unavailable Payton, D Cedric PA Unavailable Unavailable Payton, D Cedric PA Unavailable Unavailable Payton, D Cedric PA Unavailable Unavailable Payton, D Cedric PA Unavailable Unavailable Payton, D Cedric PA Unavailable Unavailable Payton, D Cedric PA Unavailable Unavailable Payton, D Cedric PA Unavailable Unavailable Payton, D Cedric PA Unavailable Unavailable Payton, D Cedric PA Unavailable Unavailable Payton, D Cedric PA Unavailable Unavailable Payton, D Cedric PA Unavailable Unavailable Payton, D Cedric PA Unavailable Unavailable Payton, D Cedric PA Unavailable Unavailable Payton, D Cedric PA Unavailable Unavailable Payton, D Cedric PA Unavailable Unavailable Payton, D Cedric PA Unavailable Unavailable Payton, D Cedric PA Unavailable Unavailable Payton, D Cedric PA Unavailable Unavailable Payton, D Cedric PA Unavailable Unavailable Payton, D Cedric PA Unavailable Unavailable Payton, D Cedric PA Unavailable Unavailable Payton, D Cedric PA Unavailable Unavailable Payton, D Cedric PA Unavailable Unavailable Payton, D Cedric PA Unavailable Unavailable Payton, D Cedric PA Unavailable Unavailable Payton, D Cedric PA Unavailable Unavailable Payton, D Cedric PA Unavailable Unavailable Payton, D Cedric PA Unavailable Unavailable Payton, D Cedric PA Unavailable Unavailable Payton, D Cedric PA Unavailable Unavailable Payton, D Cedric PA Unavailable Unavailable Payton, D Cedric PA Unavailable Unavailable Payton, D Cedric PA Unavailable Unavailable Payton, D Cedric PA Unavailable Unavailable Payton, D Cedric PA Unavailable Unavailable Payton, D Cedric PA Unavailable Unavailable Payton, D Cedric PA Unavailable Unavailable Paytno, D Cedric PA Unavailable Unavailable Payton, D Cedric PA Unavailable Unavailable Payton, Tam Steele PA Unavailable Unavailable Payton, D Cedric PA Unavailable Unavailable Payton, D Cedric PA Unavailable Unavailable Payton, D Cedric PA Unavailable Unavailable Payton, D Cedric PA Unavailable Unavailable TANYA-NATALIIA, NASIR DO Unavailable Unavailable [...] Unavailable TANYA-NATALIIA, NASIR DO Unavailable Unavailable TANYA-NATALIIA, NASRI DO Unavailable Unavailable TANYA-NATALIIA, NASIR DO Unavailable [...] Unavailable Unavailable TANYA-NATALIIA, NASIR DO Unavailable Unavailable BOLA, H BOBBY AGRICULTURAL ENGINEERING TECHNICIAN Unavailable Unavailable BOLA, H BOBBY AGRICULTURAL ENGINEERING TECHNICIAN Unavailable Unavailable BOLA, H BOBBY AGRICULTURAL ENGINEERING TECHNICIAN Unavailable Unavailable BOLA, H BOBBY AGRICULTURAL ENGINEERING TECHNICIAN Unavailable Unavailable BOLA, H BOBBY AGRICULTURAL ENGINEERING TECHNICIAN Unavailable Unavailable BOLA, H BOBBY AGRICULTURAL ENGINEERING TECHNICIAN Unavailable Unavailable BOLA, H BOBBY AGRICULTURAL ENGINEERING TECHNICIAN Unavailable Unavailable BOLA, H BOBBY AGRICULTURAL ENGINEERING TECHNICIAN Unavailable Unavailable BOLA, H BOBBY AGRICULTURAL ENGINEERING TECHNICIAN Unavailable Unavailable O'kristel, A Vasiliy PA Unavailable [...] Vasiliy PA Unavailable Unavailable Rachel Trinidad Unavailable Irma, K Dasha PMH-AGRICULTURAL ENGINEERING TECHNICIAN Unavailable Unavailable [place], K Dasha PMH-AGRICULTURAL ENGINEERING TECHNICIAN Unavailable Unavailable Irma, K Dasha PMH-AGRICULTURAL ENGINEERING TECHNICIAN Unavailable Unavailable [place], K Dasha PMH-AGRICULTURAL ENGINEERING TECHNICIAN Unavailable Unavailable Irma, K Dasha PMH-AGRICULTURAL ENGINEERING TECHNICIAN Unavailable Unavailable Irma, K Dasha PMH-AGRICULTURAL ENGINEERING TECHNICIAN Unavailable Unavailable Irma, K Dasha PMH-AGRICULTURAL ENGINEERING TECHNICIAN Unavailable Unavailable Irma, K Dasha PMH-AGRICULTURAL ENGINEERING TECHNICIAN Unavailable Unavailable Irma, K Dasha PMH-AGRICULTURAL ENGINEERING TECHNICIAN Unavailable Unavailable Irma, K Dasha PMH-AGRICULTURAL ENGINEERING TECHNICIAN Unavailable Unavailable Biedron, Belia Elam MD Unavailable Unavailable Biedron, Belia Elam MD Unavailable Unavailable Biedron, Belia Elam MD Unavailable Unavailable Biedron, Belia Elam MD Unavailable Unavailable Biedron, Belia Elam MD Unavailable Unavailable Biedron, Belia Elam MD Unavailable Unavailable Biedron, Belia Elam MD Unavailable Unavailable Biedron, Belia Elam MD Unavailable Unavailable Biedron, Belia Elam MD Unavailable Unavailable Gonzalez, Houston Tamiko Unavailable Unavailable Gonzalez, Houston Tamiko Unavailable Unavailable Gonzalez, Houston Tamiko Unavailable Unavailable Gonzalez, Houston Tamiko Unavailable Unavailable Gonzalez, Houston Tamiko Unavailable Unavailable Gonzalez, Houston Tamiko Unavailable Unavailable Gonzalez, Houston Tamiko Unavailable Unavailable Gonzalez, Houston Tamiko Unavailable Unavailable Gonzalez, Houston Tamiko Unavailable Unavailable Gonzalez, Houston Tamiko Unavailable Unavailable Gonzalez, Houston Tamiko Unavailable Unavailable Gonzalez, Houston Tamiko Unavailable Unavailable Gonzalez, Houston Tamiko Unavailable Unavailable Re-disclosure Warning The records [...] is protected by Article 27-F of the [facility] Public Health law. If you continue you may have access to information: Regarding HIV / AIDS; Provided by facilities licensed or operated by the [facility] Office of Mental Health; or Provided by the [facility] Office for People With Developmental Disabilities. If such information is present, then the following [facility] mandated warning applies: This information has [...] law may result in a fine or fdc sentence or both. A general authorization for the release of medical or other information is NOT sufficient authorization for further disc losure. Allergies and Adverse Reactions Type Description Substance Reaction Status Data Source(s ) Allergy to substance Allergy to substance Allergy to substance OC ([facility]) Allergy to substance Allergy to substance Allergy to substance CO ([facility]) Family History Family Member Name Family Member Gender Family Member Status Date o f Status Description Data Source(s) Unknown Unknown Problem MEDENT ([facility]) Encounters Encounter Providers Location Date Indications Data Source(s ) Outpatient Attender: BOBBY STOKES NP [facility] Kim[facility] l 07/05/2021 09:00:00 AM EST - 07/05/2021 09:00:00 AM EST [facility] ([facility]) Attender: BOBBY STOKES NP 07/05/2021 12:00:00 AM EST [facility] ([facility]) Outpatient Attender: NASIR GEE DO [facility] 06/28/2021 07:30:00 AM EST MEDENT ([facility]) (WC 15ESGYN) WCenter 15 min est inside upholsterer [address] [place] [address] 06/07/2021 12:00:00 AM EST eCW1 ([facility]) [place] [address] [facility] [address] 06/07/2021 12:00:00 AM EST [facility] (WC PROC) WCenter Procedure [address] [place] [address] 05/28/2021 12:00:00 AM EDT eCW1 ([facility]) [place] [address] [facility] [address] 05/21/2021 12:00:00 AM EDT eCW1 ([facility]) Outpatient Attender: Rohan Márquez/Kelsie/García/Re indl 05/14/2021 09:15:00 AM EDT MEDENT ([facility]) [place] [address] [facility] [address] 05/13/2021 12:00:00 AM EDT [facility]CW1 [facility] [place] [address] [facility] [address] 05/07/2021 12:00:00 AM EDT eCW1 ([facility]) [place] [address] [facility] [address] 05/06/2021 12:00:00 AM EDT eCW1 ([facility]) Outpatient Attender: BOBBY STOKES NP [facility] 05/03/2021 10:30:00 AM EDT - 05/03/2021 10:30:00 AM EDT [facility]umed[facility] ([facility]) Attender: BOBBY STOKES NP 05/03/2021 12:00:00 AM EDT [facility] ([facility]) [place] [address] [facility] [address] 04/29/2021 12:00:00 AM EDT eCW1 [facility]) [place] [address] [facility] [address] 04/29/2021 12:00:00 AM EDT eCW1 [facility]) Outpatient Attender: Rohan Márquez/Kelsie/García/Re indl 04/27/2021 10:15:00 AM EDT MEDENT ([facility]) Outpatient Attender: NASIR GEE DO [facility] 04/27/2021 09:00:00 AM EDT MEDENT ([facility]) (WC 15ESGYN) WCenter 15 min est inside upholsterer [address] [place] [address] 04/22/2021 12:00:00 AM EDT eCW1 ([facility]) Extended Individual Psychotherapy - 45 min Attender: Andrea still Amos [facility] 03/31/2021 09:00:00 AM EDT - 03/31/2021 09:00:00 AM EDT [facility] ([facility]) Attender: Rachel Trinidad 03/31/2021 12:00:00 AM EDT Acc[facility] ([facility]) Outpatient Attender: Cedric MINAYA [facility] 03/29/2021 08:00:00 AM EDT MEDENT ([facility]) (WC 15ESGYN) WCenter 15 min est inside upholsterer [address] [place] [address] 03/25/2021 12:00:00 AM EDT eCW1 ([facility]) Outpatient Attender: NASIR GEE [facility] 03/17/2021 08:30:00 AM EDT MEDENT ([facility]) Office Visit Attender: Rohan Márquez/Kelsie/García/Re indl 03/16/2021 11:15:00 AM EDT MEDENT ([facility]) Outpatient Attender: NASIR GEE [facility] 03/08/2021 10:10:00 AM EDT MEDENT ([facility]) Attender: Rachel Trinidad 02/26/2021 12:00:00 AM EDT [facility] ([facility]) Extended Individual Psychotherapy - 45 min [facility]24[facility] 10:00:00 AM EDT - 02/24/2021 10:00:00 AM EDT [facility] ([facility]) Office Visit Attender: Rohan Márquez/Kelsie/García/Re indl 02/02/2021 10:45:00 AM EDT MEDENT ([facility]) Office Visit Attender: Rohan Márquez/Kelsie/García/Re indl 01/14/2021 10:15:00 AM EDT MEDENT ([facility]) Outpatient Attender: Dasha Solis [facility]-AGRICULTURAL ENGINEERING TECHNICIAN [facility] 01/11/2021 10:00:00 AM EDT - 01/11/2021 10:00:00 AM EDT [facility] ([facility]) Attender: Dasha Solis [facility]-AGRICULTURAL ENGINEERING TECHNICIAN 01/11/2021 12: 00:00 AM EDT [facility] ([facility]) Outpatient Attender: Vasiliy MINAYA [facility] 12/31/2020 08:30:00 AM EDT MEDENT ([facility]) Outpatient Attender: Rohan Márquez/Kelsie/García/Re indl 12/29/2020 08:30:00 AM EDT MEDENT ([facility]) Outpatient Attender: Papa Márquez/Kelsie/García/R eindl 12/22/2020 10:30:00 AM EDT MEDENT ([facility]) Tamiko Gonzalez, INTERNATIONAL TRADE SPECIALIST-C: [address] [place] [phone], Ph. Attender: Tamiko OTT - [facility] Medical 12/08/2020 12:00:00 AM EDT OC ([facility]) Brief Individual Psychotherapy - 30 min Attender: Rachel mendez [facility] 12/02/2020 03:45:00 AM EDT - 12/02/2020 03:45:00 AM EDT [facility] ([facility]) Attender: Rachel Arroyoan 12/02/2020 12:00:00 AM EDT Accumed[facility] ([facility]) Attender: Rachel Arroyoan 11/26/2020 12:00:00 AM EDT [facility] ([facility]) Extended Individual Psychotherapy - 45 min Attender: Andrea still Amos [facility] 11/25/2020 03:00:00 AM EDT - 11/25/2020 03:00:00 AM EDT Accumed[facility] ([facility]) FANNY TejaadC: [address] [place] [phone], Ph. Attender: Tamiko Gonzalez [facility] Medical 11/10/2020 12:00:00 AM EDT OC ([facility]) FANNY TejadaC: [address] [place] [phone], Ph. Attender: Tamiko Gonzalez [facility] Medical 11/10/2020 12:00:00 AM EDT OC ([facility]) Outpatient Att[facility]: [facility] 10/20/2020 10:00:00 AM EDT - 10/20/2020 10:00:00 AM EDT [facility] ([facility]) Attender: Dasha PASTOR 10/20/2020 12: 00:00 AM EDT [facility] ([facility]) Outpatient Attender: NASIR GEE DO [facility] 10/14/2020 08:00:00 AM EDT MEDENT ([facility]) [facility] Derm[facility] [address] [place] [address] 10/08/2020 12:00:00 AM EST eCW1 ([facility]) Outpatient Attender: Cedric MINAYA [facility] 10/07/2020 10:00:00 AM EST MEDENT ([facility]) Attender: Rachel Trinidad 09/11/2020 12:00:00 AM EST [facility] ([facility]) Extended Individual Psychotherapy - 45 min Attender: Andreashayna still Amos [facility] 09/10/2020 06:00:00 AM EST - 09/10/2020 06:00:00 AM EST [facility] ([facility]) Outpatient Attender: Dasha Solis [facility]-AGRICULTURAL ENGINEERING TECHNICIAN [facility] Custodial 09/09/2020 11:00:00 AM EST - 09/09/2020 11:00:00 AM EST [facility] ([facility]) Attender: Dasha Solis [facility]-AGRICULTURAL ENGINEERING TECHNICIAN 09/09/2020 12: 00:00 AM EST [facility] ([facility]) Outpatient Attender: Les Palacios MD Main office [facility] 08/26/2020 10:30:00 AM EST MEDENT ([facility] tiffanie, ) Brief Individual Psychotherapy - 30 min Attender: Rachel mendez [facility] 08/13/2020 04:30:00 AM EST - 08/13/2020 04:30:00 AM EST [facility] ([facility]) Attender: Rachel Trinidad 08/13/2020 12:00:00 AM EST [facility] ([facility]) Outpatient Attender: Cedric MINAYA [facility] 08/04/2020 08:00:00 AM EST MEDENT ([facility]) Attender: Rachel Trinidad 07/17/2020 12:00:00 AM EST [facility] ([facility]) Extended Individual Psychotherapy - 45 min Attender: Andrea Trinidad [facility] 07/16/2020 05:00:00 AM EST - 07/16/2020 05:00:00 AM EST [facility] ([facility]) Attender: Rachel Trinidad 07/02/2020 12:00:00 AM EST [facility] ([facility]) Brief Individual Psychotherapy - 30 min Attender: Rachel mendez [facility] Custodial 07/01/2020 03:30:00 AM EST - 07/01/2020 03:30:00 AM EST [facility] ([facility]) Office Visit Attender: Rohan Márquez/Kelsie/García/Re indl 06/30/2020 08:20:00 AM EST MEDENT ([facility]) Outpatient Attender: Dasha SOTOGENA Montague y Custodial 06/29/2020 10:30:00 AM EST - 06/29/2020 10:30:00 AM EST [facility] ([facility]) Attender: Dasha PASTOR 06/29/2020 12: 00:00 AM EST [facility] ([facility]) Attender: Rachel Trinidad 06/11/2020 12:00:00 AM EST [facility] ([facility]) Extended Individual Psychotherapy - 45 min Attender: Andrea Trinidad [facility] Custodial 06/10/2020 04:15:00 AM EST - 06/10/2020 04:15:00 AM EST [facility] ([facility]) Outpatient Attender: Dasha PASTOR Gord[facility] Custodial 06/08/2020 09:00:00 AM EST - 06/08/2020 09:00:00 AM EST [facility] ([facility]) Attender: Dasha PASTOR 06/08/2020 12: 00:00 AM EST [facility] ([facility]) Office Visit Attender: Rohan Márquez/Kelsie/García/Re indl 06/02/2020 08:50:00 AM EST MED[facility] ([facility]) Outpatient Attender: Rohan Márquez/Kelsie/García/Re indl 05/14/2020 09:50:00 AM EDT MEDENT ([facility]) Outpatient Attender: Dasha Montague y Custodial 05/12/2020 09:30:00 AM EDT - 05/12/2020 09:30:00 AM EDT [facility] ([facility]) Attender: Dasha Solis PMH-AGRICULTURAL ENGINEERING TECHNICIAN 05/12/2020 12: 00:00 AM EDT [facility] ([facility]) Outpatient Attender: Rohan Márquez/Kelsie/García/Re indl 05/11/2020 09:15:00 AM EDT MEDENT ([facility] actneha, ) Functional Status Immunizations Vaccine Date Status Description Data Source(s) New in 2012. IIV4 06/28/2021 08:09:00 AM EST completed MEDENT ([facility]) COVID-19, mRNA, LNP-S, PF, 100 mcg/0.5 mL dose 12/08/2020 04 :55:19 PM EDT completed .5 mL OC ([facility]) COVID-19 VACCINE Moderna 12/08/2020 12:00:00 AM EDT completed [place]SIIS Vaccine Series Complete: YESThis Data wa s Submitted to [facility] Via [employer]. COVID-19, mRNA, LNP-S, PF, 100 mcg/0.5 mL dose 11/10/2020 05 :34:49 PM EDT completed .5 mL OC ([facility]) COVID-19, mRNA, LNP-S, PF, 100 mcg/0.5 mL dose 11/10/2020 05 :34:49 PM EDT completed .5 mL OC ([facility]) COVID-19 VACCINE Moderna 11/10/2020 12:00:00 AM EDT completed [place]SIIS Vaccine Series Complete: NOThis Data was Submitted to [facility] Via [employer]. Medications Medication Brand Name Start Date Product Form Dose Route Admi nistrative Instructions Pharmacy Instructions Status Indications Reaction Description Data Source(s) Immunization Administration Single Or Combination 06/28/2021 12:00:00 AM EST completed MEDENT ([facility]) Medication administered onsite 600 mg 06/16/2021 12:00:00 AM EST tablet 30 TAKE ONE TABLET BY MOUTH THREE TIMES A DAY FOR PAIN WITH FOOD TAKE ONE TABLET BY MOUTH THREE TIMES A D AY FOR PAIN WITH FOOD SOLD: 06/17/2021 [facility] 5-325 mg 06/16/2021 12:00:00 AM EST tablet 20 TAKE ONE TABLET BY MOUTH THREE TIMES A DAY NEEDED FOR PAIN MAXIMUM DAILY DOSE = 3 TAKE ONE TABLET BY MOUTH THREE TIMES A DAY NEEDED FOR PAIN MAXIMUM DAILY DOSE = 3 SOLD: 06/17/2021 [facility] Citalopram 20 MG Oral Tablet CITALOPRAM HYDROBROMIDE 06/09/2021 12:00:00 AM EST tablet 45 TAKE 1 AND 1/2 TABLET BY MOUTH O NCE DAILY TAKE 1 AND 1/2 TABLET BY MOUTH ONCE DAILY SOLD: 06/09/2021 [facility] 25 mg 05/14/2021 12:00:00 AM EDT capsule 32 TAKE ONE CAPSULE BY MOUTH TWICE A DAY TAKE ONE CAPSULE BY MOUTH TWICE A DAY SOLD: 05/20/2021 [facility] 25 mg 05/14/2021 12:00:00 AM EDT capsule 60 TAKE ONE CAPSULE BY MOUTH TWICE A DAY TAKE ONE CAPSULE BY MOUTH TWICE A DAY SOLD: 06/09/2021 [facility] 140 mg/mL 05/13/2021 12:00:00 AM EDT auto-injector 1 INJECT THE CONTENTS OF ONE PEN UNDER THE SKIN ONCE A MONTH INJECT THE CONTENTS OF ONE PEN UNDER THE SKIN ONCE A MONTH SOLD: 05/20/2021 [facility] Hydrochlorothiazide 12.5 MG Oral Tablet HYDROCHLOROTHIAZIDE 05/13/2021 12:00:00 AM EDT tablet 30 TAKE ONE TABLET BY MOUTH ZACKARY RY DAY TAKE ONE TABLET BY MOUTH EVERY DAY SOLD: 06/09/2021 [facility] Hydrochlorothiazide 12.5 MG Oral Tablet HYDROCHLOROTHIAZIDE 05/13/2021 12:00:00 AM EDT tablet 16 TAKE ONE TABLET BY MOUTH ZACKARY RY DAY TAKE ONE TABLET BY MOUTH EVERY DAY SOLD: 05/20/2021 [facility] 17 gram/dose 05/08/2021 12:00:00 AM EDT powder 510 MIX 17 GRAMS (1 CAPFUL) IN LIQUID AND TAKE BY MOUTH ONCE DAILY DIRECTED MIX 17 GRAMS (1 CAPFUL) IN LIQUID AND TAKE BY MOUTH ONCE DAILY DIRECTED SOLD: 05/11/2021 [facility] POLYETHYLENE GLYCOL 3350 142 MG/ML Oral Solution [Misty lax] MiraLax 17 GM/SCOOP MiraLax 17 GM/SCOOP 05/06/2021 12:00:00 AM EDT active MiraLax 17 GM/SCOOP eCW1 ([facility]) POLYETHYLENE GLYCOL 3350 142 MG/ML Oral Solution [Misty lax] MiraLax 17 GM/SCOOP MiraLax 17 GM/SCOOP 05/06/2021 12:00:00 AM EDT active MiraLax 17 GM/SCOOP eCW1 ([facility]) Phenazopyridine hydrochloride 100 MG Oral Tablet Phena zopyridine HCl 100 MG Phenazopyridine HCl 100 MG 05/06/2021 12:00:00 AM EDT active Phenazopyridine HCl 100 MG eCW1 ([facility]) Phenazopyridine hydrochloride 100 MG Oral Tablet Phena zopyridine HCl 100 MG Phenazopyridine HCl 100 MG 05/06/2021 12:00:00 AM EDT active Phenazopyridine HCl 100 MG eCW1 ([facility]) Phenazopyridine hydrochloride 100 MG Oral Tablet Phena zopyridine HCl 100 MG Phenazopyridine HCl 100 MG 05/06/2021 12:00:00 AM EDT active Phenazopyridine HCl 100 MG eCW1 ([facility]) POLYETHYLENE GLYCOL 3350 142 MG/ML Oral Solution [Misty lax] MiraLax 17 GM/SCOOP MiraLax 17 GM/SCOOP 05/06/2021 12:00:00 AM EDT act emy eCW1 ([facility]) POLYETHYLENE GLYCOL 3350 142 MG/ML Oral Solution [Misty lax] MiraLax 17 GM/SCOOP MiraLax 17 GM/SCOOP 05/06/2021 12:00:00 AM EDT active MiraLax 17 GM/SCOOP eCW1 ([facility]) POLYETHYLENE GLYCOL 3350 142 MG/ML Oral Solution [Misty lax] MiraLax 17 GM/SCOOP MiraLax 17 GM/SCOOP 05/06/2021 12:00:00 AM EDT active MiraLax 17 GM/SCOOP eCW1 ([facility]) Phenazopyridine hydrochloride 100 MG Oral Tablet Phena zopyridine HCl 100 MG Phenazopyridine HCl 100 MG 05/06/2021 12:00:00 AM EDT active Phenazopyridine HCl 100 MG eCW1 ([facility]) POLYETHYLENE GLYCOL 3350 142 MG/ML Oral Solution [Misty lax] MiraLax 17 GM/SCOOP MiraLax 17 GM/SCOOP 05/06/2021 12:00:00 AM EDT active MiraLax 17 GM/SCOOP eCW1 ([facility]) Phenazopyridine hydrochloride 100 MG Oral Tablet Phena zopyridine HCl 100 MG Phenazopyridine HCl 100 MG 05/06/2021 12:00:00 AM EDT active Phenazopyridine HCl 100 MG eCW1 ([facility]) Phenazopyridine hydrochloride 100 MG Oral Tablet Phena zopyridine HCl 100 MG Phenazopyridine HCl 100 MG 05/06/2021 12:00:00 AM EDT active Phenazopyridine HCl 100 MG eCW1 ([facility]) Phenazopyridine hydrochloride 100 MG Oral Tablet Phena zopyridine HCl 100 MG Phenazopyridine HCl 100 MG 05/06/2021 12:00:00 AM EDT active eCW1 ([facility]) 100 mg 05/06/2021 12:00:00 AM EDT tablet 20 TAKE 1 TABLET BY MOUTH EVERY 12 HOURS NEEDED TAKE 1 TABLET BY MOUTH EVERY 12 HOURS NEEDED SOLD: 05/11/2021 [facility] POLYETHYLENE GLYCOL 3350 142 MG/ML Oral Solution [Misty lax] MiraLax 17 GM/SCOOP MiraLax 17 GM/SCOOP 05/06/2021 12:00:00 AM EDT active MiraLax 17 GM/SCOOP eCW1 ([facility]) buspirone hydrochloride 15 MG Oral Tablet buspirone 2020 12:00:00 AM EDT 15 mg by mouth completed <td ID="Medic ationRxNorm_2">485721</td><td ID="MedicationMedication_2">buspirone</td><td ID="MedicationRoute_2">by mouth</td><td ID="MedicationRouteConcept_2">F23712</td><td ID="MedicationStartDate_2">05/03/2021</td><td ID="MedicationStopDate_2">08/01/2021</td><td ID="MedicationDosageFrequency_2">twice a day</td><td ID="MedicationDuration_2">30</td><td ID="MedicationFormulaStrength_2">15 mg</td><td ID="MedicationDosageForm_2">tablet</td><td ID="MedicationDosageFormCode_2"></td><td ID="MedicationDosageDescription_2"></td><td ID="MedicationMedicationId_2">[id number]</td><td ID="MedicationAccount_2">[id number]</td><td ID="MedicationNpid_2">[id number]</td><td ID="MedicationAuthorFirstName_2">Bobby</td><td ID="MedicationAuthorLastName_2">Bola</td><td ID="MedicationTaxonomyCode_2">[id number]</td><td ID="MedicationTaxonomyDesc_2">Nurse Practitioner</td><td ID="MedicationPhoneNumber_2">[phone]</td> [facility] ([facility]) Docusate Sodium 50 MG / sennosides, GROUP HOME 8.6 MG Oral Tablet S oscar S 04/27/2021 12:00:00 AM EDT ORAL active M MALLORY ([facility]) Citalopram 20 MG Oral Tablet CITALOPRAM HYDROBROMIDE 04/20/2021 12:00:00 AM EDT tablet 39 TAKE 1 & 1/2 TABLETS BY MOUTH ON CE DAILY TAKE 1 & 1/2 TABLETS BY MOUTH ONCE DAILY SOLD: 04/20/2021 [facility] Citalopram 20 MG Oral Tablet [...] 03/17/2021 1 2:00:00 AM EDT completed MED[facility] ([facility]) Sulfamethoxazole 800 MG / Trimethoprim 160 MG Oral Tab let Sulfamethoxazole/Trimethoprim DS 03/17/2021 12:00:00 AM EDT ORAL completed [facility] ([facility]) Mupirocin 0.02 MG/MG Topical Ointment Mupirocin 03/17/2021 12:00:00 AM EDT active [facility] ([facility]) 200 mg 03/11/2021 12:00:00 AM EDT [...] 03/10/2021 1 2:00:00 AM EDT completed [facility] ([facility]) Levofloxacin 250 MG Oral Tablet Levofloxacin 03/10/2021 12:00:00 AM EDT completed [facility] ([facility]) 250 mg 03/10/2021 12:00:00 AM EDT tablet [...] 03/08/2021 12:00:00 AM EDT ORAL completed [facility] ([facility]) NITROFURANTOIN, MACROCRYSTALS 25 MG / Ni trofurantoin, [...] 12/31/2020 12:00:00 AM EDT ORAL active MED[facility] ([facility]) buspirone hydrochloride 15 MG Oral Tablet BUSPIRONE HCL 12/01/2020 12:00:00 AM EDT tablet 30 TAKE ONE TABLET BY MOUTH ZACKARY TAKE ONE TABLET BY MOUTH EVERY DAY SOLD: 12/02/2020 [facility] Citalopram 20 MG Oral Tablet citalopram 11/30/2020 12:00:00 AM EDT 20 mg by mouth completed <td ID="Medica tionRxNorm_1">107364</td><td ID="MedicationMedication_1">citalopram</td><td ID="MedicationRoute_1">by mouth</td><td ID="MedicationRouteConcept_1">N43921</td><td ID="MedicationStartDate_1">11/30/2020</td><td ID="MedicationStopDate_1"></td><td ID="MedicationDosageFrequency_1">once a day</td><td ID="MedicationDuration_1"></td><td ID="MedicationFormulaStrength_1">20 mg</td><td ID="MedicationDosageForm_1">tablet</td><td ID="MedicationDosageFormCode_1"></td><td ID="MedicationDosageDescription_1">as directed</td><td ID="MedicationMedicationId_1">[id number]</td><td ID="MedicationAccount_1">[id number]</td><td ID="MedicationNpid_1">[id number]</td><td ID="MedicationAuthorFirstName_1">Bobby</td><td ID="MedicationAuthorLastName_1">Bola</td><td ID="MedicationTaxonomyCode_1">[id number]</td><td ID="MedicationTaxonomyDesc_1">Nurse Practitioner</td><td ID="MedicationPhoneNumber_1">[phone]</td> [facility] ([facility]) Hydrochlorothiazide 12.5 MG Oral Tablet HYDROCHLOROTHIAZIDE [...] EVERY DAY SOLD: 09/11/2020 [facility] Hydrochlorothiazide 12.5 MG Oral Tablet HYDROCHLOROTHIAZIDE 08/05/2020 12:00:00 AM EST tablet 90 TAKE ONE TABLET BY MOUTH ZACKARY DAY TAKE ONE TABLET BY MOUTH EVERY DAY SOLD: 08/10/2020 [facility] Citalopram 20 MG Oral Tablet CITALOPRAM HYDROBROMIDE 07/28/2020 12:00:00 AM EST tablet 30 TAKE 1/2 TABLET BY M OUTH FOR 2 WEEKS THEN INCREASE TO 1 TABLET ONCE DAILY TAKE 1/2 TABLET BY MOUTH FOR 2 WEEKS THEN INCREASE TO 1 TABLET ONCE DAILY SOLD: 08/02/2020 [facility] Citalopram 20 MG Oral Tablet CITALOPRAM HYDROBROMIDE 07/28/2020 12:00:00 AM EST tablet 30 TAKE 1/2 TABLET BY M OUTH FOR 2 WEEKS THEN INCREASE TO 1 TABLET ONCE DAILY TAKE 1/2 TABLET BY MOUTH FOR 2 WEEKS THEN INCREASE TO 1 TABLET ONCE DAILY SOLD: 09/04/2020 [facility] buspirone hydrochloride 15 MG Oral Tablet BUSPIRONE HCL 07/27/2020 12:00:00 AM EST tablet 60 TAKE ONE TABLET BY MOUTH TWI CE A DAY TAKE ONE TABLET BY MOUTH TWICE A DAY SOLD: 08/02/2020 [facility] buspirone hydrochloride 15 MG Oral Tablet BUSPIRONE HCL 06/30/2020 12:00:00 AM EST tablet 60 TAKE ONE TABLET BY MOUTH TWI CE A DAY TAKE ONE TABLET BY MOUTH TWICE A DAY SOLD: 07/15/2020 [facility] 30 mg 06/09/2020 12:00:00 AM EST capsule,delayed release (DR/EC) 30 TAKE ONE CAPSULE BY MOUTH EVERY DAY WITH THE 60 MG CAPSULE TAKE ONE CAPSULE BY MOUTH EVERY DAY WITH THE 60 MG CAPSULE SOLD: 06/11/2020 [facility] 60 mg 06/08/2020 12:00:00 AM EST capsule,delayed release (DR/EC) 60 TAKE ONE CAPSULE BY MOUTH EVERY DAY TAKE ONE CAPSULE BY MOUTH EVERY DAY SOLD: 06/11/2020 [facility] 5-325 mg 05/19/2020 12:00:00 AM EDT tablet 30 TAKE 1 TO 2 TABLETS BY MOUTH EVERY 4 TO 6 HOURS NEEDED FOR POST SURGICAL PAIN, MAXIMUM DAILY DOSE = 6 TABLETS TAKE 1 TO 2 TABLETS BY MOUTH EVERY 4 TO 6 HOURS NEEDED FOR POST SURGICAL PAIN, MAXIMUM DAILY DOSE = 6 TABLETS SOLD: 05/19/2020 [facility] Acetaminophen 325 MG / Oxycodone Hydrochloride 5 MG Or al Tablet Oxycodone-Acetaminophen 05/14/2020 12:00:00 AM EDT ORAL active [facility] ([facility] ) Acetaminophen 325 MG / Oxycodone Hydrochloride 5 MG Or al Tablet [Percocet] Percocet 05/12/2020 12:00:00 AM EDT ORAL active [facility] ([facility], ) 5-325 mg 05/12/2020 12:00:00 AM EDT tablet 20 TAKE ONE TABLET BY MOUTH EVERY 4 HOURS MAXIMUM DAILY DOSE = 6 TAKE ONE TABLET BY MOUTH EVERY 4 HOURS M AXIMUM DAILY DOSE = 6 SOLD: 05/12/2020 [facility] Acetaminophen 325 MG / Oxycodone Hydrochloride 5 MG Or al Tablet [Percocet] Percocet 05/12/2020 12:00:00 AM EDT ORAL active [facility] ([facility] ) 5-325 mg 05/09/2020 12:00:00 AM EDT tablet 9 TAKE ONE TABLET BY MOUTH THREE TIMES A DAY NEEDED FOR PAIN MAXIMUM DAILY DOSE = 3 TABLETS TAKE ONE TABLET BY MOUTH THREE TIMES A DAY NEEDED FOR PAIN MAXIMUM DAILY DOSE = 3 TABLETS SOLD: 05/09/2020 [facility] duloxetine 60 MG Delayed Release Oral Capsule duloxetine 04/23/2020 12:00:00 AM EDT 60 mg completed <td ID ="MedicationRxNorm_3">[id number]</td><td ID="MedicationMedication_3">duloxetine</td><td ID="MedicationRoute_3"></td><td ID="MedicationRouteConcept_3"></td><td ID="MedicationStartDate_3">04/23/2020</td><td ID="MedicationStopDate_3">08/07/2020</td><td ID="MedicationDosageFrequency_3"></td><td ID="MedicationDuration_3">30</td><td ID="MedicationFormulaStrength_3">60 mg</td><td ID="MedicationDosageForm_3">capsule,delayed release(DR/EC)</td><td ID="MedicationDosageFormCode_3"></td><td ID="MedicationDosageDescription_3"></td><td ID="MedicationMedicationId_3">[id number]</td><td ID="MedicationAccount_3">[id number]</td><td ID="MedicationNpid_3">[id number]</td><td ID="MedicationAuthorFirstName_3">Dasha</td><td ID="MedicationAuthorLastName_3">[place]</td><td ID="MedicationTaxonomyCode_3">[id number]</td><td ID="MedicationTaxonomyDesc_3"> Psychiatric/Mental Health</td><td ID="MedicationPhoneNumber_3">[phone]</td> [facility] ([facility]) Insurance Providers Payer name Policy type / Coverage type Policy ID Covered democrat ID Covered democrat's relationship to ring Policy Ring Plan Information [place] 302/307 [id number] [facility] [id number] [place] [place] 302/307 [id number] [facility] [id number] [place] [place] 306/806 [id number] [place] [employer] Compensation [id number]. [id number] Self [id number] [place] [employer] Workers Compensation [id number] Self [place] [employer] Workers Compensation [id number] 2.840.1.440912.3. [id number] Self [id number] [facility] [id number] [facility] [employer] [id number] Family Dependent VY [id number] [facility] [employer] [id number] Family Dependent VY [id number] [facility] [employer] [id number] Family Dependent VY [id number] [facility] [employer] [id number] [id number] .0 Self [id number] [facility] [employer] [id number] [id number]0938 .0 Self [id number] [facility] [employer] [id number] 2.0.1.8[id number] Family Dependent VY [id number] [facility] [employer] [id number] 2.0.1.4[id number] Family Dependent VY [id number] [facility] [employer] [id number] 2.0.1.0[id number] Family Dependent VY [id number] [facility] Commercial [id number] 2.0.1.183984.3.227.99.1767.34074 .0 Self [id number] [facility] Commercial [id number] 2.0.1.777405.3.227.99.1767.72876 .0 Self [id number] [facility] Commercial [id number] 2.0.1.807901.3.227.99.1767.64830 .0 Self [id number] [facility] [employer] [id number] 2.0.1.234823.3.227.99.806.1363.0 Family Dependent VY [id number] [facility] [employer] [id number] 2.0.1.478797.3.227.99.806.1363.0 Family Dependent VY [id number] [facility] [employer] [id number] 2.0.1.281665.3.227.99.806.1363.0 Family Dependent VY [id number] [facility] Commercial [id number] 2.0.1.071366.3.227.99.806.1363.0 Self [id number] [facility] [employer] [id number] 2.0.1.435689.3.227.99.806.1363.0 Family Dependent VY [id number] [employer] [id number] 2.16.840.1.969739.3.227.99.806.1363.0 Self [id number] [facility] [employer] [id number] 2.16.840.1.199831.3.227.99.806.1363.0 Family Dependent VY [id number] [facility] Commercial [id number] 2.16.840.1.520267.3.227.99.806.1363.0 Self [id number] [facility] [employer] [id number] 2.16.840.1.563917.3.227.99.806.1363.0 Family Dependent VY [id number] [facility] Commercial [id number] 2.16.840.1.128337.3.227.99.806.1363.0 Self [id number] [facility] [employer] [id number] 2.16840.1.113249.3.227.99.806.1363.0 Family Dependent VY [id number] [facility] Commercial [id number] 2.16840.1.815500.3.227.99.806.1363.0 Self [id number] [facility] [employer] [id number] 2.16840.1.780644.3.227.99.806.1363.0 Family Dependent VY [id number] [facility] [id number] [facility] 306/806 [id number] FO2 [id number] [facility] Commercial [id number] 2.16840.1.957159.3.227.99.806.1363.0 Self [id number] [facility] [employer] [id number] 2.16840.1.5[id number] Family Dependent VY [id number] [facility] Health Maintenance Organization (HMO) [id number] Family Dependent [id number] [facility] [id number] [id number] Family Dependent VY [id number] [employer] B [id number] P VYA [id number] [employer] [place] 306/806 [id number] FO2 [id number] [facility] Commercial [id number] Family Dependent VY [id number] [employer] [place] 306/806 [id number] FO2 [id number] [facility] [employer] [facility] Commercial [id number] Family Dependent VY [id number] [facility] [id number] Family Dependent VY [id number] [employer] BCBS B [id number] P VYA [id number] [employer] U[employer] Commercial [id number] .[id number] Family Dependent BC/BS Of [place] [employer] [id number] [employer] BCBS P [id number] P YOU [id number] [facility] [id number] SP [id number] [facility] [id number] SP [id number] [facility] [id number] SP [id number] [facility] O [id number] S [id number] [facility] Health Maintenance Organization (HMO) [id number] Self [id number] James Arechiga U[employer] Commercial [id number] Family Dependent VY [id number] [employer] [id number] Self [id number] Problems, Conditions, and Diagnoses Code Display Name Description Problem Type Effective Dates Data Source(s) F43.9 Reaction to severe stress, unspecified U nspecified Trauma- and Stressor- Related Disorder Condition 07/05/2021 12:00:00 AM EST [facility] ([facility]) F33.1 Major depressive disorder, recurrent, mo derate Major Depressive Disorder, Recurrent episode, Moderate Condition 07/05/2021 12:00:00 AM EST [facility] ([facility]) F60.3 Borderline personality disorder Borderline Personality Disorder Condition 07/05/2021 12:00:00 AM EST [facility] ([facility]) K59.00 [id number] Constipation, unspecified constipation ty pe Problem 05/06/2021 12:00:00 AM EDT eCW1 ([facility]) R39.11 [id number] Hesitancy Problem 05/06/2021 12:00:00 AM ED T eCW1 ([facility]) [id number] Hyperparathyroidism Hyperparathyroidism Problem 0 09/23/2020 12:00:00 AM EST [facility] ([facility]) F43.9 Reaction to severe stress, unspecified U nspecified Trauma- and Stressor- Related Disorder Condition 06/29/2020 12:00:00 AM EST [facility] ([facility]) F33.1 Major depressive disorder, recurrent, mo derate Major Depressive Disorder, Recurrent episode, Moderate Condition 06/29/2020 12:00:00 AM EST [facility] ([facility]) Surgeries/Procedures Procedure Description Date Indications Data Source(s) OFFICE OUTPATIENT VISIT 15 MINUTES 07/05 12:00:00 AM EST - 07/05/2021 12:00:00 AM EST [facility] ([facility]) OFFICE OUTPATIENT VISIT 15 MINUTES 07/05/2021 12:00:00 AM EST [facility] ([facility]) Mammography (procedure) 06/28/2021 12:00:00 AM EST [facility] ([facility]) OFFICE OUTPATIENT VISIT 25 MINUTES 06/28/2021 12:00:00 AM EST [facility] ([facility]) Etonogestrel (contraceptive) implant system, including impla nt and supplies 05/28/2021 12:00:00 AM EDT eCW1 ([facility]) Medication: 1% Lidocaine intradermal (xylocaine) 05/28 12:00:00 AM EDT eCW1 ([facility]) OFFICE OUTPATIENT VISIT 25 MINUTES 05/14/2021 12:00:00 AM EDT [facility] ([facility] ) OFFICE OUTPATIENT VISIT 15 MINUTES 05/03 12:00:00 AM EDT - 05/03/2021 12:00:00 AM EDT [facility] ([facility]) OFFICE OUTPATIENT VISIT 15 MINUTES 05/03/2021 12:00:00 AM EDT [facility] ([facility]) OFFICE OUTPATIENT VISIT 25 MINUTES 04/27/2021 12:00:00 AM EDT [facility] ([facility]) OFFICE OUTPATIENT VISIT 15 MINUTES 04/27/2021 12:00:00 AM EDT [facility] ([facility]) OFFICE OUTPATIENT VISIT 25 MINUTES 04/27/2021 12:00:00 AM EDT [facility] ([facility]) Extended Individual Psychotherapy - 45 min 03/31/2021 12:00:00 AM EDT - 03/31/2021 12:00:00 AM EDT [facility] ([facility]) Extended Individual Psychotherapy - 45 min 12:00:00 AM EDT [facility] ([facility]) OFFICE OUTPATIENT VISIT 25 MINUTES 03/29/2021 12:00:00 AM EDT [facility] ([facility]) OFFICE OUTPATIENT VISIT 15 MINUTES 03/17/2021 12:00:00 AM EDT [facility] ([facility]) OFFICE OUTPATIENT VISIT 15 MINUTES 03/08/2021 12:00:00 AM EDT [facility] ([facility]) Extended Individual Psychotherapy - 45 min 02/26/2021 12:00:00 AM EDT - 02/26/2021 12:00:00 AM EDT [facility] ([facility]) Extended Individual Psychotherapy - 45 min 12:00:00 AM EDT [facility] ([facility]) MHC Telemed E/M Lvl 2--Est pt 01/11/2021 12:00:00 AM EDT - 01/11/2021 12:00:00 AM EDT [facility] ([facility]) MHC Telemed E/M Lvl 2--Est pt 01/11/2021 12:00:00 AM E DT [facility] ([facility]) OFFICE OUTPATIENT VISIT 15 MINUTES 12/31/2020 12:00:00 AM EDT [facility] ([facility]) CLTX DSTL RADIAL FX/EPIPHYSL SEP W/O MANJ 12/29/2020 1 2:00:00 AM EDT [facility] ([facility] ) OFFICE OUTPATIENT VISIT 25 MINUTES 12/29/2020 12:00:00 AM EDT [facility] ([facility] ) CLTX DSTL RADIAL FX/EPIPHYSL SEP W/O MANJ 12/22/2020 1 2:00:00 AM EDT [facility] ([facility] ) OFFICE OUTPATIENT VISIT 15 MINUTES 12/22/2020 12:00:00 AM EDT [facility] ([facility] ) Brief Individual Psychotherapy - 30 min 12/02/2020 12:00:00 AM EDT - 12/02/2020 12:00:00 AM EDT [facility] ([facility]) Brief Individual Psychotherapy - 30 min 12/02/2020 12: 00:00 AM EDT [facility] ([facility]) Extended Individual Psychotherapy - 45 min 11/26/2020 12:00:00 AM EDT - 11/26/2020 12:00:00 AM EDT [facility] ([facility]) Extended Individual Psychotherapy - 45 min 12:00:00 AM EDT [facility] ([facility]) MHC Telemed E/M Lvl 3--Est pt 10/20/2020 12:00:00 AM EDT - 10/20/2020 12:00:00 AM EDT [facility] ([facility]) Telemed A/O 30" 10/20/2020 12:00:00 AM EDT [facility] ([facility]) MHC Telemed E/M Lvl 3--Est pt 10/20/2020 12:00:00 AM E DT [facility] ([facility]) PERIODIC PREVENTIVE MED EST PATIENT 40-64YRS 12:00:00 AM EDT [facility] ([facility]) OFFICE OUTPATIENT VISIT 15 MINUTES 10/07/2020 12:00:00 AM EST [facility] ([facility]) Extended Individual Psychotherapy - 45 min 09/11/2020 12:00:00 AM EST - 09/11/2020 12:00:00 AM EST [facility] ([facility]) Extended Individual Psychotherapy - 45 min 12:00:00 AM EST [facility] ([facility]) MHC Telemed E/M Lvl 3--Est pt 09/09/2020 12:00:00 AM EST - 09/09/2020 12:00:00 AM EST [facility] ([facility]) Telemed A/O 30" 09/09/2020 12:00:00 AM EST [facility] ([facility]) MHC Telemed E/M Lvl 3--Est pt 09/09/2020 12:00:[address] [facility] ([facility]) Brief Individual Psychotherapy - 30 min 08/13/2020 12:00:00 AM EST - 08/13/2020 12:00:00 AM EST [facility] ([facility]) Brief Individual Psychotherapy - 30 min 08/13/2020 12: 00:00 AM EST [facility] ([facility]) Extended Individual Psychotherapy - 45 min 07/17/2020 12:00:00 AM EST - 07/17/2020 12:00:00 AM EST [facility] ([facility]) Extended Individual Psychotherapy - 45 min 0 12:00:00 AM EST [facility] ([facility]) Brief Individual Psychotherapy - 30 min 07/02/2020 12:00:00 AM EST - 07/02/2020 12:00:00 AM EST [facility] ([facility]) Brief Individual Psychotherapy - 30 min 07/01/2020 12: 00:00 AM EST [facility] ([facility]) X-Ray Elbow Ap & Lateral 06/30/2020 12:00:00 AM EST [facility] ([facility] ) X-Ray Elbow Ap & Lateral 2 Views 06/30/2020 12:00:00 A M EST [facility] ([facility] ) MHC Telemed E/M Lvl 3--Est pt 06/29/2020 12:00:00 AM EST - 06/29/2020 12:00:00 AM EST [facility] ([facility]) Telemed A/O 30" 06/29/2020 12:00:00 AM EST [facility] ([facility]) MHC Telemed E/M Lvl 3--Est pt 06/29/2020 12:00:[address] [facility] ([facility]) Extended Individual Psychotherapy - 45 min 06/11/2020 12:00:00 AM EST - 06/11/2020 12:00:00 AM EST [facility] ([facility]) Extended Individual Psychotherapy - 45 min 0 12:00:00 AM EST [facility] ([facility]) MHC Telemed E/M Lvl 3--Est pt 06/08/2020 12:00:00 AM EST - 06/08/2020 12:00:00 AM EST [facility] ([facility]) Telemed A/O 30" 06/08/2020 12:00:00 AM EST [facility] ([facility]) MHC Telemed E/M Lvl 3--Est pt 06/08/2020 12:00:[address] [facility] ([facility]) X-Ray Elbow Ap & Lateral 2 Views 06/02/2020 12:00:00 A M EST [facility] ([facility] ) OPEN TX RADIAL HEAD/NECK FRACTURE 05/19/2020 12:00:00 AM EDT [facility] ([facility] ) MHC Telemed E/M Lvl 3--Est pt 05/12/2020 12:00:00 AM EDT - 05/12/2020 12:00:00 AM EDT [facility] ([facility]) Telemed A/O 30" 05/12/2020 12:00:00 AM EDT [facility] ([facility]) [facility] Telemed E/M Lvl 3--Est pt 05/12/2020 12:00:00 AM E DT [facility] ([facility]) CLOSED TX RADIAL HEAD/NECK FX W/O MANIPULATION 020 12:00:00 AM EDT [facility] ([facility], ) Results ID Date Data Source [id number] 07/02/2021 10:35:00 AM EST [facility] Name Value Range Interpretation Code Description Data Nasima rce(s) Supporting Document(s) SARS-CoV-2 (COVID-19) RNA [Presence] in Respiratory specimen by BRANDEN with probe detection Not Detected [facility] This lab was ordered by [facility] and reported by [facility]. ID Date Data Source [id number] 06/28/2021 11:45:00 AM EST [facility] ([facility]) Name Value Range Interpretation Code Description Data Nasima rce(s) Supporting Document(s) Hemoglobin 14.0 g/dL 12.0-15.5 Normal (applies to non-numeric resul ts) [facility] ([facility]) Red Blood Count 4.50 10 4.00-5.40 Normal (applies to non-numeric results) [facility] ([facility]) White Blood Count 7.7 10 4.0-10.0 Normal (applies to non-numeri c results) [facility] ([facility]) Hematocrit 42.7 % 36.0-47.0 Normal (applies to non-numeric resul ts) [facility] ([facility]) Mean Corpuscular Volume 94.9 fl 80.0-96.0 Normal ( applies to non-numeric results) [facility] Mean Corpuscular Hemoglobin 31.1 pg 27.0-33.0 Norm al (applies to non-numeric results) [facility] ([facility]) Red Cell Distribution Width 12.1 % 11.5-14.5 Norm al (applies to non-numeric results) [facility] ([facility]) Mean Corpuscular HGB Conc 32.8 g/dL 32.0-36.5 Normal (applies to non-numeric results) [facility] ([facility]) Neutrophils % 65.1 % 36.0-66.0 Normal (applies to non-numeric re sults) [facility] ([facility]) Platelet Count, Automated 270 10 150-450 Normal (applies to non-numeric results) [facility] ([facility]) Eos % 2.1 % 0.0-3.0 Normal (applies to non-numeric resul ts) [facility] ([facility]) Lymph % 26.1 % 24.0-44.0 Normal (applies to non-numeric resul ts) [facility] ([facility]) [place] % 5.9 % 2.0-8.0 Normal (applies to non-numeric resul ts) [facility] ([facility]) Baso % 0.5 % 0.0-1.0 Normal (applies to non-numeric resul ts) [facility] ([facility]) Immature Granulocyte % 0.3 % 0-3.0 Normal (applies to non-n umeric results) [facility] ([facility]) Neutrophils # 5.0 10 1.5-8.5 Normal (applies to non-numeric re sults) [facility] ([facility]) Nucleated Red Blood Cell % 0.0 % 0-0 Normal (applies to n on-numeric results) [facility] ([facility]) Lymph # 2.0 10 1.5-5.0 Normal (applies to non-numeric resul ts) [facility] ([facility]) Eos # 0.2 10 0.0-0.5 Normal (applies to non-numeric resul ts) [facility] ([facility]) [place] # 0.5 10 0.0-0.8 Normal (applies to non-numeric resul ts) [facility] ([facility]) [place] # 0.0 10 0.0-0.2 Normal (applies to non-numeric resul ts) [facility] ([facility]) ID Date Data Source [id number] 06/28/2021 11:45:00 AM EST [facility]) Name Value Range Interpretation Code Description Data Nasima rce(s) Supporting Document(s) Glucose, Fasting 71 mg/dL 70-100 Normal (applies to non-numeric results) [facility] ([facility]) Blood Urea Nitrogen 16 mg/dL 7-18 Normal (applies to non-nume giovany results) [facility] ([facility]) Creatinine For GFR 0.88 mg/dL 0.55-1.30 Normal (applies to non -numeric results) [facility] ([facility]) Glomerular Filtration Rate Laboratory test result Normal (applies to non- numeric results) [facility] ([facility]) <content>Units are mL/min/1.73 m2</content>
<content></content>
<content>Chronic Kidney Disease Staging per NKF:</content>
<content></content>
<content>Stage I & II GFR >=60 Normal to Mildly Decreased</content>
<content>Stage III GFR 30- 59 Moderately Decreased</content>
<content>Stage IV GFR 15-29 Severely Decreased</content>
<content>Stage V GFR <15 Very Little GFR Left</content>
<content>ESRD GFR <15 on CLIENT SERVICES SPECIALIST</content>
<content></content> Sodium Level 140 meq/L 136-145 Normal (applies to non-numeric res ults) [facility] ([facility]) Chloride Level 106 meq/L 98-107 Normal (applies to non-numeric r esults) [facility] ([facility]) Potassium Serum 3.8 meq/L 3.5-5.1 Normal (applies to non-numeric results) [facility] ([facility]) Carbon Dioxide Level 28 meq/L 21-32 Normal (applies to non-num jacky results) [facility] ([facility]) Anion Gap 6 meq/L 8-16 Below low normal [facility] ( [facility]) Calcium Level 10.6 mg/dL 8.5-10.1 Above high normal [facility] ([facility]) Alkaline Phosphatase 76 U/L 45-117 Normal (applies to non-num jacky results) [facility] ([facility]) Ast/Sgot 11 U/L 7-37 Normal (applies to non-numeric resul ts) [facility] ([facility]) Alt/SGPT 25 U/L 12-78 Normal (applies to non-numeric resul ts) [facility] ([facility]) Total Protein 7.2 GM/DL 6.4-8.2 Normal (applies to non-numeric re sults) [facility] ([facility]) Bilirubin,Total 0.3 mg/dL 0.2-1.0 Normal (applies to non-numeric results) [facility] ([facility]) Albumin/Globulin Ratio 1.1 1.2-2.2 Below low normal [facility] ([facility]) Albumin 3.8 GM/DL 3.2-5.2 Normal (applies to non-numeric resul ts) [facility] ([facility]) ID Date Data Source [id number] 06/28/2021 11:45:00 AM EST [facility] ([facility]) Name Value Range Interpretation Code Description Data Nasima rce(s) Supporting Document(s) Parathyrin.intact [Mass/volume] in Serum or Plasma 80.5 pg/mL 18.5-88.0 Normal (applies to non-numeric results) [facility] ([facility]) ID Date Data Source [id number] 06/16/2021 11:05:00 AM EST [facility] ([facility]) Name Value Range Interpretation Code Description Data Nasima rce(s) Supporting Document(s) Blood Type Laboratory test result Normal (applies to non-n umeric results) [facility] ([facility]) AB Screen (Indirect Jamari)Vis Laboratory test result Normal (applies to non- numeric results) [facility] ([facility]) ID Date Data Source [id number] 06/16/2021 11:05:00 AM EST [facility] ([facility]) Name Value Range Interpretation Code Description Data Nasima rce(s) Supporting Document(s) White Blood Count 6.3 10 4.0-10.0 Normal (applies to non-numeri c results) [facility] ([facility]) Red Blood Count 4.40 10 4.00-5.40 Normal (applies to non-numeric results) [facility] ([facility]) Hemoglobin 14.0 g/dL 12.0-15.5 Normal (applies to non-numeric resul ts) [facility] ([facility]) Hematocrit 41.2 % 36.0-47.0 Normal (applies to non-numeric resul ts) [facility] ([facility]) Mean Corpuscular Volume 93.6 fl 80.0-96.0 Normal ( applies to non-numeric results) [facility] ([facility]) Mean Corpuscular Hemoglobin 31.8 pg 27.0-33.0 Norm al (applies to non-numeric results) [facility] ([facility]) Mean Corpuscular HGB Conc 34.0 g/dL 32.0-36.5 Normal (applies to non-numeric results) [facility] ([facility]) Red Cell Distribution Width 12.2 % 11.5-14.5 Norm al (applies to non-numeric results) [facility] ([facility]) Platelet Count, Automated 253 10 150-450 Normal (applies to non-numeric results) [facility] ([facility]) Nucleated Red Blood Cell % 0.0 % 0-0 Normal (applies to n on-numeric results) [facility] ([facility]) ID Date Data Source [id number] 06/11/2021 10:20:00 AM EST [facility] ([facility]) Name Value Range Interpretation Code Description Data Nasima rce(s) Supporting Document(s) Coronavirus 2019 Nasopharygeal Laboratory test result [facility] ([facility]) ASSAY INFORMATION: Real Time RT-PCR NOTE: The COVID-19 assay has been cleared by the U.S. Food and Drug Administration under the Emergency Use Authorization (EUA). [employer] and [employer] are designated as high complexity laboratories by the Clinical Laboratory Improvement Amendments of 1988(CLIA) and are qualified to perform this test. Not Detected ID Date Data Source [id number] 06/11/2021 10:20:00 AM EST [facility] Name Value Range Interpretation Code Description Data Nasima rce(s) Supporting Document(s) SARS-CoV-2 (COVID-19) RNA [Presence] in Respiratory specimen by BRANDEN with probe detection Not Detected [facility] This lab was ordered by [facility] and reported by [employer] ID Date Data Source [id number] 05/06/2021 12:00:00 AM EDT eCW1 ([facility]) Name Value Range Interpretation Code Description Data Nasima rce(s) Supporting Document(s) UA URINALYSIS eCW1 ([facility]) ID Date Data Source [id number] 04/27/2021 08:49:00 AM EDT [facility] ([facility]) Name Value Range Interpretation Code Description Data Nasima rce(s) Supporting Document(s) Laboratory test finding (navigational concept) Laboratory test result [facility] ([facility]) ID Date Data Source [id number] 03/17/2021 08:53:00 AM EDT [facility] ([facility]) Name Value Range Interpretation Code Description Data Nasima rce(s) Supporting Document(s) Inhouse Leukocytes Laboratory test result [facility] ([facility]) Inhouse Nitrite Laboratory test result [facility] ([facility]) Inhouse Protein Laboratory test result [facility] ([facility]) Inhouse Urobilinogen Laboratory test result [facility] ([facility]) Inhouse PH 7 [facility] ([facility]) Inhouse Specific [place] 1.010 [facility] ([facility]) Inhouse Hemoglobin Laboratory test result [facility] ([facility]) Inhouse Ketones Laboratory test result [facility] ([facility]) Inhouse Bilirubin Laboratory test result [facility] ([facility]) Inhouse Glucose Laboratory test result [facility] ([facility]) ID Date Data Source [id number] 03/17/2021 08:30:00 AM EDT [facility] ([facility]) Name Value Range Interpretation Code Description Data Nasima rce(s) Supporting Document(s) Bacteria identified in Urine by Culture Laboratory test result Normal (applies to non-numeric results) [facility] ([facility]) FULL REPORT IN LAB NOTES (eCW and [facility] ). NO GROWTH ID Date Data Source [id number] 03/08/2021 05:02:00 PM EDT [facility] ([facility]) Name Value Range Interpretation Code Description Data Nasima rce(s) Supporting Document(s) Bacteria identified in Urine by Culture Laboratory test result Normal (applies to non-numeric results) [facility] ([facility]) <content>FULL REPORT IN LAB NOTES (eCW a [...]
<content>CLIDAMYCIN SENSITIVE.</content>
<content></content> ID Date Data Source [id number] 03/08/2021 10:39:00 AM EDT [facility] ([facility]) Name Value Range Interpretation Code Description Data Nasima rce(s) Supporting Document(s) Inhouse Leukocytes Laboratory test result [facility] ([facility]) Inhouse Nitrite Laboratory test result [facility] ([facility]) Inhouse Urobilinogen Laboratory test result [facility] ([facility]) Inhouse Protein Laboratory test result [facility] ([facility]) Inhouse PH 5 [facility] ([facility]) Inhouse Specific [place] 1.010 [facility] ([facility]) Inhouse Hemoglobin Laboratory test result [facility] ([facility]) Inhouse Ketones Laboratory test result [facility] ([facility]) Inhouse Glucose Laboratory test result [facility] ([facility]) Inhouse Bilirubin Laboratory test result [facility] ([facility]) ID Date Data Source [id number] 12/31/2020 08:34:00 AM EDT [facility] ([facility]) Name Value Range Interpretation Code Description Data Nasima rce(s) Supporting Document(s) Inhouse Leukocytes Laboratory test result [facility] ([facility]) Inhouse Urobilinogen Laboratory test result [facility] ([facility]) Inhouse Nitrite Laboratory test result [facility] ([facility]) Inhouse Protein Laboratory test result [facility] ([facility]) Inhouse Hemoglobin Laboratory test result [facility] ([facility]) Inhouse PH 5 [facility] ([facility]) Inhouse Specific [place] 1.025 [facility] ([facility]) Inhouse Bilirubin Laboratory test result [facility] ([facility]) Inhouse Ketones Laboratory test result [facility] ([facility]) Inhouse Glucose Laboratory test result [facility] ([facility]) ID Date Data Source [id number] 12/31/2020 08:30:00 AM EDT [facility] ([facility]) Name Value Range Interpretation Code Description Data Nasima rce(s) Supporting Document(s) Bacteria identified in Urine by Culture Laboratory test result Normal (applies to non-numeric results) [facility] ([facility]) FULL REPORT IN LAB NOTES (eCW and [facility] ). NO GROWTH CLINICAL SIGNIFICANCE 1 ORGANISM ID Date Data Source [id number] 09/23/2020 07:39:00 AM EST [facility] ([facility]) Name Value Range Interpretation Code Description Data Nasima rce(s) Supporting Document(s) Thyroid Stimulating Hormone 0.888 uIU/ML 0.358-3.740 Norm al (applies to non- numeric results) [facility] ([facility]) Free T4 0.93 ng/dL 0.76-1.46 Normal (applies to non-numeric resul ts) [facility] ([facility]) ID Date Data Source [id number] 09/23/2020 07:39:00 AM EST [facility] ([facility]) Name Value Range Interpretation Code Description Data Nasima rce(s) Supporting Document(s) Triglycerides Level 82 mg/dL Normal (applies to non-nume giovany results) [facility] ([facility]) Cholesterol Level 172 mg/dL Normal (applies to non-numeri c results) [facility] ([facility]) HDL Cholesterol 35 mg/dL Below low normal [facility] ([facility]) LDL Cholesterol 121 mg/dL Above high normal ME D[facility] ([facility]) Non-HDL-C 137 mg/dL Normal (applies to non-numeric resul ts) [facility] ([facility]) Cholesterol Risk Ratio 4.914 Normal (applies to non-n umeric results) [facility] ([facility]) ID Date Data Source [id number] 09/23/2020 07:39:00 AM EST [facility] ([facility]) Name Value Range Interpretation Code Description Data Nasima rce(s) Supporting Document(s) Glucose, Fasting 109 mg/dL 70-100 Above high normal [facility] Creatinine For GFR 0.99 mg/dL 0.55-1.30 Normal (applies to non -numeric results) [facility] ([facility]) Blood Urea Nitrogen 18 mg/dL 7-18 Normal (applies to non-nume giovany results) [facility] ([facility]) Glomerular Filtration Rate Laboratory test result Normal (applies to non- numeric results) [facility] ([facility]) <content>Units are mL/min/1.73 m2</content>
<content></content>
<content>Chronic Kidney Disease Staging per NKF:</content>
<content></content>
<content>Stage I & II GFR >=60 Normal to Mildly Decreased</content>
<content>Stage III GFR 30- 59 Moderately Decreased</content>
<content>Stage IV GFR 15-29 Severely Decreased</content>
<content>Stage V GFR <15 Very Little GFR Left</content>
<content>ESRD GFR <15 on CLIENT SERVICES SPECIALIST</content>
<content></content> Sodium Level 141 meq/L 136-145 Normal (applies to non-numeric res ults) [facility] ([facility]) Carbon Dioxide Level 27 meq/L 21-32 Normal (applies to non-num jacky results) [facility] ([facility]) Chloride Level 109 meq/L 98-107 Above high normal [facility] ([facility]) Potassium Serum 4.2 meq/L 3.5-5.1 Normal (applies to non-numeric results) [facility] ([facility]) Anion Gap 5 meq/L 8-16 Below low normal [facility] ( [facility]) Calcium Level 10.5 mg/dL 8.5-10.1 Above high normal [facility] NT ([facility]) Alt/SGPT 36 U/L 12-78 Normal (applies to non-numeric resul ts) [facility] ([facility]) Ast/Sgot 15 U/L 7-37 Normal (applies to non-numeric resul ts) [facility] ([facility]) Alkaline Phosphatase 77 U/L 45-117 Normal (applies to non-num jacky results) [facility] ([facility]) Bilirubin,Total 0.4 mg/dL 0.2-1.0 Normal (applies to non-numeric results) [facility] ([facility]) Albumin 4.1 GM/DL 3.2-5.2 Normal (applies to non-numeric resul ts) [facility] ([facility]) Total Protein 7.3 GM/DL 6.4-8.2 Normal (applies to non-numeric re sults) [facility] ([facility]) Albumin/Globulin Ratio 1.3 1.2-2.2 Normal (applies to non-n umeric results) [facility] ([facility]) ID Date Data Source [id number] 09/23/2020 07:39:00 AM EST [facility] ([facility]) Name Value Range Interpretation Code Description Data Nasima rce(s) Supporting Document(s) Calcium.ionized [Mass/volume] in Serum o r Plasma by Ion-selective membrane electrode (ISE) 5.3 mg/dL 4.5-5.3 Normal (applies to non-numeric results ) [facility] ([facility]) Parathyrin.intact [Mass/volume] in Serum or Plasma 122.4 pg/mL 18.5-88.0 Above high normal [facility] ([facility]) ID Date Data Source [id number] 05/14/2020 12:00:00 PM EDT [facility] Name Value Range Interpretation Code Description Data Nasima rce(s) Supporting Document(s) SARS coronavirus 2 RNA [facility] This lab was ordered by [facility] and reported by [facility]. Procedure Social History Code Duration Value Status Description Data Source(s ) Smoking 07/05/2021 12:00:00 AM EST Never smoker completed Never s moker [facility] ([facility]) Smoking 06/28/2021 12:00:00 AM EST Never Smoked Cigarettes com pleted Never Smoked Cigarettes [facility] ([facility]) Smoking 06/07/2021 12:00:00 AM EST Never Smoker completed Never S moker eCW1 ([facility]) Smoking 06/07/2021 12:00:00 AM EST Never Smoker completed Never S moker eCW1 ([facility]) Smoking 05/28/2021 12:00:00 AM EDT Never Smoker completed Never S moker eCW1 ([facility]) Smoking 05/18/2021 12:00:00 AM EDT Never Smoker completed Never S moker eCW1 ([facility]) Smoking 05/18/2021 12:00:00 AM EDT Never Smoker completed Never S moker eCW1 ([facility]) Smoking 05/06/2021 12:00:00 AM EDT Never Smoker completed Never S moker eCW1 ([facility]) Smoking 05/06/2021 12:00:00 AM EDT Never Smoker completed Never S moker eCW1 ([facility]) Smoking 05/03/2021 12:00:00 AM EDT Never smoker completed Never s moker [facility] ([facility]) Smoking 04/22/2021 12:00:00 AM EDT Never Smoker completed Never S moker eCW1 ([facility]) Smoking 04/22/2021 12:00:00 AM EDT Never Smoker completed Never S moker eCW1 ([facility]) Smoking 04/22/2021 12:00:00 AM EDT Never Smoker completed Never S moker eCW1 ([facility]) Smoking 03/31/2021 12:00:00 AM EDT Never smoker completed Never s moker [facility] ([facility]) Smoking 03/25/2021 12:00:00 AM EDT Never Smoker completed Never S moker eCW1 ([facility]) Smoking 02/26/2021 12:00:00 AM EDT Never smoker completed Never s moker [facility] ([facility]) Smoking 01/11/2021 12:00:00 AM EDT Never smoker completed Never s moker [facility] ([facility]) Smoking 12/02/2020 12:00:00 AM EDT Never smoker completed Never s moker [facility] ([facility]) Smoking 11/26/2020 12:00:00 AM EDT Never smoker completed Never s moker [facility] ([facility]) Smoking 10/20/2020 12:00:00 AM EDT Never smoker completed Never s moker [facility] ([facility]) Smoking 09/11/2020 12:00:00 AM EST Never smoker completed Never s moker [facility] ([facility]) Smoking 09/09/2020 12:00:00 AM EST Never smoker completed Never s moker [facility] ([facility]) Smoking 08/13/2020 12:00:00 AM EST Never smoker completed Never s moker [facility] ([facility]) Smoking 07/17/2020 12:00:00 AM EST Never smoker completed Never s moker [facility] ([facility]) Smoking 07/02/2020 12:00:00 AM EST Never smoker completed Never s moker [facility] ([facility]) Smoking 06/29/2020 12:00:00 AM EST Never smoker completed Never s moker [facility] ([facility]) Smoking 06/11/2020 12:00:00 AM EST Never smoker completed Never s moker [facility] ([facility]) Smoking 06/08/2020 12:00:00 AM EST Never smoker completed Never s moker [facility] ([facility]) Smoking 05/12/2020 12:00:00 AM EDT Never smoker completed Never s moker [facility] ([facility]) Vital Signs ID Date Data Source [id number] Name Value Range Interpretation Code Description Data Source(s) Systolic blood pressure 128 mm[Hg] 128 mm[Hg] M EDENT ([facility]) Diastolic blood pressure 72 mm[Hg] 72 mm[Hg] [facility] ([facility]) Body height 63.5 [in_i] 63.5 [in_i] [facility] ([facility]) 5'3.50" Body weight 195.00 [lb_av] 195.00 [lb_av] CLARE T ([facility]) Body mass index (BMI) [Ratio] 34.0 kg/m2 34.0 k g/m2 [facility] ([facility]) Heart rate 84 /min 84 /min [facility] ([facility]) Respiratory rate 18 /min 18 /min [facility] ( [facility]) Body temperature 98.1 [degF] 98.1 [degF] [facility] ([facility]) Oxygen saturation in Arterial blood by Pulse oximetry 97 % 97 % [facility] ([facility]) Baker body weight 115 [lb_av] 115 [lb_av] MEDEN T ([facility]) Body weight 194.8 [lb_av] 194.8 [lb_av] eCW1 ([facility]) Diastolic blood pressure 90 mm[Hg] 90 mm[Hg] eCW1 ([facility]) Body weight 88.36 kg 88.36 kg eCW1 ([facility]) Body height [in_i] eCW1 ([facility]) Body mass index (BMI) [Ratio] 35.63 kg/m2 35.63 kg/m2 eCW1 ([facility]) Systolic blood pressure 134 mm[Hg] 134 mm[Hg] e CW1 ([facility]) Body weight 193 [lb_av] 193 [lb_av] eCW1 ([facility]) Body height [in_i] eCW1 ([facility]) Systolic blood pressure 134 mm[Hg] 134 mm[Hg] e CW1 ([facility]) Body mass index (BMI) [Ratio] 35.3 kg/m2 35.3 k g/m2 eCW1 ([facility]) Diastolic blood pressure 82 mm[Hg] 82 mm[Hg] eCW1 ([facility]) Body temperature 97.0 [degF] 97.0 [degF] [facility] ([facility] ) Body weight 188 [lb_av] 188 [lb_av] eCW1 ([facility]) Body height [in_i] eCW1 ([facility]) Body mass index (BMI) [Ratio] 34.38 kg/m2 34.38 kg/m2 eCW1 ([facility]) Heart rate 82 /min 82 /min eCW1 ([facility]) Respiratory rate 18 /min 18 /min eCW1 ([facility]) Body temperature 97.3 [degF] 97.3 [degF] eCW1 ( [facility]) Systolic blood pressure 132 mm[Hg] 132 mm[Hg] e CW1 ([facility]) Diastolic blood pressure 82 mm[Hg] 82 mm[Hg] eCW1 ([facility]) Respiratory rate 20 /min 20 /min [facility] ( [facility]) Systolic blood pressure 122 mm[Hg] 122 mm[Hg] M EDENT ([facility]) Body weight 186.00 [lb_av] 186.00 [lb_av] MEDEN T ([facility]) Body temperature 98.2 [degF] 98.2 [degF] [facility] ([facility]) Oxygen saturation in Arterial blood by Pulse oximetry 99 % 99 % [facility] ([facility]) Diastolic blood pressure 84 mm[Hg] 84 mm[Hg] [facility] ([facility]) Body height 63.5 [in_i] 63.5 [in_i] [facility] ([facility]) 5'3.50" Body mass index (BMI) [Ratio] 32.4 kg/m2 32.4 k g/m2 [facility] ([facility]) Heart rate 68 /min 68 /min [facility] ([facility]) Baker body weight 115 [lb_av] 115 [lb_av] MEDEN T ([facility]) Body mass index (BMI) [Ratio] 31.8 kg/m2 31.8 k g/m2 [facility] ([facility]) Body height 63.5 [in_i] 63.5 [in_i] [facility] ([facility]) 5'3.50" Respiratory rate 14 /min 14 /min [facility] ( [facility]) Systolic blood pressure 120 mm[Hg] 120 mm[Hg] M EDENT ([facility]) Body weight 182.25 [lb_av] 182.25 [lb_av] MEDEN T ([facility]) Diastolic blood pressure 80 mm[Hg] 80 mm[Hg] [facility] ([facility]) Heart rate 81 /min 81 /min [facility] ([facility]) Body temperature 96.9 [degF] 96.9 [degF] [facility] ([facility]) Oxygen saturation in Arterial blood by Pulse oximetry 98 % 98 % [facility] ([facility]) Baker body weight 115 [lb_av] 115 [lb_av] MEDEN T ([facility]) Body weight 182.2 [lb_av] 182.2 [lb_av] eCW1 ([facility]) Systolic blood pressure 136 mm[Hg] 136 mm[Hg] e CW1 ([facility]) Diastolic blood pressure 84 mm[Hg] 84 mm[Hg] eCW1 ([facility]) Body height [in_i] eCW1 ([facility]) Body mass index (BMI) [Ratio] 33.32 kg/m2 33.32 kg/m2 eCW1 ([facility]) Systolic blood pressure 120 mm[Hg] 120 mm[Hg] M EDENT ([facility]) Diastolic blood pressure 82 mm[Hg] 82 mm[Hg] [facility] [facility] Body mass index (BMI) [Ratio] 31.8 kg/m2 31.8 k g/m2 [facility] ([facility]) Heart rate 75 /min 75 /min [facility] ([facility]) Body height 63.5 [in_i] 63.5 [in_i] [facility] ([facility]) 5'3.50" Body weight 182.12 [lb_av] 182.12 [lb_av] [facility] T ([facility]) Respiratory rate 20 /min 20 /min [facility] ( [facility]) Body temperature 98.2 [degF] 98.2 [degF] [facility] ([facility]) Oxygen saturation in Arterial blood by Pulse oximetry 98 % 98 % [facility] ([facility]) Baker body weight 115 [lb_av] 115 [lb_av] [facility] T ([facility]) Body temperature 96.7 [degF] 96.7 [degF] [facility] ([facility], ) Body height 63.5 [in_i] 63.5 [in_i] [facility] ([facility]) 5'3.50" Heart rate 74 /min 74 /min [facility] ([facility]) Respiratory rate 14 /min 14 /min [facility] ( [facility]) Body weight 182.38 [lb_av] 182.38 [lb_av] [facility] T ([facility]) Body temperature 96.9 [degF] 96.9 [degF] [facility] ([facility]) Diastolic blood pressure 72 mm[Hg] 72 mm[Hg] [facility] ([facility]) Systolic blood pressure 120 mm[Hg] 120 mm[Hg] [facility] Body mass index (BMI) [Ratio] 31.8 kg/m2 31.8 k g/m2 [facility] ([facility]) Oxygen saturation in Arterial blood by Pulse oximetry 99 % 99 % [facility] ([facility]) Baker body weight 115 [lb_av] 115 [lb_av] [facility] T ([facility]) Body temperature 97.7 [degF] 97.7 [degF] [facility] ([facility], ) Body temperature 97.7 [degF] 97.7 [degF] [facility] ([facility], ) Body temperature 98.1 [degF] 98.1 [degF] [facility] ([facility], ) Oxygen saturation in Arterial blood by Pulse oximetry 100 % 100 % [facility] ([facility]) Heart rate 72 /min 72 /min [facility] ([facility]) Diastolic blood pressure 76 mm[Hg] 76 mm[Hg] [facility] ([facility]) Body height 63.5 [in_i] 63.5 [in_i] [facility] ([facility]) 5'3.50" Body weight 180.25 [lb_av] 180.25 [lb_av] [facility] T ([facility]) Body mass index (BMI) [Ratio] 31.4 kg/m2 31.4 k g/m2 [facility] ([facility]) Respiratory rate 18 /min 18 /min [facility] ( [facility]) Body temperature 98.3 [degF] 98.3 [degF] [facility] ([facility]) Systolic blood pressure 124 mm[Hg] 124 mm[Hg] [facility]) Baker body weight 115 [lb_av] 115 [lb_av] [facility] ([facility]) Body temperature 97.5 [degF] 97.5 [degF] [facility] ([facility], ) Body height 62 [in_i] 62 [in_i] [facility] ([facility]) 5'2" Heart rate 70 /min 70 /min [facility] ([facility]) Systolic blood pressure 155 mm[Hg] 155 mm[Hg] [facility]) Diastolic blood pressure 79 mm[Hg] 79 mm[Hg] [facility] ([facility]) Oxygen saturation in Arterial blood by Pulse oximetry 100 % 100 % [facility] ([facility]) Respiratory rate 18 /min 18 /min [facility] ( [facility]) Body temperature 97.3 [degF] 97.3 [degF] [facility] ([facility]) Body weight 173.00 [lb_av] 173.00 [lb_av] [facility] Body mass index (BMI) [Ratio] 31.6 kg/m2 31.6 k g/m2 [facility] ([facility]) Baker body weight 110 [lb_av] 110 [lb_av] [facility] Body weight 78.473 kg 78.473 kg [facility] ([facility]) Body surface area Derived from formula 1.80 m2 1.80 m2 [facility] ([facility]) Body weight Measured 0.00 lbs Normal (applies to n on-numeric results) 0.00 lbs [facility] ([facility]) Body height 0.00 in Normal (applies to non-numeric resu lts) 0.00 in [facility] ([facility]) Body mass index (BMI) [Ratio] 0.00 kg/m2 No rmal (applies to non-numeric results) 0.00 kg/m2 [facility] ([facility]) Systolic blood pressure 0 mm[Hg] Normal (applies t o non-numeric results) 0 mm[Hg] [facility] ([facility]) Diastolic blood pressure 0 mm[Hg] Normal (applies to non-numeric results) 0 mm[Hg] [facility] ([facility]) Diastolic blood pressure 80 mm[Hg] 80 mm[Hg] [facility] ([facility]) Body height 63.5 [in_i] 63.5 [in_i] [facility] ([facility]) 5'3.50" Body weight 196.00 [lb_av] 196.00 [lb_av] [facility] ([facility]) Systolic blood pressure 130 mm[Hg] 130 mm[Hg] [facility]) Body mass index (BMI) [Ratio] 34.2 kg/m2 34.2 k g/m2 [facility] ([facility]) Respiratory rate 16 /min 16 /min [facility] ( [facility]) Body temperature 98.0 [degF] 98.0 [degF] [facility] ([facility]) Oxygen saturation in Arterial blood by Pulse oximetry 98 % 98 % [facility] ([facility]) Baker body weight 115 [lb_av] 115 [lb_av] [facility] ([facility]) Heart rate 91 /min 91 /min [facility] ([facility]) Body temperature 99.3 [degF] 99.3 [degF] [facility] ([facility]) Oxygen saturation in Arterial blood by Pulse oximetry 98 % 98 % [facility] ([facility]) Baker body weight 115 [lb_av] 115 [lb_av] [facility] ([facility]) Respiratory rate 18 /min 18 /min [facility] ( [facility]) Body mass index (BMI) [Ratio] 34.7 kg/m2 34.7 k g/m2 [facility] ([facility]) Systolic blood pressure 128 mm[Hg] 128 mm[Hg] [facility] ([facility]) Diastolic blood pressure 84 mm[Hg] 84 mm[Hg] [facility] ([facility]) Body weight 199.12 [lb_av] 199.12 [lb_av] [facility] ([facility]) Heart rate 92 /min 92 /min [facility] ([facility]) Body height 63.5 [in_i] 63.5 [in_i] [facility] ([facility]) 5'3.50" Body height 0.00 in Normal (applies to non-numeric resu lts) 0.00 in [facility] ([facility]) Body weight Measured 0.00 lbs Normal (applies to n on-numeric results) 0.00 lbs [facility] ([facility]) Body mass index (BMI) [Ratio] 0.00 kg/m2 No rmal (applies to non-numeric results) 0.00 kg/m2 [facility]) Systolic blood pressure 0 mm[Hg] Normal (applies t o non-numeric results) 0 mm[Hg] [facility] ([facility]) Diastolic blood pressure 0 mm[Hg] Normal (applies to non-numeric results) 0 mm[Hg] [facility] ([facility]) Systolic blood pressure 126 mm[Hg] 126 mm[Hg] M [facility] ([facility]) Respiratory rate 16 /min 16 /min [facility] ( [facility]) Diastolic blood pressure 78 mm[Hg] 78 mm[Hg] [facility] ([facility]) Body height 63.5 [in_i] 63.5 [in_i] [facility] ([facility]) 5'3.50" Body mass index (BMI) [Ratio] 39.9 kg/m2 39.9 k g/m2 [facility] ([facility]) Heart rate 99 /min 99 /min [facility] ([facility]) Body temperature 98.0 [degF] 98.0 [degF] [facility] ([facility]) Oxygen saturation in Arterial blood by Pulse oximetry 98 % 98 % [facility] ([facility]) Baker body weight 115 [lb_av] 115 [lb_av] [facility] ([facility]) Body weight 229.00 [lb_av] 229.00 [lb_av] [facility] ([facility]) Body temperature 97.3 [degF] 97.3 [degF] [facility] ([facility], ) Body height 0.00 in Normal (applies to non-numeric resu lts) 0.00 in [facility] ([facility]) Body weight Measured 0.00 lbs Normal (applies to n on-numeric results) 0.00 lbs [facility] ([facility]) Body mass index (BMI) [Ratio] 0.00 kg/m2 No rmal (applies to non-numeric results) 0.00 kg/m2 [facility] ([facility]) Systolic blood pressure 0 mm[Hg] Normal (applies t o non-numeric results) 0 mm[Hg] [facility] ([facility]) Diastolic blood pressure 0 mm[Hg] Normal (applies to non-numeric results) 0 mm[Hg] [facility] ([facility]) Body height 0.00 in Normal (applies to non-numeric resu lts) 0.00 in [facility] ([facility]) Body weight Measured 0.00 lbs Normal (applies to n on-numeric results) 0.00 lbs [facility] ([facility]) Body mass index (BMI) [Ratio] 0.00 kg/m2 No rmal (applies to non-numeric results) 0.00 kg/m2 [facility] ([facility]) Systolic blood pressure 0 mm[Hg] Normal (applies t o non-numeric results) 0 mm[Hg] [facility] ([facility]) Diastolic blood pressure 0 mm[Hg] Normal (applies to non-numeric results) 0 mm[Hg] [facility] ([facility]) Body temperature 98.2 [degF] 98.2 [degF] [facility] ([facility], ) Body height 0.00 in Normal (applies to non-numeric resu lts) 0.00 in [facility] ([facility]) Body weight Measured 0.00 lbs Normal (applies to n on-numeric results) 0.00 lbs [facility] ([facility]) Body mass index (BMI) [Ratio] 0.00 kg/m2 No rmal (applies to non-numeric results) 0.00 kg/m2 [facility] ([facility]) Systolic blood pressure 0 mm[Hg] Normal (applies t o non-numeric results) 0 mm[Hg] [facility] ([facility]) Diastolic blood pressure 0 mm[Hg] Normal (applies to non-numeric results) 0 mm[Hg] [facility] ([facility]) Body temperature 98.6 [degF] 98.6 [degF] [facility] ([facility]) Body weight 977.054 kg 977.054 kg [facility] ([facility]) Body height 62.5 [in_i] 62.5 [in_i] [facility] ([facility]) 5'2.50" Body weight 2154.00 [lb_av] 2154.00 [lb_av] [facility] ([facility]) Body mass index (BMI) [Ratio] 387.7 kg/m2 387.7 kg/m2 [facility] Baker body weight 110 [lb_av] 110 [lb_av] [facility] T ([facility]) Patient Treatment Plan of Care Planned Activity Planned Date Details Description Data Source (s) Phenazopyridine hydrochloride 100 MG Oral Tablet 05/06/2021 12:00:0 0 AM EDT eCW1 ([facility]) POLYETHYLENE GLYCOL 3350 142 MG/ML Oral Solution [Misty lax] 05/06/2021 12:00:00 AM EDT eCW1 ([facility]) Phenazopyridine hydrochloride 100 MG Oral Tablet 05/06/2021 12:00:0 0 AM EDT eCW1 ([facility]) POLYETHYLENE GLYCOL 3350 142 MG/ML Oral Solution [Misty lax] 05/06/2021 12:00:00 AM EDT eCW1 ([facility]) Phenazopyridine hydrochloride 100 MG Oral Tablet 05/06/2021 12:00:0 0 AM EDT eCW1 ([facility]) POLYETHYLENE GLYCOL 3350 142 MG/ML Oral Solution [Misty lax] 05/06/2021 12:00:00 AM EDT eCW1 ([facility]) Phenazopyridine hydrochloride 100 MG Oral Tablet 05/06/2021 12:00:0 0 AM EDT eCW1 ([facility]) POLYETHYLENE GLYCOL 3350 142 MG/ML Oral Solution [Misty lax] 05/06/2021 12:00:00 AM EDT eCW1 ([facility])
[2021-07-07] MEDS ORDERED: HYDROmorphone HCL 2 MG/ML 1ML VIAL As Ordered ONE (08:07)
[2021-07-07] MEDS ORDERED: MIDAZOLAM INJ 2MG/2ML VIAL (J2250 PER 1MG) As Ordered ONE (08:08)
[2021-07-07] MEDS ORDERED: fentaNYL 100 MCG/2 ML INJECTION (J3010) As Ordered ONE (08:08)
[2021-07-07] MEDS ORDERED: dexameTHASONE 4 MG/ML 1ML VIAL (J1100 PER 1MG) As Ordered ONE (08:09)
[2021-07-07] MEDS ORDERED: ONDANSETRON 4MG/2ML VIAL As Ordered ONE (08:09)
[2021-07-07] MEDS ORDERED: ACETAMINOPHEN 1000MG 100ML IV BTL (OFIRMEV) (J0131 PER 10MG) As Ordered ONE (08:09)
[2021-07-07] MEDS ORDERED: LIDOCAINE 2% 100MG/5ML SDV (FOR ANES.) As Ordered ONE (08:09)
[2021-07-07] MEDS ORDERED: propofoL 200 MG/20 ML VIAL As Ordered ONE (08:09)
[2021-07-07] MEDS ORDERED: SCOPOLAMINE 1MG TRANSDERMAL PATCH TOP ONE (08:35)
[2021-07-07] MEDS ORDERED: KETOROLAC 60MG 2ML VIAL As Ordered ONE (09:09)
[2021-07-07] MEDS ORDERED: BUPIVACAINE/EPIN 0.25% 30 ML VIAL As Ordered ONE (09:31)
--- NOTE | 2021-07-07 10:02 | ROOPDOC ---
[facility] Report Of Operation Report of Operation DATE OF PROCEDURE: 07/07/21 PREPROCEDURE DIAGNOSES: Left elbow hardware irritation POSTPROCEDURE DIAGNOSES: Left elbow hardware irritation. PROCEDURE PERFORMED: Left elbow hardware removal and debridement. SURGEON: Dr. Rohan Allen MD ANALYTICS LEADER: ANESTHESIA: General anesthesia Dr. Hooks ESTIMATED BLOOD LOSS: Approximately 30 mL. COMPLICATIONS: None. REMARKS: None. FINDINGS: Hardware irritation SPECIMENS REMOVED: Proximal radius plate and screws all in 1 piece PROCEDURE NOTE: This 41-year-old female had signs and symptoms consistent with hardware irritation of the left elbow. We discussed the pros and cons risks and benefits of going ahead with surgery. I saw the patient in preoperative holding and marked the left upper extremity. No changes to their health. Answered the patient's questions. They understood wished to proceed and had no further questions. DESCRIPTION OF PROCEDURE: The patient was brought to the operating room theater. They were placed supine on the operating room table with a hand table to the patient's left side. 18 inch tourniquet applied to the left upper extremity and appropriately padded. SCDs on legs. All bony prominences padded. General anesthesia was induced. 2 g IV Ancef administered prior to the start of the case. Bed turned 90 degrees. Upper extremity prepped and draped in the usual sterile fashion with chlorhexidine preparatory solution allowing over 3 minutes drying time prior to draping. Preoperative timeout performed to confirm the site patient and surgery. Began by exsanguinating the limb followed by inflation of the tourniquet to 250 mmHg. I used the old incision. I carried the dissection down through skin and subcutaneous tissue achieved meticulous hemostasis. I made a longitudinal split in the extensor digitorum tendon at the site of the previous split. I achieved dissection down onto the plate. I removed all screws as well as the plate elevated nicely. I used a rongeur and rasp instruments to smooth down the area. I took the elbow through full range of motion. Elbow was stable. Full range of motion achieved. No obvious crepitus or irritation with those maneuvers. Tourniquet let down. Wound thoroughly irrigated with normal saline. Split in the extensor musculature closed with running #1 Vicryl suture followed by closure of the subcutaneous tissue with 2-0 Vicryl suture and skin with 3-0 Monocryl. 10 cc of local anesthetic was used around the incision site. Skin cleaned with wet and dry dressing followed by application of Steri-Strips Adaptic 4 x 8 gauze abdominal pad dressing and overwrapped with a sterile 6 inch Lc bandage. Patient woken up from the general anesthetic transferred off the operating room table and taken to postanesthetic care unit in stable condition. All sponge needle instrument counts were correct no complications. Estimated blood loss 30 cc. Plan for the patient gentle range of motion avoid showering over top for 2 weeks change dressing postoperative day 1, 2, and as needed start gentle range of motion no heavy lifting follow-up in the office in 2 weeks time discharge home when they are comfortable. Prescription sent into pharmacy base. Risk factors for harms from taking opioid medications discussed and assessed including but not limited to personal or family history of substance use disorder, anxiety or depression, , age 65 or older, COPD or other underlying respiratory conditions, and renal or hepatic insufficiency. Discussed with patient concerns and determined any harms they may experience or be currently experiencing such as nausea or constipation, feeling sedated or confused, breathing interruptions during sleep, or taking or craving more opioids than prescribed or difficulty controlling use (addiction). Discussed early warning signs of overdose including confusion, sedation, slurred speech, abnormal gait. Postoperative wound instructions were given. It was recommended to keep the wound clean and dry. Dressing changes as needed. It was reinforced with the patient that they should call us or be seen immediately for redness, drainage, or fever. . ROHAN ALLEN MD Jul 07, 2021 10:02
[2021-07-07] MEDS ORDERED: oxyCODONE 5MG TAB PO PRN (10:20)
[2021-07-07] MEDS ORDERED: PERCOCET 5MG/325MG TAB PO PRN (10:20)
[2021-07-07] MEDS ORDERED: ONDANSETRON 4MG/2ML VIAL IV PRN ×2 (10:20)
[2021-07-07] MEDS ORDERED: LR 1,000 ML IV SCH ×2 (10:20)
[2021-07-07] MEDS ORDERED: fentaNYL 100 MCG/2 ML INJECTION (J3010) IV PRN (10:20)
[2021-07-07] MEDS ORDERED: ACETAMINOPHEN TAB 650MG DOSE (2X325MG) PO PRN (10:25)
[2021-07-07] MEDS ORDERED: MORPHINE 2 MG/ML 1ML VIAL (J2270) IV PRN (10:25)
[2021-07-07 10:53] VITALS: BP 138/72
== END 2021-07-07 11:45 | disposition home or self-care (01) ==
LOC: M SDC 06:57
PROVIDERS: ATTEND Orthopaedic Surgery Sports Medicine
DX: T84.84XA Pain due to internal orthopedic prosthetic devices, implants and grafts, initial encounter (principal); Y79.2 Prosthetic and other implants, materials and accessory orthopedic devices associated with adverse incidents; I10 Essential (primary) hypertension; R51.9 Headache, unspecified; F41.9 Anxiety disorder, unspecified; F32.9 Major depressive disorder, single episode, unspecified; K59.00 Constipation, unspecified; K21.9 Gastro-esophageal reflux disease without esophagitis; F43.10 Post-traumatic stress disorder, unspecified; R06.83 Snoring; Z79.899 Other long term (current) drug therapy; Z88.8 Allergy status to other drugs, medicaments and biological substances
CPT/HCPCS: 20680; J0131; J0690; J1100; J1170; J1885; J2250; J2405; J3010

== ENCOUNTER → 2021-07-26 | Outpatient (REF) | payer OTHER ==
[~2021-07-26] MED LIST changes: -LIDOCAINE 1% MDV 20ML VIAL SQ PRN; -LR 1,000 ML IV ONE; -ceFAZolin SOD 2 GM in IV 1 EA IV ONE
== END ==
LOC: M SFHCWAGY 16:48
PROVIDERS: ATTEND Specialist
DX: R30.0 Dysuria (principal)

== ENCOUNTER → 2021-10-30 | Outpatient (CLI) | payer OTHER ==
[2021-10-30 09:16] LABS: BASO % 0.4 % (0.0-1.0); EOS # 0.2 10^3/uL (0.0-0.5); EOS % 2.2 % (0.0-3.0); HEMATOCRIT 41.5 % (36.0-47.0); HEMOGLOBIN 14.1 g/dl (12.0-15.5); LYMPH # 1.8 10^3/uL (1.5-5.0); LYMPH % 25.9 % (24.0-44.0); MEAN CORPUSCULAR VOLUME 91.2 fl (80.0-96.0); MONO # 0.3 10^3/uL (0.0-0.8); NEUTROPHILS # 4.5 10^3/uL (1.5-8.5); NEUTROPHILS % 66.2 % (36.0-66.0); PLATELET COUNT, AUTOMATED 250 10^3/uL (150-450); RED BLOOD COUNT 4.55 10^6/uL (4.00-5.40); WHITE BLOOD COUNT 6.9 10^3/uL (4.0-10.0)
[2021-10-30 09:48] LABS: ALBUMIN 3.8 GM/DL (3.2-5.2); ALT/SGPT 26 U/L (12-78); BILIRUBIN,TOTAL 0.3 MG/DL (0.2-1.0); BLOOD UREA NITROGEN 17 MG/DL (7-18); CALCIUM LEVEL 9.7 MG/DL (8.5-10.1); CARBON DIOXIDE LEVEL 27 MEQ/L (21-32); CHLORIDE LEVEL 109 MEQ/L (98-107); CHOLESTEROL LEVEL 222 MG/DL (<200); CHOLESTEROL RISK RATIO 4.269 (<5); CREATININE FOR GFR 1.06 MG/DL (0.55-1.30); FREE T4 0.81 NG/DL (0.76-1.46); GLOMERULAR FILTRATION RATE > 60.0 (>58); GLUCOSE, FASTING 86 MG/DL (70-100); HDL CHOLESTEROL 52 MG/DL (>40); LDL CHOLESTEROL 160 MG/DL (<100); NON-HDL-C 170 MG/DL; POTASSIUM SERUM 4.2 MEQ/L (3.5-5.1); SODIUM LEVEL 141 MEQ/L (136-145); TOTAL PROTEIN 6.9 GM/DL (6.4-8.2); TRIGLYCERIDES LEVEL 51 MG/DL (<150)
[2021-11-01 10:28] LABS: TOTAL 25(OH) VITAMIN D 36.3 NG/ML (30.0-100.0)
[2021-11-01 10:29] LABS: PTH INTACT 102.9 PG/ML (18.5-88.0)
== END ==
LOC: M LAB 08:26
PROVIDERS: ATTEND Family Medicine
DX: R53.83 Other fatigue (principal); E21.3 Hyperparathyroidism, unspecified; Z13.0 Encounter for screening for diseases of the blood and blood-forming organs and certain disorders involving the immune mechanism; Z13.29 Encounter for screening for other suspected endocrine disorder; Z13.220 Encounter for screening for lipoid disorders

== ENCOUNTER → 2021-12-24 | Outpatient (CLI) | payer OTHER ==
[~2021-12-24] MED LIST changes: -ZONI100C17 PO; +ZONI100C67 PO
== END ==
LOC: M SOG 08:04
PROVIDERS: ATTEND Orthopaedic Surgery
DX: T84.84XD Pain due to internal orthopedic prosthetic devices, implants and grafts, subsequent encounter (principal); M25.722 Osteophyte, left elbow

== ENCOUNTER → 2022-02-09 | Outpatient (CLI) | payer OTHER ==
[~2022-02-09] MED LIST changes: +ETON68IM SC; -NEXP1IMP SC
[2022-02-09 11:52] LABS: BLOOD UREA NITROGEN 10 MG/DL (7-18); CALCIUM LEVEL 10.3 MG/DL (8.5-10.1); CARBON DIOXIDE LEVEL 28 MEQ/L (21-32); CHLORIDE LEVEL 110 MEQ/L (98-107); CREATININE FOR GFR 0.96 MG/DL (0.55-1.30); GLOMERULAR FILTRATION RATE > 60.0 (>58); GLUCOSE, FASTING 86 MG/DL (70-100); POTASSIUM SERUM 4.2 MEQ/L (3.5-5.1); SODIUM LEVEL 139 MEQ/L (136-145)
== END ==
LOC: M LAB 09:30
PROVIDERS: ATTEND Surgery
DX: Z01.818 Encounter for other preprocedural examination (principal)

== ENCOUNTER → 2022-02-17 | Outpatient (CLI) | payer OTHER | LOC: M EKG 14:08 | PROVIDERS: ATTEND Nurse Practitioner Psychiatric/Mental Health | DX: F90.2 Attention-deficit hyperactivity disorder, combined type (principal); R94.31 Abnormal electrocardiogram [ECG] [EKG] ==

== ENCOUNTER → 2022-03-20 | Outpatient (CLI) | payer OTHER | LOC: M LABSMTC 10:22 | PROVIDERS: ATTEND Surgery | DX: Z11.52 Encounter for screening for COVID-19 (principal) ==

== ENCOUNTER 2022-03-28 19:12 | Emergency (ER) | payer OTHER ==
[~2022-03-28] VITALS: Ht 157.5 cm; Wt 97.7 kg
[2022-03-28 22:00] LABS: BASO % 0.3 % (0.0-1.0); EOS # 0.4 10^3/uL (0.0-0.5); EOS % 3.7 % (0.0-3.0); HEMATOCRIT 42.5 % (36.0-47.0); HEMOGLOBIN 14.3 g/dl (12.0-15.5); LYMPH # 2.6 10^3/uL (1.5-5.0); LYMPH % 22.8 % (24.0-44.0); MEAN CORPUSCULAR HEMOGLOBIN 30.5 pg (27.0-33.0); MEAN CORPUSCULAR HGB CONC 33.6 g/dl (32.0-36.5); MEAN CORPUSCULAR VOLUME 90.6 fl (80.0-96.0); MONO # 0.6 10^3/uL (0.0-0.8); MONO % 5.1 % (2.0-8.0); NEUTROPHILS # 7.8 10^3/uL (1.5-8.5); NEUTROPHILS % 67.8 % (36.0-66.0); PLATELET COUNT, AUTOMATED 268 10^3/uL (150-450); RED BLOOD COUNT 4.69 10^6/uL (4.00-5.40); WHITE BLOOD COUNT 11.5 10^3/uL (4.0-10.0)
[2022-03-28 22:44] LABS: CK-MB VALUE MASS < 1.0 NG/ML (<3.6); CPK CREATINE PHOSPHOKINASE 57 U/L (26-192); MB/CK RELATIVE INDEX 1.75 (< OR =4)
[2022-03-28 22:49] LABS: ALBUMIN 3.8 GM/DL (3.2-5.2); ALT/SGPT 19 U/L (12-78); BILIRUBIN,TOTAL 0.3 MG/DL (0.2-1.0); BLOOD UREA NITROGEN 14 MG/DL (7-18); CALCIUM LEVEL 9.5 MG/DL (8.5-10.1); CARBON DIOXIDE LEVEL 26 MEQ/L (21-32); CHLORIDE LEVEL 108 MEQ/L (98-107); CREATININE FOR GFR 1.01 MG/DL (0.55-1.30); FREE T4 1.29 NG/DL (0.76-1.46); GLOMERULAR FILTRATION RATE > 60.0 (>58); GLUCOSE, FASTING 96 MG/DL (70-100); MAGNESIUM LEVEL 2.2 MG/DL (1.8-2.4); POTASSIUM SERUM 4.4 MEQ/L (3.5-5.1); SODIUM LEVEL 140 MEQ/L (136-145); THYROID STIMULATING HORMONE 0.042 uIU/ML (0.358-3.740); TOTAL PROTEIN 7.1 GM/DL (6.4-8.2)
[2022-03-28 23:51] VITALS: BP 132/78
[2022-03-29] MEDS ORDERED: NS 1,000 ML IV ONE (00:30)
[2022-03-29] MEDS ORDERED: MECLIZINE 25 MG TABLET PO ONE (00:30)
[2022-03-29] MEDS ORDERED: ISOVUE-370 76% 100ML VIAL As Ordered ONE (00:33)
[2022-03-29] MEDS ORDERED: CALCIUM CARBONATE 500 MG CHEW U/D PO ONE (02:25)
[2022-03-29] MEDS ORDERED: MECL1TAB31 PO (03:21)
[2022-03-29] MEDS ORDERED: HOLTER MONITOR XX ×2 (03:38→03:42)
== END 2022-03-29 03:56 | disposition home or self-care (01) ==
LOC: M ED 19:12
DX: R42 Dizziness and giddiness (principal); E86.0 Dehydration; I10 Essential (primary) hypertension; E05.90 Thyrotoxicosis, unspecified without thyrotoxic crisis or storm; Z85.41 Personal history of malignant neoplasm of cervix uteri; Z88.8 Allergy status to other drugs, medicaments and biological substances; Z79.899 Other long term (current) drug therapy; Z79.3 Long term (current) use of hormonal contraceptives
CPT/HCPCS: 71275; 80053; 82550; 82553; 83735; 84439; 84443; 84484; 85025; 93005; 96360; 96361; 99284; Q9967

== ENCOUNTER → 2022-04-26 | Outpatient (REF) | payer OTHER ==
[~2022-04-26] MED LIST changes: +HOLTER MONITOR XX; +MECL1TAB31 PO
== END ==
LOC: M LAB REF 17:05
PROVIDERS: ATTEND Family Medicine
DX: N39.0 Urinary tract infection, site not specified (principal)

== ENCOUNTER → 2022-10-08 | Outpatient (CLI) | payer OTHER | LOC: M RAD 08:15 | PROVIDERS: ATTEND Chiropractor | DX: M48.061 Spinal stenosis, lumbar region without neurogenic claudication (principal); M51.27 Other intervertebral disc displacement, lumbosacral region; M99.03 Segmental and somatic dysfunction of lumbar region; M51.17 Intervertebral disc disorders with radiculopathy, lumbosacral region ==

== ENCOUNTER 2022-12-25 11:00 | Emergency (ER) | payer OTHER ==
[~2022-12-25] VITALS: Ht 157.5 cm; Wt 110.8 kg
[2022-12-25 14:21] VITALS: BP 129/79
[2022-12-25] MEDS ORDERED: HYDR-3713 PO (14:22)
[2022-12-25] MEDS ORDERED: ANEC4CRE3 TOP (14:22)
== END 2022-12-25 14:37 | disposition home or self-care (01) ==
LOC: M ED 11:00
DX: S92.352A Displaced fracture of fifth metatarsal bone, left foot, initial encounter for closed fracture (principal); X50.0XXA Overexertion from strenuous movement or load, initial encounter; Y92.89 Other specified places as the place of occurrence of the external cause; Y93.89 Activity, other specified; Y99.8 Other external cause status; I10 Essential (primary) hypertension; Z85.41 Personal history of malignant neoplasm of cervix uteri; Z88.8 Allergy status to other drugs, medicaments and biological substances; Z79.899 Other long term (current) drug therapy

== ENCOUNTER → 2023-03-16 | Outpatient (CLI) | payer OTHER ==
[~2023-03-16] MED LIST changes: +ANEC4CRE3 TOP; +DICY-61 PO; -DICY10CA13 PO; +HYDR-3713 PO
== END ==
LOC: M RAD 09:53
PROVIDERS: ATTEND Physician Assistant Surgical
DX: S92.352D Displaced fracture of fifth metatarsal bone, left foot, subsequent encounter for fracture with routine healing (principal)

== ENCOUNTER → 2023-05-05 | Outpatient (REF) | payer OTHER ==
[~2023-05-05] MED LIST changes: +MECL-209 PO; -MECL1TAB31 PO
[2023-05-05 15:14] LABS: APPEARANCE, URINE CLOUDY (CLEAR); BACTERIA, URINE AUTO 2+ (NEGATIVE); BILIRUBIN, URINE AUTO NEGATIVE (NEGATIVE); BLOOD, URINE BLOOD 1+ (NEGATIVE); COLOR, URINE YELLOW (YELLOW); GLUCOSE, URINE (UA) AUTO NEGATIVE (NEGATIVE); KETONE, URINE AUTO NEGATIVE (NEGATIVE); LEUKOCYTE ESTERASE, URINE AUTO 3+ (NEGATIVE); MUCUS, URINE SMALL (NEGATIVE); NITRITE, URINE AUTO POSITIVE (NEGATIVE); PROTEIN, URINE AUTO 1+ mg/dL (NEGATIVE); RBC, URINE AUTO 6 /HPF (0-3); SPECIFIC GRAVITY URINE AUTO 1.025 (1.002-1.035); SQUAMOUS EPITHELIAL CELL UR AU 2 /HPF (0-6); UROBILINOGEN, URINE AUTO 0.2 mg/dL (0.0-2.0); WBC, URINE AUTO 173 /HPF (0-3)
== END ==
LOC: M LAB REF 12:26
PROVIDERS: ATTEND Physician Assistant
DX: N39.0 Urinary tract infection, site not specified (principal)

== ENCOUNTER → 2023-07-14 | Outpatient (CLI) | payer OTHER | LOC: M EKG 16:34 | PROVIDERS: ATTEND Nurse Practitioner Psychiatric/Mental Health | DX: F90.0 Attention-deficit hyperactivity disorder, predominantly inattentive type (principal) ==

== ENCOUNTER → 2023-09-07 | Outpatient (CLI) | payer OTHER | LOC: M SLEEP HO 09:30 | PROVIDERS: ATTEND Nurse Practitioner Adult Health | DX: R06.83 Snoring (principal) ==

== ENCOUNTER → 2023-09-09 | Outpatient (CLI) | payer OTHER ==
[2023-09-09 10:14] LABS: BASO % 0.3 % (0.0-1.0); EOS # 0.1 10^3/uL (0.0-0.5); EOS % 1.5 % (0.0-3.0); HEMOGLOBIN 13.9 g/dl (12.0-15.5); LYMPH # 1.7 10^3/uL (1.5-5.0); LYMPH % 24.3 % (24.0-44.0); MEAN CORPUSCULAR HEMOGLOBIN 31.2 pg (27.0-33.0); MEAN CORPUSCULAR HGB CONC 33.9 g/dl (32.0-36.5); MEAN CORPUSCULAR VOLUME 91.9 fl (80.0-96.0); MONO # 0.3 10^3/uL (0.0-0.8); MONO % 4.6 % (2.0-8.0); PLATELET COUNT, AUTOMATED 292 10^3/uL (150-450); RED BLOOD COUNT 4.46 10^6/uL (4.00-5.40); WHITE BLOOD COUNT 7.2 10^3/uL (4.0-10.0)
[2023-09-09 10:37] LABS: HEMOGLOBIN A1c 5.8 % (4.0-6.0)
[2023-09-09 10:47] LABS: ALBUMIN 3.5 G/DL (3.2-5.2); ALKALINE PHOSPHATASE 92 U/L (46-116); ALT/SGPT 13 U/L (7.0-40); AST/SGOT 9 U/L (<34); BILIRUBIN,TOTAL 0.4 MG/DL (0.3-1.2); BLOOD UREA NITROGEN 8 MG/DL (9-23); CALCIUM LEVEL 8.9 MG/DL (8.5-10.1); CARBON DIOXIDE LEVEL 26 MMOL/L (20-31); CHLORIDE LEVEL 107 MMOL/L (98-107); CHOLESTEROL LEVEL 201 MG/DL (<200); CHOLESTEROL RISK RATIO 4.53 (<5); CREATININE FOR GFR 0.99 MG/DL (0.55-1.30); GLOMERULAR FILTRATION RATE > 60.0 (>58); GLUCOSE, FASTING 91 MG/DL (60-100); HDL CHOLESTEROL 44.3 MG/DL (>40); LDL CHOLESTEROL 134.5 MG/DL (<100); NON-HDL-C 156.7 MG/DL; PTH INTACT 84.1 PG/ML (18.5-88.0); SODIUM LEVEL 138 MMOL/L (136-145); TOTAL PROTEIN 6.8 G/DL (5.7-8.2); TRIGLYCERIDES LEVEL 111 MG/DL (<150)
[2023-09-09 10:48] LABS: FREE T4 0.85 NG/DL (0.89-1.76)
[2023-09-09 10:50] LABS: THYROID STIMULATING HORMONE 0.957 uIU/ML (0.55-4.78)
== END ==
LOC: M LAB 08:49
PROVIDERS: ATTEND Nurse Practitioner Adult Health
DX: I10 Essential (primary) hypertension (principal); E21.3 Hyperparathyroidism, unspecified; E66.01 Morbid (severe) obesity due to excess calories

== ENCOUNTER → 2024-03-08 | Outpatient (CLI) | payer OTHER ==
[~2024-03-08] MED LIST changes: -SENN1TAB41 PO; +SENN1TAB85 PO
== END ==
LOC: M SLEEP 20:00
PROVIDERS: ATTEND Nurse Practitioner Adult Health
DX: G47.33 Obstructive sleep apnea (adult) (pediatric) (principal)

== ENCOUNTER → 2024-04-12 | Outpatient (REF) | payer OTHER ==
[2024-04-12 14:16] LABS: BASO % 0.4 % (0.0-1.0); EOS # 0.2 10^3/uL (0.0-0.5); EOS % 2.1 % (0.0-3.0); HEMATOCRIT 39.8 % (36.0-47.0); HEMOGLOBIN 13.1 g/dl (12.0-15.5); LYMPH # 1.9 10^3/uL (1.5-5.0); MEAN CORPUSCULAR HEMOGLOBIN 30.3 pg (27.0-33.0); MEAN CORPUSCULAR HGB CONC 32.9 g/dl (32.0-36.5); MEAN CORPUSCULAR VOLUME 92.1 fl (80.0-96.0); MONO # 0.5 10^3/uL (0.0-0.8); NEUTROPHILS # 4.9 10^3/uL (1.5-8.5); NEUTROPHILS % 66.2 % (36.0-66.0); PLATELET COUNT, AUTOMATED 280 10^3/uL (150-450); RED BLOOD COUNT 4.32 10^6/uL (4.00-5.40); WHITE BLOOD COUNT 7.5 10^3/uL (4.0-10.0)
[2024-04-12 14:51] LABS: ALBUMIN 3.5 G/DL (3.2-5.2); ALKALINE PHOSPHATASE 98 U/L (46-116); ALT/SGPT 12 U/L (7.0-40); AST/SGOT < 8 U/L (<34); BILIRUBIN,TOTAL 0.4 MG/DL (0.3-1.2); BLOOD UREA NITROGEN 12 MG/DL (9-23); CALCIUM LEVEL 8.9 MG/DL (8.5-10.1); CARBON DIOXIDE LEVEL 29 MMOL/L (20-31); CHLORIDE LEVEL 106 MMOL/L (98-107); CHOLESTEROL LEVEL 217 MG/DL (<200); CHOLESTEROL RISK RATIO 5.22 (<5); CREATININE FOR GFR 0.99 MG/DL (0.55-1.30); GLOMERULAR FILTRATION RATE > 60.0 (>58); GLUCOSE, FASTING 84 MG/DL (60-100); HDL CHOLESTEROL 41.5 MG/DL (>40); LDL CHOLESTEROL 150.9 MG/DL (<100); NON-HDL-C 175.5 MG/DL; POTASSIUM SERUM 3.9 MMOL/L (3.5-5.1); SODIUM LEVEL 138 MMOL/L (136-145); TOTAL PROTEIN 6.5 G/DL (5.7-8.2); TRIGLYCERIDES LEVEL 123 MG/DL (<150)
[2024-04-12 14:52] LABS: FREE T4 0.97 NG/DL (0.89-1.76); THYROID STIMULATING HORMONE 0.989 uIU/ML (0.55-4.78)
[2024-04-12 17:01] LABS: PTH INTACT 89.9 PG/ML (18.5-88.0)
== END ==
LOC: M LABDRWAD 13:26
PROVIDERS: ATTEND Nurse Practitioner Adult Health
DX: I10 Essential (primary) hypertension (principal); E21.3 Hyperparathyroidism, unspecified; F41.1 Generalized anxiety disorder; E66.01 Morbid (severe) obesity due to excess calories

== ENCOUNTER 2024-05-22 07:05 | Day surgery (SDC) | payer OTHER ==
[~2024-05-22] VITALS: Ht 157.5 cm; Wt 109.2 kg
[~2024-05-22 07:05] MED LIST changes: +LAMO100T80 PO
[2024-05-22] MEDS: NS 250 ML IV ONE (07:28)
[2024-05-22] MEDS ORDERED: propofoL 200 MG/20 ML VIAL As Ordered ONE (08:06)
[2024-05-22 08:41] VITALS: TEMP 97.2
[2024-05-22 08:55] VITALS: BP 130/82; O2SAT 99
== END 2024-05-22 09:01 | disposition home or self-care (01) ==
LOC: M OPP 07:05
PROVIDERS: ATTEND Surgery
DX: R19.4 Change in bowel habit (principal); I10 Essential (primary) hypertension; K58.9 Irritable bowel syndrome, unspecified; K21.9 Gastro-esophageal reflux disease without esophagitis; F41.9 Anxiety disorder, unspecified; F32.A Depression, unspecified; F43.10 Post-traumatic stress disorder, unspecified; Z88.8 Allergy status to other drugs, medicaments and biological substances; Z79.51 Long term (current) use of inhaled steroids; Z79.899 Other long term (current) drug therapy

== ENCOUNTER → 2025-04-21 | Outpatient (CLI) | payer OTHER ==
[~2025-04-21] MED LIST changes: -IBUP-1022 PO; +IBUP600T42 PO
[2025-04-21 11:25] LABS: PLATELET COUNT, AUTOMATED 255 10^3/uL (150-450)
[2025-04-21 11:36] LABS: ESTIMATED AVERAGE GLUCOSE 114.0 MG/DL (60-110)
[2025-04-21 11:55] LABS: ALT/SGPT 23.0 U/L (7.0-40); AST/SGOT 16.0 U/L (<34); CALCIUM LEVEL 9.4 MG/DL (8.5-10.1); CARBON DIOXIDE LEVEL 25.0 MMOL/L (20-31); CHLORIDE LEVEL 105.0 MMOL/L (98-107); CREATININE FOR GFR 0.85 MG/DL (0.55-1.30); GLOMERULAR FILTRATION RATE 85.0 (>58); POTASSIUM SERUM 3.5 MMOL/L (3.5-5.1); SODIUM LEVEL 142.0 MMOL/L (136-145)
== END ==
LOC: M LAB 09:48
PROVIDERS: ATTEND Physician Assistant Surgical
DX: E66.813 Obesity, class 3 (principal)

== ENCOUNTER 2025-05-20 07:53 | Outpatient (CLI) | payer OTHER ==
[~2025-05-20] VITALS: Ht 157.5 cm; Wt 95.5 kg
[2025-05-20] MEDS ORDERED: ACETAMINOPHEN 325 MG TAB PO PRN (08:00)
[2025-05-20] MEDS ORDERED: MULTIVITAMIN -ADULT INJECTION 10 ML, FOLIC ACID 1 MG, THIAMINE INJection 100 MG, MAGNES... IV ONE (08:00)
[2025-05-20 08:20] VITALS: BP 140/80; O2SAT 98
[2025-05-20] MEDS: LR 1,000 ML IV SCH (08:33)
[2025-05-20] MEDS: MULTIVITAMIN -ADULT INJECTION 10 ML, FOLIC ACID 1 MG, THIAMINE INJection 100 MG, MAGNES... IV ONE (11:47)
[2025-05-20 13:03] VITALS: BP 138/76; O2SAT 99
== END 2025-05-20 13:12 | disposition home or self-care (01) ==
LOC: M INFU 07:53
PROVIDERS: ATTEND Student in an Organized Health Care Education/Training Program
DX: E86.0 Dehydration (principal); Z88.8 Allergy status to other drugs, medicaments and biological substances
CPT/HCPCS: 96361; 96365; J1808; J3411; J3475

== ENCOUNTER 2025-05-27 08:10 | Outpatient (CLI) | payer OTHER ==
[~2025-05-27] VITALS: Ht 157.5 cm; Wt 93.6 kg
[2025-05-27 08:20] VITALS: BP 138/77; O2SAT 100
[2025-05-27] MEDS: LR 1,000 ML IV SCH (08:28)
[2025-05-27] MEDS ORDERED: ACETAMINOPHEN 325 MG TAB PO PRN (08:30)
[2025-05-27] MEDS: MULTIVITAMIN -ADULT INJECTION 10 ML, FOLIC ACID 1 MG, THIAMINE INJection 100 MG, MAGNES... IV ONE (11:41)
[2025-05-27 12:55] VITALS: BP 115/64; O2SAT 100
== END 2025-05-27 13:00 | disposition home or self-care (01) ==
LOC: M INFU 08:10
PROVIDERS: ATTEND Student in an Organized Health Care Education/Training Program
DX: E86.0 Dehydration (principal); Z88.8 Allergy status to other drugs, medicaments and biological substances
CPT/HCPCS: 96361; 96365; J1808; J3411; J3475

== ENCOUNTER 2025-06-03 07:36 | Outpatient (CLI) | payer OTHER ==
[~2025-06-03] VITALS: Ht 157.5 cm; Wt 91.3 kg
[2025-06-03] MEDS ORDERED: ACETAMINOPHEN 325 MG TAB PO PRN (07:50)
[2025-06-03] MEDS: LR 1,000 ML IV SCH (07:59)
[2025-06-03 08:03] VITALS: BP 155/90; O2SAT 99
[2025-06-03] MEDS: MULTIVITAMIN -ADULT INJECTION 10 ML, FOLIC ACID 1 MG, THIAMINE INJection 100 MG, MAGNES... IV ONE (11:34)
[2025-06-03 12:45] VITALS: BP 138/75; O2SAT 100
== END 2025-06-03 12:50 ==
LOC: M INFU 07:36
PROVIDERS: ATTEND Student in an Organized Health Care Education/Training Program
DX: E86.0 Dehydration (principal); Z88.8 Allergy status to other drugs, medicaments and biological substances
CPT/HCPCS: 96361; 96365; J1808; J3411; J3475

== ENCOUNTER 2025-06-10 07:51 | Outpatient (CLI) | payer OTHER ==
[~2025-06-10] VITALS: Ht 157.5 cm; Wt 91.0 kg
[2025-06-10] MEDS ORDERED: ONDANSETRON 4MG TAB PO PRN (08:00)
[2025-06-10] MEDS ORDERED: ACETAMINOPHEN 325 MG TAB PO PRN (08:00)
[2025-06-10 08:30] VITALS: BP 121/58; O2SAT 100
[2025-06-10] MEDS: LR 1,000 ML IV SCH (08:37)
[2025-06-10] MEDS: MULTIVITAMIN -ADULT INJECTION 10 ML, FOLIC ACID 1 MG, THIAMINE INJection 100 MG, MAGNES... IV ONE (11:59)
[2025-06-10 13:26] VITALS: BP 150/72; O2SAT 100
== END 2025-06-10 13:30 | disposition home or self-care (01) ==
LOC: M INFU 07:51
PROVIDERS: ATTEND Student in an Organized Health Care Education/Training Program
DX: E86.0 Dehydration (principal); Z88.8 Allergy status to other drugs, medicaments and biological substances
CPT/HCPCS: 96361; 96365; J1808; J3411; J3475

== ENCOUNTER → 2025-06-13 | Outpatient (REF) | payer OTHER ==
[2025-06-13 17:56] LABS: APPEARANCE, URINE CLOUDY (CLEAR); BACTERIA, URINE AUTO 1+ (NEGATIVE); BILIRUBIN, URINE AUTO NEGATIVE (NEGATIVE); BLOOD, URINE BLOOD 2+ (NEGATIVE); GLUCOSE, URINE (UA) AUTO NEGATIVE (NEGATIVE); KETONE, URINE AUTO 1+ mg/dL (NEGATIVE); LEUKOCYTE ESTERASE, URINE AUTO 3+ (NEGATIVE); MUCUS, URINE SMALL (NEGATIVE); NITRITE, URINE AUTO NEGATIVE (NEGATIVE); PROTEIN, URINE AUTO 1+ mg/dL (NEGATIVE); RBC, URINE AUTO 30 /HPF (0-3); SPECIFIC GRAVITY URINE AUTO 1.023 (1.002-1.035); SQUAMOUS EPITHELIAL CELL UR AU 5 /HPF (0-6); UROBILINOGEN, URINE AUTO 4.0 mg/dL (0.0-2.0); WBC, URINE AUTO TNTC /HPF (0-3)
== END ==
LOC: M LAB REF 17:00
PROVIDERS: ATTEND Physician Assistant Medical
DX: N39.0 Urinary tract infection, site not specified (principal)